=== PATIENT | female | born 1950 | race Caucasian/White ===

== ENCOUNTER → 2018-01-06 07:13 | Outpatient (CLI) | payer MEDICARE, MEDICAID, SELFPAY ==
--- NOTE | 2018-01-06 07:17 | CT_ITS ---
STUDY: CT CHEST WITH CONTRAST REASON FOR EXAM: Female, 67 years old. Follow-up of a known thoracic aortic aneurysm. RADIATION DOSAGE (If Supplied By Facility): CTDIvol = ( 12.21 ) mGy, DLP = ( 497.16 ) mGycm TECHNIQUE: Transaxial imaging was performed following intravenous administration of 100CC ml of Isovue 250 contrast material. Multiplanar coronal and sagittal images were reformatted. Individualized dose optimization techniques were used for this CT. COMPARISON: Comparison is made with prior study dated September 27, 2014. FINDINGS: Slight inhomogeneous enlargement of the left lobe of the thyroid gland suggestive of a goitrous change. The lungs are normal. There is no demonstrated pleural abnormality. Normal heart and pericardium. There are multiple small lymph nodes within the mediastinum, which are normal in size and morphology most compatible with reactive lymph hyperplasia. Normal hilar regions. Normal enhanced pulmonary arteries. The ascending aorta is dilated. It presently measures 4.48 cm. There is evidence of aberrant origin of the right subclavian artery arising from the aortic arch distal to the origin of the left subclavian vein. This crosses posterior to the esophagus. There are multi-level degenerative changes of the thoracic spine. There is no demonstrated abnormality of the visualized upper abdomen. CT/Chest WITH Contrast IMPRESSION: For the dilatation of the ascending aorta at its origin with a transverse dimension of 4.48 cm. Aberrant origin of the right subclavian artery. Electronically Signed: Brandon Uribe MD at 11:27 EDT Tel [phone], Service support ,
== END ==
PROVIDERS: Family Provider Family Medicine; PCP Family Medicine; Visit Provider Nurse Practitioner Family
DX: I71.9 Aortic aneurysm of unspecified site, without rupture (principal)
CPT/HCPCS: 71260; Q9967

== ENCOUNTER → 2018-01-20 09:00 | Outpatient (CLI) | payer MEDICARE, MEDICAID, SELFPAY ==
--- NOTE | 2018-01-20 09:03 | ECHOD_ITS ---
Reason For Study: SOB Procedure This was a 2D Doppler, Color Flow transthoracic echocardiogram. Exam performed in department. Left Ventricle Normal LV size. Left ventricular systolic function is lower limits of normal. The estimated ejection fraction is 50 %. No regional wall motion abnormalities noted. Tricuspid Valve Normal tricuspid valve. Mild (1+) tricuspid valve insufficiency. Pulmonary artery systolic pressure is 26 mmHg. Aortic Valve Trisinus/trileaflet aortic valve. Mild (1+) aortic valve insufficiency. Pulmonic Valve Normal pulmonic valve. Great Vessels Mildly dilated aortic root. The pulmonary artery is normal size. Normal inferior vena cava. Pericardium/Pleural No pericardial effusion. MMode/2D Measurements & Calculations LVIDd: 4.8 cm IVSd: 0.96 cm Ao root diam: 4.0 cm LVIDs: 2.9 cm LVPWd: 0.95 cm LA dimension: 2.9 cm RVDd: 3.1 cm FS: 38.3 % LAV(MOD-bp): 30.4 ml LA A4 area: 12.0 cm2 RA A4 area: 14.3 cm2 LAV(MOD-bp) Indexed: 14.5 ml/m2 LAV(MOD-sp2): 34.7 ml LAV(MOD-sp4): 28.1 ml Doppler Measurements & Calculations MV E max nakul: 40.0 cm/sec Lat Peak E' Nakul: 6.8 cm/sec Med Peak E' Nakul: 4.4 cm/sec MV A max nakul: 110.6 cm/sec E/E' lat: 5.8 E/E' med: 9.1 MV E/A: 0.36 Ao V2 max: 148.3 cm/sec LV V1 max: 118.5 cm/sec PA V2 max: 114.6 cm/sec Ao max P.8 mmHg LV V1 max P.6 mmHg Ao V2 mean: 106.3 cm/sec Ao mean P.0 mmHg Ao V2 VTI: 27.2 cm TR max nakul: 231.6 cm/sec TR max P.5 mmHg Interpretation Summary Normal LV size. Left ventricular systolic function is lower limits of normal. The estimated ejection fraction is 50 %. Mildly dilated aortic root. Mild (1+) aortic valve insufficiency. Ordering Physician: Patrick Morris Referring Physician: Faheem Marrero Performed By: Anna Morris, JENNIFER, RVT
== END ==
PROVIDERS: Family Provider Family Medicine; PCP Family Medicine; Visit Provider Nurse Practitioner Family
DX: R06.02 Shortness of breath (principal); I71.9 Aortic aneurysm of unspecified site, without rupture; R60.9 Edema, unspecified
CPT/HCPCS: 93306

== ENCOUNTER → 2019-07-28 | Outpatient (CLI) | payer MEDICARE, MEDICAID, SELFPAY ==
[2019-07-28 09:01] VITALS: BMI 30.8
[2019-07-28 12:03] LABS: Anion Gap 7 (5-15); BUN 16 mg/dL (7-18); BUN/Creat Ratio 18.8 RATIO (10-20); Calcium,Total 9.1 mg/dL (8.5-10.1); Chloride 106 mmol/L (98-107); Creatinine, Serum 0.85 mg/dL (0.55-1.02); EST Glomerular Filtration Rate 70 mL/min (>60); Est Glom Filt Rate - Afr Amer 85 mL/min (>60); Glucose 87 mg/dL (74-106); Potassium 3.7 mmol/L (3.5-5.1); Sodium Level 141 mmol/L (136-145)
[2019-07-28 12:04] LABS: BNP,B-Type NATRIURETIC PEPTIDE 102.3 pg/mL (0-100)
== END | disposition home or self-care (01) ==
PROVIDERS: Family Provider Family Medicine; PCP Family Medicine; Referring Provider Internal Medicine Cardiovascular Disease; Visit Provider Internal Medicine Cardiovascular Disease
DX: R07.9 Chest pain, unspecified (principal)
CPT/HCPCS: 36415; 80048; 83880

== ENCOUNTER → 2020-03-12 | Outpatient (CLI) | payer MEDICARE, MEDICAID, SELFPAY ==
[2020-01-31 09:53] VITALS: BMI 30.8
[2020-03-12 08:02] LABS: AST(SGOT) 18 U/L (15-37); Alanine Aminotransfer ALT/SGPT 24 U/L (13-56); Albumin, Serum 3.7 g/dL (3.2-5.0); Alkaline Phosphatase 53 U/L (45-117); Anion Gap 7 (5-15); BUN 15 mg/dL (7-18); BUN/Creat Ratio 13.9 RATIO (10-20); Bilirubin, Direct 0.14 mg/dL (0.00-0.30); Chloride 108 mmol/L (98-107); Cholesterol 196 mg/dL (200); Creatinine, Serum 1.08 mg/dL (0.55-1.02); EST Glomerular Filtration Rate 53 mL/min (>60); Est Glom Filt Rate - Afr Amer 64 mL/min (>60); Globulin 3.4 g/dL (2.2-4.2); Glucose 116 mg/dL (74-106); High Density Lipoprotein 52 mg/dL; Potassium 3.6 mmol/L (3.5-5.1); Protein, Total 7.1 g/dL (6.4-8.2); Sodium Level 142 mmol/L (136-145); Triglycerides 117 mg/dL; Very Low Density Lipoprotein 23 mg/dL (5-40)
--- NOTE | 2020-03-12 10:03 | STRESSREP ---
Stress Test Report Pharmacologic myocardial perfusion stress test. 69-year-old lady with a history of chest pain. Stress protocol: Resting EKG demonstrates atrial fibrillation with a rate of [address] changes noted. 0.4 mg of regadenoson was infused per usual protocol followed by rapid intravenous saline flush injection continuous EKG monitoring was performed. The maximum heart rate attained was 121 bpm which was 80% of maximum predicted heart rate the maximum workload was 1 metabolic equivalent. At rest there were no ST or T wave changes noted to suggest ischemia at peak infusion nonspecific ST-T wave changes were noted. The resting blood pressure 110/80 with a final blood pressure 118/80. Myocardial perfusion protocol. 15.0 mCi of technetium 99m sestamibi was injected at rest. 0.4 mg of regadenoson was infused per usual protocol. At peak infusion 45.0 mCi of technetium 99m sestamibi was injected stress images were obtained stress and resting images were reconstructed and compared in the short axis vertical long horizontal long axis. Gated images were also obtained Perfusion SPECT analysis: Review of the stress images demonstrate normal uptake of tracer noted in all areas of the myocardium the resting images similarly demonstrate normal uptake of tracer noted in all areas of the myocardium. No reversibility is noted to suggest ischemia no infarct is noted. Gated SPECT analysis: The gated ejection fraction is 44%. Conclusion: Atrial fibrillation. No evidence of myocardial ischemia noted. Mild global left ventricular systolic dysfunction.
== END | disposition home or self-care (01) ==
PROVIDERS: PCP Family Medicine; Referring Provider Physician Assistant Medical; Visit Provider Physician Assistant Medical
DX: R07.9 Chest pain, unspecified (principal); I48.91 Unspecified atrial fibrillation; I71.2 Thoracic aortic aneurysm, without rupture; I10 Essential (primary) hypertension
CPT/HCPCS: 36415; 78452; 80048; 80061; 80076; 93017; 93225; 93226; A9500; A4216; J2785

== ENCOUNTER → 2020-03-21 10:12 | Outpatient (CLI) | payer MEDICARE, MEDICAID, SELFPAY ==
[2020-01-31 09:53] VITALS: BMI 30.8
--- NOTE | 2020-03-21 10:13 | ECHOD_ITS ---
Reason For Study: AFIB/FLUTTER Procedure This was a 2D Doppler, Color Flow transthoracic echocardiogram. Exam performed in department. Left Ventricle Normal LV size. Left ventricular systolic function is lower limits of normal. The estimated ejection fraction is 50 %. Stage 1 diastolic dysfunction. No regional wall motion abnormalities noted. Right Ventricle Normal RV size. Normal systolic function. Atria The left atrium is mildly enlarged. Normal right atrium. Mitral Valve Normal mitral valve. Trivial eccentric mitral valve insufficiency. Tricuspid Valve Normal tricuspid valve. Mild (1+) tricuspid valve insufficiency. Pulmonary artery systolic pressure is 30 mmHg. Aortic Valve Trisinus/trileaflet aortic valve. Pulmonic Valve Normal pulmonic valve. Great Vessels Mild to moderately dilated aortic root. The pulmonary artery is normal size. Normal inferior vena cava. Pericardium/Pleural No pericardial effusion. MMode/2D Measurements & Calculations LVIDd: 4.6 cm IVSd: 1.2 cm Ao root diam: 4.1 cm LVIDs: 3.2 cm LVPWd: 1.1 cm RVDd: 3.7 cm FS: 30.4 % LAV(MOD-bp): 67.1 ml LA A4 area: 22.2 cm2 LA dimension(2D): 3.5 cm LAV(MOD-bp) Indexed: 31.2 ml/m2 LAV(MOD-sp2): 67.6 ml LAV(MOD-sp4): 65.9 ml RA A4 area: 20.5 cm2 Time Measurements MV dec time: 0.20 sec Doppler Measurements & Calculations MV E max nakul: 76.3 cm/sec Lat Peak E' Nakul: 8.5 cm/sec Med Peak E' Nakul: 6.2 cm/sec MV A max nakul: 93.1 cm/sec E/E' lat: 9.0 E/E' med: 12.3 MV E/A: 0.82 Ao V2 max: 144.3 cm/sec LV V1 max: 109.4 cm/sec PA V2 max: 122.9 cm/sec Ao max P.3 mmHg LV V1 max P.8 mmHg TR max nakul: 259.0 cm/sec TR max P.9 mmHg Interpretation Summary Normal LV size. Left ventricular systolic function is lower limits of normal. The estimated ejection fraction is 50 %. The left atrium is mildly enlarged. Stage 1 diastolic dysfunction. Compared to previous study, the left ventricular systolic function is the same.. Ordering Physician: Annamarie Nuñez Referring Physician: Faheem Marrero Performed By: Vera Phan RDCS, RVT
== END ==
PROVIDERS: PCP Family Medicine; Referring Provider Physician Assistant Medical; Visit Provider Physician Assistant Medical
DX: I48.91 Unspecified atrial fibrillation (principal); I48.92 Unspecified atrial flutter; R06.02 Shortness of breath
CPT/HCPCS: 93306

== ENCOUNTER → 2020-04-06 12:26 | Outpatient (CLI) | payer MEDICARE, MEDICAID, SELFPAY ==
[2020-04-06 11:34] VITALS: BMI 30.7
[2020-04-06 13:28] LABS: Absolute Lymphocyte Count 2.76 X10^3/uL (0.83-4.51); Absolute Neutrophil Count 5.7 X10^3/uL (2.0-7.7); Basophil# 0.03 X10^3/uL; Basophil% 0.3 % (0-1); Eosinophil# 0.11 X10^3/uL; Eosinophils% 1.2 % (0-5); Hematocrit 37.3 % (37-47); Hemoglobin 11.8 g/dL (12.0-15.0); Lymphocyte # 2.76 X10^3/ul (4.0); Lymphocyte % 30.3 % (19-41); Mean Corp Hgb Conc 31.6 g/dL (32-36); Mean Corpuscular Hgb 30.8 pg (27.0-32.0); Mean Corpuscular Volume 97.4 fL (81-99); Mean Platelet Vol. 11.4 fl (6.2-12.0); Monocyte# 0.52 X10^3/uL; Monocyte% 5.7 % (0-10); NRBC Flagged by Analyzer 0 % (0-5); Neutrophil # 5.67 X10^3/uL (2.7-7.7); Neutrophil % 62.2 % (47-70); Platelet Count 261 K/mm3 (150-450); RBC Distribution Width CV 12.4 % (11.6-14.6); RBC Distribution Width SD 43.8 fl (35.1-43.9); Red Blood Count 3.83 M/mm3 (4.2-5.4); White Blood Count 9.1 K/mm3 (4.4-11.0)
[2020-04-06 13:55] LABS: BNP,B-Type NATRIURETIC PEPTIDE 96.1 pg/mL (0-100)
== END ==
PROVIDERS: PCP Family Medicine; Referring Provider Physician Assistant Medical; Visit Provider Physician Assistant Medical
DX: R06.02 Shortness of breath (principal); I71.2 Thoracic aortic aneurysm, without rupture
CPT/HCPCS: 36415; 83880; 85025

== ENCOUNTER → 2020-07-20 | Outpatient (CLI) | payer MEDICARE, MEDICAID, SELFPAY ==
[2020-07-20 09:39] VITALS: BMI 30.9
[2020-07-20 11:10] LABS: Absolute Lymphocyte Count 2.23 X10^3/uL (0.83-4.51); Basophil# 0.02 X10^3/uL; Basophil% 0.3 % (0-1); Eosinophil# 0.12 X10^3/uL; Eosinophils% 1.5 % (0-5); Hemoglobin 12.2 g/dL (12.0-15.0); Lymphocyte # 2.23 X10^3/ul (4.0); Lymphocyte % 28.6 % (19-41); Mean Corp Hgb Conc 32.1 g/dL (32-36); Mean Corpuscular Hgb 31.2 pg (27.0-32.0); Mean Corpuscular Volume 97.2 fL (81-99); Mean Platelet Vol. 11.2 fl (6.2-12.0); Monocyte# 0.45 X10^3/uL; Monocyte% 5.8 % (0-10); NRBC Flagged by Analyzer 0 % (0-5); Neutrophil # 4.96 X10^3/uL (2.7-7.7); Neutrophil % 63.5 % (47-70); Platelet Count 276 K/mm3 (150-450); RBC Distribution Width SD 42.5 fl (35.1-43.9); Red Blood Count 3.91 M/mm3 (4.2-5.4); White Blood Count 7.8 K/mm3 (4.4-11.0)
[2020-07-20 11:44] LABS: BNP,B-Type NATRIURETIC PEPTIDE 115.2 pg/mL (0-100)
[2020-07-20 11:54] LABS: Anion Gap 4 (5-15); BUN 15 mg/dL (7-18); BUN/Creat Ratio 14.7 RATIO (10-20); Calcium,Total 9.4 mg/dL (8.5-10.1); Chloride 105 mmol/L (98-107); Creatinine, Serum 1.02 mg/dL (0.55-1.02); EST Glomerular Filtration Rate 57 mL/min (>60); Est Glom Filt Rate - Afr Amer 69 mL/min (>60); Glucose 132 mg/dL (74-106); Potassium 3.5 mmol/L (3.5-5.1); Sodium Level 138 mmol/L (136-145); Thyroid Stim Hormone (TSH) 0.61 uIU/mL (0.358-3.74)
== END | disposition home or self-care (01) ==
LOC: LAB 10:27
PROVIDERS: Referring Provider Physician Assistant Medical; Visit Provider Physician Assistant Medical
DX: I10 Essential (primary) hypertension (principal); R06.00 Dyspnea, unspecified; R53.83 Other fatigue; R06.02 Shortness of breath; R07.9 Chest pain, unspecified
CPT/HCPCS: 36415; 80048; 83880; 84443; 85025

== ENCOUNTER → 2021-03-05 10:07 | Outpatient (CLI) | payer MEDICARE, MEDICAID, SELFPAY ==
[2021-03-05 07:55] VITALS: BMI 30.4
[2021-03-05 11:35] LABS: ALB/GLOB Ratio 1.1 RATIO (0.9-2.4); AST(SGOT) 24 U/L (15-37); Alanine Aminotransfer ALT/SGPT 24 U/L (13-56); Albumin, Serum 3.8 g/dL (3.2-5.0); Alkaline Phosphatase 63 U/L (45-117); Anion Gap 6 (5-15); BUN 17 mg/dL (7-18); BUN/Creat Ratio 20.3 RATIO (10-20); Bilirubin, Direct 0.14 mg/dL (0.00-0.30); Calcium,Total 9.1 mg/dL (8.5-10.1); Chloride 107 mmol/L (98-107); Cholesterol 207 mg/dL (200); Creatinine, Serum 0.84 mg/dL (0.55-1.02); EST Glomerular Filtration Rate 71 mL/min (>60); Est Glom Filt Rate - Afr Amer 86 mL/min (>60); Globulin 3.6 g/dL (2.2-4.2); Glucose 86 mg/dL (74-106); High Density Lipoprotein 60 mg/dL; Potassium 3.6 mmol/L (3.5-5.1); Protein, Total 7.4 g/dL (6.4-8.2); Sodium Level 141 mmol/L (136-145); Triglycerides 102 mg/dL; Very Low Density Lipoprotein 20 mg/dL (5-40)
== END ==
PROVIDERS: Referring Provider Internal Medicine Cardiovascular Disease; Visit Provider Internal Medicine Cardiovascular Disease
DX: I48.0 Paroxysmal atrial fibrillation (principal); I71.2 Thoracic aortic aneurysm, without rupture
CPT/HCPCS: 36415; 80053; 80061; 82248

== ENCOUNTER → 2021-03-11 09:21 | Outpatient (CLI) | payer MEDICARE, MEDICAID, SELFPAY ==
[2021-03-05 07:55] VITALS: BMI 30.4
--- NOTE | 2021-03-11 09:22 | CT_ITS ---
STUDY: CTA CHEST REASON FOR EXAM: Female, 70 years old. Acute chest pain RADIATION DOSAGE (If Supplied By Facility): CTDIvol = ( 12.54 ) mGy, DLP = ( 559.55 ) mGycm TECHNIQUE: The examination was performed with the intravenous administration of IV 100mL Isovue-370. Post-processing of the angiographic images was performed, with multiplanar reformation and 3D reconstruction. Individualized dose optimization techniques were used for this CT. COMPARISON: 03/08/2018 FINDINGS: Soft tissue windows again show enlargement of the left lobe of the thyroid gland with multiple low-density nodule suggesting goiter. Normal enhancement of the main pulmonary artery and right and left pulmonary arteries. Normal enhancement of the bilateral peripheral pulmonary arteries. There is no demonstrated pulmonary embolism. There is stable aneurysmal dilatation of the ascending aorta. The transverse diameter of the ascending aorta again measures approximately 4.4 cm''s. There is no demonstrated aortic dissection. Normal heart and pericardium. Normal mediastinum. Normal hilar regions. Normal visualized trachea and bronchi. The lungs are well expanded. Normal pulmonary parenchyma. Normal pleura. Normal chest wall structures. There are degenerative changes of thoracic spine. Limited cuts through the upper abdomen show fatty infiltration of the liver, no discrete lesion CT/CTA Chest W/WO Contrast IMPRESSION: No demonstrated PE or acute pulmonary process Stable aneurysmal dilatation of the ascending thoracic aorta at 4.4 cm. Electronically Signed: Juan Manuel Ivory MD at 11:58 EDT , Service support ,
== END ==
PROVIDERS: Referring Provider Internal Medicine Cardiovascular Disease; Visit Provider Internal Medicine Cardiovascular Disease
DX: I71.2 Thoracic aortic aneurysm, without rupture (principal)
CPT/HCPCS: 71275; Q9967

== ENCOUNTER → 2021-04-12 09:56 | Outpatient (CLI) | payer MEDICARE, MEDICAID, SELFPAY ==
[2021-04-12 09:28] VITALS: BMI 30.4
--- NOTE | 2021-04-12 10:31 | RAD_ITS ---
STUDY: X-RAY - LEFT ANKLE REASON FOR EXAM: Left ankle pain and swelling, no specific injury. TECHNIQUE: 3 view(s) of the ankle. COMPARISON: None. FINDINGS: Normal visualized distal tibia and fibula. Normal medial and lateral malleoli. Normal tibiotalar articulation and ankle mortise. There is a small plantar calcaneal enthesophyte. Otherwise, unremarkable visualized talus and calcaneus. The visualized subtalar, talonavicular, calcaneocuboid and tarsal articulations are normal. There is mild soft tissue swelling. RAD/Ankle min 3 Views IMPRESSION: Mild soft tissue swelling. Small plantar calcaneal enthesophyte. Electronically Signed: Erwin Stinson MD at 13:15 EDT Tel , Service support ,
[2021-04-12 12:18] LABS: Absolute Lymphocyte Count 1.81 X10^3/uL (0.83-4.51); Absolute Neutrophil Count 4.5 X10^3/uL (2.0-7.7); Basophil# 0.02 X10^3/uL; Basophil% 0.3 % (0-1); Eosinophil# 0.13 X10^3/uL; Eosinophils% 1.9 % (0-5); Lymphocyte # 1.81 X10^3/ul (0.83-4.51); Lymphocyte % 26.4 % (19-41); Mean Corp Hgb Conc 31.6 g/dL (32-36); Mean Corpuscular Hgb 30.2 pg (27.0-32.0); Mean Corpuscular Volume 95.5 fL (81-99); Monocyte# 0.39 X10^3/uL; Monocyte% 5.7 % (0-10); NRBC Flagged by Analyzer 0 % (0-5); Neutrophil # 4.49 X10^3/uL (2.7-7.7); Neutrophil % 65.4 % (47-70); Platelet Count 226 K/mm3 (150-450); RBC Distribution Width CV 12.3 % (11.6-14.6); RBC Distribution Width SD 42.7 fl (35.1-43.9); Red Blood Count 3.98 M/mm3 (4.2-5.4); White Blood Count 6.9 K/mm3 (4.4-11.0)
== END ==
PROVIDERS: PCP Internal Medicine; Referring Provider Internal Medicine; Visit Provider Internal Medicine
DX: M25.572 Pain in left ankle and joints of left foot (principal); I10 Essential (primary) hypertension
CPT/HCPCS: 36415; 73610; 85025

== ENCOUNTER → 2021-04-25 13:21 | Outpatient (CLI) | payer MEDICARE, MEDICAID, SELFPAY ==
[2021-04-12 09:28] VITALS: BMI 30.4
--- NOTE | 2021-04-25 13:23 | BI_ITS ---
MAMMOGRAPHY - BILATERAL SCREENING REASON FOR EXAM: Female, 70 years old. Routine annual screening examination. PERTINENT HISTORY: Non-contributory. TECHNIQUE: Digital bilateral breast santiago (3D mammographic acquisition) in the CC and MLO projections. 2-D mediolateral oblique (MLO) and craniocaudad (CC) views of both breasts were obtained. CAD: Full Field Digital Mammography with Computer Added Detection was performed. COMPARISON: Comparison is made with prior outside examination dated 08/31/2017. FINDINGS: Breast Composition: There are scattered areas of fibroglandular density. There are no dominant masses or suspicious calcifications. Stable small benign-appearing bilateral axillary lymph nodes. No other significant abnormalities are identified. There has been no significant change since the prior study. BI/SCRN MAMM (CAD)W/SANTIAGO BILAT IMPRESSION: Stable bilateral screening mammogram. Yearly follow-up mammogram recommended. (A) ASSESSMENT CATEGORY: BIRADS Category 2: Benign. A letter regarding these results will be sent to the patient by the facility within 30 days. Approximately 10% of breast cancers are not detected by mammography. A normal mammogram should not delay biopsy of a clinically suspicious abnormality. [id number] Electronically Signed: Brandon Uribe MD at 14:40 EDT , Service support ,
--- NOTE | 2021-04-25 13:27 | BD_ITS ---
STUDY: DUAL ENERGY X-RAY ABSORPTIOMETRY / DXA REASON FOR EXAM: Female, 70 years old. Post menopausal TECHNIQUE: Bone Mineral Density (BMD) measurements of lumbar spine and bilateral hips were obtained. COMPARISON: None. FINDINGS: Lumbar Spine (L1-L4): g/cm2 (1.343) / T-score (1.5) / Z-score (3.2) Findings are suggestive of normal bone density with a low fracture risk. Left Femur Total: g/cm2 (1.230) / T-score (1.8) / Z-score (3.3) Left Femoral Neck: g/cm2 (1.132) / T-score (0.7) / Z-score (2.4) Right Femur Total: g/cm2 (1.253) / T-score (1.9) / Z-score (3.5) Right Femoral Neck: g/cm2 (1.235) / T-score (1.4) / Z-score (3.2) BD/Dexa Bone Density Study IMPRESSION: The patient is considered normal as outlined below according to World [employer] Organization (WHO) criteria with a low fracture risk. Reference Information: The T-score is the number of standard deviations above or below the standard which is normal for young adults at their peak bone mineral density. The World Health Organization (WHO) interprets the T-scores as follows: Above -1 Normal bone density Between -1 and -2.5 Osteopenia Equal to / or below -2.5 Osteoporosis As a practical clinical guideline, osteopenia may be graded as follows: Mild -1 through -1.5 Moderate -1.6 through -2.0 Severe -2.1 through -2.4 The Z-score is the number of standard deviations above or below age-matched controls. A Z-score of less than -1.5 would be considered abnormal. References: 1. NIH Osteoporosis and Related Bone Diseases www osteo.org 2. International Society for Clinical Densitometry www iscd.org 3. National Osteoporosis Foundation www nof.org Electronically Signed: Brandon Uribe MD at 15:38 EDT , Service support ,
== END ==
PROVIDERS: PCP Internal Medicine; Referring Provider Internal Medicine; Visit Provider Internal Medicine
DX: Z78.0 Asymptomatic menopausal state (principal); Z12.31 Encounter for screening mammogram for malignant neoplasm of breast
CPT/HCPCS: 77063; 77067; 77080

== ENCOUNTER → 2021-10-11 09:33 | Outpatient (CLI) | payer MEDICARE, MEDICAID, SELFPAY ==
[2021-10-11 12:15] LABS: Absolute Lymphocyte Count 2.15 X10^3/uL (0.83-4.51); Absolute Neutrophil Count 3.5 X10^3/uL (2.0-7.7); Basophil# 0.02 X10^3/uL; Basophil% 0.3 % (0-1); Eosinophil# 0.13 X10^3/uL; Eosinophils% 2.1 % (0-5); Hematocrit 38.9 % (37-47); Hemoglobin 12.3 g/dL (12.0-15.0); Lymphocyte # 2.15 X10^3/ul (0.83-4.51); Lymphocyte % 34.2 % (19-41); Mean Corp Hgb Conc 31.6 g/dL (32-36); Mean Corpuscular Hgb 29.9 pg (27.0-32.0); Mean Corpuscular Volume 94.6 fL (81-99); Mean Platelet Vol. 11.7 fl (6.2-12.0); Monocyte# 0.46 X10^3/uL; Monocyte% 7.3 % (0-10); NRBC Flagged by Analyzer 0 % (0-5); Neutrophil # 3.49 X10^3/uL (2.7-7.7); Neutrophil % 55.6 % (47-70); Platelet Count 211 K/mm3 (150-450); RBC Distribution Width CV 12.1 % (11.6-14.6); RBC Distribution Width SD 41.8 fl (35.1-43.9); Red Blood Count 4.11 M/mm3 (4.2-5.4); White Blood Count 6.3 K/mm3 (4.4-11.0)
[2021-10-11 12:37] LABS: ALB/GLOB Ratio 0.8 RATIO (0.9-2.4); AST(SGOT) 18 U/L (15-37); Alanine Aminotransfer ALT/SGPT 20 U/L (13-56); Albumin, Serum 3.3 g/dL (3.2-5.0); Alkaline Phosphatase 58 U/L (45-117); Anion Gap 3 (5-15); BUN 12 mg/dL (7-18); BUN/Creat Ratio 15.4 RATIO (10-20); Calcium,Total 9.5 mg/dL (8.5-10.1); Chloride 106 mmol/L (98-107); Creatinine, Serum 0.78 mg/dL (0.55-1.02); EST Glomerular Filtration Rate 77 mL/min (>60); Est Glom Filt Rate - Afr Amer 93 mL/min (>60); Glucose 105 mg/dL (74-106); Potassium 3.8 mmol/L (3.5-5.1); Protein, Total 7.3 g/dL (6.4-8.2); Sodium Level 140 mmol/L (136-145)
== END ==
PROVIDERS: PCP Internal Medicine; Visit Provider Internal Medicine
DX: I10 Essential (primary) hypertension (principal)
CPT/HCPCS: 36415; 80053; 85025

== ENCOUNTER → 2022-04-14 | Outpatient (CLI) | payer MEDICARE, MEDICAID, SELFPAY ==
[2022-04-14 12:47] LABS: Basophil# 0.02 X10^3/uL; Basophil% 0.3 % (0-1); Eosinophil# 0.16 X10^3/uL; Eosinophils% 2.4 % (0-5); Hematocrit 36.3 % (37-47); Hemoglobin 11.3 g/dL (12.0-15.0); Lymphocyte % 31.3 % (19-41); Mean Corp Hgb Conc 31.1 g/dL (32-36); Mean Corpuscular Hgb 29.8 pg (27.0-32.0); Mean Corpuscular Volume 95.8 fL (81-99); Mean Platelet Vol. 11.8 fl (6.2-12.0); Monocyte# 0.46 X10^3/uL; Monocyte% 6.9 % (0-10); NRBC Flagged by Analyzer 0 % (0-5); Neutrophil # 3.95 X10^3/uL (2.7-7.7); Neutrophil % 58.8 % (47-70); Platelet Count 254 K/mm3 (150-450); RBC Distribution Width CV 13.1 % (11.6-14.6); RBC Distribution Width SD 45.2 fl (35.1-43.9); Red Blood Count 3.79 M/mm3 (4.2-5.4); White Blood Count 6.7 K/mm3 (4.4-11.0)
[2022-04-14 13:46] LABS: BUN 14 mg/dL (7-18); Creatinine, Serum 0.97 mg/dL (0.55-1.02); Glucose 114 mg/dL (74-106)
[2022-04-14 13:47] LABS: ALB/GLOB Ratio 0.9 RATIO (0.9-2.4); AST(SGOT) 28 U/L (15-37); Alanine Aminotransfer ALT/SGPT 36 U/L (13-56); Albumin, Serum 3.7 g/dL (3.2-5.0); Alkaline Phosphatase 62 U/L (45-117); Anion Gap 7 (5-15); BUN/Creat Ratio 14.5 RATIO (10-20); Calcium,Total 9.6 mg/dL (8.5-10.1); Chloride 106 mmol/L (98-107); Cholesterol 175 mg/dL (200); EST Glomerular Filtration Rate 60 mL/min (>60); Est Glom Filt Rate - Afr Amer 73 mL/min (>60); Globulin 3.9 g/dL (2.2-4.2); High Density Lipoprotein 55 mg/dL; Potassium 3.6 mmol/L (3.5-5.1); Protein, Total 7.6 g/dL (6.4-8.2); Sodium Level 141 mmol/L (136-145); Triglycerides 95 mg/dL; Very Low Density Lipoprotein 19 mg/dL (5-40)
== END | disposition home or self-care (01) ==
PROVIDERS: PCP Internal Medicine; Referring Provider Internal Medicine; Visit Provider Internal Medicine
DX: J44.9 Chronic obstructive pulmonary disease, unspecified (principal); I10 Essential (primary) hypertension
CPT/HCPCS: 36415; 80053; 80061; 85025

== ENCOUNTER → 2022-05-05 | Outpatient (CLI) | payer MEDICARE, MEDICAID, SELFPAY ==
--- NOTE | 2022-05-05 10:33 | BI_ITS ---
MAMMOGRAPHY - BILATERAL SCREENING REASON FOR EXAM: Female, 71 years old. Routine annual screening examination. PERTINENT HISTORY: Non-contributory. TECHNIQUE: Digital bilateral breast santiago (3D mammographic acquisition) in the CC and MLO projections. 2-D mediolateral oblique (MLO) and craniocaudad (CC) views of both breasts were obtained. CAD: Full Field Digital Mammography with Computer Added Detection was performed. COMPARISON: Comparison is made with prior study dated 04/25/2021. FINDINGS: Breast Composition: There are scattered areas of fibroglandular density. There are no dominant masses or suspicious calcifications. Stable benign-appearing bilateral axillary lymph nodes. No other significant abnormalities are identified. There has been no significant change since the prior study. BI/SCRN MAMM (CAD)W/SANTIAGO BILAT IMPRESSION: Stable bilateral screening mammogram. Yearly follow-up mammogram recommended. (A) ASSESSMENT CATEGORY: BIRADS Category 2: Benign. A letter regarding these results will be sent to the patient by the facility within 30 days. Approximately 10% of breast cancers are not detected by mammography. A normal mammogram should not delay biopsy of a clinically suspicious abnormality. [id number] Electronically Signed: Brandon Uribe MD at 11:19 EDT ,
== END | disposition home or self-care (01) ==
LOC: OPBI 10:31
PROVIDERS: PCP Internal Medicine; Visit Provider Internal Medicine
DX: Z12.31 Encounter for screening mammogram for malignant neoplasm of breast (principal)
CPT/HCPCS: 77063; 77067

== ENCOUNTER → 2022-05-16 | Outpatient (CLI) | payer MEDICARE, MEDICAID, SELFPAY ==
[2022-05-16 13:54] LABS: BNP,B-Type NATRIURETIC PEPTIDE 447.2 pg/mL (0-100)
== END | disposition home or self-care (01) ==
PROVIDERS: PCP Internal Medicine; Referring Provider Internal Medicine; Visit Provider Internal Medicine
DX: R06.02 Shortness of breath (principal)
CPT/HCPCS: 36415; 83880

== ENCOUNTER → 2022-05-21 | Outpatient (CLI) | payer MEDICARE, MEDICAID, SELFPAY ==
--- NOTE | 2022-05-21 11:45 | RAD_ITS ---
STUDY: X-RAY CHEST REASON FOR EXAM: Female, 71 years old. SOB/cough TECHNIQUE: PA and lateral views of the chest. COMPARISON: Comparison is made with prior study 08/03/2013. FINDINGS: Hyperinflation. Mild increased markings at the left lung base suggestive of a linear atelectasis and/or scarring. There is no demonstrated pleural abnormality. Normal size heart. Normal mediastinum and vanessa. Normal visualized pulmonary arteries. There is atherosclerotic calcification of the aortic arch with tortuosity. There are diffuse degenerative changes of the visualized thoracic spine. Normal visualized ribs, clavicles, and shoulders. There is no demonstrated abnormality of the visualized soft tissue structures of the upper abdomen. RAD/Chest PA and Lateral IMPRESSION: Hyperinflation. Mild increased markings at the left lung base suggestive of either atelectasis and/or scarring. Electronically Signed: Brandon Uribe MD at 13:28 EDT ,
[2022-05-21 12:49] LABS: Anion Gap 7 (5-15); BUN 12 mg/dL (7-18); Chloride 101 mmol/L (98-107); EST Glomerular Filtration Rate 58 mL/min (>60); Est Glom Filt Rate - Afr Amer 70 mL/min (>60); Glucose 103 mg/dL (74-106); Potassium 3.5 mmol/L (3.5-5.1); Sodium Level 140 mmol/L (136-145)
== END | disposition home or self-care (01) ==
PROVIDERS: PCP Internal Medicine; Referring Provider Nurse Practitioner Gerontology; Visit Provider Nurse Practitioner Gerontology
DX: R06.09 Other forms of dyspnea (principal)
CPT/HCPCS: 36415; 71046; 80048; 83880

== ENCOUNTER → 2022-05-23 | Outpatient (CLI) | payer MEDICARE, MEDICAID, SELFPAY ==
[2022-05-23 10:44] LABS: BNP,B-Type NATRIURETIC PEPTIDE 381.6 pg/mL (0-100)
[2022-05-23 11:00] LABS: Anion Gap 6 (5-15); BUN 13 mg/dL (7-18); BUN/Creat Ratio 14.4 RATIO (10-20); Calcium,Total 9.7 mg/dL (8.5-10.1); Chloride 101 mmol/L (98-107); EST Glomerular Filtration Rate 65 mL/min (>60); Est Glom Filt Rate - Afr Amer 79 mL/min (>60); Glucose 103 mg/dL (74-106); Potassium 3.6 mmol/L (3.5-5.1); Sodium Level 136 mmol/L (136-145)
--- NOTE | 2022-05-24 07:16 | PFT ---
INTRODUCTION: The patient is a 71-year-old female that presents for pulmonary function studies secondary to a diagnosis of COPD. Respiratory therapy reported good patient effort. Bronchodilators were used during testing. INTERPRETATION: Forced expiration spirometry demonstrates the presence of a moderately severe large airways obstructive ventilatory defect. There was no significant response to aerosolized bronchodilators. Spirograms are of good quality but do not plateau indicating slow emptying of the lungs. Body plethysmography was performed and revealed a decreased TLC to 3.15 L, 52% of predicted, indicative of a severe restrictive ventilatory impairment. Diffusing capacity by single breath CO is moderately reduced at 54% of predicted. IMPRESSION: Irreversible moderately severe mixed ventilatory defect with symmetric reduction in diffusing capacity.
== END | disposition home or self-care (01) ==
PROVIDERS: PCP Internal Medicine; Referring Provider Internal Medicine; Visit Provider Internal Medicine
DX: I50.9 Heart failure, unspecified (principal); J44.9 Chronic obstructive pulmonary disease, unspecified
CPT/HCPCS: 36415; 80048; 83880; 94060; 94726; 94729

== ENCOUNTER → 2022-05-30 | Outpatient (CLI) | payer MEDICARE, MEDICAID, SELFPAY ==
--- NOTE | 2022-05-30 08:02 | CT_ITS ---
EXAM: CT CHEST WITH INTRAVENOUS CONTRAST CLINICAL INDICATION: Thoracic aortic aneurysm TECHNIQUE: Helically acquired images were obtained of the chest with intravenous contrast. This CT exam was performed using one or more of the following dose reduction techniques: automated exposure control, adjustment of the mA and/or kV according to patient size, and/or use of iterative reconstruction technique. This report was created using [employer] report generation technology. CONTRAST: IV 100mL Isovue-370 COMPARISON: CTA chest March 11, 2021 FINDINGS: LUNGS AND PLEURAL SPACES: Normal. No mass. No consolidation or edema. No pleural effusion or thickening. No pneumothorax. HEART: Heart is mildly enlarged slightly increased in size from prior exam. No pericardial effusion. No significant coronary artery calcifications. MEDIASTINUM: Normal. No mediastinal or hilar adenopathy. Esophagus is unremarkable. No hiatal hernia. THYROID: 14 mm right thyroid nodule. BONES/JOINTS: Normal. No suspicious lytic or blastic abnormality. VASCULATURE: SMA thoracic aorta measures 4.5 cm in maximum diameter slightly increased in size from prior exam. Caliber of the aortic arch and descending thoracic aorta is normal. No aortic dissection. No evidence of pulmonary embolism. OTHER FINDINGS: Aberrant right subclavian again noted. CT/CTA Chest W/WO Contrast IMPRESSION: 1. 4.5 cm aneurysm of the ascending thoracic aorta. No aortic dissection. Aberrant right subclavian artery. 2. Mild cardiomegaly. Electronically Signed: Power Leach MD at 14:14 EDT Reading Location ID and State: [facility] / [place] Tel , Service support ,
== END | disposition home or self-care (01) ==
LOC: CT 08:01
PROVIDERS: PCP Internal Medicine; Visit Provider Nurse Practitioner Gerontology
DX: I71.2 Thoracic aortic aneurysm, without rupture (principal)
CPT/HCPCS: 71275; Q9967

== ENCOUNTER → 2022-06-06 | Outpatient (CLI) | payer MEDICARE, MEDICAID, SELFPAY ==
--- NOTE | 2022-06-06 10:06 | ECHOD_ITS ---
Reason For Study: CHF Procedure This was a 2D Doppler, Color Flow transthoracic echocardiogram. Exam performed in department. Left Ventricle Normal LV size. Mild to moderate global left ventricular systolic dysfunction. The estimated ejection fraction is 40 %. There is mild to moderate global hypokinesis of the left ventricle. Right Ventricle Normal RV size. Normal systolic function. Atria The left atrium is moderately enlarged. The right atrium is moderately enlarged. Mitral Valve Normal mitral valve. Tricuspid Valve Normal tricuspid valve. Mild tricuspid valve insufficiency. Pulmonary artery systolic pressure is 29 mmHg. Aortic Valve Trisinus/trileaflet aortic valve. Trivial aortic valve insufficiency. Pulmonic Valve Normal pulmonic valve. Great Vessels Moderately dilated aortic root. The pulmonary artery is normal size. Inferior vena cava collapse with sniff. Pericardium/Pleural No pericardial effusion. MMode/2D Measurements & Calculations LVIDd: 4.6 cm IVSd: 0.70 cm Ao root diam: 4.5 cm LVIDs: 3.2 cm LVPWd: 1.3 cm RVDd: 3.4 cm FS: 29.2 % LAV(MOD-bp): 87.8 ml LVAd ap4: 24.7 cm2 SV(MOD-sp4): 26.1 ml LAV(MOD-bp) Indexed: 41.5 ml/m2 LVLd ap4: 7.3 cm LAV(MOD-sp2): 84.6 ml EDV(MOD-sp4): 73.7 ml LAV(MOD-sp4): 76.9 ml EDV(sp4-el): 71.0 ml LVAs ap4: 19.2 cm2 LVLs ap4: 6.9 cm ESV(MOD-sp4): 47.6 ml ESV(sp4-el): 45.3 ml EF(MOD-sp4): 35.4 % EF(sp4-el): 36.2 % SV(sp4-el): 25.7 ml LA A4 area: 25.6 cm2 LA dimension(2D): 4.4 cm RA A4 area: 26.9 cm2 Doppler Measurements & Calculations MV E max nery: 97.9 cm/sec Ao V2 max: 142.5 cm/sec LV V1 max: 94.7 cm/sec Ao max P.3 mmHg LV V1 max P.7 mmHg Ao V2 mean: 100.0 cm/sec LV V1 mean P.3 mmHg Ao mean P.5 mmHg LV V1 mean: 71.1 cm/sec Ao V2 VTI: 29.3 cm LV V1 VTI: 16.7 cm PA V2 max: 95.9 cm/sec TR max nery: 256.2 cm/sec TR max P.3 mmHg ECHO/Echo Complete Interpretation Summary Normal LV size. Mild to moderate global left ventricular systolic dysfunction. The estimated ejection fraction is 40 %. There is mild to moderate global hypokinesis of the left ventricle. The left atrium is moderately enlarged. The right atrium is moderately enlarged. Pulmonary artery systolic pressure is 29 mmHg. Compared to previous study, the left ventricular systolic function has worsened .. Ordering Physician: Fam Jasso Referring Physician: Fam Jasso Performed By: Afshan Hollingsworth RCS
== END | disposition home or self-care (01) ==
PROVIDERS: PCP Internal Medicine; Visit Provider Internal Medicine
DX: I50.9 Heart failure, unspecified (principal); R06.02 Shortness of breath
CPT/HCPCS: 93306

== ENCOUNTER → 2022-07-02 | Outpatient (CLI) | payer MEDICARE, MEDICAID, SELFPAY ==
[2022-07-02 11:06] LABS: Absolute Lymphocyte Count 2.07 X10^3/uL (0.83-4.51); Absolute Neutrophil Count 4.1 X10^3/uL (2.0-7.7); Basophil# 0.02 X10^3/uL; Basophil% 0.3 % (0-1); Eosinophil# 0.08 X10^3/uL; Eosinophils% 1.2 % (0-5); Hematocrit 38.5 % (37-47); Hemoglobin 12.1 g/dL (12.0-15.0); Lymphocyte # 2.07 X10^3/ul (0.83-4.51); Lymphocyte % 30.7 % (19-41); Mean Corp Hgb Conc 31.4 g/dL (32-36); Mean Corpuscular Hgb 29.7 pg (27.0-32.0); Mean Corpuscular Volume 94.6 fL (81-99); Mean Platelet Vol. 11.7 fl (6.2-12.0); Monocyte# 0.48 X10^3/uL; Monocyte% 7.1 % (0-10); NRBC Flagged by Analyzer 0 % (0-5); Neutrophil # 4.07 X10^3/uL (2.7-7.7); Neutrophil % 60.4 % (47-70); Platelet Count 229 K/mm3 (150-450); RBC Distribution Width CV 14.1 % (11.6-14.6); RBC Distribution Width SD 48.8 fl (35.1-43.9); Red Blood Count 4.07 M/mm3 (4.2-5.4); White Blood Count 6.7 K/mm3 (4.4-11.0)
[2022-07-02 11:20] LABS: BNP,B-Type NATRIURETIC PEPTIDE 425.3 pg/mL (0-100)
[2022-07-02 11:32] LABS: Anion Gap 7 (5-15); BUN 16 mg/dL (7-18); BUN/Creat Ratio 17.5 RATIO (10-20); Calcium,Total 9.6 mg/dL (8.5-10.1); Chloride 103 mmol/L (98-107); Creatinine, Serum 0.92 mg/dL (0.55-1.02); EST Glomerular Filtration Rate 64 mL/min (>60); Est Glom Filt Rate - Afr Amer 77 mL/min (>60); Glucose 110 mg/dL (74-106); Potassium 3.5 mmol/L (3.5-5.1); Sodium Level 140 mmol/L (136-145); Thyroid Stim Hormone (TSH) 0.72 uIU/mL (0.358-3.74)
== END | disposition home or self-care (01) ==
PROVIDERS: PCP Internal Medicine; Referring Provider Nurse Practitioner Gerontology; Visit Provider Nurse Practitioner Gerontology
DX: R06.09 Other forms of dyspnea (principal); I50.9 Heart failure, unspecified; I48.0 Paroxysmal atrial fibrillation; R53.83 Other fatigue
CPT/HCPCS: 36415; 80048; 83735; 83880; 84443; 85025

== ENCOUNTER → 2022-07-14 | Outpatient (CLI) | payer MEDICARE, MEDICAID, SELFPAY ==
[2022-07-14 13:12] LABS: Anion Gap 11 (5-15); BUN 19 mg/dL (7-18); BUN/Creat Ratio 17.4 RATIO (10-20); Calcium,Total 9.8 mg/dL (8.5-10.1); Chloride 100 mmol/L (98-107); Creatinine, Serum 1.09 mg/dL (0.55-1.02); EST Glomerular Filtration Rate 52 mL/min (>60); Est Glom Filt Rate - Afr Amer 63 mL/min (>60); Glucose 145 mg/dL (74-106); Potassium 3.1 mmol/L (3.5-5.1); Sodium Level 140 mmol/L (136-145)
== END | disposition home or self-care (01) ==
LOC: LAB 10:05
PROVIDERS: PCP Internal Medicine; Referring Provider Nurse Practitioner Gerontology; Visit Provider Nurse Practitioner Gerontology
DX: R06.09 Other forms of dyspnea (principal)
CPT/HCPCS: 36415; 80048

== ENCOUNTER → 2022-07-16 | Outpatient (CLI) | payer MEDICARE, MEDICAID, SELFPAY ==
--- NOTE | 2022-07-16 17:18 | STRESSREP ---
Stress Test Report Pharmacologic myocardial perfusion stress test. 71-year-old lady with a history of abnormal EKG with atrial fibrillation. Stress protocol: Resting EKG demonstrates atrial fibrillation with a rate of 103 bpm normal intervals are noted resting blood pressure is 114/78 mmHg. 0.4 mg of regadenoson was infused per usual protocol followed by rapid intravenous saline flush injection continuous EKG monitoring is performed the maximum heart rate was 127 bpm which was 85% of max impacted heart rate the maximum workload was 1 metabolic equivalent. At rest there were no ST or T wave changes noted to suggest abnormal flow reserve and at peak infusion nonspecific ST changes were noted with did not meet the criteria for ischemia. No clinical angina was noted the final blood pressure was 110/74. Myocardial perfusion protocol. 14.4 mCi of technetium 99m sestamibi was injected at rest. 0.4 mg of regadenoson was infused per usual protocol. At peak infusion 44.1 mCi of technetium 99m sestamibi was injected. Stress images were obtained stress and rest images were reconstructed in comparing the short axis vertical long and horizontal long axis. Gated images were also obtained. Perfusion SPECT analysis: Review of the stress images demonstrate normal uptake of tracer noted in all areas of the myocardium. The resting images similarly demonstrate normal uptake of tracer noted in all areas of the myocardium. No areas of reversibility are noted suggest ischemia and no previous infarct is noted. Gated SPECT analysis: The gated ejection fraction is 55%. Conclusion: Normal pharmacologic myocardial perfusion stress test. Atrial fibrillation noted. Preserved ejection fraction.
== END | disposition home or self-care (01) ==
LOC: CVS 06:43
PROVIDERS: PCP Internal Medicine; Referring Provider Nurse Practitioner Gerontology; Visit Provider Nurse Practitioner Gerontology
DX: R94.31 Abnormal electrocardiogram [ECG] [EKG] (principal)
CPT/HCPCS: 78452; 93017; A9500; A4216; J2785

== ENCOUNTER → 2022-07-31 | Outpatient (CLI) | payer MEDICARE, MEDICAID, SELFPAY ==
[2022-07-31 12:55] LABS: BNP,B-Type NATRIURETIC PEPTIDE 354.8 pg/mL (0-100)
[2022-07-31 13:09] LABS: Anion Gap 7 (5-15); BUN 25 mg/dL (7-18); BUN/Creat Ratio 19.4 RATIO (10-20); Calcium,Total 9.5 mg/dL (8.5-10.1); Chloride 103 mmol/L (98-107); Creatinine, Serum 1.29 mg/dL (0.55-1.02); EST Glomerular Filtration Rate 43 mL/min (>60); Est Glom Filt Rate - Afr Amer 52 mL/min (>60); Glucose 127 mg/dL (74-106); Potassium 3.8 mmol/L (3.5-5.1); Sodium Level 139 mmol/L (136-145)
== END | disposition home or self-care (01) ==
PROVIDERS: PCP Internal Medicine; Referring Provider Nurse Practitioner Gerontology; Visit Provider Nurse Practitioner Gerontology
DX: R06.09 Other forms of dyspnea (principal); E87.6 Hypokalemia
CPT/HCPCS: 36415; 80048; 83880

== ENCOUNTER 2022-08-19 10:19 | Day surgery (SDC) | payer MEDICARE, MEDICAID, SELFPAY ==
[2022-08-18 08:32] VITALS: BMI 31.7
--- NOTE | 2022-08-19 12:45 | OP.PCM_ITS ---
Problems Associated Problem List Diagnoses (1) Paroxysmal atrial fibrillation: Operative Report Date of Procedure: 08/19/22 DC cardioversion. Symptomatic atrial fibrillation. The patient was seen by Dr. Rubalcava of the critical care division after she presented to the cardiac catheterization lab in the postabsorptive nonsedated state. Appropriate counseling was undertaken. Informed consent was obtained. Anterior-posterior pads were applied. EKG confirmed atrial fibrillation. Jahaira ent has been compliant with anticoagulation. The patient was administered a total of 10 mg of intravenous propofol. 200 J of synchronized biphasic energy were applied which was not successful in restoring sinus rhythm and a further 300 J of synchronized biphasic energy was applied which was also not successful. Finally 360 J of biphasic DC cardioversion energy were applied with reversal to sinus rhythm. EKG confirmed the above. Conclusion: Successful DC cardioversion from atrial fibrillation to sinus rhythm. Continue current medical therapy.
--- NOTE | 2022-08-19 14:00 | PCM.OP.PRO ---
Procedure Report Date of Procedure: 08/19/22 CONSCIOUS SEDATION REPORT BRIEF HISTORY OF PRESENT ILLNESS: The patient is a 72-year-old female who presented to [facility] for an elective outpatient cardioversion due to underlying atrial fibrillation. The patient reports no PO intake since midnight, but is currently therapeutic on anticoagulation. The patient does not have a history of PAOLO. The patient reports a history of smoking and COPD. The patient denies any recent constitutional symptoms such as fevers, chills, nausea or vomiting. The patient denies previous applicable anesthetic complications. Patient's last known ejection fraction was 40% PHYSICAL EXAMINATION: VITAL SIGNS: Reviewed and were acceptable. GENERAL: The patient is a female, in no apparent distress, speaking in full sentences. HEENT: Normocephalic, atraumatic. Mucous membranes are moist and pink. Good mouth opening noted. Trachea is midline. Good neck mobility. MP II CHEST: S1, S2 irregularly irregular. No murmurs, rubs or gallops were noted. LUNGS: Clear to auscultation bilaterally without appreciable wheezes, rales or rhonchi. ABDOMEN: Soft, nontender, nondistended. Positive bowel sounds. EXTREMITIES: There is no clubbing, cyanosis or edema. ASA Class: II DESCRIPTION OF PROCEDURE: After confirmation of informed consent, the patient's anesthesia plan was reviewed in detail. Etomidate was chosen. Risks and benefits were reviewed and the patient agreed to proceed. At 12:04 PM, the patient was given 4 mg of etomidate. The patient required a total of 6 mg of etomidate throughout the procedure to achieve appropriate sedation. The patient achieved an appropriate level of sedation and received 3 attempt s synchronized cardioversion, at 200 J, 300 J and [address] Zuleta at the bedside. This was successful in achieving normal sinus rhythm. The patient was monitored until 12:15 PM, at which time the patient reached their baseline mental status and function. The patient tolerated the procedure well. COMPLICATIONS: None ESTIMATED BLOOD LOSS: None RECOMMENDATIONS: Okay to recover in usual fashion. Procedures Pulmonary 9xxxx: [id number] Con Sedation
== END 2022-08-19 13:15 | disposition home or self-care (01) ==
LOC: CLSP 10:19
PROVIDERS: PCP Internal Medicine; Referring Provider Internal Medicine Cardiovascular Disease; Visit Provider Internal Medicine Cardiovascular Disease
DX: I48.0 Paroxysmal atrial fibrillation (principal); J44.9 Chronic obstructive pulmonary disease, unspecified; I11.0 Hypertensive heart disease with heart failure; I50.9 Heart failure, unspecified; K21.9 Gastro-esophageal reflux disease without esophagitis; Z79.01 Long term (current) use of anticoagulants; Z86.73 Personal history of transient ischemic attack (TIA), and cerebral infarction without residual deficits; Z79.899 Other long term (current) drug therapy
CPT/HCPCS: 92960; 93005; J7030

== ENCOUNTER → 2022-08-26 | Outpatient (CLI) | payer MEDICARE, MEDICAID, SELFPAY ==
[2022-08-26 11:55] LABS: Absolute Lymphocyte Count 2.46 X10^3/uL (0.83-4.51); Absolute Neutrophil Count 3.9 X10^3/uL (2.0-7.7); Basophil# 0.02 X10^3/uL; Basophil% 0.3 % (0-1); Eosinophil# 0.17 X10^3/uL; Eosinophils% 2.4 % (0-5); Hematocrit 36.5 % (37-47); Hemoglobin 11.8 g/dL (12.0-15.0); Lymphocyte # 2.46 X10^3/ul (0.83-4.51); Lymphocyte % 34.4 % (19-41); Mean Corp Hgb Conc 32.3 g/dL (32-36); Mean Corpuscular Hgb 30.5 pg (27.0-32.0); Mean Corpuscular Volume 94.3 fL (81-99); Mean Platelet Vol. 11.3 fl (6.2-12.0); Monocyte# 0.55 X10^3/uL; Monocyte% 7.7 % (0-10); NRBC Flagged by Analyzer 0 % (0-5); Neutrophil # 3.93 X10^3/uL (2.7-7.7); Neutrophil % 54.9 % (47-70); Platelet Count 207 K/mm3 (150-450); RBC Distribution Width CV 14.2 % (11.6-14.6); RBC Distribution Width SD 48.9 fl (35.1-43.9); Red Blood Count 3.87 M/mm3 (4.2-5.4); White Blood Count 7.2 K/mm3 (4.4-11.0)
[2022-08-26 12:11] LABS: BNP,B-Type NATRIURETIC PEPTIDE 155.8 pg/mL (0-100)
[2022-08-26 12:16] LABS: Anion Gap 5 (5-15); BUN 17 mg/dL (7-18); BUN/Creat Ratio 15.3 RATIO (10-20); Calcium,Total 9.5 mg/dL (8.5-10.1); Chloride 104 mmol/L (98-107); Creatinine, Serum 1.11 mg/dL (0.55-1.02); EST Glomerular Filtration Rate 51 mL/min (>60); Est Glom Filt Rate - Afr Amer 62 mL/min (>60); Glucose 95 mg/dL (74-106); Potassium 3.7 mmol/L (3.5-5.1); Sodium Level 140 mmol/L (136-145)
== END | disposition home or self-care (01) ==
LOC: LAB 10:45
PROVIDERS: PCP Internal Medicine; Visit Provider Nurse Practitioner Gerontology
DX: R06.09 Other forms of dyspnea (principal)
CPT/HCPCS: 36415; 80048; 83880; 85025

== ENCOUNTER → 2022-10-01 | Outpatient (CLI) | payer MEDICARE, MEDICAID, SELFPAY ==
[2022-10-01 12:10] LABS: BNP,B-Type NATRIURETIC PEPTIDE 165.3 pg/mL (0-100)
[2022-10-01 12:12] LABS: Troponin-I HS 9 pg/mL (3.0-54.0)
[2022-10-01 13:04] LABS: Anion Gap 2 (5-15); BUN 14 mg/dL (7-18); BUN/Creat Ratio 16.3 RATIO (10-20); Calcium,Total 9.3 mg/dL (8.5-10.1); Chloride 104 mmol/L (98-107); Creatinine, Serum 0.86 mg/dL (0.55-1.02); EST Glomerular Filtration Rate 69 mL/min (>60); Est Glom Filt Rate - Afr Amer 83 mL/min (>60); Glucose 98 mg/dL (74-106); Potassium 3.2 mmol/L (3.5-5.1); Sodium Level 141 mmol/L (136-145)
== END | disposition home or self-care (01) ==
LOC: BIMLAB 10:53
PROVIDERS: Nurse Practitioner Gerontology; PCP Internal Medicine; Referring Provider Physician Assistant; Visit Provider Physician Assistant
DX: R07.9 Chest pain, unspecified (principal); R06.02 Shortness of breath; R06.09 Other forms of dyspnea
CPT/HCPCS: 36415; 80048; 83880; 84484

== ENCOUNTER → 2023-01-14 | Outpatient (CLI) | payer MEDICARE, MEDICAID, SELFPAY ==
[2023-01-14 10:59] LABS: Absolute Lymphocyte Count 3.45 X10^3/uL (0.83-4.51); Basophil# 0.03 X10^3/uL; Basophil% 0.4 % (0-1); Eosinophil# 0.12 X10^3/uL; Eosinophils% 1.5 % (0-5); Hematocrit 41.1 % (37-47); Lymphocyte # 3.45 X10^3/ul (0.83-4.51); Lymphocyte % 42.5 % (19-41); Mean Corp Hgb Conc 31.6 g/dL (32-36); Mean Corpuscular Hgb 30.6 pg (27.0-32.0); Mean Corpuscular Volume 96.7 fL (81-99); Mean Platelet Vol. 10.4 fl (6.2-12.0); Monocyte# 0.45 X10^3/uL; Monocyte% 5.5 % (0-10); NRBC Flagged by Analyzer 0 % (0-5); Neutrophil # 4.04 X10^3/uL (2.7-7.7); Neutrophil % 49.7 % (47-70); Platelet Count 264 K/mm3 (150-450); RBC Distribution Width SD 42.2 fl (35.1-43.9); Red Blood Count 4.25 M/mm3 (4.2-5.4); White Blood Count 8.1 K/mm3 (4.4-11.0)
[2023-01-14 11:24] LABS: BNP,B-Type NATRIURETIC PEPTIDE 26.9 pg/mL (0-100)
[2023-01-14 11:39] LABS: Anion Gap 5 (5-15); BUN 15 mg/dL (7-18); BUN/Creat Ratio 16.7 RATIO (10-20); Calcium,Total 9.9 mg/dL (8.5-10.1); Chloride 104 mmol/L (98-107); EST Glomerular Filtration Rate 65 mL/min (>60); Est Glom Filt Rate - Afr Amer 79 mL/min (>60); Free T3 2.6 pg/mL (2.18-3.98); Glucose 93 mg/dL (74-106); Potassium 3.9 mmol/L (3.5-5.1); Sodium Level 141 mmol/L (136-145); T4 Free Direct 0.97 ng/dL (0.76-1.46)
== END | disposition home or self-care (01) ==
PROVIDERS: PCP Internal Medicine; Referring Provider Nurse Practitioner Gerontology; Visit Provider Nurse Practitioner Gerontology
DX: R06.09 Other forms of dyspnea (principal); E87.6 Hypokalemia; R53.83 Other fatigue
CPT/HCPCS: 36415; 80048; 83880; 84439; 84443; 84481; 85025

== ENCOUNTER → 2023-01-28 | Outpatient (CLI) | payer MEDICARE, MEDICAID, SELFPAY ==
--- NOTE | 2023-01-28 12:52 | CDU_ITS ---
Reason For Study: DIZZINESS Rt. Velocities/BP Lt. Velocities/BP Prox CCA 102.8/17.0 cm/sec. Prox CCA 68.8/8.4 cm/sec. Mid CCA 61.4/8.7 cm/sec. Mid CCA 74.3/14.9 cm/sec. Dist CCA 54.8/8.7 cm/sec. Dist CCA 68.8/12.7 cm/sec. Prox ICA 55.9/10.9 cm/sec. Prox ICA 47.8/13.8 cm/sec. Mid ICA 90.8/29.2 cm/sec. Mid ICA 74.3/19.5 cm/sec. Dist ICA 68.8/17.1 cm/sec. Dist ICA 79.9/26.1 cm/sec. Rt. ICA/CCA = 90.8/61.4=1.5. Lt. ICA/CCA = 79.9/74.3=1.1. Prox ECA 48.5/6.4 cm/sec. Prox ECA 54.4/8.1 cm/sec. Rt. Vert. 32.2/10.0 cm/sec. Lt. Vert. 54.4/16.6 cm/sec. Right Extracranial There is homogeneous, smooth atherosclerotic plaque noted in the right common carotid artery. There is homogeneous, smooth atherosclerotic plaque noted in the right internal carotid artery. The tortuous nature of the right internal carotid artery may result in flow velocities overestimating the degree of stenosis. There is homogeneous, smooth atherosclerotic plaque noted in the right external carotid artery. Antegrade flow is noted in the right vertebral artery. Left Extracranial There is homogeneous, smooth atherosclerotic plaque noted in the left common carotid artery. There is homogeneous, smooth atherosclerotic plaque noted in the left internal carotid artery. The tortuous nature of the left internal carotid artery may result in flow velocities overestimating the degree of stenosis. There is intimal thickening but no significant atherosclerotic plaque noted in the left external carotid artery. Antegrade flow is noted in the left vertebral artery. Procedure Carotid Duplex 50138. This is a Carotid Duplex examination using B-mode, color flow and specral Doppler. The study was technically difficult. Due to patient's deep respirations and wheezing. Exam performed in department. VL/Carotid Duplex Ultrasound Interpretation Summary Mild (<50%) stenosis right extracranial internal carotid. Mild (<50%) stenosis left extracranial internal carotid. Flow within the vertebral arteries is antegrade bilaterally. Ordering Physician: Carol Humphries Referring Physician: Fam Jasso Performed By: Vera Phan, LAURACS, RVT
== END | disposition home or self-care (01) ==
LOC: CVS 12:46
PROVIDERS: PCP Internal Medicine; Referring Provider Nurse Practitioner Gerontology; Visit Provider Nurse Practitioner Gerontology
DX: R42 Dizziness and giddiness (principal)
CPT/HCPCS: 93880

== ENCOUNTER → 2023-01-30 | Outpatient (CLI) | payer MEDICARE, MEDICAID, SELFPAY | END | disposition home or self-care (01) | LOC: SL 20:12 | PROVIDERS: PCP Internal Medicine; Referring Provider Nurse Practitioner Gerontology; Visit Provider Nurse Practitioner Gerontology | DX: G47.10 Hypersomnia, unspecified (principal) | CPT/HCPCS: 95810 ==

== ENCOUNTER → 2023-02-27 | Outpatient (CLI) | payer MEDICARE, MEDICAID, SELFPAY | END | disposition home or self-care (01) | LOC: SL 11:05 | PROVIDERS: PCP Internal Medicine; Visit Provider Nurse Practitioner Acute Care | DX: Z00.00 Encounter for general adult medical examination without abnormal findings (principal) ==

== ENCOUNTER → 2023-04-14 | Outpatient (CLI) | payer MEDICARE, MEDICAID, SELFPAY ==
--- NOTE | 2023-04-14 10:08 | RAD_ITS ---
INDICATION: CHAVEZ, Afib EXAMINATION/TECHNIQUE: X-RAY - XR Chest 2 Views COMPARISON: May 21, 2022 chest x-ray FINDINGS: LINES/DEVICES: None. LUNGS: Symmetric normal lung volumes. No airspace opacity or abnormal interstitial pattern. No nodule or mass. No pleural effusion or pneumothorax. MEDIASTINUM AND CARDIOVASCULAR STRUCTURES: Normal size and contour of the cardiomediastinal silhouette. No evidence of pulmonary vascular congestion. BONES AND SOFT TISSUES: No fracture or focal osseous lesion. Degenerative endplate changes thoracic spine. Asymmetric degenerative changes right acromioclavicular joint. RAD/Chest PA and Lateral IMPRESSION: 1. No radiographic evidence of acute cardiopulmonary disease. Electronically Signed: Rajesh Thomas DO at 20:12 EDT ,
[2023-04-14 11:23] LABS: Absolute Lymphocyte Count 2.72 X10^3/uL (0.83-4.51); Absolute Neutrophil Count 6.3 X10^3/uL (2.0-7.7); Basophil# 0.04 X10^3/uL; Basophil% 0.4 % (0-1); Eosinophil# 0.12 X10^3/uL; Eosinophils% 1.2 % (0-5); Hematocrit 40.4 % (37-47); Hemoglobin 12.5 g/dL (12.0-15.0); Lymphocyte # 2.72 X10^3/ul (0.83-4.51); Lymphocyte % 27.9 % (19-41); Mean Corp Hgb Conc 30.9 g/dL (32-36); Mean Corpuscular Volume 97.1 fL (81-99); Mean Platelet Vol. 11.6 fl (6.2-12.0); Monocyte# 0.55 X10^3/uL; Monocyte% 5.6 % (0-10); NRBC Flagged by Analyzer 0 % (0-5); Neutrophil # 6.29 X10^3/uL (2.7-7.7); Neutrophil % 64.5 % (47-70); Platelet Count 275 K/mm3 (150-450); RBC Distribution Width CV 12.8 % (11.6-14.6); RBC Distribution Width SD 45.4 fl (35.1-43.9); Red Blood Count 4.16 M/mm3 (4.2-5.4); White Blood Count 9.8 K/mm3 (4.4-11.0)
[2023-04-14 12:13] LABS: BNP,B-Type NATRIURETIC PEPTIDE 404.3 pg/mL (0-100)
[2023-04-14 12:25] LABS: Anion Gap 5 (5-15); BUN 17 mg/dL (7-18); BUN/Creat Ratio 17.5 RATIO (10-20); Calcium,Total 9.9 mg/dL (8.5-10.1); Chloride 105 mmol/L (98-107); Creatinine, Serum 0.97 mg/dL (0.55-1.02); EST Glomerular Filtration Rate 60 mL/min (>60); Est Glom Filt Rate - Afr Amer 72 mL/min (>60); Free T3 2.6 pg/mL (2.18-3.98); Glucose 116 mg/dL (74-106); Potassium 3.8 mmol/L (3.5-5.1); Sodium Level 139 mmol/L (136-145); T4 Free Direct 0.96 ng/dL (0.76-1.46); Thyroid Stim Hormone (TSH) 0.69 uIU/mL (0.358-3.74)
== END | disposition home or self-care (01) ==
LOC: RAD 09:58
PROVIDERS: PCP Internal Medicine; Referring Provider Nurse Practitioner Gerontology; Visit Provider Nurse Practitioner Gerontology
DX: R06.09 Other forms of dyspnea (principal); J44.9 Chronic obstructive pulmonary disease, unspecified; I48.0 Paroxysmal atrial fibrillation; R53.83 Other fatigue
CPT/HCPCS: 36415; 71046; 80048; 83880; 84439; 84443; 84481; 85025

== ENCOUNTER → 2023-04-23 | Outpatient (CLI) | payer MEDICARE, MEDICAID, SELFPAY ==
--- NOTE | 2023-04-23 08:00 | CT_ITS ---
STUDY: CTA CHEST REASON FOR EXAM: Female, 72 years old. TAA RADIATION DOSAGE (If Supplied By Facility): CTDIvol = ( 13.48 ) mGy, DLP = ( 433.11 ) mGycm TECHNIQUE: The examination was performed with the intravenous administration of IV 100mL Isovue-370. Post-processing of the angiographic images was performed, with multiplanar reformation and 3D reconstruction. Individualized dose optimization techniques were used for this CT. COMPARISON: None. FINDINGS: Normal enhancement of the main pulmonary artery and right and left pulmonary arteries. Normal enhancement of the bilateral peripheral pulmonary arteries. There is no demonstrated pulmonary embolism. There is aneurysmal dilatation of the ascending aorta. The transverse diameter of the ascending aorta measures 49 mm''s. There is no demonstrated aortic dissection. There are calcifications of the coronary arteries. Normal mediastinum. Normal hilar regions. Normal visualized trachea and bronchi. The lungs are well expanded. Normal pulmonary parenchyma. Normal pleura. Normal chest wall structures. There are degenerative changes of thoracic spine. Normal visualized upper abdomen. CT/CTA Chest W/WO Contrast IMPRESSION: Aneurysmal dilatation of the ascending thoracic aorta with a transverse dimension of 49 mm. Electronically Signed: Brandon Uribe MD at 10:05 EDT ,
== END | disposition home or self-care (01) ==
LOC: CT 08:00
PROVIDERS: PCP Internal Medicine; Referring Provider Nurse Practitioner Gerontology; Visit Provider Nurse Practitioner Gerontology
DX: I71.20 Thoracic aortic aneurysm, without rupture, unspecified (principal)
CPT/HCPCS: 71275; Q9967

== ENCOUNTER 2023-05-04 10:17 | Day surgery (SDC) | payer MEDICARE, MEDICAID, SELFPAY ==
[2023-05-01 07:17] VITALS: BMI 33.3
[2023-05-04 10:46] LABS: Anion Gap 2 (5-15); BUN 15 mg/dL (7-18); BUN/Creat Ratio 12.3 RATIO (10-20); Calcium,Total 9.8 mg/dL (8.5-10.1); Chloride 104 mmol/L (98-107); Creatinine, Serum 1.22 mg/dL (0.55-1.02); EST Glomerular Filtration Rate 46 mL/min (>60); Est Glom Filt Rate - Afr Amer 55 mL/min (>60); Estimated Creatinine Clearance 42.92 ml/min; Glucose 113 mg/dL (74-106); Potassium 3.9 mmol/L (3.5-5.1); Sodium Level 138 mmol/L (136-145)
--- NOTE | 2023-05-04 11:45 | PCM.OP.PRO ---
Procedure Report Date of Procedure: 05/04/23 DC cardioversion. 72-year-old lady with a history of chronic persistent atrial fibrillation on anticoagulation. Patient brought for DC cardioversion. The patient was seen by Dr. Chance of the critical care division. Informed consent was obtained. Anterior-posterior pads were applied. The patient was administered 80 mg of intravenous propofol. 200 J of DC cardioversion energy were applied and was unsuccessful in obtaining sinus rhythm. After this 300 J of synchronized DC cardioversion energy were applied and was also unsuccessful in attaining sinus rhythm. The final 360 J of biphasic DC cardioversion energy was applied and was also unsuccessful in obtaining sinus rhythm. At this point the procedure was terminated. Conclusion: Unsuccessful DC cardioversion from atrial fibrillation. We will continue with current medical therapy.
--- NOTE | 2023-05-04 12:00 | PCM.OP.PRO ---
Procedure Report Date of Procedure: 05/04/23 CONSCIOUS SEDATION REPORT DATE OF SERVICE: May 04, 2023 BRIEF HISTORY OF PRESENT ILLNESS: The patient is a 72-year-old female who presented to [facility] for elective outpatient cardioversion due to underlying atrial fibrillation. The patient did undergo a prior cardioversion in July 2022, which was successful. The patient's last echocardiogram demonstrated an ejection fraction of approximately 55%. She is systemically anticoagulated on Eliquis. She does report a history of COPD and prior tobacco abuse history. PHYSICAL EXAMINATION: VITAL SIGNS: Reviewed and were acceptable. GENERAL: The patient is a female, in no apparent distress, speaking in full sentences. HEENT: Normocephalic, atraumatic. Mucous membranes are moist and pink. Good mouth opening noted. Trachea is midline. Good neck mobility. CHEST: S1, S2 irregularly irregular. No murmurs, rubs or gallops were noted. LUNGS: Clear to auscultation bilaterally without appreciable wheezes, rales or rhonchi. ABDOMEN: Soft, nontender, nondistended. Positive bowel sounds. EXTREMITIES: There is no clubbing, cyanosis or edema. ASA Class: II DESCRIPTION OF PROCEDURE: After confirmation of informed consent, the patient's anesthesia plan was reviewed in detail. Propofol was chosen. Risks and benefits were reviewed and the patient agreed to proceed. At 1135, the patient was given her first bolus of propofol. In total throughout the entire procedure, the patient received 80 mg of propofol to facilitate 3 separate attempts at cardioversion, the first at 200 J, the second at 300 J and the third at 360 J. Unfortunately, none of the aforementioned was successful in restoring normal sinus rhythm. The patient was monitored until 1148, at which time she reached her baseline mental status and function. The patient tolerated the procedure well. COMPLICATIONS: None ESTIMATED BLOOD LOSS: None RECOMMENDATIONS: Okay to recover in usual fashion. Procedures Pulmonary 9xxxx: [id number] Con Sedation
== END 2023-05-04 12:45 | disposition home or self-care (01) ==
PROVIDERS: Nurse Practitioner Gerontology; PCP Internal Medicine; Referring Provider Internal Medicine Cardiovascular Disease; Visit Provider Internal Medicine Cardiovascular Disease
DX: I48.0 Paroxysmal atrial fibrillation (principal); J44.9 Chronic obstructive pulmonary disease, unspecified; I11.0 Hypertensive heart disease with heart failure; I50.9 Heart failure, unspecified; Z79.899 Other long term (current) drug therapy; E66.9 Obesity, unspecified; Z87.891 Personal history of nicotine dependence; Z79.01 Long term (current) use of anticoagulants
CPT/HCPCS: 36415; 80048; 92960; 93005; J7040

== ENCOUNTER → 2023-05-12 | Outpatient (CLI) | payer MEDICARE, MEDICAID, SELFPAY ==
[2023-05-12 12:31] LABS: BNP,B-Type NATRIURETIC PEPTIDE 327.4 pg/mL (0-100)
[2023-05-12 12:33] LABS: Anion Gap 6 (5-15); BUN 16 mg/dL (7-18); BUN/Creat Ratio 14.8 RATIO (10-20); Calcium,Total 9.6 mg/dL (8.5-10.1); Chloride 103 mmol/L (98-107); Creatinine, Serum 1.08 mg/dL (0.55-1.02); EST Glomerular Filtration Rate 53 mL/min (>60); Est Glom Filt Rate - Afr Amer 64 mL/min (>60); Glucose 113 mg/dL (74-106); Potassium 4.3 mmol/L (3.5-5.1); Sodium Level 137 mmol/L (136-145)
== END | disposition home or self-care (01) ==
PROVIDERS: PCP Internal Medicine; Referring Provider Nurse Practitioner Family; Visit Provider Nurse Practitioner Family
DX: I50.9 Heart failure, unspecified (principal); R06.09 Other forms of dyspnea
CPT/HCPCS: 36415; 80048; 83880

== ENCOUNTER → 2023-05-15 | Outpatient (CLI) | payer MEDICARE, MEDICAID, SELFPAY ==
[2023-05-15 13:06] VITALS: PULSE 107; PULSE 108; PULSE 109; PULSE 71; PULSE 83; PULSE 90; PULSE 92; O2SAT 96; O2SAT 97; O2SAT 98
--- NOTE | 2023-05-15 13:08 | CPS ---
Patient is audibly wheezy. She states that she always sounds like that. She does have an Albuterol MDI that she uses at home.
--- NOTE | 2023-05-20 10:01 | WT_ITS ---
PSN 6 Minute Walk Test 6 Minute Walk Test 6 Minute Walk Test: 6 Minute Walk Test PSN:6-Minute Walk Test Start: 05/15/23 13:06 Freq: Status: Active Protocol: [id number] Document 05/15/23 13:06 RADHA (Rec: 05/15/23 13:10 RADHA [id number]) 6 Minute Walk Test Date Performed 05/15/23 Time Performed 12:30 Height 5 ft 10 in Weight: 227 lb Weight in Pounds 227.[address]: Niharika Cunningham [employer] INSPECT[employer] Assistive device used: None Pre-test Oxygen Delivery Method Room Air Pulse Ox 97 Pulse Rate (60-100) 83 Dyspnea Maria Del Carmen Scale (0-10) 2 Exertion Maria Del Carmen Scale (6-20) 6 1st minute Oxygen Delivery Method Room Air Pulse Ox 98 Pulse Rate (60-100) 90 2nd minute Oxygen Delivery Method Room Air Pulse Ox 98 Pulse Rate (60-100) 92 3rd minute Oxygen Delivery Method Room Air Pulse Ox 97 Pulse Rate (60-100) 108 H 4th minute Oxygen Delivery Method Room Air Pulse Ox 96 Pulse Rate (60-100) 109 H 5th minute Oxygen Delivery Method Room Air Pulse Ox 97 Pulse Rate (60-100) 108 H 6th minute Oxygen Delivery Method Room Air Pulse Ox 96 Pulse Rate (60-100) 107 H Dyspnea Maria Del Carmen Scale (0-10) 5 Exertion Maria Del Carmen Scale (6-20) 13 Post-test Oxygen Delivery Method Room Air Pulse Ox 98 Pulse Rate (60-100) 71 Full Laps Walked 14 Partial Lap, Number of Tiles Walked 14 Total Distance Walked (ft) 840 05/15/23 13:08 Cardiopulmonary Services by Luz Valencia Patient is audibly wheezy. She states that she always sounds like that. She does have an Albuterol MDI that she uses at home. Initialized on 05/15/23 13:08 - END OF NOTE Interpretation Interpretation: The patient ambulated 840 feet over the course of 6 minutes beginning on room air without assistive devices. Pretesting oxygen saturation was noted to be 97% on room air. With ambulation, the katy oxygen saturation was 96%. There was no significant exertional oxygen desaturation. Recommendations Recommendations: There is no indication for the use of supplemental oxygen at this time.
== END | disposition home or self-care (01) ==
LOC: PSN 12:18
PROVIDERS: PCP Internal Medicine; Referring Provider Nurse Practitioner Acute Care; Visit Provider Nurse Practitioner Acute Care
DX: R06.09 Other forms of dyspnea (principal)
CPT/HCPCS: 94618

== ENCOUNTER → 2023-05-28 | Outpatient (CLI) | payer MEDICARE, MEDICAID, SELFPAY ==
--- NOTE | 2023-05-29 05:48 | PFTCOMP_ITS ---
COMPLETE PULMONARY FUNCTION TEST INTERPRETATION Brief HPI: Patient is a 72-year-old female, currently under the care of Niharika Cunningham, who presents to [facility] for complete pulmonary function tests secondary to diagnosis of dyspnea. Respiratory therapist reports good effort and reproducible results. Interpretation: Forced expiration spirometry shows a moderately severe large airways obstructive ventilatory defect with an FEV1 of 57% predicted. There is a significant bronchodilator response in FEV1 by strict ATS criteria. Spirograms are of good quality and plateau slowly, indicating slowly emptying areas of the lungs. The respiratory flow volume loop shows decreased expiratory flow rates at all lung volumes consistent with airway obstruction. Lung volumes by body plethysmography show a decreased total lung capacity at 4.57 L, 77% predicted. FRC and RV are elevated out of proportion. Lung volume measurements are consistent with air-trapping. Diffusion capacity by carbon monoxide is decreased at 61% predicted. The airway resistance is elevated. No previous pulmonary function tests were available for review. Impression: Partially reversible moderately severe mixed ventilatory defect with a symmetric reduction in diffusion capacity. Pattern is predominantly obstructive and patient may benefit from bronchodilators.
== END | disposition home or self-care (01) ==
LOC: PSN 07:04
PROVIDERS: PCP Internal Medicine; Referring Provider Nurse Practitioner Acute Care; Visit Provider Nurse Practitioner Acute Care
DX: R06.09 Other forms of dyspnea (principal)
CPT/HCPCS: 94060; 94726; 94729

== ENCOUNTER → 2023-06-10 | Outpatient (CLI) | payer MEDICARE, MEDICAID, SELFPAY ==
[2023-06-10 13:04] LABS: Anion Gap 6 (5-15); BUN 13 mg/dL (7-18); Calcium,Total 9.4 mg/dL (8.5-10.1); Chloride 102 mmol/L (98-107); EST Glomerular Filtration Rate 58 mL/min (>60); Est Glom Filt Rate - Afr Amer 70 mL/min (>60); Glucose 100 mg/dL (74-106); Potassium 3.1 mmol/L (3.5-5.1); Sodium Level 139 mmol/L (136-145)
== END | disposition home or self-care (01) ==
LOC: LAB 11:19
PROVIDERS: PCP Internal Medicine; Referring Provider Nurse Practitioner Gerontology; Visit Provider Nurse Practitioner Gerontology
DX: I48.0 Paroxysmal atrial fibrillation (principal)
CPT/HCPCS: 36415; 80048

== ENCOUNTER → 2023-06-16 | Outpatient (CLI) | payer MEDICARE, MEDICAID, SELFPAY | END | disposition home or self-care (01) | LOC: SL 11:43 | PROVIDERS: PCP Internal Medicine; Referring Provider Nurse Practitioner Acute Care; Visit Provider Nurse Practitioner Acute Care | DX: G47.33 Obstructive sleep apnea (adult) (pediatric) (principal) | CPT/HCPCS: 98960; G0463 ==

== ENCOUNTER 2023-07-10 10:16 | Day surgery (SDC) | payer MEDICARE, MEDICAID, SELFPAY ==
[2023-07-06 13:23] LABS: Anion Gap 5 (5-15); BUN 53 mg/dL (7-18); BUN/Creat Ratio 28.6 RATIO (10-20); Calcium,Total 10.1 mg/dL (8.5-10.1); Chloride 104 mmol/L (98-107); Creatinine, Serum 1.85 mg/dL (0.55-1.02); EST Glomerular Filtration Rate 28 mL/min (>60); Est Glom Filt Rate - Afr Amer 34 mL/min (>60); Glucose 99 mg/dL (74-106); Potassium 4.7 mmol/L (3.5-5.1); Sodium Level 137 mmol/L (136-145)
[2023-07-09 07:35] VITALS: BMI 32.4
--- NOTE | 2023-07-10 12:09 | PCM.OP.PRO ---
Procedure Report Date of Procedure: 07/10/23 CONSCIOUS SEDATION REPORT BRIEF HISTORY OF PRESENT ILLNESS: The patient is a []-year-old [female male] who presented to [facility] for an elective outpatient cardioversion due to underlying atrial fibrillation. The patient reports no PO intake since midnight, but is currently therapeutic on anticoagulation. The patient has a history of obstructive sleep apnea but not compliant with therapy. She also has hx of COPD but she's not on home O2. Sh. The patient reports history of smoking and COPD. The patient denies any recent constitutional symptoms such as fevers, chills, nausea or vomiting. The patient denies previous applicable anesthetic complications. She denies worsening dyspnea. She was hypotensive when she first presented but her BP improved with 1L IVF bolus. We chose ketamine since her BP was soft. PHYSICAL EXAMINATION: VITAL SIGNS: Reviewed and were acceptable. GENERAL: The patient is a [female], in no apparent distress, speaking in full sentences. HEENT: Normocephalic, atraumatic. Mucous membranes are moist and pink. Good mouth opening noted. Trachea is midline. Good neck mobility. MP [IV] CHEST: S1, S2 irregularly irregular. No murmurs, rubs or gallops were noted. LUNGS: Clear to auscultation bilaterally without appreciable wheezes, rales or rhonchi. ABDOMEN: Soft, nontender, nondistended. Positive bowel sounds. EXTREMITIES: There is no clubbing, cyanosis or edema. ASA Class: II DESCRIPTION OF PROCEDURE: After confirmation of informed consent, the patient's anesthesia plan was reviewed in detail. Etomidate] was chosen. Risks and benefits were reviewed and the patient agreed to proceed. At [11:58 AM], the patient was given [5 mg of etomidate]. The patient achieved an appropriate level of sedation and received [3] attempt[s] synchronized cardioversion, at [200 J, 300J and 300 J respectively] by Dr. Zuleta at the bedside. This was unsuccessful in achieving normal sinus rhythm. The patient was monitored until [12:15PM], at which time the patient reached their baseline mental status and function. The patient tolerated the procedure well. BP meds to be adjusted per Dr Zuleta COMPLICATIONS: None ESTIMATED BLOOD LOSS: None RECOMMENDATIONS: Okay to recover in usual fashion.
--- NOTE | 2023-07-10 16:08 | PRO.PCM_ITS ---
Procedure Report Date of Procedure: 07/10/23 DC cardioversion. 72-year-old lady with a history of atrial fibrillation who has been on anti coagulation and is symptomatic. The patient was brought to the cardiac catheterization lab in the postabsorptive nonsedated state. Informed consent was obtained. The patient was seen by Dr. Gallegos of the pulmonary care division. Anterior-posterior pads were applied. The patient was then administered 5 mg of intravenous etomidate. 200 J of synchronized biphasic DC cardioversion energy were applied which were unsuccessful in restoring sinus rhythm, this was followed by 300 J of synchronized DC cardioversion energy and then followed by another 300 J of synchronized DC biphasic cardioversion energy. These were all unsuccessful in restoring sinus rhythm. Procedure was terminated. Conclusion: unsuccessful DC cardioversion from atrial fibrillation to sinus rhythm. Follow-up as per office protocol.
== END 2023-07-10 13:35 | disposition home or self-care (01) ==
LOC: CLSP 10:17
PROVIDERS: Nurse Practitioner Gerontology; PCP Internal Medicine; Referring Provider Internal Medicine Cardiovascular Disease; Visit Provider Internal Medicine Cardiovascular Disease
DX: I48.0 Paroxysmal atrial fibrillation (principal); J44.9 Chronic obstructive pulmonary disease, unspecified; I11.0 Hypertensive heart disease with heart failure; I50.9 Heart failure, unspecified; I71.21 Aneurysm of the ascending aorta, without rupture; Z79.899 Other long term (current) drug therapy; Z79.51 Long term (current) use of inhaled steroids; E66.9 Obesity, unspecified; Z87.891 Personal history of nicotine dependence; Z79.01 Long term (current) use of anticoagulants
CPT/HCPCS: 36415; 80048; 92960; 93005; 99152; J7040

== ENCOUNTER → 2023-07-30 | Outpatient (CLI) | payer MEDICARE, MEDICAID, SELFPAY ==
[2023-07-30 15:02] LABS: Absolute Lymphocyte Count 1.64 X10^3/uL (0.83-4.51); Absolute Neutrophil Count 3.4 X10^3/uL (2.0-7.7); Basophil# 0.02 X10^3/uL; Basophil% 0.4 % (0-1); Eosinophils% 1.8 % (0-5); Hemoglobin 10.8 g/dL (12.0-15.0); Lymphocyte # 1.64 X10^3/ul (0.83-4.51); Lymphocyte % 29.4 % (19-41); Mean Corp Hgb Conc 30.9 g/dL (32-36); Mean Corpuscular Hgb 30.2 pg (27.0-32.0); Mean Corpuscular Volume 97.8 fL (81-99); Monocyte# 0.37 X10^3/uL; Monocyte% 6.6 % (0-10); NRBC Flagged by Analyzer 0 % (0-5); Neutrophil # 3.43 X10^3/uL (2.7-7.7); Neutrophil % 61.6 % (47-70); Platelet Count 170 K/mm3 (150-450); RBC Distribution Width CV 14.7 % (11.6-14.6); Red Blood Count 3.58 M/mm3 (4.2-5.4); White Blood Count 5.6 K/mm3 (4.4-11.0)
[2023-07-30 15:19] LABS: AST(SGOT) 33 U/L (15-37); Alanine Aminotransfer ALT/SGPT 40 U/L (13-56); Albumin, Serum 3.5 g/dL (3.2-5.0); Alkaline Phosphatase 57 U/L (45-117); Anion Gap 6 (5-15); BUN 23 mg/dL (7-18); Calcium,Total 8.9 mg/dL (8.5-10.1); Chloride 102 mmol/L (98-107); Creatinine, Serum 1.28 mg/dL (0.55-1.02); EST Glomerular Filtration Rate 43 mL/min (>60); Est Glom Filt Rate - Afr Amer 52 mL/min (>60); Globulin 3.5 g/dL (2.2-4.2); Glucose 112 mg/dL (74-106); Sodium Level 140 mmol/L (136-145)
[2023-07-30 15:22] LABS: BNP,B-Type NATRIURETIC PEPTIDE 507.8 pg/mL (0-100)
[2023-07-31 13:21] LABS: Ferritin 32 ng/mL (8-252); Iron 57 ug/dL (50-170); Iron Binding Capacity,Total 337 ug/dL (250-450)
== END | disposition home or self-care (01) ==
LOC: BIMLAB 13:38
PROVIDERS: PCP Internal Medicine; Visit Provider Internal Medicine
DX: J44.9 Chronic obstructive pulmonary disease, unspecified (principal); I50.9 Heart failure, unspecified; D64.9 Anemia, unspecified
CPT/HCPCS: 36415; 80053; 82728; 83540; 83550; 83880; 85025

== ENCOUNTER → 2023-07-31 | Outpatient (CLI) | payer MEDICARE, MEDICAID, SELFPAY ==
--- NOTE | 2023-07-31 09:48 | RAD_ITS ---
EXAM: XR CHEST, 2 VIEWS CLINICAL INDICATION: Cough, Increased Sputum TECHNIQUE: Frontal and lateral views of the chest. COMPARISON: No relevant prior studies available. FINDINGS: LUNGS AND PLEURAL SPACES: Unremarkable. No consolidation or edema. No pneumothorax. No effusion. HEART: Unremarkable. Cardiac silhouette not enlarged. MEDIASTINUM: Central airways and mediastinal contour are unremarkable. BONES/JOINTS: Degenerative changes of the spine. SOFT TISSUES: Unremarkable. VASCULATURE: Atherosclerotic calcifications of the nonenlarged thoracic aortic arch. RAD/Chest PA and Lateral IMPRESSION: No acute disease. Electronically Signed: Marcello Small MD at 2:32 EDT ,
== END | disposition home or self-care (01) ==
PROVIDERS: PCP Internal Medicine; Referring Provider Internal Medicine; Visit Provider Internal Medicine
DX: J44.9 Chronic obstructive pulmonary disease, unspecified (principal); I50.9 Heart failure, unspecified; R05.9 Cough, unspecified
CPT/HCPCS: 71046

== ENCOUNTER → 2023-09-30 | Outpatient (CLI) | payer MEDICARE, MEDICAID, SELFPAY ==
--- NOTE | 2023-09-30 10:48 | ECHOD_ITS ---
Reason For Study: PAF Procedure This was a 2D Doppler, Color Flow transthoracic echocardiogram. Exam performed in department. Left Ventricle Mildly dilated left ventricle. Severe global left ventricular systolic dysfunction. The left ventricular ejection fraction is 15 %. Unable to assess diastolic dysfunction due to arrhythmia. Right Ventricle Normal RV size. Moderately severe global right ventricular systolic dysfunction. Atria There is severe biatrial dilatation. Mitral Valve Moderate (2+) mitral valve insufficiency. Tricuspid Valve Mild tricuspid valve insufficiency. Right ventricular systolic pressure estimated to be 41 mmHg. Aortic Valve Trisinus/trileaflet aortic valve. Limited excursion of the aortic valve leaflets, likely secondary to low output state. Mild (1+) aortic valve insufficiency. Pulmonic Valve The pulmonic valve is not well visualized. Great Vessels Moderately dilated aortic root. Pericardium/Pleural No pericardial effusion. MMode/2D Measurements & Calculations LVIDd: 5.6 cm IVSd: 0.78 cm Ao root diam: 4.5 cm LVIDs: 4.2 cm LVPWd: 0.84 cm LA dimension: 4.3 cm RVDd: 3.9 cm FS: 24.9 % LAV(MOD-bp): 112.2 ml LVAd ap4: 26.5 cm2 SV(MOD-sp4): 25.6 ml LAV(MOD-bp) Indexed: 51.0 ml/m2 LVLd ap4: 7.4 cm LAV(MOD-sp2): 110.0 ml EDV(MOD-sp4): 82.6 ml LAV(MOD-sp4): 113.5 ml EDV(sp4-el): 81.1 ml LVAs ap4: 21.1 cm2 LVLs ap4: 6.7 cm ESV(MOD-sp4): 57.0 ml ESV(sp4-el): 56.1 ml EF(MOD-sp4): 31.0 % EF(sp4-el): 30.8 % SV(sp4-el): 24.9 ml LA A4 area: 31.3 cm2 RA A4 area: 25.9 cm2 TAPSE: 1.4 cm Doppler Measurements & Calculations MV E max nery: 89.5 cm/sec MV V2 max: 99.0 cm/sec Ao V2 max: 89.5 cm/sec MV max P.9 mmHg Ao max P.2 mmHg MV V2 mean: 44.9 cm/sec Ao V2 mean: 65.8 cm/sec MV mean P.1 mmHg Ao mean P.9 mmHg MV V2 VTI: 23.2 cm Ao V2 VTI: 14.7 cm AV (velocity ratio): 0.81 LV V1 max: 81.5 cm/sec MR max nery: 408.9 cm/sec PA V2 max: 80.9 cm/sec LV V1 max P.7 mmHg MR max P.9 mmHg PA V2 mean: 62.1 cm/sec LV V1 mean P.6 mmHg MR mean nery: 307.8 cm/sec LV V1 mean: 58.0 cm/sec MR mean P.6 mmHg LV V1 VTI: 11.9 cm MR VTI: 131.1 cm TR max nery: 264.3 cm/sec TR max P.9 mmHg ECHO/Echo Complete Interpretation Summary Mildly dilated left ventricle. Severe global left ventricular systolic dysfunction. The left ventricular ejection fraction is 15 %. Unable to assess diastolic dysfunction due to arrhythmia. Moderately severe global right ventricular systolic dysfunction. There is severe biatrial dilatation. Moderate (2+) mitral valve insufficiency. Mild tricuspid valve insufficiency. Right ventricular systolic pressure estimated to be 41 mmHg. Limited excursion of the aortic valve leaflets, likely secondary to low output state. Mild (1+) aortic valve insufficiency. Moderately dilated aortic root. Ordering Physician: Carol Humphries Referring Physician: Fam Jasso Performed By: Jayant Kent RCS
== END | disposition home or self-care (01) ==
LOC: CVS 10:48
PROVIDERS: PCP Internal Medicine; Referring Provider Nurse Practitioner Gerontology; Visit Provider Nurse Practitioner Gerontology
DX: I48.0 Paroxysmal atrial fibrillation (principal); R06.02 Shortness of breath
CPT/HCPCS: 93306

== ENCOUNTER → 2023-10-27 | Outpatient (CLI) | payer MEDICARE, MEDICAID, SELFPAY ==
[2023-10-27 10:20] LABS: Absolute Lymphocyte Count 2.09 X10^3/uL (0.83-4.51); Absolute Neutrophil Count 4.1 X10^3/uL (2.0-7.7); Basophil# 0.02 X10^3/uL; Basophil% 0.3 % (0-1); Eosinophil# 0.11 X10^3/uL; Eosinophils% 1.6 % (0-5); Hemoglobin 13.6 g/dL (12.0-15.0); Lymphocyte # 2.09 X10^3/ul (0.83-4.51); Lymphocyte % 30.6 % (19-41); Mean Corp Hgb Conc 30.9 g/dL (32-36); Mean Corpuscular Hgb 30.4 pg (27.0-32.0); Mean Corpuscular Volume 98.4 fL (81-99); Mean Platelet Vol. 11.4 fl (6.2-12.0); Monocyte# 0.48 X10^3/uL; NRBC Flagged by Analyzer 0 % (0-5); Neutrophil # 4.12 X10^3/uL (2.7-7.7); Neutrophil % 60.2 % (47-70); Platelet Count 283 K/mm3 (150-450); RBC Distribution Width CV 12.8 % (11.6-14.6); RBC Distribution Width SD 46.4 fl (35.1-43.9); Red Blood Count 4.47 M/mm3 (4.2-5.4); White Blood Count 6.8 K/mm3 (4.4-11.0)
[2023-10-27 11:10] LABS: Anion Gap 6 (5-15); BUN 20 mg/dL (7-18); BUN/Creat Ratio 13.4 RATIO (10-20); Calcium,Total 10.2 mg/dL (8.5-10.1); Chloride 105 mmol/L (98-107); Creatinine, Serum 1.49 mg/dL (0.55-1.02); EST Glomerular Filtration Rate 36 mL/min (>60); Est Glom Filt Rate - Afr Amer 44 mL/min (>60); Glucose 107 mg/dL (74-106); Potassium 3.7 mmol/L (3.5-5.1); Sodium Level 140 mmol/L (136-145)
== END | disposition home or self-care (01) ==
LOC: LAB 09:40
PROVIDERS: PCP Internal Medicine; Referring Provider Nurse Practitioner Gerontology; Visit Provider Nurse Practitioner Gerontology
DX: E87.6 Hypokalemia (principal); D64.9 Anemia, unspecified
CPT/HCPCS: 36415; 80048; 85025

== ENCOUNTER → 2023-10-29 | Outpatient (CLI) | payer MEDICARE, MEDICAID, SELFPAY ==
--- NOTE | 2023-10-29 15:49 | CT_ITS ---
STUDY: CTA CHEST REASON FOR EXAM: Female, 73 years old. TAA RADIATION DOSAGE (If Supplied By Facility): CTDIvol = ( 17.98 ) mGy, DLP = ( 504.91 ) mGycm TECHNIQUE: The examination was performed with the intravenous administration of IV 100mL Isovue-370. Post-processing of the angiographic images was performed, with multiplanar reformation and 3D reconstruction. Individualized dose optimization techniques were used for this CT. COMPARISON: 04/23/2023. FINDINGS: Normal enhancement of the main pulmonary artery and right and left pulmonary arteries. Normal enhancement of the bilateral peripheral pulmonary arteries. There is no demonstrated pulmonary embolism. Mild atherosclerosis throughout the aorta. The ascending thoracic aorta measures 4.9-5.0 cm in maximum dimension one measured at a similar level. 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 The aortic arch measures 2.9 cm. The descending thoracic aorta measures maximal 2.6-2.7 cm. No dissection seen. Mild ostial calcification of the bilateral renal arteries with no significant stenosis. The visualized superior mesenteric artery and celiac arteries are normal. Mild cardiomegaly. Normal mediastinum. Normal hilar regions. Normal visualized trachea and bronchi. The lungs are well expanded. Trace subpleural basilar/lower lobe atelectasis, otherwise normal pulmonary parenchyma. Normal pleura. Normal chest wall structures. Osteopenia with multilevel degenerative disease of the spine. Normal visualized upper abdomen. CT/CTA Chest W/WO Contrast IMPRESSION: Stable aneurysmal dilatation of the ascending aorta measuring 4.9-5.0 cm with no signs of dissection. No pulmonary embolus. Trace bilateral lower lobe subpleural atelectasis, otherwise no acute cardiopulmonary disease. Electronically Signed: Aarti Hernandez MD at 22:27 EST ,
== END | disposition home or self-care (01) ==
LOC: CT 15:48
PROVIDERS: PCP Internal Medicine; Referring Provider Nurse Practitioner Gerontology; Visit Provider Nurse Practitioner Gerontology
DX: I71.20 Thoracic aortic aneurysm, without rupture, unspecified (principal)
CPT/HCPCS: 71275; Q9967

== ENCOUNTER → 2023-12-09 | Outpatient (CLI) | payer MEDICARE, MEDICAID, SELFPAY ==
[2023-12-09 16:15] LABS: International Normalized Ratio 1.2; Prothrombin Time (Protime)PT. 15.4 SECONDS (11.7-14.9)
[2023-12-09 16:16] LABS: Partial Thromboplast Time 28.9 Seconds (24.1-36.2)
[2023-12-09 16:23] LABS: Absolute Lymphocyte Count 2.35 X10^3/uL (0.83-4.51); Absolute Neutrophil Count 5.1 X10^3/uL (2.0-7.7); Basophil# 0.03 X10^3/uL; Basophil% 0.4 % (0-1); Eosinophil# 0.11 X10^3/uL; Eosinophils% 1.3 % (0-5); Hematocrit 40.7 % (37-47); Hemoglobin 12.2 g/dL (12.0-15.0); Lymphocyte # 2.35 X10^3/ul (0.83-4.51); Lymphocyte % 28.3 % (19-41); Mean Corpuscular Hgb 29.3 pg (27.0-32.0); Mean Corpuscular Volume 97.6 fL (81-99); Mean Platelet Vol. 11.8 fl (6.2-12.0); Monocyte# 0.67 X10^3/uL; Monocyte% 8.1 % (0-10); NRBC Flagged by Analyzer 0 % (0-5); Neutrophil # 5.13 X10^3/uL (2.7-7.7); Neutrophil % 61.7 % (47-70); Platelet Count 269 K/mm3 (150-450); RBC Distribution Width CV 13.1 % (11.6-14.6); RBC Distribution Width SD 46.5 fl (35.1-43.9); Red Blood Count 4.17 M/mm3 (4.2-5.4); White Blood Count 8.3 K/mm3 (4.4-11.0)
[2023-12-09 17:03] LABS: Anion Gap 4 (5-15); BUN 22 mg/dL (7-18); BUN/Creat Ratio 16.1 RATIO (10-20); Calcium,Total 9.5 mg/dL (8.5-10.1); Chloride 106 mmol/L (98-107); Creatinine, Serum 1.37 mg/dL (0.55-1.02); EST Glomerular Filtration Rate 40 mL/min (>60); Est Glom Filt Rate - Afr Amer 48 mL/min (>60); Glucose 117 mg/dL (74-106); Potassium 3.8 mmol/L (3.5-5.1); Sodium Level 140 mmol/L (136-145)
--- OUTSIDE RECORDS SUMMARY | 2023-12-09 18:57 | XMS RPT_ITS | CCD ---
Author Name Unknown Address [address] [place] [address] Organization [facility] Care Team Providers Care Cyber Engineer Name Role Phone Temitope Summers Primary Care Provider Allergies Allergy Classification Reported Allergen(s) Allergy Type Date of Onset Reaction(s) Facility (2 sources) Penicillin G; Translations: [PENICILLIN G] Drug Allergy 02-17-2006 [facility] Work Phone: Medications Current Medications Medication Drug Class(es) Dates Sig (Normalized) Sig (Original) doxycycline hyclate 100 mg oral tablet (2 sources) Tetracycline-cla ss Drug Start: 10-18-2023 End: 10-25-2023 take 1 tablet by mouth twice daily doxycycline (VIBRA-TABS) 100 mg tablet Indications: Sinobronchitis Take 1 tablet by mouth two times a day for 7 days. 14 tablet 0 10/18/2023 10/25/2023 Active Completed/Discontinued Medications Medication Drug Class(es) Dates Sig (Normalized) Sig (Original) allopurinol 100 mg oral tablet (1 source) Xanthine Oxidase Inhibitor Start: 08-14-2023 take 1 tablet by mouth once allopurinol (ZYLOPRIM) 100 mg tablet Take 1 tablet by mouth every afternoon. 0 08/14/2023 Active Problems Active Problems Problem Classification Problem Date Documented Date Episodic/Chronic Esophageal disorders (2 sources) Gastroesophageal reflux disease; Translations: [Gastro-esophageal reflux disease without esophagitis] Onset: 05-17-2007 05-17-2007 Chronic Essential hypertension (1 source) Benign essential hypertension; Translations: [Essential (primary) hypertension] Onset: 05-17-2007 05-17-2007 Chronic Other upper respiratory infections (1 source) Chronic sinusitis; Translations: [Chronic sinusitis, unspecified] 10-18-2023 Chronic Past or Other Problems Problem Classification Problem Date Documented Da te Episodic/Chronic Gastroduodenal ulcer (except hemorrhage) (1 source) Acute gastric ulcer; Translations: [Acute gastric ulcer without hemorrhage or perforation] Onset: 10-11-2018 10-11-2018 Episodic Other gastrointestinal disorders (1 source) Dysphagia; Translations: [Dysphagia, unspecified] Onset: 07-26-2018 07-26-2018 Episodic Residual codes; unclassified (1 source) Family history of cancer of colon; Translations: [Family history of malignant neoplasm of digestive organs] Onset: 07-26-2018 07-26-2018 Episodic Results Test Name Value Interpretation Reference Range Facil ity Vital Signs Date Time Vital Sign Value Performing Clinician Paul troncoso 10-18-2023 11:12-0500 Body temperature 98.6 [degF] Malcolm Glaser APRN.HEARING AID ASSISTANT Work Phone: [facility] 10-18-2023 11:12-0500 Body weight 104.24 kg Malcolm Glaser APRN.HEARING AID ASSISTANT Work Phone: [facility] 10-18-2023 11:12-0500 Diastolic blood pressure 80 mm[Hg] Malcolm Glaser SHELTER CASE MANAGER.HEARING AID ASSISTANT Work Phone: [facility] 10-18-2023 11:12-0500 Heart rate 126 /min Malcolm Glaser APRN.HEARING AID ASSISTANT Work Phone: [facility] 10-18-2023 11:12-0500 Respiratory rate 18 /min Malcolm Glaser APRN.HEARING AID ASSISTANT Work Phone: [facility] 10-18-2023 11:12-0500 SaO2% (BldA) [Mass fraction] 100 % Malcolm Glaser APRN.HEARING AID ASSISTANT Work Phone: [facility] 10-18-2023 11:12-0500 Systolic blood pressure 118 mm[Hg] Malcolm Glaser APRN.HEARING AID ASSISTANT Work Phone: [facility] Encounters Encounter Date Encounter Type Care Provider Facility Start: 10-18-2023 End: 10-18-2023 ambulatory TEMITOPE SUMMERS Facility:[facility] Start: 10-18-2023 End: 10-18-2023 Patient encounter procedure Malcolm Glaser APRN.CNP Work Phone: [facility] Procedures Date Procedure Procedure Detail Performing Clinician Start: 08-16-2018 Colonoscopy Malcolm foster APRN.CNP Work Phone: Start: 06-03-2004 Lipid 1996 panel - S vibha or Plasma Malcolm Glaser APRN.CNP Work Phone: Plan of Treatment Date Care Activity Detail Author Start: 08-16-2023 Screening for malign ant neoplasm of colon [facility] Start: 06-26-2023 Covid-19 Vaccine () Covid-19 Vaccine () [facility] Start: 06-26-2023 Influenza vaccination Influenza Vacc ine (#1) [facility] Start: 10-26-2022 Advance Directive Discussion Advance Directive Discussion [facility] Start: 10-26-2022 Depression Assessment Depression Ass essment [facility] Start: 2014 Screening for osteoporosis Bone Dens ity Screening [facility] Start: 01-14-2014 Screening for malign ant neoplasm of breast Mammogram Screening [facility] Start: 05-17-2010 Diabetes Screening Diabetes Screenin g [facility] Start: 2009 RSV Vaccine (1 - 1-d ose 60+ series) RSV Vaccine (1 - 1-dose 60+ series) [facility] Start: 06-03-2009 Lipid panel Lipid Screening [facility] Start: 1999 Shingrix Vaccine (1 of 2) Auguste grix Vaccine (1 of 2) [facility] Start: 1994 Screening for malign ant neoplasm of colon [facility] Start: 1968 Urine microalbumin profile DTa P,Tdap,Td Vaccine (1 - Tdap) [facility] Start: 1967 Annual PCP Team Sales Trainee roro Disease Visit Annual PCP Team Chronic Disease Visit [facility] Start: 1967 BP Controlled (<130/80) BP Controlle d (<130/80) [facility] Start: 1967 Hepatitis C screening Hepatitis C Sc carolin [facility] Immunizations Immunization Date Immunization Notes Care Provider Sangeeta cheney 07-07-2018 influenza virus vacc ine, unspecified formulation Malcolm Glaser APRN.HEARING AID ASSISTANT Work Phone: [facility] Payers Date Payer Category Payer Medicaid MEDICAID [facility] MEDICAID [id number] 2016-Present [phone] [address] [place] [address] Medicaid [id number] 2016 Medicaid [id number] 2011 Medicare MEDICARE MEDICAR E A AND B [id number] 2011-Present [phone] [address] [address] [place] [address] Medicare [id number] 2011 Medicare [id number] Social History Date Type Detail Facility Start: [facility]23 [facility] History of tobacco use Current smoker [facility] History of tobacco use Cigarette Smoker [facility] Start: 09-30-2020 End: 10-18-2023 Cigarettes smoked current (pack per day) - Reported 0.5 [facility] Start: 10-18-2023 Tobacco use and exposure Smoke less tobacco non-user [facility] Start: 10-18-2023 Alcohol intake Current drinke r of alcohol (finding) [facility] Start: 09-30-2020 End: 10-18-2023 Tobacco use panel [facility] National Score (1-10 0), lower number is lower risk Not on file [facility] Start: 10-18-2023 Tobacco Comment quit around 2001 [facility] Start: 05-17-2007 Alcohol Comment occ socially [facility] Start: 1950 Sex Assigned At Not on file [facility] Progress note 10-18-2023 Note Date & Type Note Facility 10-18-2023 Note HNO ID: [id number] Author: Malcolm Glaser APRN.CNP Service: ? Author Type: Nurse Practitioner Type: Progress Notes Filed: 10/18/2023 11:39 AM Note Text: Subjective HPI HPI Josefinateresa Lee is a 73 year old female who presents today for CC of cough, congestion, sob. This started 2 days ago. Has tried otc medication. Symptoms are worsened by otc medication. Risk factors copd, sick exposures at home. 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 Chronic obstructive pulmonary disease (COPD) (HCC) Gout Hypertension Snoring Stroke (HCC) TIA-unsure of when PAST SURGICAL HISTORY Procedure Laterality Date COLONOSCOPY FLX DX W/COLLJ SPEC WHEN PFRMD 01/2005 COLONOSCOPY FLX DX W/COLLJ SPEC WHEN PFRMD 08/25/2013 Colonoscopy COLONOSCOPY FLX DX W/COLLJ SPEC WHEN PFRMD 08/16/2018 Colonoscopy ESOPHAGOGASTRODUODENOSCOPY TRANSORAL DIAGNOSTIC 08/25/2013 EGD ESOPHAGOGASTRODUODENOSCOPY TRANSORAL DIAGNOSTIC 12/01/13 EGD ESOPHAGOGASTRODUODENOSCOPY TRANSORAL DIAGNOSTIC 10/11/2018 repeat 2 month ESOPHAGOGASTRODUODENOSCOPY TRANSORAL DIAGNOSTIC 12/16/2018 EGD ALLERGIES Penicillin G MEDICATIONS allopurinol (ZYLOPRIM) 100 mg tablet Take 1 tablet by mouth every afternoon. amiodarone (PACERONE) 200 mg tablet Take 1 tablet by mouth every afternoon. amLODIPine (NORVASC) 5 mg tablet Take 1 tablet by mouth every afternoon. ELIQUIS 5 mg tab(s) take 1 5 MG tablet orally twice a day tpnvtseodz-tagrzlqo-nazzkyewrj (BREZTRI) 160-9-4.8 mcg/actuation HFA aerosol inhaler Inhale as instructed. FARXIGA 10 mg tablet Take 1 tablet by mouth every afternoon. furosemide (LASIX) 40 mg tablet Take 1.5 tablets by mouth every afternoon. potassium chloride 20 mEq TbER Take 1 tablet by mouth every 12 hours. Omeprazole 40 mg capsule Take 1 capsule by mouth once daily. metoprolol tartrate, short acting, 25 mg tablet Take 25 mg by mouth once daily. LISINOPRIL 40 MG TAB Take one(1) tablet daily. Multivitamin (MULTIPLE VITAMIN) ORAL Tab Take one(1) tablet daily. azithromycin (ZITHROMAX Z-YISEL) 250 mg tablet Take 2 tablets day one, then 1 tablet daily days 2 through 5. (Patient not taking: Reported on 10/18/2023) aspirin, enteric coated (ASPIRIN, ENTERIC COATED) 81 mg EC tablet Take 81 mg by mouth once daily. (Patient not taking: Reported on 10/18/2023) FAMILY HISTORY Problem Relation Age of Onset Colon Cancer Father Colon Cancer Brother Social History Tobacco Use Smoking status: Former Packs/day: 0.50 Years: 20.00 Additional pack years: 0.00 Total pack years: 10.00 Types: Cigarettes Smokeless tobacco: Never Tobacco comments: quit around 2001 Substance Use Topics Alcohol use: Yes Comment: occ socially Drug use: No Review of Systems Constitutional: Negative for fever. HENT: Positive for congestion. Negative for ear pain, nosebleeds and sore throat. Respiratory: Positive for cough and shortness of breath. Negative for wheezing. Musculoskeletal: Negative for neck pain. Skin: Negative for itching and rash. Objective Blood pressure 118/80, pulse (!) 126, temperature 37 ?C (98.6 ?F), temperature source Tympanic, resp. rate 18, weight 104.2 kg (229 lb 12.8 oz), SpO2 100%. Physical Exam Constitutional: General: She is not in acute distress. Appearance: She is not toxic-appearing or diaphoretic. HENT: Head: Normocephalic and atraumatic. Cardiovascular: Rate and Rhythm: Normal rate and regular rhythm. Heart sounds: Normal heart sounds, S1 normal and S2 normal. Pulmonary: Effort: Pulmonary effort is normal. Breath sounds: Normal breath sounds. Lymphadenopathy: Cervical: No cervical adenopathy. Right cervical: No superficial cervical adenopathy. Left cervical: No superficial cervical adenopathy. Neurological: Mental Status: She is alert and oriented to person, place, and time. Gait: Gait is intact. ASSESSMENT/PLAN: 1. Sinobronchitis - ICD9: 473.9, 490, ICD10: J32.9, J40 No xray at time of exam. Declines flu/covid testing. - Will begin treatment with as per antibiotic as written, see orders - Supportive care with plenty of fluids, rest, and analgesia prn. - Follow up in 3-5 days if symptoms persist or worsen. - DOXYCYCLINE HYCLATE 100 MG TABLET Malcolm Glaser APRN.HOMER [facility] History of Present illness Narrative 10-18-2023 Malcolm Glaser APRN.[facility] - 10/18/2023 11:17 AM EST Note Date & Type Note Facility 10-18-2023 History of Presen t illness Narrative Subjective HPI HPI Josefina Lee is a 73 year old female who presents today for CC of cough, congestion, sob. This started 2 days ago. Has tried otc medication. Symptoms are worsened by otc medication. Risk factors copd, sick exposures at home. 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 Chronic obstructive pulmonary disease (COPD) (HCC) Gout Hypertension Snoring Stroke (HCC) TIA-unsure of when PAST SURGICAL HISTORY Procedure Laterality Date COLONOSCOPY FLX DX W/COLLJ SPEC WHEN PFRMD 01/2005 COLONOSCOPY FLX DX W/COLLJ SPEC WHEN PFRMD 08/25/2013 Colonoscopy COLONOSCOPY FLX DX W/COLLJ SPEC WHEN PFRMD 08/16/2018 Colonoscopy ESOPHAGOGASTRODUODENOSCOPY TRANSORAL DIAGNOSTIC 08/25/2013 EGD ESOPHAGOGASTRODUODENOSCOPY TRANSORAL DIAGNOSTIC 12/01/13 EGD ESOPHAGOGASTRODUODENOSCOPY TRANSORAL DIAGNOSTIC 10/11/2018 repeat 2 month ESOPHAGOGASTRODUODENOSCOPY TRANSORAL DIAGNOSTIC 12/16/2018 EGD ALLERGIES Penicillin G MEDICATIONS allopurinol (ZYLOPRIM) 100 mg tablet Take 1 tablet by mouth every afternoon. amiodarone (PACERONE) 200 mg tablet Take 1 tablet by mouth every afternoon. amLODIPine (NORVASC) 5 mg tablet Take 1 tablet by mouth every afternoon. ELIQUIS 5 mg tab(s) take 1 5 MG tablet orally twice a day topmxnsxkl-wguqooms-rmuwtrwspg (BREZTRI) 160-9-4.8 mcg/actuation HFA aerosol inhaler Inhale as instructed. FARXIGA 10 mg tablet Take 1 tablet by mouth every afternoon. furosemide (LASIX) 40 mg tablet Take 1.5 tablets by mouth every afternoon. potassium chloride 20 mEq TbER Take 1 tablet by mouth every 12 hours. Omeprazole 40 mg capsule Take 1 capsule by mouth once daily. metoprolol tartrate, short acting, 25 mg tablet Take 25 mg by mouth once daily. LISINOPRIL 40 MG TAB Take one(1) tablet daily. Multivitamin (MULTIPLE VITAMIN) ORAL Tab Take one(1) tablet daily. azithromycin (ZITHROMAX Z-YISEL) 250 mg tablet Take 2 tablets day one, then 1 tablet daily days 2 through 5. (Patient not taking: Reported on 10/18/2023) aspirin, enteric coated (ASPIRIN, ENTERIC COATED) 81 mg EC tablet Take 81 mg by mouth once daily. (Patient not taking: Reported on 10/18/2023) FAMILY HISTORY Problem Relation Age of Onset Colon Cancer Father Colon Cancer Brother Social History Tobacco Use Smoking status: Former Packs/day: 0.50 Years: 20.00 Additional pack years: 0.00 Total pack years: 10.00 Types: Cigarettes Smokeless tobacco: Never Tobacco comments: quit around 2001 Substance Use Topics Alcohol use: Yes Comment: occ socially Drug use: No Review of Systems Constitutional: Negative for fever. HENT: Positive for congestion. Negative for ear pain, nosebleeds and sore throat. Respiratory: Positive for cough and shortness of breath. Negative for wheezing. Musculoskeletal: Negative for neck pain. Skin: Negative for itching and rash. Objective Blood pressure 118/80, pulse (!) 126, temperature 37 C (98.6 F), temperature source Tympanic, resp. rate 18, weight 104.2 kg (229 lb 12.8 oz), SpO2 100%. Physical Exam Constitutional: General: She is not in acute distress. Appearance: She is not toxic-appearing or diaphoretic. HENT: Head: Normocephalic and atraumatic. Cardiovascular: Rate and Rhythm: Normal rate and regular rhythm. Heart sounds: Normal heart sounds, S1 normal and S2 normal. Pulmonary: Effort: Pulmonary effort is normal. Breath sounds: Normal breath sounds. Lymphadenopathy: Cervical: No cervical adenopathy. Right cervical: No superficial cervical adenopathy. Left cervical: No superficial cervical adenopathy. Neurological: Mental Status: She is alert and oriented to person, place, and time. Gait: Gait is intact. ASSESSMENT/PLAN: 1. Sinobronchitis - ICD9: 473.9, 490, ICD10: J32.9, J40 No xray at time of exam. Declines flu/covid testing. - Will begin treatment with as per antibiotic as written, see orders - Supportive care with plenty of fluids, rest, and analgesia prn. - Follow up in 3-5 days if symptoms persist or worsen. - DOXYCYCLINE HYCLATE 100 MG TABLET Malcolm Glaser APRN.HOMER documented in this encounter [facility] Evaluation note Note Date & Type Note Facility documented in this encounter [facility] Summary Purpose Family History No Family History Records FoundNo Family History Records Found Advance Directives No Advanced Directives Records FoundNo Advanced Directives Records Found Additional Source Comments INFORMATION SOURCE (unrecogn ized section and content) DATE CREATED AUTHOR AUTHOR'S ORGANIZ ATION 12/06/2023 [facility] Source Comments (unrecognize d section and content) In the event this informatio n is protected by the Federal Confidentiality of Alcohol and Drug Abuse Patient Records regulations: The Federal rules restrict any use of the information to criminally investigate or prosecute any alcohol or drug abuse patient.[facility] Reason for Visit (unrecogniz ed section and content) Care Teams (unrecognized sec tion and content) FOR RECORDS PERTAINING TO PATIENTS WHO ARE OR HAVE BEEN ENROLLED IN A CHEMICAL DEPENDENCY/SUBSTANCEABUSE PROGRAM, SOME INFORMATION MAY BE OMITTED. This clinical summary was aggregated from multiple sources. Caution should be exercised in using it in the provision of clinical care. This summary normalizes information from multiple sources, and as a consequence, information in this document may materially change the coding, format and clinical context of patient data. In addition, data may be omitted in some cases. CLINICAL DECISIONS SHOULD BE BASED ON THE PRIMARY CLINICAL RECORDS. [facility] [employer] provides no warranty or guarantee of the accuracy or completeness of information in this document.
== END | disposition home or self-care (01) ==
PROVIDERS: PCP Internal Medicine; Referring Provider Internal Medicine Cardiovascular Disease; Visit Provider Internal Medicine Cardiovascular Disease
DX: I42.9 Cardiomyopathy, unspecified (principal); I50.20 Unspecified systolic (congestive) heart failure; I50.33 Acute on chronic diastolic (congestive) heart failure; R06.09 Other forms of dyspnea; R53.83 Other fatigue; R07.9 Chest pain, unspecified
CPT/HCPCS: 36415; 80048; 85025; 85610; 85730

== ENCOUNTER 2023-12-17 08:01 | Day surgery (SDC) | payer MEDICARE, MEDICAID, SELFPAY ==
[2023-12-16 09:20] VITALS: BMI 31.8
--- OUTSIDE RECORDS SUMMARY | 2023-12-17 08:27 | XMS RPT_ITS | CCD ---
Author Name Unknown Address [address] [place] [address] Organization [facility] Care Team Providers Care Final Inspector Movement Assembly Name Role Phone Temitope Summers Primary Care Provider [phone] Allergies Allergy Classification Reported Allergen(s) Allergy Type Date of Onset Reaction(s) Facility (2 sources) Penicillin G; Translations: [PENICILLIN G] Drug Allergy 02-17-2006 [facility] Work Phone: Medications Current Medications Medication Drug [...] 11:12-0500 Body temperature 98.6 [degF] Malcolm Glaser APRN.COMMISSIONS COORDINATOR Work Phone: [facility] 10-18-2023 11:12-0500 Body weight 104.24 kg Malcolm Glaser APRN.COMMISSIONS COORDINATOR Work Phone: [facility] 10-18-2023 11:12-0500 Diastolic blood pressure 80 mm[Hg] Malcolm Glaser PARTS BACK COUNTER MAN.COMMISSIONS COORDINATOR Work Phone: [facility] 10-18-2023 11:12-0500 Heart rate 126 /min Malcolm Glaser APRN.COMMISSIONS COORDINATOR Work Phone: [facility] 10-18-2023 11:12-0500 Respiratory rate 18 /min Malcolm Glaser APRN.COMMISSIONS COORDINATOR Work Phone: [facility] 10-18-2023 11:12-0500 SaO2% (BldA) [Mass fraction] 100 % Malcolm Glaser APRN.COMMISSIONS COORDINATOR Work Phone: [facility] 10-18-2023 11:12-0500 Systolic blood pressure 118 mm[Hg] Malcolm Glaser APRN.COMMISSIONS COORDINATOR Work Phone: [facility] Encounters Encounter Date Encounter Type Care Provider Facility Start: 10-18-2023 End: 10-18-2023 ambulatory TEMITOPE SUMMERS Facility:[facility] Start: 10-18-2023 End: 10-18-2023 Patient encounter procedure Malcolm Glaser APRN.CNP Work Phone: [facility] Procedures Date Procedure Procedure Detail Performing Clinician Start: 08-16-2018 Colonoscopy Malcolm foster APRN.CNP Work Phone: Start: 06-03-2004 Lipid 1996 panel - S vibha or Plasma Malcolm Glaser APRN.CNP Work Phone: Plan of Treatment Date Care Activity Detail Author Start: 08-16-2023 Screening for malign ant neoplasm of colon [facility] Start: 06-26-2023 Covid-19 Vaccine () Covid-19 Vaccine () [facility] Start: 06-26-2023 Influenza vaccination Influenza Vacc ine (#1) [facility] Start: 10-26-2022 Advance Directive Discussion Advance Directive Discussion [facility] Start: 10-26-2022 Depression Assessment Depression Ass essment [facility] Start: 2014 Screening for osteoporosis Bone Dens ity Screening [facility] Start: 01-14-2014 Screening for malign ant neoplasm of breast Mammogram Screening [facility] Start: 05-17-2010 Diabetes Screening Diabetes Screenin g [facility] Start: 2009 RSV Vaccine (1 - 1-d ose 60+ series) RSV Vaccine (1 - 1-dose 60+ series) [facility] Start: 06-03-2009 Lipid panel Lipid Screening [facility] Start: 1999 Shingrix Vaccine (1 of 2) Auguste grix Vaccine (1 of 2) [facility] Start: 1994 Screening for malign ant neoplasm of colon [facility] Start: 1968 Urine microalbumin profile DTa P,Tdap,Td Vaccine (1 - Tdap) [facility] Start: 1967 Annual PCP Team [employer] Apprentice roro Disease Visit Annual PCP Team Chronic Disease Visit [facility] Start: 1967 BP Controlled (<130/80) BP Controlle d (<130/80) [facility] Start: 1967 Hepatitis C screening Hepatitis C Sc carolin [facility] Immunizations Immunization Date Immunization Notes Care Provider Sangeeta cheney 07-07-2018 influenza virus vacc ine, unspecified formulation Malcolm Glaser APRN.COMMISSIONS COORDINATOR Work Phone: [facility] Payers Date Payer Category Payer Medicaid MEDICAID [facility] MEDICAID [id number] 2016-Present [phone] [address] [place] [address] Medicaid [id number] 2016 Medicaid [id number] 2011 Medicare MEDICARE MEDICAR E A AND B [id number] 2011-Present [phone] [address] [address] [place] [address] Medicare [id number] 2011 Medicare [id number] Social History Date Type Detail Facility Start: [facility]-2023 [facility] History of tobacco use Current smoker [facility] History of tobacco use Cigarette Smoker [facility] Start: 09-30-2020 End: 10-18-2023 Cigarettes smoked current (pack per day) - Reported 0.5 [facility] Start: 10-18-2023 Tobacco use and exposure Smoke less tobacco non-user [facility] Start: 10-18-2023 Alcohol intake Current drinke r of alcohol (finding) [facility] Start: 09-30-2020 End: 10-18-2023 Tobacco use panel [facility] National Score (1-10 0), lower number is lower risk Not on file [facility] Start: 10-18-2023 Tobacco Comment quit around 2001 [facility] Start: 05-17-2007 Alcohol Comment occ socially [facility] Start: 1950 Sex Assigned At Not on file C [facility] Progress note 10-18-2023 Note Date & Type Note Facility 10-18-2023 Note HNO ID: [id number] Author: Malcolm Glaser APRN.CNP Service: ? 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 Chronic obstructive pulmonary disease (COPD) (HCC) Gout [...] 5 MG tablet orally twice a day pvmkfzkuwi-welrwgjf-rdovtocyjt (BREZTRI) 160-9-4.8 mcg/actuation HFA aerosol inhaler Inhale [...] Malcolm Glaser APRN.HOMER documented in this encounter [facility] Evaluation note Note Date & Type Note Facility documented in this encounter [facility] Summary Purpose Family History No Family History Records FoundNo Family History Records Found Advance Directives No Advanced Directives Records FoundNo Advanced Directives Records Found Additional Source Comments INFORMATION SOURCE (unrecogn ized section and content) DATE CREATED AUTHOR AUTHOR'S ORGANIZ ATION 12/06/2023 [facility] Source Comments (unrecognize d section and content) In the event this informatio n is protected by the Federal Confidentiality of Alcohol and Drug Abuse Patient Records regulations: The Federal rules restrict any use of the information to criminally investigate or prosecute any alcohol or drug abuse patient.[facility] Reason for Visit (unrecogniz ed section and [...] BE BASED ON THE PRIMARY CLINICAL RECORDS. [facility] [employer] provides no warranty or guarantee of the accuracy or completeness of information in this document.
--- NOTE | 2023-12-17 10:55 | CL.D_ITS ---
Patient Name: HILL BARRAGAN Study Date: 12/17/2023 Performing: Vikas King MD Ht: 70 inches 177.8 cm : 1950 Wt: 222.01 lbs 100.7 kg Age: 73 Gender: female BSA: 2.18 PROCEDURE(S) PERFORMED DC01-(70218)LHC/COR/LV CLINICAL PROFILE AND INDICATIONS Heart Failure: None CONCLUSIONS 20% calcified Mid RCA Minimal luminal irregularities Prox LAD, Prox D1 LVEF 25% RECOMMENDATIONS Medical therapy Risk factor modification DESCRIPTION OF PROCEDURE The patient arrived to the procedure lab. The risks and benefits of the procedure as well as a full description of our services here and current unavailability of surgical backup were fully explained to the patient and/or their significant other prior to the catheterization. The Timeout was completed, verifying the correct patient and procedure. The patient's procedural site was prepped and draped in the usual fashion. Local anesthetic was given subcutaneously to right radial region with Lidocaine 2%. Using a modified Seldinger technique, arterial access was obtained via the right radial artery, a 6Fr sheath was inserted. LV to AO pullback pressures were then recorded. Left Coronary Artery selective angiography was performed in multiple views using a 5 Fr. [place] catheter. Right Coronary Artery selective angiography was then performed in multiple views using a 5 Fr. 3DRC (Jose) catheter. Left Ventriculography was performed in VALDES projection using a 5 Fr. [place] catheter. LV to AO pullback pressures were then recorded.The arterial sheath was pulled and a TR Band was applied for hemostasis CORONARY ANGIOGRAPHY DOMINANCE: Right Dominant LEFT HEART ASSESSMENT Left Ventricular Ejection Fraction: by LV Gram 25 % LVEDP: 23 mmHg LEFT MAIN: Angiographically normal LEFT ANTERIOR DESCENDING ARTERY: Angiographically normal DIAGONAL 1: Calcified 10% Ostial lesion in 1st Diagonal RIGHT CORONARY ARTERY: RCA: Calcified 20% Mid lesion in RCA COMPLICATIONS No Complications PROCEDURE MEDICATIONS Versed 1 mg IV Fentanyl 50 mcg IV Oxygen: 2 L/min via nasal cannula Heparin given IA 12/17/2023 10:19:15 Verapamil 2.5mg, Ntg 200mcgs, 2000 units of Heparin given IA 12/17/2023 10:19:15 SUMMARY OF HEMODYNAMIC DATA Time AIR REST ECG 08:27:30 LV 119/17, 24 10:21:33 LV 115/18, 26 10:21:42 LVp 120/14, 22 10:21:46 AOp 122/74 (92) 10:21:53 AO 116/85 (101) SA 10:21:56 LV 134/11, 19 10:36:04 LV 130/14, 23 10:36:13 LV 134/24, 28 10:37:14 LVp 129/25, 30 10:37:17 AOp 132/86 (101) 10:37:24 10:49:39 Signed By Vikas King MD On 12/17/2023 10:54:53 Vikas King MD
== END 2023-12-17 12:25 | disposition home or self-care (01) ==
LOC: CLSP 08:04
PROVIDERS: PCP Internal Medicine; Referring Provider Internal Medicine Cardiovascular Disease; Visit Provider Internal Medicine Cardiovascular Disease
DX: I25.10 Atherosclerotic heart disease of native coronary artery without angina pectoris (principal); J44.9 Chronic obstructive pulmonary disease, unspecified; I50.33 Acute on chronic diastolic (congestive) heart failure; I11.0 Hypertensive heart disease with heart failure; I42.9 Cardiomyopathy, unspecified; I71.21 Aneurysm of the ascending aorta, without rupture; I48.0 Paroxysmal atrial fibrillation; I08.0 Rheumatic disorders of both mitral and aortic valves; Z79.899 Other long term (current) drug therapy; Z87.891 Personal history of nicotine dependence
CPT/HCPCS: 93458; 99152; 99153; J7040; Q9967; C1769; C1894

== ENCOUNTER → 2023-12-29 | Outpatient (CLI) | payer MEDICARE, MEDICAID, SELFPAY ==
--- NOTE | 2023-12-29 10:51 | ECHOL_ITS ---
Reason For Study: Cardiomyopathy Procedure This was a limited 2D transthoracic echocardiogram. Technically difficult due to arrhythmia. Exam performed in department. Left Ventricle Normal LV size. The left ventricular ejection fraction is 35 %. Right Ventricle Normal right ventricle. Atria There is moderate biatrial dilatation. Mitral Valve Mild (1+) mitral valve insufficiency. Tricuspid Valve Trivial tricuspid valve insufficiency. Aortic Valve Trisinus/trileaflet aortic valve. Pulmonic Valve The pulmonic valve is not well visualized. Great Vessels Moderately dilated aortic root. Pericardium/Pleural No pericardial effusion. MMode/2D Measurements & Calculations LVIDd: 5.0 cm IVSd: 1.0 cm Ao root diam: 4.3 cm LVIDs: 3.7 cm LVPWd: 0.99 cm FS: 26.4 % LAV(MOD-sp4): 96.8 ml LVAd ap4: 23.7 cm2 SV(MOD-sp4): 27.7 ml LVLd ap4: 6.6 cm EDV(MOD-sp4): 71.1 ml EDV(sp4-el): 71.8 ml LVAs ap4: 17.9 cm2 LVLs ap4: 6.2 cm ESV(MOD-sp4): 43.4 ml ESV(sp4-el): 43.8 ml EF(MOD-sp4): 38.9 % EF(sp4-el): 39.0 % SV(sp4-el): 28.0 ml LA A4 area: 27.3 cm2 RA A4 area: 23.2 cm2 ECHO/Echo, Limited Study Interpretation Summary Technically difficult due to arrhythmia. The left ventricular ejection fraction is 35 %. There is moderate biatrial dilatation. Mild (1+) mitral valve insufficiency. Moderately dilated aortic root. Ordering Physician: Carol Humphries Referring Physician: Fam Jasso Performed By: Jayant Kent RCS
--- OUTSIDE RECORDS SUMMARY | 2023-12-29 11:20 | XMS RPT_ITS | CCD ---
Author Name Unknown Address [address] [place] [address] Organization [facility] Care Team Providers Care Rice Farmworker Name Role Phone Temitope Marrero Primary Care Provider [phone] Caludia Ma MD Unavailable Teetee Wang MD Unavailable Mckayla SAEZ, Teetee Unavailable TEMITOPE MARRERO Primary Care Unavailab TEETEE Springer Referring Unavailable CLAUDIA MA Referring Unavailable TEETEE WANG Attending Unavailable TEMITOPE MARRERO Primary Care UnavailTEMITOPE Fields Primary Care Unavailab mathews Allergies Allergy Classification Reported Allergen(s) Allergy Type Date of Onset Reaction(s) Facility (3 sources) Penicillin G; Translations: [PENICILLIN G] Drug Allergy 02-17-2006 [facility] Work Phone: Medications Current Medications Medication Drug [...] Sig (Original) allopurinol 100 mg oral tablet (2 sources) Xanthine Oxidase Inhibitor Start: 08-14-2023 take 1 tablet by mouth once allopurinol (ZYLOPRIM) 100 mg tablet Take 1 tablet by mouth every afternoon. 0 08/14/2023 Active Problems Active Problems Problem Classification Problem Date Documented Date Episodic/Chronic Aortic; peripheral; and visceral artery aneurysms (1 source) Aneurysm of ascending aorta; Translations: [Aneurysm of ascending aorta without rupture] Onset: 11-27-2023 11-27-2023 Chronic Cardiac dysrhythmias (1 source) Persistent atrial fibrillation; Translations: [Other persistent atrial fibrillation] 12-16-2023 Chronic Congestive heart failure; nonhypertensive (1 source) Chronic systolic heart failure; Translations: [Chronic systolic (congestive) heart failure] 12-16-2023 Chronic Esophageal disorders (4 sources) Gastroesophageal reflux disease; Translations: [Gastro-esophageal reflux disease without esophagitis] Onset: 05-17-2007 05-17-2007 Chronic Essential hypertension (2 sources) Benign essential hypertension; Translations: [Essential (primary) hypertension] Onset: 05-17-2007 05-17-2007 Chronic Other circulatory disease (1 source) Disorder of artery; Translations: [Disorder of arteries and arterioles, unspecified] 12-16-2023 Chronic Other upper respiratory infections (1 source) Chronic sinusitis; Translations: [Chronic sinusitis, unspecified] 10-18-2023 Chronic Past or Other Problems Problem Classification Problem Date Documented Da te Episodic/Chronic Gastroduodenal ulcer (except hemorrhage) (2 sources) Acute gastric ulcer; Translations: [Acute gastric ulcer without hemorrhage or perforation] Onset: 10-11-2018 10-11-2018 Episodic Other gastrointestinal disorders (2 sources) Dysphagia; Translations: [Dysphagia, unspecified] Onset: 07-26-2018 07-26-2018 Episodic Residual codes; unclassified (2 sources) Family history of cancer of colon; Translations: [Family history of malignant neoplasm of digestive organs] Onset: 07-26-2018 07-26-2018 Episodic Results Test Name Value Interpretation Reference Range Facil ity Vital Signs Date Time Vital Sign Value Performing Clinician Paul troncoso 12-16-2023 13:17-0500 Diastolic blood pressure 85 mm[Hg] Teetee Wang MD Work Phone: [facility] 12-16-2023 13:17-0500 Systolic blood pressure 140 mm[Hg] Teetee Wang MD Work Phone: [facility] 12-16-2023 13:06-0500 Body weight 100.83 kg Teetee Wang MD Work Phone: [facility] 12-16-2023 13:06-0500 Heart rate 75 /min Teetee Wang MD Work Phone: [facility] 12-16-2023 13:06-0500 SaO2% (BldA) [Mass fraction] 97 % Teetee Wang MD Work Phone: [facility] 10-18-2023 11:12-0500 Body temperature 98.6 [degF] Malcolm Alfredito ELASTIC ASSEMBLER.CHANNEL REBUILDER Work Phone: [facility] 10-18-2023 11:12-0500 Body weight 104.24 kg Malcolm Alfredito ELASTIC ASSEMBLER.CHANNEL REBUILDER Work Phone: [facility] 10-18-2023 11:12-0500 Diastolic blood pressure 80 mm[Hg] Malcolm Alfredito ELASTIC ASSEMBLER.CHANNEL REBUILDER Work Phone: [facility] 10-18-2023 11:12-0500 Heart rate 126 /min Malcolm Alfredito ELASTIC ASSEMBLER.CHANNEL REBUILDER Work Phone: [facility] 10-18-2023 11:12-0500 Respiratory rate 18 /min Malcolm Alfredito ELASTIC ASSEMBLER.CHANNEL REBUILDER Work Phone: [facility] 10-18-2023 11:12-0500 SaO2% (BldA) [Mass fraction] 100 % Malcolm Alfredito ELASTIC ASSEMBLER.CHANNEL REBUILDER Work Phone: [facility] 10-18-2023 11:12-0500 Systolic blood pressure 118 mm[Hg] Malcolm Alfredito ELASTIC ASSEMBLER.CHANNEL REBUILDER Work Phone: [facility] Encounters Encounter Date Encounter Type Care Provider Facility Start: 12-16-2023 Encounter for preprocedural cardiovascular examination TEMITOPE MARRERO [facility] Start: 12-16-2023 End: 12-16-2023 ambulatory CLAUDIA MA Facility:[facility] Start: 12-16-2023 End: 12-16-2023 Patient encounter procedure Teetee Wang MD Work Phone: Cardiology Procedures Date Procedure Procedure Detail Performing Clinician Start: 08-16-2018 Colonoscopy Malcolm foster APRN.CHANNEL REBUILDER Work Phone: Start: 06-03-2004 Lipid 1996 panel - S vibha or Plasma Malcolm Glaser APRN.CHANNEL REBUILDER Work Phone: Plan of Treatment Date Care Activity Detail Author Start: 12-16-2023 End: 03-16-2024 CREATININE BLD CREATININE BLD Lab Routine Disorder of artery or arteriole (HCC) Expected: 12/16/2023, Expires: 03/16/2024 [facility] Work Phone: Immunizations Immunization Date Immunization Notes Care Provider Fa cili 07-07-2018 influenza virus vacc ine, unspecified formulation Malcolm Glaser APRN.CHANNEL REBUILDER Work Phone: [facility] Payers Date Payer Category Payer Medicaid [place] [id number] 2016-Present [phone] [address] [place] [address] Medicaid [id number] 2016 Medicaid [id number] 2011 Medicare MEDICARE MEDICAR E A AND B [id number] 2011-Present [phone] [address] [address] [place] [address] Medicare [id number] 2011 Medicare [id number] Social History Date Type Detail Facility Start: 10-18-2023 End: 12-16-2023 Tobacco smoking status NHIS Ex-smoker [facility] End: 10-26-2001 History of tobacco use Current smoker [facility] End: 10-26-2001 History of tobacco use Cigarette Smoker [facility] Start: 10-18-2023 End: 12-16-2023 Cigarettes smoked current (pack per day) - Reported 0.5 [facility] Start: 10-18-2023 End: 12-16-2023 Tobacco use and exposure Smokeless tobacco non-user [facility] Start: 10-18-2023 End: 12-16-2023 Alcohol intake Current drinker of alcohol (finding) [facility] Start: 10-18-2023 End: 12-16-2023 Tobacco use panel [facility] National Score (1-10 0), lower number is lower risk Not on file [facility] Start: 10-18-2023 Tobacco Comment quit around 2001 [facility] Start: 05-17-2007 Alcohol Comment occ socially [facility] Start: 1950 Sex Assigned At Not on file [facility] Progress note 12-16-2023 Note Date & Type Note Facility 12-16-2023 Note HNO ID: [id number] Author: TEETEE WANG MD Service: ? Author Type: Physician Type: Progress Notes Filed: 12/16/2023 14:18 Note Text: [facility] [place] Department of Cardiovascular Medicine SECTION OF CLINICAL CARDIOLOGY OUTPATIENT VISIT DATE December 16, 2023 OUTPATIENT VISIT TYPE NEW PRIMARY CARE PHYSICIAN: Temitope Marrero MD ([facility]) [address] [place] [id number] REFERRING PHYSICIAN: Claudia Ma [address] [place] [address] Catherine [facility] [address] CHIEF COMPLAINT: No chief complaint on file. HISTORY OF PRESENT ILLNESS: Ms. Rafi Barragan is a 73 year old female who presents today for an evaluation of her candidacy for aortic aneurysm repair. It appears that the patient has been aware of her aneurysm for several years and was initially measured at 4.4 cm with a most recent measurement at 4.9 cm. She has been struggling with atrial fibrillation and has been experiencing significant fatigue. She has undergone multiple DCCV's with recurrence. Her heart rates have ranged from 110 to 160 bpm and her most recent echo shows an EF of 15 to 20% (09/2023). She is recently been evaluated by Dr. King who added digoxin to amiodarone. He has also arranged for coronary angiography which is scheduled on 12/17/2023 She denies chest pain, orthopnea, cough, palpitations, PND, lightheadedness or syncope. NURSING INTAKE: Ms. Rafi Barragan is a 73 year old female from [place], [place] here today for cardiovascular evaluation related to pre-operative clearance. She is undergoing evaluation by Dr. Ma for ascending aorta aneurysm. Josefina has a significant medical history of Ascending Aorta Aneurysm, COPD, A Fib, HTN, TIA, Acid Reflux, Former Smoker, PAOLO (does not tolerate a mask). She reports the following symptoms: Chest pain at rest and on exertion. She states it is a stabbing pain that lasts a few seconds and then self-resolves. She states it takes her breath away. She denies radiation, however states that she does get pain that is not in her jaw, but in her neck near her jaw that lasts several minutes at a time. It is not associated with episodes of chest pain. She states she was at a doctor's appointment recently and her heart rate was 160bpm. She denies the sensation of palpitations, even with these fast heart rates. She does state she is always dizzy . Bilateral lower extremity swelling.They are cold to the touch. She states this has been her baseline. She endorses orthopnea x2 total pillows at night. She raises the head of her bed to a 45 degree angle in combination with the 2 pillows. She states she basically sits upright due to orthopnea. She does not tolerate a CPAP so does not treat her sleep apnea at this time. Diet: Regular Exercise: Denies. Used to walk 2 miles daily until she started having heart problems. She states now she can't even walk 0.5 miles per day. PAST MEDICAL HISTORY Diagnosis Date Acid reflux Aortic aneurysm (HCC) Dr. Zuleta is pt's steam drier tender Chronic obstructive pulmonary disease (COPD) (HCC) Gout [...] 2 month ESOPHAGOGASTRODUODENOSCOPY TRANSORAL DIAGNOSTIC 12/16/2018 EGD SOCIAL HISTORY Social History Tobacco Use Smoking status: Former Packs/day: 0.33 Years: 20.00 Additional pack years: 0.00 Total pack years: 6.60 Types: Cigarettes Quit date: 2001 Years since quittin.1 Smokeless tobacco: Never Tobacco comments: quit around 2001 Vaping Use Vaping Use: Never used Substance Use Topics Alcohol use: Yes Comment: occ socially Drug use: No FAMILY HISTORY Problem Relation Age of Onset Heart Attack Mother Hyperlipidemia Mother Hypertension Mother Diabetes Mother Heart Failure Mother Colon Cancer Father Colon Cancer Brother Hypertension Brother No Known Problems Maternal Grandmother No Known Problems Maternal Grandfather No Known Problems Paternal Grandmother No Known Problems Paternal Grandfather ALLERGIES: ALLERGIES Allergen Reactions Penicillin G MEDICATIONS: metoprolol succinate ER (TOPROL XL) 50 mg 24 hr tablet Take 1 tablet by mouth once daily. allopurinol (ZYLOPRIM) 100 mg tablet Take 1 tablet by mouth every afternoon. amiodarone (PACERONE) 200 mg tablet Take 1 tablet by mouth every afternoon. amLODIPine (NORVASC) 5 mg tablet Take 1 tablet by mouth every afternoon. lbobknzwag-fkmawetk-cyvwbdynvw (BREZTRI) 160-9-4.8 m (more content not included)... [facility]-16-2023 Patient Instructions Note Date & Type Note Facility 12-16-2023 Instructions Teetee Wang MD - 12/16/2023 1:55 PM EST Wait for the cath to determine if you have any blockage Zio patch to pickle water pump operator today, that will give us an idea about your atrial fibrillation Then will schedule and echo and chest CT for the aneurysm preferred at [facility]. documented in this encounter [facility] History of Present illness Narrative 12-16-2023 Teetee Wang MD - 12/16/2023 12:15 PM EST Note Date & Type Note Facility 12-16-2023 History of Presen t illness Narrative Images from the original note were not included. [facility] Department of Cardiovascular Medicine SECTION OF CLINICAL CARDIOLOGY OUTPATIENT VISIT DATE December 16, 2023 OUTPATIENT VISIT TYPE NEW PRIMARY CARE PHYSICIAN: Temitope Marrero MD ([facility]) [address] [place] [address] REFERRING PHYSICIAN: Claudia Ma [address] [facility] [address] CHIEF COMPLAINT: No chief complaint on file. HISTORY OF PRESENT ILLNESS: Ms. Rafi Barragan is a 73 year old female who presents today for an evaluation of her candidacy for aortic aneurysm repair. It appears that the patient has been aware of her aneurysm for several years and was initially measured at 4.4 cm with a most recent measurement at 4.9 cm. She has been struggling with atrial fibrillation and has been experiencing significant fatigue. She has undergone multiple DCCV's with recurrence. Her heart rates have ranged from 110 to 160 bpm and her most recent echo shows an EF of 15 to 20% (09/2023). She is recently been evaluated by Dr. King who added digoxin to amiodarone. He has also arranged for coronary angiography which is scheduled on 12/17/2023 She denies chest pain, orthopnea, cough, palpitations, PND, lightheadedness or syncope. NURSING INTAKE: Ms. Rafi Barragan is a 73 year old female from [place], [place] here today for cardiovascular evaluation related to pre-operative clearance. She is undergoing evaluation by Dr. Ma for ascending aorta aneurysm. Josefina has a significant medical history of Ascending Aorta Aneurysm, COPD, A Fib, HTN, TIA, Acid Reflux, Former Smoker, PAOLO (does not tolerate a mask). She reports the following symptoms: Chest pain at rest and on exertion. She states it is a stabbing pain that lasts a few seconds and then self-resolves. She states it takes her breath away. She denies radiation, however states that she does get pain that is not in her jaw, but in her neck near her jaw that lasts several minutes at a time. It is not associated with episodes of chest pain. She states she was at a doctor's appointment recently and her heart rate was 160bpm. She denies the sensation of palpitations, even with these fast heart rates. She does state she is always dizzy . Bilateral lower extremity swelling. They are cold to the touch. She states this has been her baseline. She endorses orthopnea x2 total pillows at night. She raises the head of her bed to a 45 degree angle in combination with the 2 pillows. She states she basically sits upright due to orthopnea. She does not tolerate a CPAP so does not treat her sleep apnea at this time. Diet: Regular Exercise: Denies. Used to walk 2 miles daily until she started having heart problems. She states now she can't even walk 0.5 miles per day. PAST MEDICAL HISTORY Diagnosis Date Acid reflux Aortic aneurysm (HCC) Dr. Zuleta is pt's steam drier tender Chronic obstructive pulmonary disease (COPD) ([facility]) Gout Hypertension Snoring Stroke ([facility]) TIA-unsure of when PAST SURGICAL HISTORY Procedure Laterality Date COLONOSCOPY FLX DX W/COLLJ SPEC WHEN PFRMD 01/2005 COLONOSCOPY FLX DX W/COLLJ SPEC WHEN PFRMD 08/25/2013 Colonoscopy COLONOSCOPY FLX DX W/COLLJ SPEC WHEN PFRMD 08/16/2018 Colonoscopy ESOPHAGOGASTRODUODENOSCOPY TRANSORAL DIAGNOSTIC 08/25/2013 EGD ESOPHAGOGASTRODUODENOSCOPY TRANSORAL DIAGNOSTIC 12/01/13 EGD ESOPHAGOGASTRODUODENOSCOPY TRANSORAL DIAGNOSTIC 10/11/2018 repeat 2 month ESOPHAGOGASTRODUODENOSCOPY TRANSORAL DIAGNOSTIC 12/16/2018 EGD SOCIAL HISTORY Social History Tobacco Use Smoking status: Former Packs/day: 0.33 Years: 20.00 Additional pack years: 0.00 Total pack years: 6.60 Types: Cigarettes Quit date: 2001 Years since quittin.1 Smokeless tobacco: Never Tobacco comments: quit around 2001 Vaping Use Vaping Use: Never used Substance Use Topics Alcohol use: Yes Comment: occ socially Drug use: No FAMILY HISTORY Problem Relation Age of Onset Heart Attack Mother Hyperlipidemia Mother Hypertension Mother Diabetes Mother Heart Failure Mother Colon Cancer Father Colon Cancer Brother Hypertension Brother No Known Problems Maternal Grandmother No Known Problems Maternal Grandfather No Known Problems Paternal Grandmother No Known Problems Paternal Grandfather ALLERGIES: ALLERGIES Allergen Reactions Penicillin G MEDICATIONS: metoprolol succinate ER (TOPROL XL) 50 mg 24 hr tablet Take 1 tablet by mouth once daily. allopurinol (ZYLOPRIM) 100 mg tablet Take 1 tablet by mouth every afternoon. amiodarone (PACERONE) 200 mg tablet Take 1 tablet by mouth every afternoon. amLODIPine (NORVASC) 5 mg tablet Take 1 tablet by mouth every afternoon. jmpwcescrw-yxylfxsf-txdoitlpwo (BREZTRI) 160-9-4.8 mcg/actuation HFA aerosol inhaler Inhale as instructed. FARXIGA 10 mg tablet Take 1 tablet by mouth every afternoon. furosemide (LASIX) 40 mg tablet Take 1-1.5 tablets by mouth every afternoon. potassium chloride 20 mEq TbER Take 1 tablet by mouth every 12 hours. Omeprazole 40 mg capsule Take 1 capsule by mouth once daily. aspirin, enteric coated (ASPIRIN, ENTERIC COATED) 81 mg EC tablet Take 81 mg by mouth once daily. metoprolol tartrate, short acting, 25 mg tablet Take 25 mg by mouth once daily. LISINOPRIL 40 MG TAB Take one(1) tablet daily. Multivitamin (MULTIPLE VITAMIN) ORAL Tab Take one(1) tablet daily. digoxin (LANOXIN) 125 mcg (0.125 mg) tablet Take 1 tablet by mouth once daily. ELIQUIS 5 mg tab(s) take 1 5 MG tablet orally twice a day (Patient not taking: Reported on 12/16/2023) REVIEW OF SYSTEMS: Positives in bold GENERAL: Negative for: Weight loss or gain, Fever or Chills, Weakness and Sleep difficulties. HEENT: Negative for: Headache, Impaired Vision, Glasses, Hearing Impairment, Ringing in Ears, Nosebleeds, Poor dental care, Bleeding Gums, Dentures NECK: Negative for: Swelling, Pain, Stiffness RESPIRATORY: Negative for: Cough, Blood in Sputum, Shortness of breath, Wheezing, Apnea GASTROINTESTINAL: Negative for: Trouble swallowing, Heartburn, Change in bowel habits, Blood in stool, Dark black stools MUSCULOSKELETAL: Negative for: Muscle or joint pain, Stiffness , Joint swelling NEUROLOGIC/PSYCHIATRIC: Negative for: Weakness, Paralysis, Numbness, Tingling, Tremor, Nervousness, Depressed mood, Memory loss SKIN: Negative for: Rashes, Itching HEMATOLOGICAL/LYMPHATIC: Negative for: Easy bruising , Easy bleeding ENDOCRINE: Negative for: Heat or cold intolerance, Excessive sweating, Frequent urination, Frequent thirst PHYSICAL EXAMINATION: BP 140/85 (BP Site: Right Arm) Pulse 75 Wt 100.8 kg (222 lb 4.8 oz) SpO2 97% BMI 31.90 kg/m General: Well appearing, in no acute distress. Skin: No clubbing, no cyanosis. Eyes: Extra ocular movements intact Oropharynx: Teeth in good repair. Neck: jugular venous distention, no carotid bruits, carotids have a normal upstroke, no palpable thyromegaly. Lungs: Clear to auscultation bilaterally, no wheezing or rhonchi. Heart: Irregular rhythm, PMI not displaced, S1, S2 normal, no S3, no S4, no heaves, no rub and no murmur. Abdomen: Soft, nontender, bowel sounds normal, no palpable organomegaly, no bruits. Extremities:Trace peripheral edema . Grade 2/4 distal pulses bilaterally. Neuro: Oriented to person, place and time, alert, cooperative, CARDIOVASCULAR MEDICINE TESTING: Electrocardiogram 12/16/2023: Echocardiogram 09/30/2023: External CT Scan 04/23/2023: I have personally reviewed the Electrocardiogram and echo. IMPRESSION: Ms. Rafi Barragan is a 73 year old female former smoker, history of obstructive sleep apnea , poorly controlled persistent atrial fibrillation, heart failure reduced ejection fraction and ascending aortic aneurysm who comes in for an evaluation 1. Heart failure reduced EF with an estimated ejection fraction of 20% (10/14/2023) 2. Persistent atrial fibrillation 3. Ascending aortic aneurysm PLAN AND RECOMMENDATIONS: At this juncture it is critical to assess patient's heart failure and determine the etiology if it is rate related versus coronary artery disease. 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 We will await the results of her coronary angiography tomorrow. If there is no evidence of significant coronary artery disease the patient will be referred for an ablation due to poor rate controls. Her aortic aneurysm measured 4.9 cm around 6 months ago. Will need repeat CT to assess its growth. It is reasonable to wait given her multiple comorbidities at this point. The plan is to await her coronary angiography in a.m. Her daughter or her will call [facility] to arrange for CT chest gated and a cardiac echo. She will also be provided with a Zio patch. Will arrange follow-up in 1 month. She does appear mildly volume overloaded on exam today and is currently on diuretics. Local steam drier tender is managing. I personally interviewed, confirmed and edited the above information as obtained by others. CONTACT INFORMATION: Teetee Wang MD Section of Clinical Cardiology [facility] Department of Cardiovascular Medicine [facility] [place] [facility] Desk [id number] [place] [address] Office Office Appointments: [phone] documented in this encounter [facility] Progress note 10-18-2023 Note Date & Type Note Facility 10-18-2023 Note HNO ID: [id number] Author: Malcolm Glaser APRN.CHANNEL REBUILDER Service: ? Author Type: Nurse Practitioner Type: Progress Notes Filed: 10/18/2023 11:39 AM Note Text: Subjective HPI HPI Josefina Barragan is a 73 year old female who presents today for CC of cough, congestion, sob. This started 2 days ago. Has tried otc medication. Symptoms are worsened by otc medication. Risk factors copd, sick exposures at home. .Patient presents with: Cough: Cough and runny nose, SOB x 2 days PAST MEDICAL HISTORY Diagnosis Date Acid reflux Aortic aneurysm (HCC) Dr. Zuleta is pt's steam drier tender Chronic obstructive pulmonary disease (COPD) (HCC) Gout [...] 5 MG tablet orally twice a day jrbloekfmg-eomdlejh-zorpvezlsr (BREZTRI) 160-9-4.8 mcg/actuation HFA aerosol inhaler Inhale [...] DOXYCYCLINE HYCLATE 100 MG TABLET Malcolm Glaser APRN.CNP [facility] History of Present illness Narrative 10-18-2023 Malcolm Glaser APRN.HOMER - 10/18/2023 11:17 AM EST Note Date & Type Note Facility 10-18-2023 History of Presen t illness Narrative Subjective HPI HPI Josefian Barragan is a 73 year old female who presents today for CC of cough, congestion, sob. This started 2 days ago. Has tried otc medication. Symptoms are worsened by otc medication. Risk factors copd, sick exposures at home. .Patient presents with: Cough: Cough and runny nose, SOB x 2 days PAST MEDICAL HISTORY Diagnosis Date Acid reflux Aortic aneurysm (HCC) Dr. Zuleta is pt's steam drier tender Chronic obstructive pulmonary disease (COPD) (HCC) Gout [...] 5 MG tablet orally twice a day jiwndakjol-xwzemgsh-llifkvhgro (BREZTRI) 160-9-4.8 mcg/actuation HFA aerosol inhaler Inhale [...] Substance Use Topics Alcohol use: Yes Comment: [facility] Drug use: No Review of Systems Constitutional: [...] DOXYCYCLINE HYCLATE 100 MG TABLET Malcolm Glaser APRN.CHANNEL REBUILDER documented in this encounter [facility] Evaluation note Note Date & Type Note Facility documented in this encounter [facility] Evaluation note Note Date & Type Note Facility documented in this encounter [facility] Summary Purpose Family History No Family History Records FoundNo Family History Records Found Advance Directives No Advanced Directives Records FoundNo Advanced Directives Records Found Reason for Referral Specialty Diagnoses / Procedures Referred By Issac mccurdy Referred To Contact Procedures CARDIOVASCULAR MEDICINE OP FOLLOW UP APPT ORDER Teetee Wang MD [id number] [facility] [facility] [place] [id number] Referral ID Status Reason Start Date Expiration Date Visits Requested Visits Authorized [id number] Ref Not Required PCP Requested Referral 01/14/2024 12/15/2024 1 1 Specialty Diagnoses / Procedures Referred By Issac mccurdy Referred To Contact CT IMAGING Diagnoses Disorder of artery or arteriole (HCC) Procedures CTA CHEST (GATED) W IVCON CT ANGIOGRAPHY CHEST W/CONTRAST/NONCONTRAST Teetee Wang MD [address] [facility] [place] [address] Ct Imaging [place] [address] Referral ID Status Reason Start Date Expiration Date Visits Requested Visits Authorized [id number] Pending Review Auto-Generat ed Referral 12/16/2023 01/14/2025 1 1 Specialty Diagnoses / Procedures Referred By Contac t Referred To Contact [facility] [place] Diagnoses Persistent atrial fibrillation (HCC) Procedures ECHO ECHO TTHRC R-T 2D W/WOM-MODE COMPL SPEC&COLR D Teetee Wang MD [address] [place] [id number] [place] [address] Referral ID Status Reason Start Date Expiration Date Visits Requested Visits Authorized [id number] Pending Review Auto-Generat ed Referral 12/16/2023 12/15/2024 1 1 Specialty Diagnoses / Procedures Referred By Contac t Referred To Contact [facility] [place] Diagnoses Preop cardiovascular exam Procedures ECG COMPLETE ECG ROUTINE ECG W/LEAST 12 LDS W/I[place] [address] [place], [place] [id number] [place] [address] Referral ID Status Reason Start Date Expiration Date V isits Requested Visits Authorized [id number] Closed Auto-Generate d Referral 12/15/2023 12/14/2024 1 1 Additional Source Comments INFORMATION SOURCE (unrecogn ized section and content) DATE CREATED AUTHOR AUTHOR'S ORGANIZ ATION 12/24/2023 [facility] Source Comments (unrecognize d section and content) In the event this informatio n is protected by the Federal Confidentiality of Alcohol and Drug Abuse Patient Records regulations: The Federal rules restrict any use of the information to criminally investigate or prosecute any alcohol or drug abuse patient.[facility] the event this information is protected by the Federal Confidentiality of Alcohol and Drug Abuse Patient Records regulations: The Federal rules restrict any use of the information to criminally investigate or prosecute any alcohol or drug abuse patient.[facility] Reason for Visit (unrecogniz ed section and content) Care Teams (unrecognized sec tion and content) 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 [facility]. provides no warranty or guarantee of the accuracy or completeness of information in this document.
== END | disposition home or self-care (01) ==
LOC: CVS 10:51
PROVIDERS: PCP Internal Medicine; Referring Provider Nurse Practitioner Gerontology; Visit Provider Nurse Practitioner Gerontology
DX: I50.20 Unspecified systolic (congestive) heart failure (principal); I50.33 Acute on chronic diastolic (congestive) heart failure; I42.9 Cardiomyopathy, unspecified
CPT/HCPCS: 93308

== ENCOUNTER → 2024-01-19 | Outpatient (CLI) | payer MEDICARE, MEDICAID, SELFPAY ==
[2024-01-19 14:46] LABS: AST(SGOT) 23 U/L (15-37); Alanine Aminotransfer ALT/SGPT 29 U/L (13-56); Albumin, Serum 3.7 g/dL (3.2-5.0); Alkaline Phosphatase 67 U/L (45-117); Anion Gap 5 (5-15); BUN 18 mg/dL (7-18); BUN/Creat Ratio 12.9 RATIO (10-20); Calcium,Total 9.8 mg/dL (8.5-10.1); Chloride 104 mmol/L (98-107); Cholesterol 251 mg/dL (200); Creatinine, Serum 1.39 mg/dL (0.55-1.02); EST Glomerular Filtration Rate 39 mL/min (>60); Est Glom Filt Rate - Afr Amer 48 mL/min (>60); Globulin 3.8 g/dL (2.2-4.2); Glucose 105 mg/dL (74-106); High Density Lipoprotein 56 mg/dL; Magnesium 2.3 mg/dL (1.6-2.6); Potassium 3.9 mmol/L (3.5-5.1); Protein, Total 7.5 g/dL (6.4-8.2); Sodium Level 140 mmol/L (136-145); Triglycerides 219 mg/dL; Very Low Density Lipoprotein 44 mg/dL (5-40)
[2024-01-19 14:56] LABS: Digoxin Level 1.32 ng/mL (0.80-2.00)
== END | disposition home or self-care (01) ==
LOC: LAB 13:52
PROVIDERS: PCP Internal Medicine; Referring Provider Internal Medicine Cardiovascular Disease; Visit Provider Internal Medicine Cardiovascular Disease
DX: I42.9 Cardiomyopathy, unspecified (principal); J44.9 Chronic obstructive pulmonary disease, unspecified; I48.0 Paroxysmal atrial fibrillation; I10 Essential (primary) hypertension; E66.09 Other obesity due to excess calories; Z68.32 Body mass index [BMI] 32.0-32.9, adult; R06.09 Other forms of dyspnea; R42 Dizziness and giddiness; R53.83 Other fatigue
CPT/HCPCS: 36415; 80053; 80061; 80162; 83735

== ENCOUNTER → 2024-02-16 | Outpatient (CLI) | payer MEDICARE, MEDICAID, SELFPAY ==
--- NOTE | 2024-02-16 14:47 | BI_ITS ---
MAMMOGRAPHY - BILATERAL SCREENING REASON FOR EXAM: Female, 73 years old. Routine annual screening examination. PERTINENT HISTORY: Non-contributory. TECHNIQUE: Digital bilateral breast santiago (3D mammographic acquisition) in the CC and MLO projections. 2-D mediolateral oblique (MLO) and craniocaudad (CC) views of both breasts were obtained. CAD: Full Field Digital Mammography with Computer Added Detection was performed. COMPARISON: Comparison is made with prior study dated May 05, 2022 and April 25, 2021. FINDINGS: Breast Composition: The breasts are almost entirely fatty. There are no dominant masses or suspicious calcifications. Stable small benign-appearing bilateral axillary lymph nodes. No other significant abnormalities are identified. There has been no significant change since the prior study. BI/SCRN MAMM (CAD)W/SANTIAGO BILAT IMPRESSION: Stable bilateral screening mammogram. Yearly follow-up mammogram recommended. (A) ASSESSMENT CATEGORY: BIRADS Category 2: Benign. A letter regarding these results will be sent to the patient by the facility within 30 days. Approximately 10% of breast cancers are not detected by mammography. A normal mammogram should not delay biopsy of a clinically suspicious abnormality. [id number] Electronically Signed: Brandon Uribe MD at 8:22 EDT ,
--- NOTE | 2024-02-16 14:51 | BD_ITS ---
STUDY: DUAL ENERGY X-RAY ABSORPTIOMETRY / DXA REASON FOR EXAM: Female, 73 years old. Post menopausal TECHNIQUE: Bone Mineral Density (BMD) measurements of lumbar spine and bilateral hips were obtained. COMPARISON: Comparison is made with prior study of April 25, 2021. FINDINGS: Lumbar Spine (L1-L4): g/cm2 (1.115) / T-score (1.2) / Z-score (3.5) Findings are suggestive of normal bone density with a low fracture risk. Left Femur Total: g/cm2 (1.118) / T-score (1.4) / Z-score (3.2) Left Femoral Neck: g/cm2 (0.903) / T-score (0.5) / Z-score (2.5) Right Femur Total: g/cm2 (1.092) / T-score (1.2) / Z-score (3.0) Right Femoral Neck: g/cm2 (0.963) / T-score (1.0) / Z-score (3.1) The T-Scores on the most recent prior examination were: Lumbar Spine (L1-L4): There has been worsening of bone density since the previous examination. Left Femur Total: which represents a worsening of 3.4%. Right Femur Total: which represents a worsening of 7.4%. BD/Dexa Bone Density Study IMPRESSION: The patient is considered normal as outlined below according to World [employer] Organization (WHO) criteria with a low fracture risk. There has been worsening of bone density since the previous examination. Reference Information: The T-score is the number of standard deviations above or below the standard which is normal for young adults at their peak bone mineral density. The World Health Organization (WHO) interprets the T-scores as follows: Above -1 Normal bone density Between -1 and -2.5 Osteopenia Equal to / or below -2.5 Osteoporosis As a practical clinical guideline, osteopenia may be graded as follows: Mild -1 through -1.5 Moderate -1.6 through -2.0 Severe -2.1 through -2.4 The Z-score is the number of standard deviations above or below age-matched controls. A Z-score of less than -1.5 would be considered abnormal. References: 1. NIH Osteoporosis and Related Bone Diseases www osteo.org 2. International Society for Clinical Densitometry www iscd.org 3. National Osteoporosis Foundation www nof.org Electronically Signed: Brandon Uribe MD at 13:37 EDT ,
== END | disposition home or self-care (01) ==
LOC: OPBD 14:47
PROVIDERS: PCP Internal Medicine; Referring Provider Internal Medicine; Visit Provider Internal Medicine
DX: Z12.31 Encounter for screening mammogram for malignant neoplasm of breast (principal); Z78.0 Asymptomatic menopausal state
CPT/HCPCS: 77063; 77067; 77080

== ENCOUNTER → 2024-09-16 | Outpatient (CLI) | payer MEDICARE, MEDICAID, SELFPAY | END | disposition home or self-care (01) | PROVIDERS: PCP Internal Medicine; Referring Provider Nurse Practitioner Family; Visit Provider Nurse Practitioner Family | DX: J44.9 Chronic obstructive pulmonary disease, unspecified (principal) | CPT/HCPCS: 94060; 94726; 94729 ==

== ENCOUNTER → 2024-09-27 | Outpatient (CLI) | payer MEDICARE, MEDICAID, SELFPAY | END | disposition home or self-care (01) | PROVIDERS: PCP Internal Medicine; Referring Provider Nurse Practitioner Family; Visit Provider Nurse Practitioner Family | DX: G47.33 Obstructive sleep apnea (adult) (pediatric) (principal) | CPT/HCPCS: 98960; G0463 ==

== ENCOUNTER → 2024-10-20 | Outpatient (CLI) | payer MEDICARE, MEDICAID, SELFPAY | END | disposition home or self-care (01) | LOC: SL 19:58 | PROVIDERS: PCP Internal Medicine; Visit Provider Nurse Practitioner Family | DX: G47.33 Obstructive sleep apnea (adult) (pediatric) (principal) | CPT/HCPCS: 95811 ==

== ENCOUNTER → 2024-11-16 | Outpatient (CLI) | payer MEDICARE, MEDICAID, SELFPAY ==
[2024-11-16 12:27] LABS: Absolute Lymphocyte Count 2.01 X10^3/uL (0.83-4.51); Absolute Neutrophil Count 2.9 X10^3/uL (2.0-7.7); Basophil# 0.02 X10^3/uL; Basophil% 0.4 % (0-1); Eosinophil# 0.12 X10^3/uL; Eosinophils% 2.2 % (0-5); Hemoglobin 12.5 g/dL (12.0-15.0); Lymphocyte # 2.01 X10^3/ul (0.83-4.51); Mean Corp Hgb Conc 30.5 g/dL (32-36); Mean Corpuscular Hgb 29.3 pg (27.0-32.0); Mean Platelet Vol. 11.6 fl (6.2-12.0); Monocyte# 0.42 X10^3/uL; Monocyte% 7.7 % (0-10); NRBC Flagged by Analyzer 0 % (0-5); Neutrophil # 2.85 X10^3/uL (2.7-7.7); Neutrophil % 52.5 % (47-70); Platelet Count 196 K/mm3 (150-450); RBC Distribution Width CV 13.5 % (11.6-14.6); RBC Distribution Width SD 47.5 fl (35.1-43.9); Red Blood Count 4.27 M/mm3 (4.2-5.4); White Blood Count 5.4 K/mm3 (4.4-11.0)
[2024-11-16 13:41] LABS: ALB/GLOB Ratio 0.9 RATIO (0.9-2.4); AST(SGOT) 14 U/L (15-37); Alanine Aminotransfer ALT/SGPT 21 U/L (13-56); Albumin, Serum 3.5 g/dL (3.2-5.0); Alkaline Phosphatase 66 U/L (45-117); Anion Gap 6 (5-15); BUN 15 mg/dL (7-18); BUN/Creat Ratio 14.9 RATIO (10-20); Bilirubin, Direct 0.18 mg/dL (0.00-0.30); Chloride 105 mmol/L (98-107); Cholesterol 152 mg/dL (200); Creatinine, Serum 1.01 mg/dL (0.55-1.02); EST Glomerular Filtration Rate 57 mL/min (>60); Est Glom Filt Rate - Afr Amer 69 mL/min (>60); Globulin 3.8 g/dL (2.2-4.2); Glucose 96 mg/dL (74-106); High Density Lipoprotein 59 mg/dL; Protein, Total 7.3 g/dL (6.4-8.2); Sodium Level 140 mmol/L (136-145); Triglycerides 84 mg/dL; Very Low Density Lipoprotein 17 mg/dL (5-40)
== END | disposition home or self-care (01) ==
LOC: BIMLAB 10:48
PROVIDERS: PCP Internal Medicine; Referring Provider Internal Medicine; Visit Provider Internal Medicine
DX: I10 Essential (primary) hypertension (principal); E78.5 Hyperlipidemia, unspecified
CPT/HCPCS: 36415; 80053; 80061; 82248; 85025

== ENCOUNTER → 2025-01-05 | Outpatient (CLI) | payer MEDICARE, MEDICAID, SELFPAY ==
[2025-01-05 13:26] LABS: Anion Gap 13 (5-15); BUN 14 mg/dL (4-19); BUN/Creat Ratio 14.1 RATIO (10-20); Calcium,Total 9.5 mg/dL (7.6-11.0); Carbon Dioxide 26.1 mmol/L (21.0-32.0); Chloride 103 mmol/L (98-108); Creatinine, Serum 0.96 mg/dL (0.70-1.20); EST Glomerular Filtration Rate 62 (>60); Glucose 93 mg/dL (70-99); Potassium 3.1 mmol/L (3.3-5.1); Sodium Level 142 mmol/L (133-145)
== END | disposition home or self-care (01) ==
LOC: LAB 12:02
PROVIDERS: PCP Internal Medicine; Referring Provider Internal Medicine Cardiovascular Disease; Visit Provider Internal Medicine Cardiovascular Disease
DX: I10 Essential (primary) hypertension (principal)
CPT/HCPCS: 36415; 80048

== ENCOUNTER → 2025-01-23 | Outpatient (CLI) | payer MEDICARE, MEDICAID, SELFPAY ==
--- NOTE | 2025-01-23 10:00 | CT_ITS ---
PROCEDURE: CTA CHEST W/WO CONTRAST 01/23/2025 REASON FOR EXAM: EVALUATE TAA COPD. TECHNIQUE: CTA imaging of the chest, abdomen and pelvis without and with intravenous contrast. Coronal and Sagittal reconstruction series were provided. 3D, 3D post processing, 3D reconstructions, Maximum intensity projection (MIPs) Volume rendering and Shaded surface rendering was provided. CONTRAST: Isovue 370 VOLUME: 100mL One or more dose reduction techniques were used (e.g., Automated exposure control, adjustment of the mA and/or kV according to patient size, use of iterative reconstruction technique). RADIATION DOSE SUMMARY: CTDlvol: 24 mGy DLP: 476.65 mGycm COMPARISON: Comparison is made with prior study dated October 29, 2023. FINDINGS: Heart: A left-sided dual-chamber pacemaker is seen. Pulmonary Vessels: No evidence of pulmonary embolism. Arch Vessels: Patent. Stable dilatation of the root of the ascending thoracic aorta measuring 48 mm. 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 This is a normal variant. Thoracic Aorta: Normal caliber. Abdominal Aorta: The proximal portion of the abdominal aorta is unremarkable. Mesenteric Arteries: Widely patent. Renal Arteries: Unremarkable. Other Findings: Fatty infiltration of the liver. 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 Degenerative changes of the thoracic vertebrae. CT/CTA Chest W/WO Contrast IMPRESSION: Stable examination. Reading Location: [place] [id number]
== END | disposition home or self-care (01) ==
LOC: CT 09:43
PROVIDERS: PCP Internal Medicine; Referring Provider Internal Medicine Cardiovascular Disease; Visit Provider Internal Medicine Cardiovascular Disease
DX: I71.20 Thoracic aortic aneurysm, without rupture, unspecified (principal)
CPT/HCPCS: 71275; Q9967

== ENCOUNTER 2025-01-24 09:30 | Outpatient (RCR) | payer MEDICARE, MEDICAID, SELFPAY ==
--- NOTE | 2024-11-22 15:45 | HP.PTEVAL_ITS ---
Patient's Visit Information Visit Information Visit Information: HILL BARRAGAN is a 74 year old F referred to Physical Therapy by Dr. Fam Jasso MD with a diagnosis of BACK PAIN. Date of Evaluation: 11/21/24 Physical Therapist: Tata Martinez PT, Cert MDT Visit Plan Frequency: 2-3x /Week Duration: 4-6 Weeks Plan: *PACEMAKER* AQUATIC THERAPY FOR PAIN RELIEF, POSTURE CORRECTION/STRENGTHENING, INSTRUCTION IN APPROPRIATE BODY MECHANICS AND ACTIVITY MODIFICATIONS. DLS STARTING WITH A NEUTRAL SPINE PROGRESSING ROM TOLERATED. DONALDO LE ROM, STRETCHING AND STRENGTHENING. HEP INSTRUCTION. Subjective Subjective: Work/Leisure: RETIRED. Present symptoms: LOW BACK PAIN (PATIENT REPORTS SHE IS HERE TODAY FOR HER LOW BACK PAIN. SHE STATES HER LOW BACK IS WHAT IS REALLY BOTHERING HER. SHE REPORTS SHE DOESN'T GET MUCH NECK PAIN UNLESS SHE SITS AND READS FOR A LONG TIME). INTERMITTENT R LE NUMBESS/TINGING IN SITTING THAT GOES AWAY IN STANDING. Present since: CHRONIC - YEARS Pain Scale: WORST 9/10, LEAST 4/10 Currently: 7/10 Is it getting better, worse or staying the same: GETTING WORSE Commenced as a result of: NO APPARENT REASON Symptoms at onset: LOW BACK PAIN Worse: LEANING OVER TO WASHING DISHES FOR EVEN 5 MINUTES, RUNNING VACUUM, MOPPING, SHAKING RUGS, BENDING, GETTING CLOTHES OUT OF DRYING, GETTING TRASH BAG OUT OF TRASH CAN, TRYING TO GETU UP AFTER LAYING ON BACK TO USE SLEEP APNEA MACHINE, WALKING VERY FAR AT ALL, TRYING TO DO STEPS AT ALL - ONE HAND HR, CANE AND ONE STEP AT A TIME - GET CATCH IN BACK. Better: OTC PAIN PATCH, STRETCHING BACKWARDS IN STANDING AND SITTING, HOT SHOWER Disturbed sleep: YES. R SDLY AND PAIN PATCHES HELP. Previous history/Previous treatment: WENT TO [facility] A COUPLE TIMES A LONG TIME AGO - HELPED TEMPORARILY BUT DIDN'T LIKE THE FEELING OF HAVING BONES CRACKED. MASSAGE HELPED A LONG TIME AGO TOO. Treatment this episode: PT CONSULT Coughing/sneezing/straining: PATIENT UNSURE OF EFFECT Gait: INTERMITTENT USE OF CANE Bowel or Bladder Dysfunction: PATIENT STATES I'M ON WATER PILLS AND I WEAR DIAPERS. PATIENT REPORTS INCONTINENCE WITH BLADDER FOR A FEW YEARS AND BOWELS FOR ABOUT A YEAR. SHE REPORTS IT DOESN'T HAPPEN VERY OFTEN WITH HER BOWELS. STATES SHE ISN'T SURE IF HER PCP IS AWARE. THIS PT ENCOURAGED PATIENT TO NOTIFY HER PCP OF THIS PROBLEM. PATIENT AGREEABLE, Accidents: NO Unexplained weight loss: NO Imaging: NONE RECENT. PMH/Recent major surgery: Chronic neck pain Chronic back pain Health care maintenance Hyperlipemia Cardiomyopathy Acute on chronic diastolic CHF (congestive heart failure), NYHA class 2 HFrEF (heart failure with reduced ejection fraction) Anemia Obstructive sleep apnea Dizziness Hypersomnolence Chest pain Flu vaccine need Hypotension Hypokalemia Abnormal electrocardiogram Fatigue CHAVEZ (dyspnea on exertion) CHF (congestive heart failure) Venous insufficiency of both lower extremities Osteoarthritis Right knee pain Grief reaction Left ankle pain GERD (gastroesophageal reflux disease) Paroxysmal atrial fibrillation Thoracic aortic aneurysm (TAA) Obesity COPD (chronic obstructive pulmonary disease) Essential hypertension TIA (transient ischemic attack) 07/2013 History of permanent cardiac pacemaker placement Objective Objective: Sitting/Standing Posture: VERY SLOUCHED IN SITTING. ANTERIOR PELVIC TILT IN STANDING. INCREASED TRUNK FLEXION L ILIAC CREST HIGHER THAN R. Active Correction of posture: WORSE - CATCHING PAIN. Other Observations: HEAVILY DONALDO UE DEPENDENT TO TRANSFER SIT TO STAND Sensory deficit: DONALDO LE LIGHT TOUCH SENSATION GROSSLY INTACT AND SYMMETRICAL ROM deficit: DONALDO HIP TIGHTNESS ALL PLANES. DONALDO HS AND CALF TIGHTNESS TOO. Motor deficit: DONALDO HIPS 4-/5, KNEES 4/5, ANKLES 4/5. Dural Signs: NEGATIVE DONALDO LE'S. Lumbar mvmt loss: flex - MOD - CATCHING PAIN ON RETURN - NW ext - MOD - DECREASES R LBP - B R SG - MOD - CATCHING PAIN R LB ON RETURN - NW L SG - MOD - NE Core strength: POOR Palpation: INCREASED MUSCLE TONE DONALDO THORACIC AND LUMBAR PARASPINALS. T ENDERNESS WITH PALPATION OF LUMBAR SPINE AND R PARASPINALS. Balance/Special Test Scores Oswestry Low Back Score: 27 Goals Goal 1:: DECREASE C/O LOW BACK PAIN BY AT LEAST 50% TO EASE ADL'S. Goal Time Frame: 4-6 Weeks Goal 2:: IMPROVE PERSONAL CARE, LIFTING, WALKING, SITTING, STANDING, SLEEP, SOCIAL LIFE, TRAVEL AND HOMEMAKING FUNCTION WITH AT LEAST 5 POINT IMPROVEMENT IN BACK OSWESTRY SCORE. Goal Time Frame: 4-6 Weeks Goal 3:: INSTRUCT IN PROPHYLAXIS. Goal Time Frame: 4-6 Weeks Rehabilitation Potential Physical Therapy Diagnosis: TRUNK AND DONALDO LE WEAKNESS AND STIFFNESS Rehabilitation Potential: Good Anticipated Interventions Patient/Client Instruction: Educate patient on: Condition, Plan of Care and Risk Factors For the Purpose of:: To improve self management Therapeutic Exercise to Include: Strength training, Body mechanics, Postural training, Flexibilty training, Neuromotor development, In an aquatic setting and Dynamic Lumbar Stabilization For the Purpose of:: To decrease pain, To increase ROM, To improve muscle performance and motor function, To improve ability to perform ADL's, To increase tolerance to activity/condition/position, To improve ability of physical actions for home/community/work/leisure, To improve gait and locomotor functions, To increase flexibility/ROM and To improve self management Text: Thank you for the opportunity to evaluate your patient. For Medicare and Medicare HMO plans, please review the plan of care and approve it. It will need to be FAXED BACK to us at [phone] for Medicare purposes. For Medicare only, by signing this I certify the plan of care. Please let me know if there are questions or concerns regarding this plan of care. Physician Signature: Date:
--- NOTE | 2024-12-27 10:57 | HP.PTREVAL_ITS ---
Re-Evaluation Intro: Dr. Fam Jasso MD, It has been my pleasure to treat HILL BARRAGAN over the last 9 visits for BACK PAIN. Please see the progress note below for an update on the physical therapy plan of care! Subjective Subjective: PATIENT REPORTS THIS IS REALLY HELPING HER AND SHE WOULD LIKE TO CONTINUE. I CAN WALK ACROSS THE PARKING LOT WITHOUT STOPPING NOW. SHE REPORTS IT IS RELEASING THE PAIN. SHE STATES SHE CAN TIE HER SHOES NOW INSTEAD OF H AVING HER GRANDSON DO IT. SHE REPORTS BEING SURPRISED THAT SOME EX IN WATER CAN HELP SO MUCH. SHE STATES SHE STILL CAN'T STAND VERY LONG AT THE SINK TO DO DISHES VERY LONG AND SHE HAS TO DO A LITTLE BIT, REST AND THEN GO BACK AND DO MORE. HER GRANDSON IS STILL HELPING HER WITH PUTTING HER LEGGINGS ON, VACUUMING AND GETTING CLOTHERS OUT OF DRYER. I'M TRYING TO GET TO WHERE I CAN DO THESE THINGS. WHEN I STARTED I WAS ALL HUMPED OVER LIKE I WAS 89 YEARS OLD BECAUSE MY BACK WAS HURTING SO BAD. IT IS AMAZING HOW MUCH THIS HAS HELPED ME IN JUST A FEW WEEKS. Objective Objective/Function: PATIENT WAS SEEN TODAY FOR RE-ASSESSMENT OF PROGRESS TOWARD THE SET PT GOALS AND THE NEED FOR FURTHER PHYSICAL THERAPY VS READINESS FOR DISCHARGE. UPON EXAM TODAY: THIS PATIENT AMBULATES INDEP'LY INTO PT WITHOUT ANY AD'S OR LOB. SHE CONTINUES TO WALK WITH DECREASED CADANCE BUT IT HAS IMPROVED SINCE INTIAL EVAL. TUG TIME: 16.81 30 STS TEST: 4 WITH DONALDO UE ASSIST RISING AND SITTING. ROM deficit: DONALDO HIP TIGHTNESS ALL PLANES. DONALDO HS AND CALF TIGHTNESS Motor deficit: DONALDO HIPS 4-/5, KNEES 4/5, ANKLES 5/5. Dural Signs: NEGATIVE DONALDO LE'S. Lumbar mvmt loss: flex - MOD ext - MOD R SG - MOD - CATCHING PAIN R LB ON RETURN - NW L SG - MOD PATIENT WITH ONLY MINIMAL C/O PAIN WITH LUMBAR ROM TESTING TODAY. Core strength: POOR Palpation: INCREASED MUSCLE TONE DONALDO THORACIC AND LUMBAR PARASPINALS. MILD TENDERNESS LOCALIZED TO R LUMBAR PARASPINAL REGION TODAY. Plan Plan Plan: CONTINUE PT PER POC 1-2X/WK X 4-6 WKS. *PACEMAKER* AQUATIC THERAPY FOR PAIN RELIEF, POSTURE CORRECTION/STRENGTHENING, INSTRUCTION IN APPROPRIATE BODY MECHANICS AND ACTIVITY MODIFICATIONS. DLS STARTING WITH A NEUTRAL SPINE PROGRESSING ROM TOLERATED. DONALDO LE ROM, STRETCHING AND STRENGTHENING. HEP INSTRUCTION. Balance/Gait/Functional tests Balance/Special Test Scores Oswestry Low Back Score: 22 Goals Goals Goal 1:: DECREASE C/O LOW BACK PAIN BY AT LEAST 50% TO EASE ADL'S - GOAL MET. New Goal: DECREASE C/O LOW BACK PAIN BY AT LEAST 75% TO EASE ADL'S. Goal Time Frame: 4-6 Weeks Goal 2:: IMPROVE PERSONAL CARE, LIFTING, WALKING, SITTING, STANDING, SLEEP, SOCIAL LIFE, TRAVEL AND HOMEMAKING FUNCTION WITH AT LEAST 5 POINT IMPROVEMENT IN BACK OSWESTRY SCORE. Goal Time Frame: 4-6 Weeks Goal Progress: Progressing Goal 3:: INSTRUCT IN PROPHYLAXIS. Goal Time Frame: 4-6 Weeks Goal Progress: Progressing Anticipated Interventions Anticipated Interventions Patient/Client Instruction: Educate patient on: Condition, Plan of Care and Risk Factors For the Purpose of:: To improve self management Therapeutic Exercise to Include: Strength training, Body mechanics, Postural training, Flexibilty training, Neuromotor development, In an aquatic setting and Dynamic Lumbar Stabilization For the Purpose of:: To decrease pain, To increase ROM, To improve muscle performance and motor function, To improve ability to perform ADL's, To increase tolerance to activity/condition/position, To improve ability of physical actions for home/community/work/leisure, To improve gait and locomotor functions, To increase flexibility/ROM and To improve self management Re-Evaluation Ending Re-evaluation ending: Please do not hesitate to contact me at [phone] by phone or if you have questions or concerns regarding this new plan of care! Sincerely, Tata Martinez, PT, Cert MDT
--- NOTE | 2025-01-24 10:19 | HP.PTDCSUM ---
Discharge Summary D/C summary: It has been my pleasure to treat HILL BARRAGAN referred by Dr. Fam Jasso MD, with the diagnosis of BACK PAIN for a total of 13 visit(s). Discharge Date: 01/24/25 Please see the following information for a summary of their discharge status. Subjective Subjective: PATIENT REPORTS SHE HAS NOTICED A BIG IMPROVEMENT SINCE STARTING PHYSICAL THERAPY AND SHE IS SO GLAD SHE CONTINUED IT. SHE STATES THE EX'S ARE A LOT EASIER NOW AND SHE KNOWS WHAT TO DO IN THE WATER AND AT HOME. SHE IS CONSIDERING A MEMBERSHIP TO CONTINUE WATER EX AND IN THE MEAN TIME SHE PLANS TO CONTINUE THE HOME EX'S STATING I HAVE BEEN DOING THEM AT HOME. SHE ALSO STATES I LIKE COMING TO THE POOL AND THEN I FEEL BETTER ALL DAY AFTER I COME TO THE POOL. PATIENT REPORTS CAN WALK TO THE NEIGHBORS AND BACK WITHOUT HER CANE NOW. Pain LBP: Pain Intensity (Out of 10): 4 R HIP: Pain Intensity (Out of 10): 0 NECK: Pain Intensity (Out of 10): 0 R KNEE: Pain Intensity (Out of 10): 0 Overall Improvement % Improvement: 65 Objective Objective/Function: PATIENT WAS SEEN TODAY FOR RE-ASSESSMENT OF PROGRESS TOWARD THE SET PT GOALS AND THE NEED FOR FURTHER PHYSICAL THERAPY VS READINESS FOR DISCHARGE. PATIENT IS INDEP WITH POOL AND HOME EX PROGRAMS AND APPROPRIATE FOR DISCHARGE TO [facility] EX. UPON EXAM TODAY: THIS PATIENT AMBULATES INDEP'LY INTO PT WITHOUT ANY AD'S OR LOB. GAIT AND STRENGTH IS MUCH IMPROVED DEMONSTRATED WITH TESTING BELOW TUG TIME: 9.96 30 STS TEST: 8 WITH ONE UE ASSIST RISING AND SITTING. ROM deficit: DONALDO HIP TIGHTNESS ALL PLANES. DONALDO HS AND CALF TIGHTNESS Motor deficit: DONALDO HIPS 4/5, KNEES 5/5, ANKLES 5/5. Dural Signs: NEGATIVE DONALDO LE'S. Lumbar mvmt loss: flex - MIN ext - MOD R SG - MOD - CATCHING PAIN R LB BENDING AND ON RETURN - NW L SG - MIN PATIENT WITH ONLY MINIMAL C/O PAIN WITH LUMBAR ROM TESTING TODAY. Core strength: FAIR Palpation: INCREASED MUSCLE TONE DONALDO THORACIC AND LUMBAR PARASPINALS BUT NO TENDERNESS. UPON DEPARTURE PATIENT STATES I FEEL SO MUCH BETTER AND I THINK I CAN GET A MEMBERSHIP TO COME A COUPLE TIMES A WEEK TO THE POOL. Goals Goal 1:: DECREASE C/O LOW BACK PAIN BY AT LEAST 50% TO EASE ADL'S - GOAL MET. New Goal: DECREASE C/O LOW BACK PAIN BY AT LEAST 75% TO EASE ADL'S. Goal Progress: Goal Met Goal 2:: IMPROVE PERSONAL CARE, LIFTING, WALKING, SITTING, STANDING, SLEEP, SOCIAL LIFE, TRAVEL AND HOMEMAKING FUNCTION WITH AT LEAST 5 POINT IMPROVEMENT IN BACK OSWESTRY SCORE. Goal Progress: Goal Met Goal 3:: INSTRUCT IN PROPHYLAXIS. Goal Progress: Goal Met Plan Plan: D/C TO INDEP EX AND PHYSICIAN FOLLOW UP SCHEDULED 03/17/25. D/C Information d/c sentence: If there are questions or concerns regarding this patient's physical therapy, please feel free to call me at [phone]. Thank you for the referral of this patient. Sincerely, Tata Martinez, PT, Cert MDT Balance/Gait/Functional tests Balance/Special Test Scores Oswestry Low Back Score: 21 Improvement % Improvement: 65
== END 2025-01-24 19:00 | disposition home or self-care (01) ==
LOC: PT 09:30
PROVIDERS: PCP Internal Medicine; Referring Provider Internal Medicine; Visit Provider Internal Medicine
DX: M54.2 Cervicalgia (principal); G89.29 Other chronic pain
CPT/HCPCS: 97113; 97162; 97530

== ENCOUNTER → 2025-02-01 | Outpatient (CLI) | payer MEDICARE, MEDICAID, SELFPAY ==
--- NOTE | 2025-02-01 12:52 | ECHOD_ITS ---
Reason For Study Reason For Study: CARDIOMYOPATHY Procedure This was a 2D Doppler, Color Flow transthoracic echocardiogram. Exam performed in department. Left Ventricle Normal size and thickness. Mild global LV systolic dysfunction. Estimated LVEF 40 to 45%. Stage I diastolic dysfunction. Right Ventricle Normal right ventricle. ICD or pacer leads identified within the right ventricle. Atria There is severe biatrial dilatation. ICD or pacer leads identified within the right atrium. Mitral Valve Mild mitral annular calcification. Moderate (2+) mitral valve insufficiency. Tricuspid Valve Mild to moderate (1-2+) tricuspid valve insufficiency. Right ventricular systolic pressure estimated to be 40 mmHg. Aortic Valve Trisinus/trileaflet aortic valve. Mild (1+) aortic valve insufficiency. Pulmonic Valve The pulmonic valve is not well visualized. Great Vessels Moderately dilated aortic root. Pericardium/Pleural No pericardial effusion. MMode/2D Measurements & Calculations LVIDd: 5.2 cm IVSd: 0.99 cm Ao root diam: 4.7 cm LVIDs: 3.8 cm LVPWd: 0.84 cm RVDd: 2.4 cm FS: 27.1 % LAV(MOD-bp): 75.8 ml LVAd ap4: 27.0 cm2 SV(MOD-sp4): 55.2 ml LAV(MOD-bp) Indexed: 34.8 ml/m2 LVLd ap4: 6.8 cm SI(MOD-sp4): 25.4 ml/m2 LAV(MOD-sp2): 76.0 ml EDV(MOD-sp4): 91.5 ml LAV(MOD-sp4): 73.3 ml EDV(sp4-el): 90.1 ml LVAs ap4: 15.8 cm2 LVLs ap4: 6.3 cm ESV(MOD-sp4): 36.2 ml ESV(sp4-el): 33.7 ml EF(MOD-sp4): 60.4 % EF(sp4-el): 62.6 % SV(sp4-el): 56.4 ml LA A4 area: 24.9 cm2 LA dimension(2D): 4.1 cm RA A4 area: 23.3 cm2 TAPSE: 1.6 cm Time Measurements MV dec time: 0.17 sec Doppler Measurements & Calculations MV E max nakul: 95.2 cm/sec Lat Peak E' Nakul: 18.5 cm/sec Med Peak E' Nakul: 9.0 cm/sec MV A max nakul: 33.2 cm/sec E/E' lat: 5.1 E/E' med: 10.5 MV E/A: 2.9 Ao V2 max: 124.8 cm/sec AI max nakul: 343.8 cm/sec LV V1 max: 100.6 cm/sec Ao max P.2 mmHg AI max P.3 mmHg LV V1 max P.0 mmHg Ao V2 mean: 92.9 cm/sec LV V1 mean P.5 mmHg Ao mean P.8 mmHg AI dec slope: 156.9 cm/sec2 LV V1 mean: 76.8 cm/sec Ao V2 VTI: 27.8 cm AI P1/2t: 641.7 msec LV V1 VTI: 21.7 cm AV (velocity ratio): 0.78 PA V2 max: 114.2 cm/sec TR max nakul: 272.8 cm/sec PA V2 mean: 80.0 cm/sec PI dec slope: 65.9 cm/sec2 TR max P.8 mmHg ECHO/Echo Complete Interpretation Summary Mild global LV systolic dysfunction. Estimated LVEF 40 to 45%. Stage I diastoli c dysfunction. There is severe biatrial dilatation. Moderate (2+) mitral valve insufficiency. Mild to moderate (1-2+) tricuspid valve insufficiency. Right ventricular systolic pressure estimated to be 40 mmHg. Mild (1+) aortic valve insufficiency. Moderately dilated aortic root. Ordering Physician: Vikas King Referring Physician: Fam Jasso Performed By: Vera Phan, JENNIFER, RVT
== END | disposition home or self-care (01) ==
LOC: CVS 12:51
PROVIDERS: PCP Internal Medicine; Referring Provider Internal Medicine Cardiovascular Disease; Visit Provider Internal Medicine Cardiovascular Disease
DX: R94.31 Abnormal electrocardiogram [ECG] [EKG] (principal); I50.20 Unspecified systolic (congestive) heart failure; I42.8 Other cardiomyopathies; I25.10 Atherosclerotic heart disease of native coronary artery without angina pectoris; R06.09 Other forms of dyspnea
CPT/HCPCS: 93306

== ENCOUNTER → 2025-02-16 | Outpatient (CLI) | payer MEDICARE, MEDICAID, SELFPAY ==
--- NOTE | 2025-02-16 09:34 | BI_ITS ---
EXAM: SCRN MAMM (CAD)W/SANTIAGO BILAT DATE: 02/16/2025 CLINICAL HISTORY: F, Age 74 y/o , BREAST CANCER SCREENING No family history. BREAST CANCER RISK ASSESSMENT: Not assessed. TECHNIQUE: Bilateral screening digital breast tomosynthesis with 2D and 3D images. Computer aided detection. COMPARISON: Prior exam(s) dated February 16, 2024.. FINDINGS: TISSUE DENSITY: The breast tissue is almost entirely fatty. Bilateral Breast Mammographic Findings: No significant masses, calcifications or other abnormalities are identified. A pacemaker battery pack is seen in the left axilla. No suspicious masses, areas of developing architectural distortion, or suspicious calcifications. There has been no significant interval change. BI/SCRN MAMM (CAD)W/SANTIAGO BILAT IMPRESSION: OVERALL FINAL ASSESSMENT: BIRADS 1 NEGATIVE RECOMMENDATION: Routine annual follow-up in 1 Year A letter with findings and recommendations will be mailed to the patient. Reading Location: [place] [id number]
== END | disposition home or self-care (01) ==
LOC: OPBI 09:32
PROVIDERS: PCP Internal Medicine; Referring Provider Internal Medicine; Visit Provider Internal Medicine
DX: Z12.31 Encounter for screening mammogram for malignant neoplasm of breast (principal)
CPT/HCPCS: 77063; 77067

== ENCOUNTER → 2025-02-17 | Outpatient (CLI) | payer MEDICARE, MEDICAID, SELFPAY | END | disposition home or self-care (01) | LOC: LABSPEC 10:21 | PROVIDERS: PCP Internal Medicine; Referring Provider Nurse Practitioner Family; Visit Provider Nurse Practitioner Family | DX: R05.9 Cough, unspecified (principal) | CPT/HCPCS: 87070; 87077; 87205 ==

== ENCOUNTER → 2025-03-30 | Outpatient (CLI) | payer MEDICARE, MEDICAID, SELFPAY ==
--- OUTSIDE RECORDS SUMMARY | 2025-03-30 20:50 | XMS RPT_ITS | CCD ---
Author Organization [facility] CliniSyvt Care Team Providers Care Landscape Drafter Name Role Phone Dr. Fam Jasso Primary Care Provider [phone] Dr. Fam Jasso Attending Provider [phone] Dr. Fam Jasso Referring Provider [phone] Dr. Fam Jasso Primary Care Provider [phone]) Dr. Fam Jasso Attending Provider [phone] Dr. Fam Jasso Referring Provider [phone] Yandel PLATING EQUIPMENT TENDER, PLATING EQUIPMENT TENDER-C Carol Attending Provider Dr. Fam Jasso Other Provider [phone] Dr. Phu Chance Attending Provider Dr. Luis Zuleta Attending Provider Yandel PLATING EQUIPMENT TENDER, PLATING EQUIPMENT TENDER-C Carol Referring Provider Yandel PLATING EQUIPMENT TENDER, PLATING EQUIPMENT TENDER-C Carol Other Provider [phone] Dr. Fam Jasso Primary Care Provider [phone] Dr. Fam Jasso Attending Provider [phone] Dr. Fam Jasso Referring Provider [phone] Dr. Luis Zuleta Referring Provider [phone] Luis Zuleta Other Provider Dr. Arcadio Rubalcava Attending Provider Dr. Fam Jasso Primary Care Provider [phone]) Dr. Fam Jasso Attending Provider [phone] Dr. Fam Jasso Referring Provider [phone] Yandel PLATING EQUIPMENT TENDER, PLATING EQUIPMENT TENDER-C Carol Attending Provider Dr. Fam Jasso Other Provider [phone] Dr. Phu Chance Attending Provider Dr. Luis Zuleta Attending Provider [phone] Yandel PLATING EQUIPMENT TENDER, PLATING EQUIPMENT TENDER-C Carol Referring Provider Yandel PLATING EQUIPMENT TENDER, PLATING EQUIPMENT TENDER-C Carol Other Provider [phone] Dr. Luis Zuleta Referring Provider [phone] Luis Zuleta Other Provider Dr. Arcadio Rubalcava Attending Provider Dr. Fam Jasso Primary Care Provider [phone] 0) Dr. Fam Jasso Referring Provider [phone] Yandel BROWNE, PLATING EQUIPMENT TENDER-C Carol Attending Provider Dr. Luis Zuleta Attending Provider [phone] Fam Jsaso Attending Provider [phone] GABINO Maria Attending Provider Unavailab Dr. Fam Joshua Primary Care Provider [phone] [phone]) Dr. Fam Jasso Referring Provider [phone] GABINO Maria Attending Provider Unavailab Fuller PLATING EQUIPMENT TENDER, PLATING EQUIPMENT TENDER-C Carol Attending Provider Dr. Fam Jasso Primary Care Provider [phone] 0) Dr. Fam Jasso Referring Provider [phone] Dr. Fam Jasso Primary Care Provider [phone] 0) Dr. Fam Jasso Referring Provider [phone] Yandel PLATING EQUIPMENT TENDER, PLATING EQUIPMENT TENDER-C Carol Attending Provider Octavio PLATING EQUIPMENT TENDER, PLATING EQUIPMENT TENDER-C Niharika Attending Provider Dr. Luis Zuleta Attending Provider Dr. Luis Zuleta Referring Provider [phone] Luis Zuleta Other Provider Dr. Phu Chance Attending Provider Dr. Fam Jasso Primary Care Provider [phone] Dr. Fam Jasso Referring Provider [phone] Yandel PLATING EQUIPMENT TENDER, PLATING EQUIPMENT TENDER-C Carol Attending Provider Octavio PLATING EQUIPMENT TENDER, PLATING EQUIPMENT TENDER-C Niharika Referring Provider Octavio PLATING EQUIPMENT TENDER, PLATING EQUIPMENT TENDER-C Niharika Other Provider Dr. Arcadio Rubalcava Attending Provider Dr. Fam Jasso Primary Care Provider [phone] Dr. Fam Jasso Referring Provider [phone] Octavio PLATING EQUIPMENT TENDER, PLATING EQUIPMENT TENDER-C Niharika Attending Provider Yandel PLATING EQUIPMENT TENDER, PLATING EQUIPMENT TENDER-C Carol Other Provider [phone] Dr. Yesy Gallegos Attending Provider Unavailabl e Dr. Fam Jasso Primary Care Provider [phone] Dr. Fam Jasso Referring Provider [phone] Yandel PLATING EQUIPMENT TENDER, PLATING EQUIPMENT TENDER-C Carol Attending Provider Dr. Luis Zuleta Referring Provider [phone] Luis Zuleta Other Provider Yandel PLATING EQUIPMENT TENDER, PLATING EQUIPMENT TENDER-C Carol Other Provider [phone] Dr. Arcadio Rubalcava Attending Provider Dr. Luis Zuleta Attending Provider [phone] Fam Jasso Attending Provider [phone] Phu Chance Attending Provider Dr. Vikas King Attending Provider Temitope Summers Primary Care Provider Dr. Fam Jasso Primary Care Provider [phone] Dr. Fam Jasso Referring Provider [phone] Yandel PLATING EQUIPMENT TENDER, PETE Medina Attending Provider Dr. Vikas King Referring Provider [phone] Dr. Fam Jasso Primary Care Provider [phone]) Dr. Fam Jasso Referring Provider [phone] Yandel PLATING EQUIPMENT TENDER, PAVAN-C Carol Attending Provider Francesca SAEZ, Claudia G Unavailable Mckayla SAEZ, Heba Unavailable Mckayla SAEZ, Heba Unavailable Dr. Fam Jasso Primary Care Provider [phone]) Dr. Fam Jasso Referring Provider [phone] Dr. Fam Jasso Primary Care Provider 1(33 0) Dr. Vikas King Attending Provider [phone])- Dr. Vikas King Referring Provider [phone])- Yandel BROWNE, PETE Medina Attending Provider Dr. Fam Jasso Referring Provider [phone] Vikas King MD Primary Care Provider [phone] Temitope Summers Primary Care Provider [phone] Dr. Fam Jasso Primary Care Provider [phone] Yandel BROWNE, PETE Medina Attending Provider Dr. Vikas King Attending Provider [phone] Dr. Fam Jasso Attending Provider [phone] TEMITOPE SUMMERS Primary Care Unavailab le WASSIF, HEBA Referring Unavailable CLAUDIA MA Referring Unavailable WASSIF, HEBA Attending Unavailable TEMITOPE SUMMERS Primary Care Unavailab TEMITOPE Mohr Primary Care Unavailab le ELLIOTT EASTMAN Attending Unavailable MELIA, VIKAS Primary Care Unavailable SAVONA, ELLIOTT J Admitting Unavailable SAVONA, ELLIOTT J Attending Unavailable MELIA, VIKAS Primary Care Unavailable MELIA, VIKAS Referring Unavailable SAVONA, ELLIOTT J Admitting Unavailable BRIGIDO BHATIAUD Attending Unavailable MELIA, VIKAS Primary Care Unavailable MELIA, VIKAS Referring Unavailable SAVONAMIGUEL ANGELELLIOTT J Attending Unavailable MELIA, VIKAS Primary Care Unavailable MELIA, VIKAS Referring Unavailable MELIA, VIKAS Referring Unavailable MELIA, VIKAS Primary Care Unavailable SAVONA, ELLIOTT J Attending Unavailable MELIA, VIKAS Primary Care Unavailable AUGOSTINI, GILBERT S Referring Unavailable MELIA, VIKAS Primary Care Unavailable AUGOSTINI, GILBERT S Referring Unavailable MELIA, VIKAS Primary Care Unavailable KEMAR SALCEDO Attending Unavailable MELIA, VIKAS Referring Unavailable Louisa SAEZ, Dr. Otto Primary Care Provider Shahab BROWNE-Kaitlynn Lamb Attending Provider Kaitlynn Red Referring Provider Louisa SAEZ, Dr. Otto Attending Provider [phone] Dr. Fam Jasso MD Referring Provider [phone] Dr. Vikas King MD Attending Provider Dr. Vikas King MD Referring Provider Evelina Arvizu Attending Provider Unavailable Louisa SAEZ, Dr. Otto Primary Care Provider Kaitlynn Red Attending Provider Dr. Luis Zuleta MD Attending Provider Dr. Fam Jasso MD Primary Care Provider Louisa SAEZ, Dr. Otto Referring Provider Kaitlynn Red Attending Provider Dr. Luis Zuleta MD Referring Provider Dr. Fam Jasso MD Attending Provider [phone] Kaitlynn Red Referring Provider Devin Lucia Attending Provider Oleghe, Efewongbe Attending Unavailable Oleghe, Efewongbe Referring Unavailable Oleghe, Efewongbe Primary Care Unavailable Oleghe, Efewongbe Primary Care Unavailable Luis Zuleta Referring Unavailable Luis Zuleta Attending Unavailable Kaitlynn Gudino Attending Unavailable Oleghe, Efewongbe Referring Unavailable Oleghe, Efewongbe Primary Care Unavailable Vikas King Attending Unavailable Vikas King Referring Unavailable Oleghe, Efewongbe Primary Care Unavailable Kaitlynn Gudino Attending Unavailable Kaitlynn Gudino Referring Unavailable Oleghe, Efewongbe Primary Care Unavailable Kaitlynn Gudino Attending Unavailable Kaitlynn Gudino Referring Unavailable Oleghe, Efewongbe Primary Care Unavailable Kaitlynn Gudino Attending Unavailable Kaitlynn Gudino Referring Unavailable Oleghe, Efewongbe Primary Care Unavailable Oleghe, Efewongbe Referring Unavailable Oleghe, Efewongbe Attending Unavailable Oleghe, Efewongbe Primary Care Unavailable Kaitlynn Gudino Referring Unavailable Kaitlynn Gudino Attending Unavailable Oleghe, Efewongbe Primary Care Unavailable Oleghe, Efewongbe Primary Care Unavailable Luis Zuleta Attending Unavailable Kaitlynn Gudino Attending Unavailable Oleghe, Efewongbe Referring Unavailable Oleghe, Efewongbe Primary Care Unavailable Oleghe, Efewongbe Primary Care Unavailable Oleghe, Efewongbe Referring Unavailable Devin Lucia Attending Unavailable Oleghe, Efewongbe Primary Care Unavailable Vikas King Attending Unavailable Oleghe, Efewongbe Primary Care Unavailable Oleghe, Efewongbe Referring Unavailable Carol Humphries Attending Unavailable Kaitlynn Gudino Referring Unavailable Phu Chance Attending Unavailable Oleghe, Efewongbe Primary Care Unavailable Kaitlynn Gudino Attending Unavailable Oleghe, Efewongbe Primary Care Unavailable Kaitlynn Gudino Attending Unavailable Oleghe, Efewongbe Primary Care Unavailable Oleghe, Efewongbe Referring Unavailable Kaitlynn Gudino Attending Unavailable Oleghe, Efewongbe Primary Care Unavailable Oleghe, Efewongbe Attending Unavailable Oleghe, Efewongbe Referring Unavailable Oleghe, Efewongbe Primary Care Unavailable Oleghe, Efewongbe Attending Unavailable Oleghe, Efewongbe Referring Unavailable Oleghe, Efewongbe Primary Care Unavailable Melia, Vikas Referring Unavailable Oleghe, Efewongbe Primary Care Unavailable Melia, Vikas Attending Unavailable Melia, Vikas Attending Unavailable Melia, Vikas Referring Unavailable Oleghe, Efewongbe Primary Care Unavailable Oleghe, Efewongbe Primary Care Unavailable Oleghe, Efewongbe Referring Unavailable Melia, Vikas Attending Unavailable Allergies Allergy Classification Reported Allergen(s) Allergy Type Date of Onset Reaction(s) Facility (20 sources) Penicillins; Translations: [Penicillins] Allergy to substance 04-14-2022 Anaphylaxis [facility] (4 sources) Penicillin G; Translations: [PENICILLIN G] Drug Allergy 02-17-2006 [facility] Work Phone: (4 sources) Seasonal allergy Propensity to adverse reactions to drug 04-06-2024 [facility] Medications Current Medications Medication Drug Class(es) Dates Sig (Normalized) Sig (Original) acetaminophen 325 mg oral tablet (5 sources) Start: 04-07-2024 take 2 tablets by mouth every six hours as needed Acetaminophen 325 MG tablet Take 2 tablets by mouth every 6 hours as needed for Mild Pain. 04/07/2024 Active Start: 04-06-2024 End: 04-07-2024 take 1 tablet by mouth every six hours as needed 650 mg, Oral, EVERY 6 HOURS NEEDED, Starting on Thu04/06/24 at 1801, Until Thu04/07/24 at 1231, Mild Pain, Maximum dose of acetaminophen is 4000 mg from all sources in 24 hours., Post-op/Post-Proc [id number] 200 actuat albuter ol 0.09 mg/actuat metered dose inhaler (20 sources) beta2-Adrenergic Agonist Start: 04-06-2024 End: 04-07-2024 Start: 03-31-2023 take 2 puff(s) by in halation every six hours as needed Ventolin HFA 108 (90 Base) MCG/ACT Aero Soln inhaler Indications: Permanent atrial fibrillation Inhale 2 puffs every 6 hours as needed. 03/31/2023 Active Start: 07-28-2019 End: 12-23-2024 Albuterol Sulfate (Ventolin Hfa) 90 mcg/actuation HFA aerosol inhaler Discontinued 2 NMA INHALATION EVERY 6 HOURS as needed for shortness of breath or wheezing 8.April 14, 2022 9:51am December 23, 2024 10:59am Start: 07-28-2019 End: 04-14-2022 take 1 puff(s) by inhalation every six hours Albuterol Sulfate (Ventolin Hfa) 90 mcg/actuation HFA aerosol inhaler Active 2 PUFF INHALATION EVERY 6 HOURS 8.April 14, 2022 9:51am amLODIPine 5 mg oral tablet (20 sources) Dihydropyridine Calcium Channel Fredo Start: 03-07-2024 take 1 tablet by mouth once daily Amlodipine 5 mg tablet Active 5 mg PO daily March 07, 2024 12:00am Start: 10-31-2022 End: 07-10-2023 take 1 tablet by mouth once daily Amlodipine 5 mg tablet Discontinued 5 mg PO daily January 14, 2023 9:51am July 10, 2023 12:35pm Start: 04-14-2022 End: 08-22-2022 take 1 tablet by mouth once daily Amlodipine 5 mg tablet Discontinued 5 mg PO DAILY April 14, 2022 9:52am August 22, 2022 10:00am On Hold: HYPOTENSION Start: 01-10-2022 End: 04-14-2022 take 1 tablet by mouth once daily Amlodipine 10 mg tablet Discontinued 10 mg PO DAILY January 10, 2022 9:23am April 14, 2022 9:53am Start: 01-10-2022 End: 01-10-2022 take 2 tablets by mouth once daily Amlodipine 5 mg tablet Discontinued 10 mg PO DAILY January 10, 2022 9:17am January 10, 2022 9:26am Start: 01-10-2022 End: 01-10-2022 take 10 mg by mouth once daily Amlodipine Discontinued 10 MG PO DAILY January 10, 2022 9:17am January 10, 2022 9:26am Start: 04-06-2020 End: 01-10-2022 take 1 tablet by mouth once daily Amlodipine 5 mg tablet Discontinued 5 mg PO DAILY October 28, 2021 11:47am January 10, 2022 9:20am Start: 07-28-2019 End: 04-06-2020 take 1 tablet by mouth once daily Amlodipine 10 mg tablet Discontinued 10 mg PO DAILY July 28, 2019 12:00am April 06, 2020 12:05pm Start: 11-26-2017 End: 07-28-2019 take 1 tablet by mouth once daily Amlodipine 5 mg tablet Discontinued 5 mg PO daily November 26, 2017 1:00am July 28, 2019 9:26am Comment on above: Take 1 tablet by wilder th every afternoon. apixaban 5 mg oral tablet (20 sources) Factor Xa Inhibitor Start: 04-07-2024 take 1 tablet by mouth every twelve hours Eliquis 5 MG tablet Indications: Permanent atrial fibrillation Take 1 tablet by mouth every 12 hours. Restart 24 hours post procedure. 04/07/2024 Active Start: 03-12-2020 End: 02-08-2025 take 1 tablet by mouth twice daily Apixaban (Eliquis) 5 mg tablet Active 5 mg PO TWICE A DAY February 08, 2025 11:00am Comment on above: take 1 5 MG tablet o rally twice a day atorvastatin 20 mg oral tablet (19 sources) HMG-CoA Reductase Inhibitor Start: 01-20-20 End: 02-11-20 take 1 tablet by mouth at bedtime Atorvastatin 20 mg tablet Active 20 mg PO AT BEDTIME February 10, 2025 5:07pm azithromycin 250 mg oral tablet (20 sources) Macrolide Antimicrobial Start: 02-18-20 Azithromycin 250 mg tablet Active 0 PO .COMPLEX February 17, 2025 12:00am For 250 mg dose pack: take 500 mg today (day 1), then 250 mg for 4 days (days 2-5) PO Start: 03-11-2019 End: 12-16-2023 take 2 tablets by mouth once daily Azithromycin 250 mg tablet Discontinued 250 mg PO DAILY 6 May 16, 2022 12:00am May 21, 2022 12:00am May 22, 2022 12:03am start on day 2 of therapy Comment on above: Take 2 tablets day o ne, then 1 tablet daily days 2 through 5. Kxrsfkpyra-Xdihpyea-Lc rmoterol (20 sources) Corticosteroid, beta2-Adrenergic Agonist Start: 12-23-2024 Mlvhkxgoca-Abnjfyzk-Lqho oterol (Breztri Aerosphere) 160-9-4.8 mcg/actuation HFA aerosol inhaler Active 2 NMA INHALATION TWICE A DAY 10.7 December 23, 2024 10:58am Start: 09-08-2024 End: 12-23-2024 Lszighcxrm-Jtnmqdaw-Kwoqetci ol (Breztri Aerosphere) 160-9-4.8 mcg/actuation HFA aerosol inhaler Discontinued 2 NMA INHALATION TWICE A DAY 10.7 September 08, 2024 11:08am December 23, 2024 10:59am Start: 03-07-2024 End: 09-08-2024 Fdaibaeujk-Hkoblcfs-Zayengti ol (Breztri Aerosphere) 160-9-4.8 mcg/actuation HFA aerosol inhaler Discontinued 2 NMA INHALATION TWICE A DAY 10.7 March 07, 2024 10:09am September 08, 2024 11:09am Start: 06-04-2023 budesonide-gly copyrrolate-Formoterol 160-9-4.8 MCG/ACT Aerosol inhaler Indications: Permanent atrial fibrillation Inhale. 06/04/2023 Active Start: 06-04-2023 End: 03-07-2024 Vkzbscizzf-Yshzmvhh-Djihvhrj ol (Breztri Aerosphere) 160-9-4.8 mcg/actuation HFA aerosol inhaler Discontinued 2 NMA INHALATION TWICE A DAY 10.7 June 04, 2023 12:00am March 07, 2024 10:10am Start: 06-04-2023 Budesonide-Gly copyr-Formoterol (Breztri Aerosphere) 160-9-4.8 mcg/actuation HFA aerosol inhaler Active 2 INH INHALATION TWICE A DAY 10.7 June 03, 2023 11:00pm Start: 06-04-2023 Budesonide-Gly copyr-Formoterol (Breztri Aerosphere) 160-9-4.8 mcg/actuation HFA aerosol inhaler Active 2 INH INHALATION TWICE A DAY 10.7 June 04, 2023 12:00am Comment on above: Inhale as instructed . dapagliflozin 10 mg oral tablet (20 sources) Sodium-Glucose Cotransporter 2 Inhibitor Start: 09-30-20 End: 02-09-20 take 1 tablet by mouth once daily Dapagliflozin Propanediol (Farxiga) 10 mg tablet Active 10 mg PO DAILY 90 February 08, 2025 11:00am Comment on above: Take 1 tablet by wilder th every afternoon. doxycycline hyclate 100 mg oral tablet (15 sources) Tetracycline-class Drug Start: 10-18-20 End: 10-25-20 take 1 tablet by mouth twice daily doxycycline (VIBRA-TABS) 100 mg tablet Indications: Sinobronchitis Take 1 tablet by mouth two times a day for 7 days. 14 tablet 0 10/18/2023 10/25/2023 Active Start: 07-30-2023 End: 12-09-2023 take 1 tablet by mouth twice daily Doxycycline Monohydrate 100 mg tablet Discontinued 100 mg PO TWICE A DAY 14 July 30, 2023 12:00am December 09, 2023 3:32pm Comment on above: Take 1 tablet by wilder th two times a day for 7 days. Take 1 tablet by wilder th two times a day for 5 days. Fluticasone Furoate-Vilanterol (Breo Ellipta) 200-25 mcg/dose blister with device (2 sources) Start: 05-26-2022 Fluticasone Furoate-Vilanterol (Breo Ellipta) 200-25 mcg/dose blister with device Active 1 INH INHALATION Q24H 60 May 26, 2022 12:00am furosemide 40 mg oral tablet (20 sources) Loop Diuretic Start: 04-07-2024 End: 04-07-2024 Start: 09-24-2023 take 1-1.5 tablets b y mouth once furosemide (LASIX) 40 mg tablet Take 1-1.5 tablets by mouth every afternoon. 0 09/24/2023 Active Start: 09-24-2023 take 1.5 tablets by mouth once furosemide (LASIX) 40 mg tablet Take 1.5 tablets by mouth every afternoon. 0 09/24/2023 Active Start: 07-10-2023 End: 02-08-2025 Furosemide (Lasix) 40 mg tab let Active 60 mg PO DAILY 270 February 08, 2025 4:54pm Start: 01-14-2023 End: 07-10-2023 Furosemide (Lasix) 40 mg tab let Discontinued 60 mg PO TWICE A DAY 270 March 30, 2023 10:42am July 10, 2023 12:37pm Start: 08-22-2022 End: 01-14-2023 take 1 tablet by mouth twice daily Furosemide (Lasix) 40 mg tablet Discontinued 40 mg PO TWICE A DAY August 22, 2022 10:21am January 14, 2023 9:42am Start: 07-31-2022 End: 08-22-2022 Furosemide (Lasix) 40 mg tab let Discontinued 60 mg PO TWICE A DAY July 31, 2022 10:15am August 22, 2022 10:21am Start: 05-16-2022 End: 07-31-2022 take 1 tablet by mouth twice daily Furosemide (Lasix) 40 mg tablet Discontinued 40 mg PO TWICE A DAY 90 May 16, 2022 2:30pm July 31, 2022 10:00am Start: 05-07-2020 End: 05-16-2022 take 1 tablet by mouth once daily Furosemide (Lasix) 40 mg tablet Discontinued 40 mg PO DAILY October 28, 2021 12:24pm December 02, 2021 6:07pm Start: 03-12-2020 End: 04-11-2020 take 1 tablet by mouth once daily Furosemide (Lasix) 40 mg tablet Discontinued 40 mg PO DAILY March 12, 2020 12:00am April 11, 2020 4:17pm Start: 07-29-2018 End: 07-29-2018 take 1 tablet by mouth once daily Furosemide 20 mg tablet Discontinued 20 mg PO DAILY July 29, 2018 12:00am July 29, 2018 11:50am Comment on above: Take 1.5 tablets by mouth every afternoon. Take 1-1.5 tablets b y mouth every afternoon. HANDICAP PLACARD (20 sources) Start: 12-02-2021 HANDICAP PLACARD Active 0 .Route .MEDSUPPLY December 02, 2021 12:00am Start: 12-02-[address] Active 0 .Route .MEDSUPPLY 1 December 02, 2021 1:00am iv contrast (will be provided with radiology test) (1 source) Start: 12-16-2023 End: 12-17-2023 inject 1 dose intravenously once iv contrast (will be provided with radiology test) CTA Chest. No IV access, insert saline lock prior to the sedation, infusion, injection for imaging exam. Discontinue saline lock post exam. If Pt. has a central line or IVAD, may access for administration according to line specific nursing protocol. Once exam is complete flush line and de-access according to line specific nursing protocol in the CT contrast administration guidelines link. 1 Each 0 12/16/2023 12/17/2023 Active Comment on above: CTA Chest. No IV access, insert saline l ock prior to the sedation, infusion, injection for imaging exam. Discontinue saline lock post exam. If Pt. has a central line or IVAD, may access for administration according to line specific nursing protocol. Once exam is complete flush line and de-access according to line specific nursing protocol in the CT contrast administration guidelines link. latanoprost 0.05 mg/ml ophthalmic solution (5 sources) Prostaglandin Analog Start: 09-08-2024 Latanoprost 0.005 % drops Active NMA OPHTHALMIC September 08, 2024 1:00am lisinopril 40 mg oral tablet (20 sources) Angiotensin Converting Enzyme Inhibitor Start: 04-07-2024 End: 04-07-2024 take 40 mg by mouth once daily 40 mg, Oral, DAILY, First dose on Kiara 04/07/24 at 0900, Until Discontinued Start: 08-03-2013 End: 11-26-2017 take 1 tablet by mouth once daily Lisinopril 30 MG tablet Discontinued 30 mg PO DAILY August 03, 2013 12:00am November 26, 2017 9:57am Start: 03-09-2009 End: 02-10-2025 take 1 tablet by mouth once daily Lisinopril 40 mg tablet Active 0 .ROUTE .COMPLEX 90 February 10, 2025 5:07pm TAKE 1 TABLET BY MOUTH DAILY Comment on above: Take one(1) tablet d aily. 24 hr metoprolol succinate 100 mg extended release oral tablet (20 sources) beta-Adrenergic Fredo Start: 01-04-2025 End: 02-08-2025 take 1 tablet by mouth once daily Metoprolol Succinate 100 mg tablet extended release 24 hr Active 100 mg PO daily February 08, 2025 2:56pm Start: 09-08-2024 End: 01-04-2025 take 1 tablet by mouth once daily Metoprolol Succinate 50 mg tablet extended release 24 hr Discontinued 50 mg PO daily September 08, 2024 1:00am January 04, 2025 4:51pm Start: 04-07-2024 End: 04-07-2024 take 1 tablet by mouth once daily Metoprolol succinate 50 MG tablet XL Take 1 tablet by mouth daily. 30 tablet 5 04/07/2024 Active Start: 01-19-2024 End: 09-08-2024 take 1 tablet by mouth once daily Metoprolol Succinate 100 mg tablet extended release 24 hr Discontinued 100 mg PO DAILY January 19, 2024 12:00am September 08, 2024 10:50am Start: 09-29-2023 End: 01-19-2024 take 1 tablet by mouth once daily Metoprolol Succinate 50 mg tablet extended release 24 hr Discontinued 50 mg PO DAILY December 30, 2023 9:44am January 19, 2024 1:32pm Start: 04-14-2023 End: 12-09-2023 Metoprolol Succinate 50 mg t ablet extended release 24 hr Discontinued 100 mg PO DAILY April 14, 2023 9:30am December 09, 2023 3:32pm Start: 04-14-2023 End: 12-09-2023 take 100 mg by mouth once daily Metoprolol Succinate Discontinued 100 MG PO DAILY April 14, 2023 9:30am December 09, 2023 3:32pm Start: 04-06-2020 End: 04-14-2023 take 1 tablet by mouth once daily Metoprolol Succinate 50 mg tablet extended release 24 hr Discontinued 50 mg PO DAILY January 15, 2023 10:09am April 14, 2023 9:33am Start: 03-16-2020 End: 04-06-2020 Metoprolol Succinate (Toprol Xl) 50 mg tablet extended release 24 hr Discontinued 75 mg PO DAILY March 16, 2020 2:14pm April 06, 2020 11:38am Start: 07-29-2018 End: 03-16-2020 take 1 tablet by mouth once daily Metoprolol Succinate (Toprol Xl) 50 mg tablet extended release 24 hr Discontinued 50 mg PO DAILY July 28, 2019 9:27am March 16, 2020 2:14pm take 1 tablet by wilder th once daily metoprolol tartrate, short acting, 25 mg tablet Take 25 mg by mouth once daily. 0 Active Comment on above: Take 25 mg by mouth once daily. Take 1 tablet by wilder th once daily. Multivitamin (MULTIPLE VITAMIN) ORAL Tab (3 sources) Start: 7 take 1 tablet by mouth once daily Multivitamin (MULTIPLE VITAMIN) ORAL Tab Take one(1) tablet daily. 0 05/17/2007 Active Comment on above: Take one(1) tablet d aily. omeprazole 40 mg delayed release oral capsule (20 sources) Proton Pump Inhibitor Start: 8 End: 5 take 1 capsule by mouth once daily Omeprazole 40 mg capsule,delayed release(DR/EC) Active 40 mg PO DAILY February 08, 2025 4:54pm Start: 11-26-2017 End: 07-28-2019 take 1 capsule by mouth once daily Omeprazole 20 mg capsule,delayed release(DR/EC) Discontinued 20 mg PO daily November 26, 2017 1:00am July 28, 2019 9:07am Comment on above: Take 1 capsule by mo [facility] once daily. potassium chloride 20 meq extended release oral tablet (20 sources) Start: 01-05-2025 End: 02-08-2025 take 1 tablet by mouth once daily Potassium Chloride 20 mEq tablet extended release Active 20 meq PO daily February 08, 2025 4:54pm Start: 04-06-2024 End: 04-07-2024 take 60 mEq by mouth every eight hours 40-60 mEq, Oral, ADMINISTER DIRECTED, Starting on Thu04/06/24 at 1801, Until Thu04/07/24 at 1231, See admin instructions, If Cr less than 2.0 mg/dL 1. For Potassium 3.6 - 4.0, give 40 mEq of Potassium Chloride orally, recheck in the AM. 2. For Potassium less than 3.6, give 60 mEq Potassium Chloride orally, recheck in 8 hours. 3. If potassium is low please administer magnesium first if indicated., Post-op/Post-Proc Start: 04-06-2024 End: 04-07-2024 Start: 12-22-2023 take 1 tablet by wilder th twice daily Potassium Chloride Active 0 .ROUTE .COMPLEX 60 December 22, 2023 10:28am TAKE 1 TABLET BY MOUTH TWICE DAILY Start: 12-22-2023 take 1 tablet by wilder twice daily Potassium Chloride Active 0 .ROUTE .COMPLEX 60 December 22, 2023 9:28am TAKE 1 TABLET BY MOUTH TWICE DAILY Start: 09-24-2023 take 1 tablet by wilder every twelve hours potassium chloride 20 mEq TbER Take 1 tablet by mouth every 12 hours. 0 09/24/2023 Active Start: 07-30-2023 End: 01-05-2025 take 1 tablet by mouth twice daily Potassium Chloride 20 mEq tablet extended release Discontinued 0 .ROUTE .COMPLEX 60 October 31, 2024 2:13pm January 05, 2025 2:00pm TAKE 1 TABLET BY MOUTH TWICE DAILY Start: 10-01-2022 End: 07-10-2023 take 1 tablet by mouth twice daily Potassium Chloride 20 mEq tablet extended release Discontinued 20 meq PO TWICE A DAY June 10, 2023 3:57pm July 10, 2023 12:36pm Start: 07-16-2022 End: 10-01-2022 take 1 tablet by mouth once daily Potassium Chloride 20 mEq tablet extended release Discontinued 20 meq PO DAILY July 16, 2022 12:00am October 01, 2022 2:31pm Start: 03-12-2020 End: 04-06-2020 take 1 capsule by mouth once daily Potassium Chloride 10 mEq capsule, extended release Discontinued 10 meq PO DAILY March 12, 2020 12:00am April 06, 2020 11:38am Comment on above: Take 1 tablet by wilder every 12 hours. predniSONE 20 mg oral tablet (20 sources) Start: 02-17-2025 take 2 tablets by mouth once daily, then take 1 tablet by mouth once daily Prednisone 20 mg tablet Active 20 mg PO daily February 17, 2025 12:00am Take 2 tablets daily for 4 days then 1 tablet daily for 2 days. Start: 07-30-2023 End: 12-09-2023 take 2 tablets by mouth once daily Prednisone 20 mg tablet Discontinued 40 mg PO DAILY July 30, 2023 12:00am December 09, 2023 3:32pm Start: 07-30-2023 End: 12-09-2023 take 40 mg by mouth once daily Prednisone Discontinued 40 MG PO DAILY July 30, 2023 12:00am December 09, 2023 3:32pm Start: 05-16-2022 End: 07-02-2022 take 2 tablets by mouth once daily Prednisone 20 mg tablet Discontinued 40 mg PO DAILY May 16, 2022 12:00am July 02, 2022 8:48am Start: 05-16-2022 End: 07-02-2022 take 40 mg by mouth once daily Prednisone Discontinued 40 MG PO DAILY May 16, 2022 12:00am July 02, 2022 8:48am Completed/Discontinued Medications Medication Drug Class(es) Dates Sig (Normalized) Sig (Original) allopurinol 100 mg oral tablet (20 sources) Xanthine Oxidase Inhibitor Start: 11-26-2017 End: 02-02-2025 take 1 tablet by mouth once daily Allopurinol 100 mg tablet Discontinued 100 mg PO DAILY October 17, 2024 1:07pm February 02, 2025 7:41pm Comment on above: Take 1 tablet by wilder th every afternoon. aluminum hydroxide 40 mg/ml / magnesium hydroxide 40 mg/ml / simethicone 4 mg/ml oral suspension (1 source) Start: 04-06-2024 End: 04-07-2024 take 30 mL by mouth every six hours as needed 30 mL, Oral, EVERY 6 HOURS NEEDED, Starting on Thu04/06/24 at 1801, Until Thu04/07/24 at 1231, Indigestion, Per 5 mL is equivalent to: (Alum-Mag Hydroxide 200-225 mg and Simethicone 20 mg) and (Alum-Mag Hydroxide 200-200 mg and Simethicone 20 mg), Post-op/Post-Proc amiodarone hydrochloride 200 mg oral tablet (20 sources) Antiarrhythmic Start: 05-04-2023 End: 01-04-2025 take 1 tablet by mouth once daily Amiodarone 200 mg tablet Discontinued 200 mg PO DAILY May 04, 2023 12:00am January 04, 2025 4:50pm Comment on above: Take 1 tablet by wilder th every afternoon. aspirin 81 mg delayed release oral tablet (20 sources) Platelet Aggregation Inhibitor, Nonsteroidal Anti-inflammatory Drug Start: 11-26-2017 End: 04-06-2020 Aspirin (Adult Low Dose Aspirin) 81 mg tablet,delayed release (DR/EC) Discontinued 81 mg PO daily November 26, 2017 1:00am April 06, 2020 12:07pm Comment on above: Take 81 mg by mouth once daily. digoxin 0.125 mg oral tablet (20 sources) Cardiac Glycoside Start: 12-09-2023 take 1 tablet by mouth once daily digoxin (LANOXIN) 125 mcg (0.125 mg) tablet Take 1 tablet by mouth once daily. 0 12/09/2023 Active Start: 12-09-2023 End: 01-04-2025 take 1 tablet by mouth once daily Digoxin 125 mcg (0.125 mg) tablet Discontinued 125 ug PO DAILY December 09, 2023 5:11pm January 04, 2025 4:50pm Comment on above: Take 1 tablet by wilder th once daily. 1 ml diphenhydrAMINE hydrochloride 50 mg/ml cartridge (1 source) Histamine-1 Receptor Antagonist Start: 04-06-20 End: 04-06-20 12.5 mg, Intravenous, ONCE, 1 dose, On Thu04/06/24 at 1215 docusate sodium 100 mg oral tablet (20 sources) Start: 11-26-19 End: 07-29-20 take 1 tablet by mouth once daily as needed Docusate Sodium 100 mg tablet Discontinued 100 mg PO daily as needed November 26, 2017 1:00am July 29, 2018 11:33am ferrous sulfate 140 mg extended release oral tablet (20 sources) Start: 05-16-20 End: 02-18-20 take 1 tablet by mouth once daily Ferrous Sulfate 140 mg (45 mg iron) tablet extended release Discontinued 140 mg PO DAILY May 16, 2022 12:00am February 17, 2023 1:47pm 30 actuat fluticasone furoate 0.2 mg/actuat / vilanterol 0.025 mg/actuat dry powder inhaler (20 sources) Corticosteroid, beta2-Adrenergic Agonist Start: 05-26-20 End: 10-31-19 23 Fluticasone Furoate-Vilanterol (Breo Ellipta) 200-25 mcg/dose blister with device Discontinued 1 NMA INHALATION Q24H 60 May 26, 2022 12:00am October 31, 2022 10:45am Start: 05-26-2022 End: 10-31-2022 Fluticasone Furoate-Vilanter ol (Breo Ellipta) 200-25 mcg/dose blister with device Discontinued 1 INH INHALATION Q24H 60 May 26, 2022 12:00am October 31, 2022 10:45am hydrALAZINE hydrochloride 50 mg oral tablet (20 sources) Arteriolar Vasodilator Start: 10-31-2022 End: 10-31-2022 Hydralazine 50 mg tablet Discontinued 25 mg PO TWICE A DAY October 31, 2022 1:00am October 31, 2022 11:16am Start: 10-31-2022 End: 10-31-2022 take 25 mg by mouth twice daily Hydralazine Discontinu ed 25 MG PO TWICE A DAY October 31, 2022 1:00am October 31, 2022 11:16am Start: 08-05-2022 End: 10-31-2022 take 2 tablets by mouth twice daily Hydralazine 25 mg tablet Discontinued 50 mg PO TWICE A DAY August 05, 2022 10:43am October 31, 2022 10:41am On Hold: hypotension Start: 08-05-2022 End: 10-31-2022 take 50 mg by mouth twice daily Hydralazine Discontinu ed 50 MG PO TWICE A DAY 90 August 05, 2022 10:43am October 31, 2022 10:41am On Hold: hypotension Start: 04-14-2022 End: 08-05-2022 take 1 tablet by mouth twice daily Hydralazine 50 mg tablet Discontinued 50 mg PO TWICE A DAY 180 April 14, 2022 9:51am August 05, 2022 10:44am Start: 01-31-2020 End: 04-14-2022 take 1 tablet by mouth twice daily Hydralazine 25 mg tablet Discontinued 25 mg PO TWICE A DAY 180 October 28, 2021 12:37pm April 14, 2022 9:53am hydroCHLOROthiazide 25 mg oral tablet (20 sources) Thiazide Diuretic Start: 07-20-2020 End: 07-20-2020 take 1 tablet by mouth once daily Hydrochlorothiazide 25 mg tablet Discontinued 25 mg PO DAILY July 20, 2020 12:00am July 20, 2020 10:14am Start: 07-28-2019 End: 05-07-2020 take 1 tablet by mouth once daily Hydrochlorothiazide 25 mg tablet Discontinued 25 mg PO DAILY 90 July 28, 2019 12:00am May 07, 2020 4:54pm Start: 08-03-2013 End: 07-29-2018 take 1 tablet by mouth once daily Hydrochlorothiazide 25 MG tablet Discontinued 25 mg PO DAILY August 03, 2013 12:00am July 29, 2018 11:32am 1 ml HYDROmorphone hydrochloride 1 mg/ml cartridge (1 source) Opioid Agonist Start: 04-06-2024 End: 04-07-2024 take 0.2 mg intravenously every two hours as needed 0.2 mg, Intravenous, EVERY 2 HOURS NEEDED, Starting on Thu04/06/24 at 1801, Until Kiara 04/07/24 at 1231, Severe Pain, If unable to tolerate PO, Post-op/Post-Proc loratadine 10 mg oral tablet (20 sources) Start: 01-01-2018 End: 07-29-2018 take 1 tablet by mouth once daily Loratadine 10 mg tablet Discontinued 10 mg PO daily January 01, 2018 1:00am July 29, 2018 11:32am 50 ml magnesium sulfate 80 mg/ml injection (1 source) Start: 04-06-2024 End: 04-07-2024 4 g, Intravenous, Administer over 4 Hours, ADMINISTER DIRECTED, Starting on Thu04/06/24 at 1801, Until Kiara 04/07/24 at 1231, Other, Magnesium Replacement Therapy, If Magnesium less than 1.6, give 4 g Magnesium Sulfate IVPB over 4 hours (may give over 1 hour if arrhythmias present)., Post-op/Post-Proc mecobalamin 1 mg chewable tablet (20 sources) Start: 05-16-2022 End: 10-31-2022 Mecobalamin (Vitamin B12) (B12 Active) 1,000 mcg tablet,chewable Discontinued 1000 ug PO DAILY May 16, 2022 12:00am October 31, 2022 10:42am melatonin 3 mg oral tablet (1 source) Start: 04-06-2024 End: 04-07-2024 take 3 mg by mouth once daily at bedtime as needed 3 mg, Oral, DAILY AT BEDTIME NEEDED, Starting on Thu04/06/24 at 1801, Until Kiara 04/07/24 at 1231, Insomnia, Post-op/Post-Proc meloxicam 15 mg oral tablet (20 sources) Nonsteroidal Anti-inflammator y Drug Start: 11-26-2017 End: 07-28-2019 take 1 tablet by mouth once daily Meloxicam 15 mg tablet Discontinued 15 mg PO daily November 26, 2017 1:00am July 28, 2019 9:07am mirtazapine 7.5 mg oral tablet (20 sources) Start: 10-11-2021 End: 05-16-2022 take 1 tablet by mouth at bedtime as needed Mirtazapine 7.5 mg tablet Discontinued 7.5 mg PO AT BEDTIME as needed December 02, 2021 1:00am May 16, 2022 10:37am Multivitamin (Daily Multi-Vitamin) tablet (20 sources) Start: 01-01-2018 End: 04-12-2021 Multivitamin (Daily Multi-Vitamin) tablet Discontinued 1 {tbl} PO daily January 01, 2018 1:00am April 12, 2021 9:22am Start: 01-01-2018 End: 04-12-2021 take 1 tablet by mouth once daily Multivitamin (Daily Multi-Vitamin) tablet Discontinued 1 TABLET PO daily January 01, 2018 12:00am April 12, 2021 8:22am Start: 01-01-2018 End: 04-12-2021 take 1 tablet by mouth once daily Multivitamin (Daily Multi-Vitamin) tablet Discontinued 1 TABLET PO daily January 01, 2018 1:00am April 12, 2021 9:22am 2 ml ondansetron 2 mg/ml injection (1 source) Serotonin-3 Receptor Antagonist Start: 04-06-2024 End: 04-07-2024 4 mg, Intravenous, EVERY 4 HOURS NEEDED, Starting on Thu04/06/24 at 1801, Until Thu04/07/24 at 1231, Nausea / Vomiting, Post-op/Post-Proc oxyCODONE (1 source) Opioid Agonist Start: 04-06-2024 End: 04-07-2024 take 1 tablet by mouth every four hours as needed oxyCODONE (ROXICODONE) tablet 5 mg pantoprazole 40 mg delayed release oral tablet (1 source) Proton Pump Inhibitor Start: 04-07-2024 End: 04-07-2024 take 40 mg by mouth once daily 40 mg, Oral, DAILY, First dose on Thu04/07/24 at 0900, Until Discontinued, Swallow whole; do not crush or chew., Indications: Continuation of Home Therapy polyethylene glycol 3350 75419 mg powder for oral solution (1 source) Osmotic Laxative Start: 04-06-2024 End: 04-07-2024 17 g, Oral, DAILY NEEDED, Starting on Thu04/06/24 at 1801, Until Thu04/07/24 at 1231, Constipation 1st Line, Post-op/Post-Proc potassium gluconate 2.5 meq oral tablet (20 sources) Start: 11-26-2017 End: 07-29-2018 take 1 tablet by mouth once daily as needed Potassium 99 mg tablet Discontinued 99 mg PO daily as needed November 26, 2017 1:00am July 29, 2018 11:50am raNITIdine 75 mg oral tablet (20 sources) Histamine-2 Receptor Antagonist Start: 01-01-2018 End: 07-29-2018 take 1 tablet by mouth once daily as needed Ranitidine Hcl 75 mg tablet Discontinued 75 mg PO daily as needed January 01, 2018 1:00am July 29, 2018 11:33am 1000 ml sodium chloride 9 mg/ml injection (1 source) Start: 04-06-2024 End: 04-06-2024 Intravenous, at 10 mL/hr, CONTINUOUS, Starting on Thu04/06/24 at 1045, Until Thu04/06/24 at 2244, KVO fluids, start the morning of procedure., Pre-op/Pre-Proc spironolactone 25 mg oral tablet (18 sources) Aldosterone Antagonist Start: 05-12-2023 End: 07-10-2023 take 1 tablet by mouth once daily Spironolactone 25 mg tablet Discontinued 25 mg PO DAILY May 12, 2023 12:00am July 10, 2023 12:36pm Vancomycin HCl in NaCl (Vancocin) 1,500 mg 290 ml premade IVPB (1 source) Start: 04-06-2024 End: 04-06-2024 1,500 mg, Intravenous, Administer over 1 Hours, PLUMBER'S HELPER TO PROCEDURE, 1 dose, Starting on Thu04/06/24 at 0000, Until Thu04/06/24 at 1200, Other, Preoperative antibiotic, Order should be timed for day of procedure. 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 Vancomycin is preferred agent for device implants, based on national, community and local ([facility]) MRSA rates., Pre-op/Pre-Proc vitamin b12 1 mg oral tablet (20 sources) Vitamin B12 Start: 10-31-2022 End: 07-30-2023 take 1 tablet by mouth once daily Cyanocobalamin (Vitamin B-12) 1,000 mcg tablet Discontinued 1000 ug PO DAILY October 31, 2022 1:00am July 30, 2023 1:11pm Problems Active Problems Problem Classification Problem Date Documented Date Episodic/Chronic Adjustment disorders (20 sources) Grief finding; Translations: [Adjustment disorder with depressed mood] 10-11-2021 Chronic Aortic; peripheral; and visceral artery aneurysms (20 sources) Aneurysm of thoracic aorta; Translations: [Thoracic aortic aneurysm, without rupture] Onset: Chronic Comment on above: Stable aneurysmal di latation of the ascending thoracic aorta at 4.4 cm. CTA 02/2021 Cardiac dysrhythmias (20 sources) Paroxysmal atrial fibrillation; Translations: [Paroxysmal atrial fibrillation] Onset: 4 Chronic Chronic obstructive pulmonary disease and bronchiectasis (20 sources) Chronic obstructive lung disease; Translations: [Chronic obstructive pulmonary disease, unspecified] Onset: Chronic Conditions associated with dizziness or vertigo (20 sources) Dizziness; Translations: [Dizziness and giddiness] 01-14-2023 Episodic Conduction disorders (20 sources) H/O: cardiac pacemaker in situ; Translations: [Presence of cardiac pacemaker] Onset: 5 09-08-2024 Chronic Comment on above: 04/07/2024 Implanted 04/06/24 @ [facility]. RV lead and LBB lead. LV (CS) lead attempted but abandoned. Congestive heart failure; nonhypertensive (20 sources) Congestive heart failure; Translations: [Heart failure, unspecified] Onset: 5 Chronic Coronary atherosclerosis and other heart disease (15 sources) Coronary arteriosclerosis; Translations: [Atherosclerotic heart disease of tejon coronary artery without angina pectoris] Onset: 5 01-19-2024 Chronic Deficiency and other anemia (13 sources) Anemia; Translations: [Anemia, unspecified] 07-30-2023 Episodic Disorders of lipid metabolism (12 sources) Hyperlipidemia; Translations: [Hyperlipidemia, unspecified] Onset: 5 01-20-2024 Chronic Esophageal disorders (20 sources) Gastroesophageal reflux disease; Translations: [Gastro-esophageal reflux disease without esophagitis] Onset: 7 Chronic Essential hypertension (20 sources) Essential hypertension; Translations: [Essential (primary) hypertension] Onset: 7 Chronic Fluid and electrolyte disorders (20 sources) Hypokalemia; Translations: [Hypokalemia] 07-16-2022 Episodic Immunizations and screening for infectious disease (20 sources) Needs influenza immunization; Translations: [Encounter for immunization] Episodic Malaise and fatigue (20 sources) Fatigue; Translations: [Other fatigue] Episodic Nonspecific chest pain (20 sources) Chest pain, unspecified; Translations: [Chest pain, unspecified] Onset: 5 Episodic Osteoarthritis (20 sources) Osteoarthritis; Translations: [Unspecified osteoarthritis, unspecified site] Chronic Other circulatory disease (1 source) Disorder of artery; Translations: [Disorder of arteries and arterioles, unspecified] 12-16-2023 Chronic Other circulatory disease (20 sources) Low blood pressure; Translations: [Hypotension, unspecified] 08-05-2022 Episodic Other circulatory disease (6 sources) Hypotension, unspecified; Translations: [Hypotension, unspecified] Episodic Other diseases of veins and lymphatics (20 sources) Venous insufficiency of leg; Translations: [Venous insufficiency (chronic) (peripheral)] 04-14-2022 Episodic Other diseases of veins and lymphatics (20 sources) Venous insufficiency (chronic) (peripheral); Translations: [Venous (peripheral) insufficiency, unspecified] Episodic Other lower respiratory disease (20 sources) Dyspnea on exertion; Translations: [Other forms of dyspnea] 05-21-2022 Episodic Other lower respiratory disease (20 sources) Other forms of dyspnea; Translations: [Other respiratory abnormalities] Onset: 5 Episodic Other lower respiratory disease (1 source) Cough; Translations: [Cough] 02-17-2025 Episodic Other nervous system disorders (1 source) Other chronic pain; Translations: [Other chronic pain] Onset: 5 Chronic Other nervous system disorders (2 sources) Paresthesia of skin; Translations: [Disturbance of skin sensation] Episodic Other non-traumatic joint disorders (20 sources) Pain in right knee; Translations: [Right knee pain] 10-11-2021 Episodic Other non-traumatic joint disorders (20 sources) Ankle pain; Translations: [Pain in left ankle and joints of left foot] 12-02-2021 Episodic Other nutritional; endocrine; and metabolic disorders (20 sources) Obesity; Translations: [Obesity, unspecified] 12-02-2021 Chronic Other nutritional; endocrine; and metabolic disorders (13 sources) Obesity, unspecified; Translations: [Obesity, unspecified] Onset: 4 Chronic Other nutritional; endocrine; and metabolic disorders (5 sources) Obese class I; Translations: [Obesity, unspecified] Onset: 4 02-19-2024 Chronic Other nutritional; endocrine; and metabolic disorders (4 sources) Pediatric failure to thrive Episodic Other screening for suspected conditions (not mental disorders or infectious disease) (20 sources) Electrocardiogram abnormal; Translations: [Abnormal electrocardiogram [ECG] [EKG]] Onset: Episodic Other upper respiratory infections (1 source) Chronic sinusitis; Translations: [Chronic sinusitis, unspecified] 10-18-2023 Chronic Judy-; endo-; and myocarditis; cardiomyopathy (except that caused by tuberculosis or sexually transmitted disease) (20 sources) Cardiomyopathy; Translations: [Cardiomyopathy, unspecified] Onset: 4 12-09-2023 Chronic Residual codes; unclassified (20 sources) Hypersomnia; Translations: [Hypersomnia, unspecified] 01-14-2023 Chronic Residual codes; unclassified (6 sources) Hypersomnia, unspecified; Translations: [Hypersomnia, unspecified] 01-14-2023 Chronic Residual codes; unclassified (20 sources) Obstructive sleep apnea syndrome; Translations: [Obstructive sleep apnea (adult) (pediatric)] Onset: 4 02-17-2023 Chronic Comment on above: AHI 8.9, REM AHI 36. 5 Residual codes; unclassified (20 sources) Obstructive sleep apnea (adult) (pediatric); Translations: [Obstructive sleep apnea (adult)(pediatric)] Onset: 4 02-17-2023 Chronic Residual codes; unclassified (4 sources) History of ablation of atrioventricular node; Translations: [Other specified postprocedural states] 01-17-2025 Episodic Spondylosis; intervertebral disc disorders; other back problems (20 sources) Chronic back pain ; Translations: [Dorsalgia, unspecified] Onset: 5 11-16-2024 Episodic Unclassified (2 sources) Chronic atrial fibrillation, unspecified; Translations: [Chronic atrial fibrillation, unspecified] Onset: 4 Unclassified (2 sources) Permanent atrial fibrillation; Translations: [Permanent atrial fibrillation] Onset: 4 Unclassified (1 source) Aneurysm of the ascending aorta, without rupture; Translations: [Aneurysm of the ascending aorta, without rupture] Onset: 4 Unclassified (4 sources) M54.9 - Dorsalgia, unspecified,G89.29 - Other chronic pain,M54.2 - Cervicalgia Unclassified (1 source) Cough, unspecified; Translations: [Cough, unspecified] Onset: 5 Unclassified (1 source) Thoracic aortic aneurysm, without rupture, unspecified; Translations: [Thoracic aortic aneurysm, without rupture, unspecified] Onset: 5 Unclassified (1 source) Other ventricular tachycardia; Translations: [Other ventricular tachycardia] Onset: 5 Past or Other Problems Problem Classification Problem Date Documented Da te Episodic/Chronic Gastroduodenal ulcer (except hemorrhage) (3 sources) Acute gastric ulcer; Translations: [Acute gastric ulcer without hemorrhage or perforation] Onset: 10-11-2018 10-11-2018 Episodic Other aftercare (2 sources) Other intermodal customer service (current) drug therapy; Translations: [Other intermodal customer service (current) drug therapy] Onset: 02-19-2024 Episodic Other gastrointestinal disorders (3 sources) Dysphagia; Translations: [Dysphagia, unspecified] Onset: 07-26-2018 07-26-2018 Episodic Residual codes; unclassified (3 sources) Family history of cancer of colon; Translations: [Family history of malignant neoplasm of digestive organs] Onset: 07-26-2018 07-26-2018 Episodic Unclassified (1 source) Aneurysm of the ascending aorta, without rupture; Translations: [Aneurysm of the ascending aorta, without rupture] Onset: 02-19-2024 Results Test Name Value Interpretation Reference Range Facility Internal Medicine Office Vis mario 03-24-2025 Internal Medicine Office Visit [facility] [address] [place] [address] OFFICE VISIT Date of Service: 03/24/25 MR#: [id number] Acct: [id number] Name: HILL LEE Rep #: [id number] : 1950 Provider: GABINO Christy Age/Sex: 74/F Location: [facility] [place] Status: Signed Intake Vital Signs 11/16/24 10:15 02/17/25 05:22 03/24/25 10:30 Height 5 ft 10 in 5 ft 10 in 5 ft 10 in Weight: 223 lb BMI 32.0 BP 118/62 Blood Pressure Location Rt brachial Position Sitting Respiration 16 Pulse 94 Pulse Source Monitor Temp 96.4 F L Temp Source Temporal Pulse Oximetry (%) 96 Oxygen Delivery Method room air Intake Visit Reasons: 4 M FU Chief Complaint: FU Chronic Conditions. 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 Accompanied by: Self Is patient in pain?: No Allergies Penicillins Allergy (Verified 03/24/25 10:25) Rash Medications ???Medication ???Instructions ???Recorded ???Confirmed ???Type HANDICAP PLACARD #1 ea 12/02/21 03/24/25 History amlodipine 5 mg tablet 5 mg PO QDAY 03/07/24 03/24/25 His tory latanoprost 0.005 % eye drops drp ophthalmic (eye) 09/08/2402/25 History albuterol sulfate 90 mcg/actuation 2 puff inhalation Q6H PRN 03/24/25 Rx aerosol inhaler (Ventolin HFA) shortness of breath or wheezing #8.5 grams budesonide 160 mcg-glycopyr 9 2 inh inhalation BID #10.7 grams 0 12/23/24 03/24/25 Rx mcg-formot 4.8 mcg/actuation HFA inhaler (Breztri Aerosphere) allopurinol 100 mg tablet 100 mg PO DAILY #90 TABLETS 03/24/25 Rx apixaban 5 mg tablet (Eliquis) 5 mg PO BID #180 tabs 02/08/25 Rx dapagliflozin propanediol 10 mg 10 mg PO DAILY #90 tabs 02/08/25 0 03/24/25 Rx tablet (Farxiga) furosemide 40 mg tablet (Lasix) 60 mg (1.5 x 40 mg) PO DAILY #270 02/08/25 03/24/25 Rx tabs metoprolol succinate 100 mg 100 mg PO QDAY #90 tabs 02/08/25 0 03/24/25 Rx tablet,extended release 24 hr omeprazole 40 mg capsule,delayed 40 mg PO DAILY #90 caps 02/08/25 0 03/24/25 Rx release potassium chloride 20 mEq 20 meq PO QDAY #90 tabs 02/08/25 0 03/24/25 Rx tablet,extended release atorvastatin 20 mg tablet 20 mg PO QHS #90 tabs 02/10/25 Rx lisinopril 40 mg tablet See Rx Instructions .Route 5 03/24/25 Rx .COMPLEX #90 tabs azithromycin 250 mg tablet See Rx Instructions PO .COMPLEX #6 02/17/25 03/24/25 Rx tabs prednisone 20 mg tablet 20 mg PO QDAY #10 tabs 02/17/25 Rx handicap placard #1 ea 03/24/25 03/24/25 Rx Have you fallen in the past year?: No PFSH Medical History Chronic neck pain Chronic back pain Health care maintenance Hyperlipemia Cardiomyopathy Acute on chronic diastolic CHF (congestive heart failure), NYHA class 2 HFrEF (heart failure with reduced ejection fraction) Anemia Obstructive sleep apnea Dizziness Hypersomnolence Chest pain Flu vaccine need Hypotension Hypokalemia Abnormal electrocardiogram Fatigue CHAVEZ (dyspnea on exertion) CHF (congestive heart failure) Venous insufficiency of both lower extremities Osteoarthritis Right knee pain Grief reaction Left ankle pain GERD (gastroesophageal reflux disease) Paroxysmal atrial fibrillation Thoracic aortic aneurysm (TAA) Obesity COPD (chronic obstructive pulmonary disease) Essential hypertension TIA (transient ischemic attack) (07/2013) Surgical History Hx of atrioventricular node ablation Presence of implantable cardioverter-defibril lator (ICD) H/O tubal ligation Family History Mother Myocardial infarction CAD (coronary artery disease) Hypertension Father Cancer Brother Cancer Other CVA (cerebral vascular accident) Social History Smoking Status: Former smoker Tobacco: How many years used: 10 how long ago did patient quit smokin second hand exposure: Yes alcohol intake: never substance use type: does not use caffeine: Yes Type: coffee Number of servings: 4 what type of physical activity do you participate in: none seatbelt use: always do you feel safe at home: Yes HPI HPI Chief Complaint: FU Chronic Conditions. Details: HILL LEE, is a 74 F who presents to the office today for follow-up of her chronic conditions. Patient has history of CAD and CHF and follows with cardiology probably 3 times a year. She had an ECHO performed in January of this year. She does have an implantable Pacemaker with defib that she has monitored over the phone. She does have history of HTN and her numbers have been good / controlled for quite a long time now. She states that it always seems to be good at her many (more content not included)... Normal [facility] Respiratory Cultureon 2024 RESPC Amoxicillin/Clavulan i c Acid and Oral Cephalosporins are the drugs of choice, as most isolates are penicillin resistant. Microorganism Spec Cult Trimeth/Sulfa (Otitis), Ciprofloxacin, Ofloxacin and Erythromycin are alternate choices. Moraxella Catarrhalis Amount Growth 3+ Beta Lactamase-Reportable Positive Normal [facility] Comment on above: Performed By: #### M 100.1999, M100.2400 ####[facility] [address] [facility] [place], [address] Gram Stainon 02-17-2025 GS Acceptable Specimen? Yes (<25 Epithelial cells per/lpf) Gram Stain 4+ White Blood Cells 4+ Gram positive cocci No Epithelial cells Normal [facility] Comment on above: Performed By: #### M 100.1999, M100.2400 ####[facility] [address] [facility] [place], [address] Gram stainOrdered By: PAVAN Gudino on 02-17-2025 Microscopic observation Gram stain Nom (Unsp spec) [facility] Microbial respiratory cultur eOrdered By: PAVAN Gudino on 02-17-2025 Microorganism identified Cx Nom (Unsp spec) Moraxella Catarrhalis Abnormal [facility] Pulmonary Visit Reporton Pulmonary Visit Report [facility] [address] [place] [address] OFFICE VISIT Date of Service: 02/17/25 MR#: [id number] Acct: [id number] Name: HILL LEE Rep #: [id number] : 1950 Provider: Kaitlynn Gudino NP Age/Sex: 74/F Location: [facility] Status: Signed Assessment and Plan Assessment and Plan (1) Obstructive sleep apnea: Status: Chronic Comment: AHI 8.9, REM AHI 36.5 Plan: Compliance has improved since last visit. Her apnea is well-controlled at current settings. I have encouraged her to continue with use of PAP therapy. I have recommended repeating a compliance download on follow-up in 4 months. The patient should notify this practice if she has worsening symptoms and her follow-up should be advanced. Nocturnal Oximetry prior to follow up. (2) COPD (chronic obstructive pulmonary disease): Status: Chronic Qualifiers: COPD type: unspecified COPD Qualified Code(s): J44.9 - Chronic obstructive pulmonary disease, unspecified Plan: Excerbation today, NIOX is elevated. Treat exacerbation with azithromycin and prednisone. Sputum for culture. The patient understands that her antibiotic regimen may change pending the results of her sputum. She has been able to produce a sample in the office today so she will be able to initiate antibiotic now. The patient should notify this practice if she has worsening respiratory symptoms. For acute worsening of symptoms she is to report to the local ER. I have recommended a follow-up in 4 months. I have asked for her to become fully compliant with Breztri 2 puffs in the morning and 2 puffs at bedtime. I have discussed the importance of maintaining this full compliance with therapy. She is to use albuterol 2 puffs every 4 hours on an as-needed basis. (3) Obesity: Status: Chronic Qualifiers: Body mass index: BMI 31.0-31.9 Obesity classification: adult class 1 (BMI 30 - 34.9) Obesity type: due to excess calories Serious obesity comorbidity presence: without serious comorbidity Qualified Code(s): E66.811 - Obesity, class 1; E66.09 - Other obesity due to excess calories; Z68.31 - Body mass index [BMI] 31.0-31.9, adult Plan: Weight loss is warranted through prudent diet and daily exercise. Avoid overeating with use of oral prednisone. (4) Paroxysmal atrial fibrillation: Status: Chronic Plan: Complicates care, plan, prognosis. Continue to follow with cardiology. Await nocturnal oximetry. Orders: Orders Culture, Sputum Today R05.9 - Cough, unspecified NIOX Today R05.9 - Cough, unspecified OutPt Pulse Ox/Cont Overnight Today G47.33 - Obstructive sleep apnea (adult) (pediatric) Medications: New azithromycin For 250 mg dose pack: take 500 mg today (day 1), then 250 mg for 4 days (days 2-5) PO 6 tabs 0RF prednisone Take 2 tablets daily for 4 days then 1 tablet daily for 2 days. 20 mg PO QDAY 10 tabs 0RF Plan Details Follow Up: 4 Months (LMR) HPI HPI Comments Details: Patient is a 74-year-old female who presents to the office today for follow-up of her COPD and obstructive sleep apnea. She is ambulatory and currently on room air. She did have a pacemaker placed April 07, 2024 and was hospitalized at [facility] for congestive heart failure. She has been ill since Thursday. She reports that she started to have a sore throat and then began to have increasing coughing with green to yellow sputum. She reports that a wheeze has been present. She indicates that she has chest tightness and burning when she coughs. She reports that she has shortness of breath with sitting and with exertion. She has not been able to use her PAP device for the last 3 days since starting this illness. She is unsure if she has had a fever. She denies chills and body aches. 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 She does have Breztri available for which she uses on an as-needed basis, not compliant with daily use as prescribed. She is using Breztri in the mornings consistently but not in the evenings. She continues to struggle to remember to use the device in a consistent manner. She does use her albuterol inhaler on occasion. She quit smoking approximately 20 years ago. She reports that she has been able to use the machine now in a compliant manner until the last week with this current illness. The patient reports she experiences headaches on occasion. She does nap on occasion without the machine. She is feeling rested upon awakening. She reports 3 days of runny nose and cough which caused her not to use it. ESS is 14. PFT from September 16, 2024 shows partially reversible moderate large airway obstructive ventilatory defect and associated hyper inflation air trapping and symmetric reduction in diffusion capacity. Documentation reviewed today with patient includes: Compliance download for the l (more content not included)... Normal [facility] SCRN MAMM (CAD)W/SANTIAGO BILATo n 02-16-2025 SCRN MAMM (CAD)W/SANTIAGO BILAT [facility] Imaging Services [address] [place], [place] [id number] SCRN MAMM (CAD)W/SANTIAGO BILAT MR#: [id number] Acct: [id number] Name: HILL LEE Rep #: [id number] : 1950 F 74 From: Brandon moser MD PCP: Dr. Fam Jasso MD Status: REG [facility] Study: SCRN MAMM (CAD)W/SANTIAGO BILAT Date of Exam: 01/25 02/17 Exam# [id number] Ordering Dr: Fam Jasso MD EXAM: SCRN MAMM (CAD)W/SANTIAGO BILAT DATE: 02/16/2025 CLINICAL HISTORY: F, Age 74 y/o , BREAST CANCER SCREENING No family history. BREAST CANCER RISK ASSESSMENT: Not assessed. TECHNIQUE: Bilateral screening digital breast tomosynthesis with 2D and 3D images. Computer aided detection. COMPARISON: Prior exam(s) dated February 16, 2024.. FINDINGS: TISSUE DENSITY: The breast tissue is almost entirely fatty. Bilateral Breast Mammographic Findings: No significant masses, calcifications or other abnormalities are identified. A pacemaker battery pack is seen in the left axilla. No suspicious masses, areas of developing architectural distortion, or suspicious calcifications. There has been no significant interval change. BI/SCRN MAMM (CAD)W/SANTIAGO BILAT IMPRESSION: OVERALL FINAL ASSESSMENT: BIRADS 1 NEGATIVE RECOMMENDATION: Routine annual follow-up in 1 Year A letter with findings and recommendations will be mailed to the patient. Reading Location: [facility]--1 CC: Dr. Fam Jasso MD Reading Assistant: Signed Normal [facility] Echocardiogram study reportO rdered By: Vikas King on 02-02-2025 Study report [facility] [address] [place] [address] Echo Complete 02/01/25 1256 MR#: [id number] Acct: [id number] Name: HILL LEE Rep #:[id number] : 1950 74 From: Vikas King MD Attending Dr: Dr. Vikas King MD Status: REG CLI Ordering Dr: Vikas King MD Date: Location: CVS Sex: F C Admitted: Reason For Study Reason For Study: CARDIOMYOPATHY Procedure This was a 2D Doppler, Color Flow transthoracic echocardiogram. Exam performed in department. Left Ventricle Normal size and thickness. Mild global LV systolic dysfunction. Estimated LVEF 40 to 45%. Stage I diastolic dysfunction. Right Ventricle Normal right ventricle. ICD or pacer leads identified within the right ventricle. Atria There is severe biatrial dilatation. ICD or pacer leads identified within the right atrium. Mitral Valve Mild mitral annular calcification. Moderate (2+) mitral valve insufficiency. Tricuspid Valve Mild to moderate (1-2+) tricuspid valve insufficiency. Right ventricular systolic pressure estimated to be 40 mmHg. Aortic Valve Trisinus/trileaflet aortic valve. Mild (1+) aortic valve insufficiency. Pulmonic Valve The pulmonic valve is not well visualized. Great Vessels Moderately dilated aortic root. Pericardium/Pleural No pericardial effusion. MMode/2D Measurements & Calculations LVIDd: 5.2 cm IVSd: 0.99 cm Ao root diam: 4.7 cm LVIDs: 3.8 cm LVPWd: 0.84 cm RVDd: 2.4 cm FS: 27.1 % LAV(MOD-bp): 75.8 ml LVAd ap4: 27.0 cm2 SV(MOD-sp4): 55.2 ml LAV(MOD-bp) Indexed: 34.8 ml/m2 LVLd ap4: 6.8 cm SI(MOD-sp4): 25.4 ml/m2 LAV(MOD-sp2): 76.0 ml EDV(MOD-sp4): 91.5 ml LAV(MOD-sp4): 73.3 ml EDV(sp4-el): 90.1 ml LVAs ap4: 15.8 cm2 LVLs ap4: 6.3 cm ESV(MOD-sp4): 36.2 ml ESV(sp4-el): 33.7 ml EF(MOD-sp4): 60.4 % EF(sp4-el): 62.6 % SV(sp4-el): 56.4 ml LA A4 area: 24.9 cm2 LA dimension(2D): 4.1 cm RA A4 area: 23.3 cm2 TAPSE: 1.6 cm Time Measurements MV dec time: 0.17 sec Doppler Measurements & Calculations MV E max nery: 95.2 cm/sec Lat Peak E' Nery: 18.5 cm/sec Med Peak E' Nery: 9.0 cm/sec MV A max nery: 33.2 cm/sec E/E' lat: 5.1 E/E' med: 10.5 MV E/A: 2.9 Ao V2 max: 124.8 cm/sec AI max nery: 343.8 cm/sec LV V1 max: 100.6 cm/sec Ao max P.2 mmHg AI max P.3 mmHg LV V1 max P.0 mmHg Ao V2 mean: 92.9 cm/sec LV V1 mean P.5 mmHg Ao mean P.8 mmHg AI dec slope: 156.9 cm/sec2 LV V1 mean: 76.8 cm/sec Ao V2 VTI: 27.8 cm AI P1/2t: 641.7 msec LV V1 VTI: 21.7 cm AV (velocity ratio): 0.78 PA V2 max: 114.2 cm/sec TR max nery: 272.8 cm/sec PA V2 mean: 80.0 cm/sec PI dec slope: 65.9 cm/sec2 TR max P.8 mmHg ECHO/Echo Complete Interpretation Summary Mild global LV systolic dysfunction. Estimated LVEF 40 to 45%. Stage I diastolicdysfunction. There is severe biatrial dilatation. Moderate (2+) mitral valve insufficiency. Mild to moderate (1-2+) tricuspid valve insufficiency. Right ventricular systolic pressure estimated to be 40 mmHg. Mild (1+) aortic valve insufficiency. Moderately dilated aortic root. Ordering Physician: Vikas King Referring Physician: Fam Jasso Performed By: Vera Phan, RDCS, RVT 02/02/25837 Date _ Vikas King MD CC: Dr. Vikas King MD; Dr. aFm Jasso MD ~ Date Dictated: 02/01/25 125 Date Transcribed: 02/02/25837 Reading Assistant: Signed [facility] Work Phone: Echo Completeon 02-01-2025 Echo Complete [facility] Cardi[facility] [address] [place] [address]. [place] [address] Echo Complete 02/01/25 1256 MR#: [id number] Acct: [id number] Name: HILL LEE Rep #: [id number] : 1950 74 From: Vikas King MD Attending Dr: Dr. Vikas King MD Status: REG CLI Ordering Dr: Vikas King MD Date: 02/01/25 Location: [facility] Sex: F C Admitted: Reason For Study Reason For Study: CARDIOMYOPATHY Procedure This was a 2D Doppler, Color Flow transthoracic echocardiogram. Exam performed in department. Left Ventricle Normal size and thickness. Mild global LV systolic dysfunction. Estimated LVEF 40 to 45%. Stage I diastolic dysfunction. Right Ventricle Normal right ventricle. ICD or pacer leads identified within the right ventricle. Atria There is severe biatrial dilatation. ICD or pacer leads identified within the right atrium. Mitral Valve Mild mitral annular calcification. Moderate (2+) mitral valve insufficiency. Tricuspid Valve Mild to moderate (1-2+) tricuspid valve insufficiency. Right ventricular systolic pressure estimated to be 40 mmHg. Aortic Valve Trisinus/trileaflet aortic valve. Mild (1+) aortic valve insufficiency. Pulmonic Valve The pulmonic valve is not well visualized. Great Vessels Moderately dilated aortic root. Pericardium/Pleural No pericardial effusion. MMode/2D Measurements Calculations LVIDd: 5.2 cm IVSd: 0.99 cm Ao root diam: 4.7 cm LVIDs: 3.8 cm LVPWd: 0.84 cm RVDd: 2.4 cm FS: 27.1 % LAV(MOD-bp): 75.8 ml LVAd ap4: 27.0 cm2 SV(MOD-sp4): 55.2 ml LAV(MOD-bp) Indexed: 34.8 ml/m2 LVLd ap4: 6.8 cm SI(MOD-sp4): 25.4 ml/m2 LAV(MOD-sp2): 76.0 ml EDV(MOD-sp4): 91.5 ml LAV(MOD-sp4): 73.3 ml EDV(sp4-el): 90.1 ml LVAs ap4: 15.8 cm2 LVLs ap4: 6.3 cm ESV(MOD-sp4): 36.2 ml ESV(sp4-el): 33.7 ml EF(MOD-sp4): 60.4 % EF(sp4-el): 62.6 % SV(sp4-el): 56.4 ml LA A4 area: 24.9 cm2 LA dimension(2D): 4.1 cm RA A4 area: 23.3 cm2 TAPSE: 1.6 cm Time Measurements MV dec time: 0.17 sec Doppler Measurements Calculations MV E max nery: 95.2 cm/sec Lat Peak E' Nery: 18.5 cm/sec Med Peak E' Nery: 9.0 cm/sec MV A max nery: 33.2 cm/sec E/E' lat: 5.1 E/E' med: 10.5 MV E/A: 2.9 Ao V2 max: 124.8 cm/sec AI max nery: 343.8 cm/sec LV V1 max: 100.6 cm/sec Ao max P.2 mmHg AI max P.3 mmHg LV V1 max P.0 mmHg Ao V2 mean: 92.9 cm/sec LV V1 mean P.5 mmHg Ao mean P.8 mmHg AI dec slope: 156.9 cm/sec2 LV V1 mean: 76.8 cm/sec Ao V2 VTI: 27.8 cm AI P1/2t: 641.7 msec LV V1 VTI: 21.7 cm AV (velocity ratio): 0.78 PA V2 max: 114.2 cm/sec TR max nery: 272.8 cm/sec PA V2 mean: 80.0 cm/sec PI dec slope: 65.9 cm/sec2 TR max P.8 mmHg ECHO/Echo Complete Interpretation Summary Mild global LV systolic dysfunction. Estimated LVEF 40 to 45%. Stage I diastolic dysfunction. There is severe biatrial dilatation. Moderate (2+) mitral valve insufficiency. Mild to moderate (1-2+) tricuspid valve insufficiency. Right ventricular systolic pressure estimated to be 40 mmHg. Mild (1+) aortic valve insufficiency. Moderately dilated aortic root. Ordering Physician: Vikas King Referring Physician: Fam Jasso Performed By: Vera Phan, JENNIFER, RVT 02/02/25837 Date Vikas King MD CC: Dr. Vikas King MD; Dr. Fam Jasso MD Date Dictated: 02/01/25 1256 Date Transcribed: 02/02/25837 Reading Assistant: Signed [facility] PT D/C Summary (1)on 025 PT D/C Summary (1) [facility] Physical Therapy [facility] [address] [place] [address] / REHABILITATION SERVICES DISCHARGE SUMMARY MR#: [id number] Acct: [id number] Name: HILL GRANT Rep #: [id number] : 1950 74 From: Tata Martinez PT, Cert. MDT Referring Dr.: Dr. Fam Jasso MD Status: REG RCR Insurance: [employer] MED[employer] PPO MEDICAID Discharge Summary D/C summary: It has been my pleasure to treat HILL LEE referred by Dr. Fam Jasso MD, with the diagnosis of BACK PAIN for a total of 13 visit(s). Discharge Date: 01/24/25 Please see the following information for a summary of their discharge status. Subjective Subjective: PATIENT REPORTS SHE HAS NOTICED A BIG IMPROVEMENT SINCE STARTING PHYSICAL THERAPY AND SHE IS SO GLAD SHE CONTINUED IT. SHE STATES THE EX'S ARE A LOT EASIER NOW AND SHE KNOWS WHAT TO DO IN THE WATER AND AT HOME. SHE IS CONSIDERING A MEMBERSHIP TO CONTINUE WATER EX AND IN THE MEAN TIME SHE PLANS TO CONTINUE THE HOME EX'S STATING I HAVE BEEN DOING THEM AT HOME. SHE ALSO STATES I LIKE COMING TO THE POOL AND THEN I FEEL BETTER ALL DAY AFTER I COME TO THE POOL. PATIENT REPORTS CAN WALK TO THE NEIGHBORS AND BACK WITHOUT HER CANE NOW. Pain LBP: Pain Intensity (Out of 10): 4 R HIP: Pain Intensity (Out of 10): 0 NECK: Pain Intensity (Out of 10): 0 R KNEE: Pain Intensity (Out of 10): 0 Overall Improvement % Improvement: 65 Objective Objective/Function: PATIENT WAS SEEN TODAY FOR RE-ASSESSMENT OF PROGRESS TOWARD THE SET PT GOALS AND THE NEED FOR FURTHER PHYSICAL THERAPY VS READINESS FOR DISCHARGE. PATIENT IS INDEP WITH POOL AND HOME EX PROGRAMS AND APPROPRIATE FOR DISCHARGE TO INDEP EX. UPON EXAM TODAY: THIS PATIENT AMBULATES INDEP'LY INTO PT WITHOUT ANY AD'S OR LOB. GAIT AND STRENGTH IS MUCH IMPROVED DEMONSTRATED WITH TESTING BELOW TUG TIME: 9.96 30 STS TEST: 8 WITH ONE UE ASSIST RISING AND SITTING. ROM deficit: DONALDO HIP TIGHTNESS ALL PLANES. DONALDO HS AND CALF TIGHTNESS Motor deficit: DONALDO HIPS 4/5, KNEES 5/5, ANKLES 5/5. Dural Signs: NEGATIVE DONALDO LE'S. Lumbar mvmt loss: flex - MIN ext - MOD R SG - MOD - CATCHING PAIN R LB BENDING AND ON RETURN - NW L SG - MIN PATIENT WITH ONLY MINIMAL C/O PAIN WITH LUMBAR ROM TESTING TODAY. Core strength: FAIR Palpation: INCREASED MUSCLE TONE DONALDO THORACIC AND LUMBAR PARASPINALS BUT NO TENDERNESS. UPON DEPARTURE PATIENT STATES I FEEL SO MUCH BETTER AND I THINK I CAN GET A MEMBERSHIP TO COME A COUPLE TIMES A WEEK TO THE POOL. Goals Goal 1:: DECREASE C/O LOW BACK PAIN BY AT LEAST 50% TO EASE ADL'S - GOAL MET. New Goal: DECREASE C/O LOW BACK PAIN BY AT LEAST 75% TO EASE ADL'S. Goal Progress: Goal Met Goal 2:: IMPROVE PERSONAL CARE, LIFTING, WALKING, SITTING, STANDING, SLEEP, SOCIAL LIFE, TRAVEL AND HOMEMAKING FUNCTION WITH AT LEAST 5 POINT IMPROVEMENT IN BACK OSWESTRY SCORE. Goal Progress: Goal Met Goal 3:: INSTRUCT IN PROPHYLAXIS. Goal Progress: Goal Met Plan Plan: D/C TO INDEP EX AND PHYSICIAN FOLLOW UP SCHEDULED 03/17/25. D/C Information d/c sentence: If there are questions or concerns regarding this patient's physical therapy, please feel free to call me at [phone]. Thank you for the referral of this patient. Sincerely, Tata Martinez, PT, Cert MDT Balance/Gait/Function al tests Balance/Special Test Scores Oswestry Low Back Score: 21 Improvement % Improvement: 65 01/24/25 1019 CC: Dr. Fam Jasso MD SETH Signed Normal [facility] CTA Chest W/WO Contraston CTA Chest W/WO Contrast [facility] Imaging Services [address] [place] [address] CTA Chest W/WO Contrast MR#: [id number] Acct: [id number] Name: HILL GRANT Rep #: [id number] : 1950 F 74 From: Brandon moser MD PCP: Dr. Fam Jasso MD Status: REG CLI Study: CTA Chest W/WO Contrast Date of Exam: 01/23/25 Exam# [id number] Ordering Dr: Vikas King MD PROCEDURE: CTA CHEST W/WO CONTRAST 01/23/2025 REASON FOR EXAM: EVALUATE TAA COPD. TECHNIQUE: CTA imaging of the chest, abdomen and pelvis without and with intravenous contrast. Coronal and Sagittal reconstruction series were provided. 3D, 3D post processing, 3D reconstructions, Maximum intensity projection (MIPs) Volume rendering and Shaded surface rendering was provided. CONTRAST: Isovue 370 VOLUME: 100mL One or more dose reduction techniques were used (e.g., Automated exposure control, adjustment of the mA and/or kV according to patient size, use of iterative reconstruction technique). RADIATION DOSE SUMMARY: CTDlvol: 24 mGy DLP: 476.65 mGycm COMPARISON: Comparison is made with prior study dated October 29, 2023. FINDINGS: Heart: A left-sided dual-chamber pacemaker is seen. Pulmonary Vessels: No evidence of pulmonary embolism. Arch Vessels: Patent. Stable dilatation of the root of the ascending thoracic aorta measuring 48 mm. 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 This is a normal variant. Thoracic Aorta: Normal caliber. Abdominal Aorta: The proximal portion of the abdominal aorta is unremarkable. Mesenteric Arteries: Widely patent. Renal Arteries: Unremarkable. Other Findings: Fatty infiltration of the liver. 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 Degenerative changes of the thoracic vertebrae. CT/CTA Chest W/WO Contrast IMPRESSION: Stable examination. Reading Location: [facility] CC: Dr. Vikas King MD; Dr. Fam Jasso MD Reading Assistant: Signed Normal [facility] Pacemaker Checkon 01-18-2025 Pacemaker Check [facility] [address] [place] [address] Pacemaker Check Date of Service: 01/18/25 1451 MR#: [id number] Acct: [id number] Name: HILL GRANT Rep #: [id number] : 1950 From: Evelina Arvizu Age/Sex: 74/F Location: [facility] [place] [facility] Status: Signed Billing Codes ICD Device Billin ICD Dev Prog Eval, Multi Assessment and Plan Assessment and Plan (1) Atrial fibrillation: Status: Chronic (2) Presence of implantable cardioverter-defibril lator (ICD): Status: Chronic Comment: Implanted 04/06/24 @ [facility]. RV lead and LBB lead. LV (CS) lead attempted but abandoned. (3) Nonischemic cardiomyopathy: Status: Chronic 01/18/25 1452 Date Evelina Arvizu Tanaigner Signature: Date (if applicable) CC: Normal [facility] Anion gap in Serum or Plasma Ordered By: Vikas King on 01-05-2025 Anion gap [Moles/Vol] 13 mmol/L - [facility] BUN/creatinine ratioOrdered By: Vikas King on 01-05-2025 Urea nitrogen/Creatinine [Mass ratio] 14.1 mg/mg - [facility] Basic Metabolic Profile (BMP )on 01-05-2025 BUN/CRE 14.1 RATIO Normal 08-14 [facility] Comment on above: Performed By: #### L 500.2500 ####[facility] [address] [place], [address] Calcium [Mass/Vol] 9.5 mg/dL Normal 7.6-11.0 [facility] Comment on above: Performed By: #### L 500.2500 ####[facility] [address] [place], [address] Chloride [Moles/Vol] 103 mmol/L Normal 98-108 [facility] Comment on above: Performed By: #### L 500.2500 ####[facility] [address] [place], [address] CO2 [Moles/Vol] 26.1 mmol/L Normal 21.0-32.0 [facility] Comment on above: Performed By: #### L 500.2500 ####[facility] [address] [place], [address] Creatinine [Mass/Vol] 0.96 mg/dL Normal 0.70-1.[address] [facility] Comment on above: Performed By: #### L 500.2500 ####[facility] [address] [place], [address] GAP 13 Normal 5-15 [facility] Comment on above: Performed By: #### L 500.2500 ####[facility] [address] [place], [address] GFR/1.73 sq M.predicted among non-blacks MDRD (S/P/Bld) [Vol rate/Area] 62 mL/min/{1.73_m2} Normal >60 [facility] Comment on above: Result Comment: mL/m in/1.73m2 CKD-EPI Creatinine Equation (2020) Performed By: #### L 500.2500 ####[facility] [address] [place], [address] Glucose [Mass/Vol] 93 mg/dL Normal 70-99 [facility] Comment on above: Performed By: #### L 500.2500 ####[facility] [address] [place], [address] Potassium [Moles/Vol] 3.1 mmol/L Low 3.3-5.[address] [facility] Comment on above: Performed By: #### L 500.2500 ####[facility] [address] [place], [address] Sodium [Moles/Vol] 142 mmol/L Normal 133-145 [facility] Comment on above: Performed By: #### L 500.2500 ####[facility] [address] [place], [place], [address] Urea nitrogen [Mass/Vol] 14 mg/dL Normal 4-19 [facility] Comment on above: Performed By: #### L 500.2500 ####[facility] [facility] [id number] [place], [address] Carbon dioxide, total [Moles /volume] in Central venous bloodOrdered By: Vikas King on 01-05-2025 CO2 [Moles/Vol] 26.1 mmol/L 21.0-32.0 [facility] Chloride assayOrdered By: Brett King on 01-05-2025 Chloride [Moles/Vol] 103 mmol/L 98-108 [facility] GFR/1.73 sq M.predicted chetan g non-blacks MDRD (S/P/Bld) [Vol rate/Area]Ordered By: Vikas King on 01-05-2025 Estimated GFR (MDRD) Non-Af Amer 62 >60 [facility] Comment on above: mL/min/1.73m2 CKD-EP I Creatinine Equation (2020) Glomerular filtration rate ( GFR) estimation/1.73 sq m using serum, plasma, or whole bOrdered By: Vikas King on 01-05-2025 GFR/1.73 sq M.predicted among non-blacks MDRD (S/P/Bld) [Vol rate/Area] 62 mL/min/{1.73_m2} >60 [facility] Comment on above: mL/min/1.73m2 CKD-EP I Creatinine Equation (2020) Potassium (Unsp spec) [Mass/ Vol]Ordered By: Vikas King on 01-05-2025 Potassium [Moles/Vol] 3.1 mmol/L Low 3.3-5.[address] [facility] Potassium measurement (mass/ volume)Ordered By: Vikas King on 01-05-2025 Potassium (Unsp spec) [Mass/Vol] 3.1 mmol/L Low 3.3-5.1 [facility] Serum creatinine measurement (mass/volume)Ordered By: Vikas King on 01-05-2025 Creatinine [Mass/Vol] 0.96 mg/dL 0.70-1.[address] [facility] Serum glucose measurement (m ass/volume)Ordered By: Vikas King on 01-05-2025 Glucose [Mass/Vol] 93 mg/dL 70-99 [facility] Serum or plasma calcium nicholas urement (mass/volume)Ordered By: Vikas King on 01-05-2025 Calcium [Mass/Vol] 9.5 mg/dL 7.6-11.0 [facility] Serum or plasma urea nitroge n measurement (mass/volume)Ordered By: Vikas King on 01-05-2025 Urea nitrogen [Mass/Vol] 14 mg/dL 4-19 [facility] Sodium levelOrdered By: Reggie King on 01-05-2025 Sodium [Moles/Vol] 142 mmol/L 133-145 [facility] 12 Lead EKG performed by [facility] on 01-04-2025 12 Lead EKG performed by [address] [place] [address] 12 Lead EKG performed by [facility] 01/04/25 1449 MR#: [id number] Acct: [id number] Name: HILL LEE Rep #: [id number] : 1950 74 From: Vikas King MD Attending Dr: Dr. Vikas King MD Status: DEP AMB Ordering Dr: Vikas King MD Date: 01/04/25 Location: [facility] Sex: F C Admitted: [facility]/12 Lead EKG performed by [facility] ECG Report Interpretation -----Electronic ventricular pacemaker -possibly demand type Pacemaker ECG, No further analysis INSUFFICIENT DATAElectronically signed on 03/22/2025 at 13:[address] Vikas King Personera Version [id number] 03/22/25 1307 Date Vikas King MD CC: Dr. Fam Jasso MD Date Dictated: 01/04/251448 Date Transcribed: 01/04/251448 Reading Assistant: BRETT Signed Normal [facility] Cardiology Visit Reporton Cardiology Visit Report [facility] [address] [place] [address] OFFICE VISIT Date of Service: 01/04/25 MR#: [id number] Acct: [id number] Name: HILL GRANT Rep #: [id number] : 1950 Provider: Dr. Vikas King MD Age/Sex: 74/F Location: [facility] Status: Signed HPI HPI History of Present Illness Details: This patient with history of nonischemic cardiomyopathy, permanent atrial fibrillation, nonsustained ventricular tachycardia, hypertension and COPD is here for follow-up visit. She has had AV slick ablation done last January and had QUALITY SYSTEMS ENGINEER-D device implanted. Since then, she is feeling much better. Denies any palpitations. No chest pains. No shortness of breath. Denies any orthopnea. No PND. No ankle edema. 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 King #90 tabs omeprazole 40 mg capsule,delayed 40 mg PO DAILY #90 caps 01/18/24 0 01/04/25 Rx release amlodipine 5 mg tablet 5 mg PO QDAY 03/07/24 01/04/25 His tory apixaban 5 mg tablet (Eliquis) 5 mg PO BID #180 tabs 05/23/2410/19 Rx latanoprost 0.005 % eye drops drp ophthalmic (eye) 09/08/2412/24 History metoprolol succinate 50 mg 50 mg PO QDAY 09/08/24 01/04/25 Hi story tablet,extended release 24 hr dapagliflozin propanediol 10 mg 10 mg PO DAILY #90 tabs 09/19/24 0 01/04/25 Rx tablet (Farxiga) lisinopril 40 mg tablet See Rx Instructions .Route 4 01/04/25 Rx .COMPLEX #90 tabs furosemide 40 mg tablet (Lasix) 60 mg (1.5 x 40 mg) PO DAILY #270 10/07/24 01/04/25 Rx tabs allopurinol 100 mg tablet 100 mg PO DAILY #90 TABLETS 01/04/25 Rx potassium chloride 20 mEq See Rx Instructions .Route 5 01/04/25 Rx tablet,extended release .COMPLEX #60 tabs albuterol sulfate 90 mcg/actuation 2 puff inhalation Q6H PRN 01/04/25 Rx aerosol inhaler (Ventolin HFA) shortness of breath or wheezing #8.5 grams budesonide 160 mcg-glycopyr 9 2 inh inhalation BID #10.7 grams 0 12/23/24 01/04/25 Rx mcg-formot 4.8 mcg/actuation HFA inhaler (Breztri Aerosphere) atorvastatin 20 mg tablet 20 mg PO QHS #90 tabs 12/26/2410/19 Rx Ejection fraction %: 35 Have you fallen in the past year?: No [facility] Medical History Abnormal electrocardiogram Acute on chronic diastolic CHF (congestive heart failure), NYHA class 2 Anemia Cardiomyopathy Chest pain CHF (congestive heart failure) Chronic back pain Chronic neck pain COPD (chronic obstructive pulmonary disease) Dizziness CHAVEZ (dyspnea on exertion) Essential hypertension Fatigue Flu vaccine need GERD (gastroesophageal reflux disease) Grief reaction Health care maintenance HFrEF (heart failure with reduced ejection fraction) Hyperlipemia Hypersomnolence Hypokalemia Hypotension Left ankle pain Obesity Obstructive sleep apnea Osteoarthritis Paroxysmal atrial fibrillation Right knee pain Thoracic aortic aneurysm (TAA) TIA (transient ischemic attack) (07/2013) Venous insufficiency of both lower extremities Surgical History H/O tubal ligation History of permanent cardiac pacemaker placement Family History Mother Myocardial infarction CAD (coronary artery disease) Hypertension Father Cancer Brother Cancer Other CVA (cerebral vascular accident) Social History Smoking Status: Former smoker Tobacco: How many years used: 10 how long ago did patient quit smokin second hand exposure: Yes alcohol intake: never substance use type: does not use caffeine: Yes Type: coffee Number of servings: 4 what type of physical activity do you participate in: none seatbelt use: always do you feel safe at home: Yes ROS Const Const: Positive for fatigue, we (more content not included)... Normal [facility] Re-Evaluation - PT (1)on Re-Evaluation - PT (1) [facility] [address] [place] [address] / REEVALUATION / MEDICARE RECERTIFICATION PHYSICAL THERAPY MR#: [id number] Acct: [id number] Name: HILL GRANT Rep #: [id number] : 1950 74 From: Tata Martinez PT, Cert. MDT Referring Dr.: Dr. Fam Jasso MD Status:REG RC R Insurance: [employer] MEDICARE PPO MEDICAID Re-Evaluation Intro: Dr. Fam Jasso MD, It has been my pleasure to treat HILL LEE over the last 9 visits for BACK PAIN. Please see the progress note below for an update on the physical therapy plan of care! Subjective Subjective: PATIENT REPORTS THIS IS REALLY HELPING HER AND SHE WOULD LIKE TO CONTINUE. I CAN WALK ACROSS THE PARKING LOT WITHOUT STOPPING NOW. SHE REPORTS IT IS RELEASING THE PAIN. SHE STATES SHE CAN TIE HER SHOES NOW INSTEAD OF HAVING HER GRANDSON DO IT. SHE REPORTS BEING SURPRISED THAT SOME EX IN WATER CAN HELP SO MUCH. SHE STATES SHE STILL CAN'T STAND VERY LONG AT THE SINK TO DO DISHES VERY LONG AND SHE HAS TO DO A LITTLE BIT, REST AND THEN GO BACK AND DO MORE. HER GRANDSON IS STILL HELPING HER WITH PUTTING HER LEGGINGS ON, VACUUMING AND GETTING CLOTHERS OUT OF DRYER. I'M TRYING TO GET TO WHERE I CAN DO THESE THINGS. WHEN I STARTED I WAS ALL HUMPED OVER LIKE I WAS 89 YEARS OLD BECAUSE MY BACK WAS HURTING SO BAD. IT IS AMAZING HOW MUCH THIS HAS HELPED ME IN JUST A FEW WEEKS. Objective Objective/Function: PATIENT WAS SEEN TODAY FOR RE-ASSESSMENT OF PROGRESS TOWARD THE SET PT GOALS AND THE NEED FOR FURTHER PHYSICAL THERAPY VS READINESS FOR DISCHARGE. UPON EXAM TODAY: THIS PATIENT AMBULATES INDEP'LY INTO PT WITHOUT ANY AD'S OR LOB. SHE CONTINUES TO WALK WITH DECREASED CADANCE BUT IT HAS IMPROVED SINCE INTIAL EVAL. TUG TIME: 16.81 30 STS TEST: 4 WITH DONALDO UE ASSIST RISING AND SITTING. ROM deficit: DONALDO HIP TIGHTNESS ALL PLANES. DONALDO HS AND CALF TIGHTNESS Motor deficit: DONALDO HIPS 4-/5, KNEES 4/5, ANKLES 5/5. Dural Signs: NEGATIVE DONALDO LE'S. Lumbar mvmt loss: flex - MOD ext - MOD R SG - MOD - CATCHING PAIN R LB ON RETURN - NW L SG - MOD PATIENT WITH ONLY MINIMAL C/O PAIN WITH LUMBAR ROM TESTING TODAY. Core strength: POOR Palpation: INCREASED MUSCLE TONE DONALDO THORACIC AND LUMBAR PARASPINALS. MILD TENDERNESS LOCALIZED TO R LUMBAR PARASPINAL REGION TODAY. Plan Plan Plan: CONTINUE PT PER POC 1-2X/WK X 4-6 WKS. *PACEMAKER* AQUATIC THERAPY FOR PAIN RELIEF, POSTURE CORRECTION/STRENGTHEN ING, INSTRUCTION IN APPROPRIATE BODY MECHANICS AND ACTIVITY MODIFICATIONS. DLS STARTING WITH A NEUTRAL SPINE PROGRESSING ROM TOLERATED. DONALDO LE ROM, STRETCHING AND STRENGTHENING. HEP INSTRUCTION. Balance/Gait/Function al tests Balance/Special Test Scores Oswestry Low Back Score: 22 Goals Goals Goal 1:: DECREASE C/O LOW BACK PAIN BY AT LEAST 50% TO EASE ADL'S - GOAL MET. New Goal: DECREASE C/O LOW BACK PAIN BY AT LEAST 75% TO EASE ADL'S. Goal Time Frame: 4-6 Weeks Goal 2:: IMPROVE PERSONAL CARE, LIFTING, WALKING, SITTING, STANDING, SLEEP, SOCIAL LIFE, TRAVEL AND HOMEMAKING FUNCTION WITH AT LEAST 5 POINT IMPROVEMENT IN BACK OSWESTRY SCORE. Goal Time Frame: 4-6 Weeks Goal Progress: Progressing Goal 3:: INSTRUCT IN PROPHYLAXIS. Goal Time Frame: 4-6 Weeks Goal Progress: Progressing Anticipated Interventions Anticipated Interventions Patient/Client Instruction: Educate patient on: Condition, Plan of Care and Risk Factors For the Purpose of:: To improve self management Therapeutic Exercise to Include: Strength training, Body mechanics, Postural training, Flexibilty training, Neuromotor development, In an aquatic setting and Dynamic Lumbar Stabilization For the Purpose of:: To decrease pain, To increase ROM, To improve muscle performance and motor function, To improve ability to perform ADL's, To increase tolerance to activity/condition/po sition, To improve ability of physical actions for home/community/work/l eisure, To improve gait and locomotor functions, To increase flexibility/ROM and To improve self management Re-Evaluation Ending Re-evaluation ending: Please do not hesitate to contact me at [phone] by phone or if you have questions or concerns regarding this new plan of care! Sincerely, Tata Martinez, PT, Cert MDT 12/27/24 1057 CC: Dr. Fam Jasso MD SETH Signed For Medicare only, by signing this I certify the plan of care. Physicians Signature Date Normal [facility] Pulmonary Visit Reporton Pulmonary Visit Report [facility] [place] [facility] [address] [place] [address] OFFICE VISIT Date of Service: 12/23/24 MR#: [id number] Acct: [id number] Name: HILL GRANT Rep #: [id number] : 1950 Provider: Kaitlynn Gudino NP Age/Sex: 74/F Location: [facility] Status: Signed Assessment and Plan Assessment and Plan (1) Obstructive sleep apnea: Status: Chronic Comment: AHI 8.9, REM AHI 36.5 Plan: Poor compliance. Patient is to work with vendor for mask fit. She is told to increase use of pap therapy and I have problem solved with her to help her increase use by placing her mask on as she enters into her bed even if she is wearing it while she is watching TV. This will help her to be able to fall asleep with the mask in place. The patient understands that her device may be not covered by insurance if she does not increase the use of it. (2) COPD (chronic obstructive pulmonary disease): Status: Chronic Qualifiers: COPD type: unspecified COPD Qualified Code(s): J44.9 - Chronic obstructive pulmonary disease, unspecified Plan: COPD is suboptimally controlled today, PFT continues to indicate COPD. The PFT was reviewed at length with the patient today. She is asked to increase compliance with triple therapy, Breztri. This is refilled along with her albuterol inhaler today. Notify this practice if there are worsening respiratory symptoms. (3) Obesity: Status: Chronic Qualifiers: Body mass index: BMI 31.0-31.9 Obesity classification: adult class 1 (BMI 30 - 34.9) Obesity type: due to excess calories Serious obesity comorbidity presence: without serious comorbidity Qualified Code(s): E66.811 - Obesity, class 1; E66.09 - Other obesity due to excess calories; Z68.31 - Body mass index [BMI] 31.0-31.9, adult Plan: Obesity complicates the care, plan, prognosis. Weight loss is warranted through prudent diet and daily exercise. The patient is encouraged to continue with her swimming exercise regimen. (4) Paroxysmal atrial fibrillation: Status: Chronic Plan: Complicates care, plan, prognosis. Continue to follow with cardiology. Once she has had full compliance with PAP therapy then I will consider a nocturnal oximetry. Medications: Refilled bwlbnzksfq-szicejad-c ormoterol 160-9-4.8 mcg/actuation (Breztri Aerosphere) 2 inhalations inhalation BID 10.7 grams 6RF G47.33 - Obstructive sleep apnea (adult) (pediatric) albuterol sulfate 90 mcg/actuation (Ventolin HFA) 2 puffs inhalation Q6H PRN 8.5 grams 3RF shortness of breath or wheezing Plan Details Follow Up: 8 Weeks (LMR) HPI HPI Comments Details: Patient is a 74-year-old female who presents to the office today for follow-up of her COPD and obstructive sleep apnea. She is ambulatory and currently on room air. She did have a pacemaker placed April 07, 2024 and was hospitalized at [facility] for congestive heart failure. She has not required any antibiotics or prednisone for breathing problems. She does have Breztri available for which she uses on an as-needed basis, not compliant with daily use as prescribed. She continues to struggle to remember to use the device in a consistent manner. She does use her albuterol inhaler on occasion, she reports using it a few times this week . She does have some shortness of breath on exertion along with occasional cough that is productive and wheezing. She denies chest tightness. She denies any palpitations. She denies any fever, chills or body aches. She denies chest pain. She quit smoking approximately 20 years ago. The patient has received a new BiPAP device. On her previous PAP device she was feeling smothered by the air pressure but does not have the same feeling with her current device. She reports that she has been able to use the machine now. The patient reports she experiences headaches on occasion. She reports that her mouth is very dry, she is using humidity. She does nap on occasion without the machine. She is feeling rested upon awakening. She has a full face mask but this is uncomfortable. She is falling asleep with her mask off. She reports 3 days of runny nose and cough which caused her not to use it. ESS is 12. Documentation reviewed today with patient includes: Compliance download for the last 30 days shows 57% compliant, AHI 0.5, minimal air leak on BiPAP 15/11 centimeters. Minimal air leak is identified. PFT from September 16, 2024 shows partially reversible moderate large airway obstructive ventilatory defect and associated hyper inflation air trapping and symmetric reduction in diffusion capacity. Intake Vital Signs 09/08/24 09:54 09/30/24 14:22 12/23/24 05:55 Height 5 ft 10 in 5 ft 10 in 5 ft 10 in Weight: 219 lb BMI 31.4 BP 118/78 Blood Pressure Location Rt brachial Position Sitting Respirati (more content not included)... Normal [facility] Inital Evaluation (1) - PTon 11-22-2024 Inital Evaluation (1) - PT [facility] [address] [place] [address] / REHABILITATION SERVICES INITIAL EVALUATION MR#: [id number] Acct: [id number] Name: HILL GRANT Rep #: [id number] : 1950 74 From: Tata Martinez PT, Cert. MDT Referring Dr.: Dr. Fam Jasso MD Status: REG RCR Insurance: [employer] MEDICARE PPO MEDICAID Patient's Visit Information Visit Information Visit Information: HILL LEE is a 74 year old F referred to Physical Therapy by Dr. Fam Jasso MD with a diagnosis of BACK PAIN. Date of Evaluation: 11/21/24 Physical Therapist: Tata Martinez PT, Cert MDT Visit Plan Frequency: 2-3x /Week Duration: 4-6 Weeks Plan: *PACEMAKER* AQUATIC THERAPY FOR PAIN RELIEF, POSTURE CORRECTION/STRENGTHEN ING, INSTRUCTION IN APPROPRIATE BODY MECHANICS AND ACTIVITY MODIFICATIONS. DLS STARTING WITH A NEUTRAL SPINE PROGRESSING ROM TOLERATED. DONALDO LE ROM, STRETCHING AND STRENGTHENING. HEP INSTRUCTION. Subjective Subjective: Work/Leisure: RETIRED. Present symptoms: LOW BACK PAIN (PATIENT REPORTS SHE IS HERE TODAY FOR HER LOW BACK PAIN. SHE STATES HER LOW BACK IS WHAT IS REALLY BOTHERING HER. SHE REPORTS SHE DOESN'T GET MUCH NECK PAIN UNLESS SHE SITS AND READS FOR A LONG TIME). INTERMITTENT R LE NUMBESS/TINGING IN SITTING THAT GOES AWAY IN STANDING. Present since: CHRONIC - YEARS Pain Scale: WORST 9/10, LEAST 4/10 Currently: 7/10 Is it getting better, worse or staying the same: GETTING WORSE Commenced as a result of: NO APPARENT REASON Symptoms at onset: LOW BACK PAIN Worse: LEANING OVER TO WASHING DISHES FOR EVEN 5 MINUTES, RUNNING VACUUM, MOPPING, SHAKING RUGS, BENDING, GETTING CLOTHES OUT OF DRYING, GETTING TRASH BAG OUT OF TRASH CAN, TRYING TO GETU UP AFTER LAYING ON BACK TO USE SLEEP APNEA MACHINE, WALKING VERY FAR AT ALL, TRYING TO DO STEPS AT ALL - ONE HAND HR, CANE AND ONE STEP AT A TIME - GET CATCH IN BACK. Better: OTC PAIN PATCH, STRETCHING BACKWARDS IN STANDING AND SITTING, HOT SHOWER Disturbed sleep: YES. R SDLY AND PAIN PATCHES HELP. Previous history/Previous treatment: WENT TO [facility] A COUPLE TIMES A LONG TIME AGO - HELPED TEMPORARILY BUT DIDN'T LIKE THE FEELING OF HAVING BONES CRACKED. MASSAGE HELPED A LONG TIME AGO TOO. Treatment this episode: PT CONSULT Coughing/sneezing/str aining: PATIENT UNSURE OF EFFECT Gait: INTERMITTENT USE OF CANE Bowel or Bladder Dysfunction: PATIENT STATES I'M ON WATER PILLS AND I WEAR DIAPERS. PATIENT REPORTS INCONTINENCE WITH BLADDER FOR A FEW YEARS AND BOWELS FOR ABOUT A YEAR. SHE REPORTS IT DOESN'T HAPPEN VERY OFTEN WITH HER BOWELS. STATES SHE ISN'T SURE IF HER PCP IS AWARE. THIS PT ENCOURAGED PATIENT TO NOTIFY HER PCP OF THIS PROBLEM. PATIENT AGREEABLE, Accidents: NO Unexplained weight loss: NO Imaging: NONE RECENT. PMH/Recent major surgery: Chronic neck pain Chronic back pain Health care maintenance Hyperlipemia Cardiomyopathy Acute on chronic diastolic CHF (congestive heart failure), NYHA class 2 HFrEF (heart failure with reduced ejection fraction) Anemia Obstructive sleep apnea Dizziness Hypersomnolence Chest pain Flu vaccine need Hypotension Hypokalemia Abnormal electrocardiogram Fatigue CHAVEZ (dyspnea on exertion) CHF (congestive heart failure) Venous insufficiency of both lower extremities Osteoarthritis Right knee pain Grief reaction Left ankle pain GERD (gastroesophageal reflux disease) Paroxysmal atrial fibrillation Thoracic aortic aneurysm (TAA) Obesity COPD (chronic obstructive pulmonary disease) Essential hypertension TIA (transient ischemic attack) 07/2013 History of permanent cardiac pacemaker placement Objective Objective: Sitting/Standing Posture: VERY SLOUCHED IN SITTING. ANTERIOR PELVIC TILT IN STANDING. INCREASED TRUNK FLEXION L ILIAC CREST HIGHER THAN R. Active Correction of posture: WORSE - CATCHING PAIN. Other Observations: HEAVILY DONALDO UE DEPENDENT TO TRANSFER SIT TO STAND Sensory deficit: DONALDO LE LIGHT TOUCH SENSATION GROSSLY INTACT AND SYMMETRICAL ROM deficit: DONALDO HIP TIGHTNESS ALL PLANES. DONALDO HS AND CALF TIGHTNESS TOO. Motor deficit: DONALDO HIPS 4-/5, KNEES 4/5, ANKLES 4/5. Dural Signs: NEGATIVE DONALDO LE'S. Lumbar mvmt loss: flex - MOD - CATCHING PAIN ON RETURN - NW ext - MOD - DECREASES R LBP - B R SG - MOD - CATCHING PAIN R LB ON RETURN - NW L SG - MOD - NE Core strength: POOR Palpation: INCREASED MUSCLE TONE DONALDO THORACIC AND LUMBAR PARASPINALS. TENDERNESS WITH PALPATION OF LUMBAR SPINE AND R PARASPINALS. Balance/Special Test Scores Oswestry Low Back Score: 27 Goals Goal 1:: DECREASE C/O LOW BACK PAIN BY AT LEAST 50% TO EASE ADL'S. Goal Time Frame: 4-6 Weeks Goal 2:: IMPROVE PERSONAL CARE, LIFTING, WALKING, SITTING, STANDING, SLEEP, SOCIAL LIFE, TRAVEL AND HOMEMAKING FUNCTION WITH AT (more content not included)... Normal [facility] Absolute neutrophil countOrd ered By: Fam Jasso on 11-16-2024 Neutrophils (Bld) [#/Vol] 2.9 10*3/uL 2.0-7.7 [facility] Albumin to globulin ratioOrd ered By: Fam Jasso on 11-16-2024 Albumin/Globulin [Mass ratio] 0.9 {ratio} 0.9-2.4 [facility] Basophil percentageOrdered B y: Fam Jasso on 11-16-2024 Basophils/100 WBC (Bld) 0.4 % 0-1 [facility] Bilirubin directOrdered By: Fam Jasso on 11-16-2024 Bilirubin.direct [Mass/Vol] 0.18 mg/dL 0.00-0.30 [facility] Bilirubin, Directon 11-16-19 25 Bilirubin.direct [Mass/Vol] 0.18 mg/dL Normal 0.00-0.30 [facility] Comment on above: Order Comment: DR. Patricia RAJPUT ORDERED CBCD, CMP, LIPIDMICJAYDE MARTINEZ ORDERED LIVER AND LIPID Performed By: #### L 500.4100, L500.4050, L100.0100, L501.4700 ####[facility] [id number] [place], [address] Bilirubin, totalOrdered By: Fam Jasso on 11-16-2024 Bilirubin [Mass/Vol] 0.60 mg/dL 0.20-1.00 [facility] Comment on above: For patients on eltr ombopag therapy, use of Dimension [place] TBIL is not recommended. Blood urea nitrogen (BUN)/cr eatinine ratioOrdered By: Fam Jasso on 11-16-2024 Urea nitrogen/Creatinine [Mass ratio] 14.9 mg/mg 10-20 [facility] CBC W/Diff, Automatedon 10-27 Absolute Lymph 2.01 X10 3/uL Normal 0.83-4.51 [facility] Comment on above: Order Comment: DR. Patricia RAJPUT ORDERED CBCD, CMP, LIPID FRANCES MARTINEZ ORDERED LIVER AND LIPID Performed By: #### L 500.4100, L500.4050, L100.0100, L501.4700 #### [facility] [address] [place], [address] Absolute Neut 2.9 X10 3/uL Normal 2.0-7.7 [facility] Comment on above: Order Comment: DR. Patricia RAJPUT ORDERED CBCD, CMP, LIPID FRANCES MARTINEZ ORDERED LIVER AND LIPID Performed By: #### L 500.4100, L500.4050, L100.0100, L501.4700 #### [facility] [address] [place], [address] Basophils/100 WBC (Bld) 0.4 % Normal 0-1 [facility] Comment on above: Order Comment: DR. Patricia RAJPUT ORDERED CBCD, CMP, LIPID FRANCES MARTINEZ ORDERED LIVER AND LIPID Performed By: #### L 500.4100, L500.4050, L100.0100, L501.4700 #### [facility] [address] [place], [address] Eosinophils/100 WBC (Bld) 2.2 % Normal 0-5 [facility] Comment on above: Order Comment: DR. Patricia RAJPUT ORDERED CBCD, CMP, LIPID FRANCES MARTINEZ ORDERED LIVER AND LIPID Performed By: #### L 500.4100, L500.4050, L100.0100, L501.4700 #### [facility] [address] [place], [id number] Erythrocyte distribution width (RBC) [Ratio] 13.5 % Normal 11.6-14.6 [facility] Comment on above: Order Comment: DR. Patricia RAJPUT ORDERED CBCD, CMP, LIPID FRANCES MARTINEZ ORDERED LIVER AND LIPID Performed By: #### L 500.4100, L500.4050, L100.0100, L501.4700 #### [facility] [address] [place], [address] Hematocrit (Bld) [Volume fraction] 41.0 % Normal 37-47 [facility] Comment on above: Order Comment: DR. Patricia RAJPUT ORDERED CBCD, CMP, LIPID FRANCES MARTINEZ ORDERED LIVER AND LIPID Performed By: #### L 500.4100, L500.4050, L100.0100, L501.4700 #### [facility] [address] [place], [address] Hemoglobin (Bld) [Mass/Vol] 12.5 g/dL Normal 12.0-15.0 [facility] Comment on above: Order Comment: DR. Patricia RAJPUT ORDERED CBCD, CMP, LIPID FRANCES MARTINEZ ORDERED LIVER AND LIPID Performed By: #### L 500.4100, L500.4050, L100.0100, L501.4700 #### [facility] [address] [facility] [place], [address] IG% 0.200 Normal 0.0-0.9 [facility] Comment on above: Order Comment: DR. Patricia RAJPUT ORDERED CBCD, CMP, LIPID FRANCES MARTINEZ ORDERED LIVER AND LIPID Result Comment: IG% - Immature Granulocytes (promyelocytes, myelocytes and metamyelocytes) > 1% indicates that a LEFT SHIFT is Present. Performed By: #### L 500.4100, L500.4050, L100.0100, L501.4700 #### [facility] [address] [place], [address] Lymphocytes/100 WBC (Bld) 37.0 % Normal 19-41 [facility] Comment on above: Order Comment: DR. Patricia RAJPUT ORDERED CBCD, CMP, LIPID FRANCES MARTINEZ ORDERED LIVER AND LIPID Performed By: #### L 500.4100, L500.4050, L100.0100, L501.4700 #### [facility] [address] [place], [address] MCH (RBC) [Entitic mass] 29.3 pg Normal 27.0-32.0 [facility] Comment on above: Order Comment: DR. Patricia RAJPUT ORDERED CBCD, CMP, LIPID FRANCES MARTINEZ ORDERED LIVER AND LIPID Performed By: #### L 500.4100, L500.4050, L100.0100, L501.4700 #### [facility] [address] [facility] [place], [address] MCHC (RBC) [Mass/Vol] 30.5 g/dL Low 32-[address] [facility] Comment on above: Order Comment: DR. Patricia RAJPUT ORDERED CBCD, CMP, LIPID FRANCES MARTINEZ ORDERED LIVER AND LIPID Performed By: #### L 500.4100, L500.4050, L100.0100, L501.4700 #### [facility] [address] [place], [address] MCV (RBC) [Entitic vol] 96.0 fL Normal 81-99 [facility] Comment on above: Order Comment: DR. Patricia RAJPUT ORDERED CBCD, CMP, LIPID FRANCES MARTINEZ ORDERED LIVER AND LIPID Performed By: #### L 500.4100, L500.4050, L100.0100, L501.4700 #### [facility] [address] [place], [address] Monocytes/100 WBC (Bld) 7.7 % Normal 0-10 [facility] Comment on above: Order Comment: DR. Patricia RAJPUT ORDERED CBCD, CMP, LIPID FRANCES MARTINEZ ORDERED LIVER AND LIPID Performed By: #### L 500.4100, L500.4050, L100.0100, L501.4700 #### [facility] [address] [place], [address] Neutrophils/100 WBC (Bld) 52.5 % Normal 47-70 [facility] Comment on above: Order Comment: DR. Patricia RAJPUT ORDERED CBCD, CMP, LIPID FRANCES MARTINEZ ORDERED LIVER AND LIPID Performed By: #### L 500.4100, L500.4050, L100.0100, L501.4700 #### [facility] [address] [place], [address] Nucleated RBC (Bld) [#/Vol] 0 10*3/uL Normal 0-5 [facility] Comment on above: Order Comment: DR. Patricia RAJPUT ORDERED CBCD, CMP, LIPID FRANCES MARTINEZ ORDERED LIVER AND LIPID Performed By: #### L 500.4100, L500.4050, L100.0100, L501.4700 #### [facility] [address] [place], [address] Platelet mean volume (Bld) [Entitic vol] 11.6 fL Normal 6.2-12.0 [facility] Comment on above: Order Comment: DR. Patricia RAJPUT ORDERED CBCD, CMP, LIPID FRANCES MARTINEZ ORDERED LIVER AND LIPID Performed By: #### L 500.4100, L500.4050, L100.0100, L501.4700 #### [facility] [address] [place], [address] Platelets (Bld) [#/Vol] 196 10*3/uL Normal 150-450 [facility] Comment on above: Order Comment: DR. Patricia RAJPUT ORDERED CBCD, CMP, LIPID FRANCES MCCJOSE J ORDERED LIVER AND LIPID Performed By: #### L 500.4100, L500.4050, L100.0100, L501.4700 #### [facility] [address] [place], [address] RBC (Bld) [#/Vol] 4.27 10*6/uL Normal 4.2-5.4 [facility] Comment on above: Order Comment: DR. Patricia RAJPUT ORDERED CBCD, CMP, LIPID FRANCES MCCJOSE J ORDERED LIVER AND LIPID Performed By: #### L 500.4100, L500.4050, L100.0100, L501.4700 #### [facility] [address] [place], [address] RDW SD 47.5 fl High 35.1-43.9 [facility] Comment on above: Order Comment: DR. Patricia RAJPUT ORDERED CBCD, CMP, LIPID FRANCES JOONEJOANNE ORDERED LIVER AND LIPID Performed By: #### L 500.4100, L500.4050, L100.0100, L501.4700 #### [facility] [address] [place], [address] WBC (Bld) [#/Vol] 5.4 10*3/uL Normal 4.4-11.0 [facility] Comment on above: Order Comment: DR. Patricia RAJPUT ORDERED CBCD, CMP, LIPID FRANCES MCCONEJOANNE ORDERED LIVER AND LIPID Performed By: #### L 500.4100, L500.4050, L100.0100, L501.4700 #### [facility] [address] [place], [address] Carbon dioxide measurementOr dered By: Fam Jasso on 11-16-2024 CO2 [Moles/Vol] 29.0 mmol/L 21.0-32.0 [facility] Chloride measurementOrdered By: Fam Jasso on 11-16-2024 Chloride [Moles/Vol] 105 mmol/L 98-107 [facility]abolic Prof ilon 11-16-2024 Albumin [Mass/Vol] 3.5 g/dL Normal 3.2-5.0 [facility] Comment on above: Order Comment: DR. Patricia RAJPUT ORDERED CBCD, CMP, LIPID FRANCES MARTINEZ ORDERED LIVER AND LIPID Performed By: #### L 500.4100, L500.4050, L100.0100, L501.4700 #### [facility] [address] [place], [address] Albumin/Globulin [Mass ratio] 0.9 {ratio} Normal 0.9-2.4 [facility] Comment on above: Order Comment: DR. Patricia RAJPUT ORDERED CBCD, CMP, LIPID FRANCES MARTINEZ ORDERED LIVER AND LIPID Performed By: #### L 500.4100, L500.4050, L100.0100, L501.4700 #### [facility] [address] [place], [address] ALK P 66 U/L Normal 45-117 [facility] Comment on above: Order Comment: DR. Patricia RAJPUT ORDERED CBCD, CMP, LIPID FRANCES MARTINEZ ORDERED LIVER AND LIPID Performed By: #### L 500.4100, L500.4050, L100.0100, L501.4700 #### [facility] [address] [place], [address] ALT [Catalytic activity/Vol] 21 U/L Normal 13-56 [facility] Comment on above: Order Comment: DR. Patricia RAJPUT ORDERED CBCD, CMP, LIPID FRANCES MARTINEZ ORDERED LIVER AND LIPID Performed By: #### L 500.4100, L500.4050, L100.0100, L501.4700 #### [facility] [address] [place], [address] AST [Catalytic activity/Vol] 14 U/L Low 15-37 [facility] Comment on above: Order Comment: DR. Patricia RAJPUT ORDERED CBCD, CMP, LIPID FRANCES MARTINEZ ORDERED LIVER AND LIPID Performed By: #### L 500.4100, L500.4050, L100.0100, L501.4700 #### [facility] [address] [place], [address] Bilirubin [Mass/Vol] 0.60 mg/dL Normal 0.20-1.00 [facility] Comment on above: Order Comment: DR. Patricia RAJPUT ORDERED CBCD, CMP, LIPID FRANCES MARTINEZ ORDERED LIVER AND LIPID Result Comment: For patients on eltrombopag therapy, use of Dimension [place] TBIL is not recommended. Performed By: #### L 500.4100, L500.4050, L100.0100, L501.4700 #### [facility] [address] [place], [address] BUN/CRE 14.9 RATIO Normal 10-20 [facility] Comment on above: Order Comment: DR. Patricia RAJPUT ORDERED CBCD, CMP, LIPID FRANCES MARTINEZ ORDERED LIVER AND LIPID Performed By: #### L 500.4100, L500.4050, L100.0100, L501.4700 #### [facility] [address] [place], [address] CA,Total 10.0 mg/dL Normal 8.5-10.1 [facility] Comment on above: Order Comment: DR. Patricia RAJPUT ORDERED CBCD, CMP, LIPID FRANCES MARTINEZ ORDERED LIVER AND LIPID Performed By: #### L 500.4100, L500.4050, L100.0100, L501.4700 #### [facility] [address] [place], [address] Chloride [Moles/Vol] 105 mmol/L Normal 98-107 [facility] Comment on above: Order Comment: DR. Patricia RAJPUT ORDERED CBCD, CMP, LIPID FRANCES MARTINEZ ORDERED LIVER AND LIPID Performed By: #### L 500.4100, L500.4050, L100.0100, L501.4700 #### [facility] [address] [place], [address] CO2 [Moles/Vol] 29.0 mmol/L Normal 21.0-32.0 [facility] Comment on above: Order Comment: DR. Patricia RAJPUT ORDERED CBCD, CMP, LIPID FRANCES MARTINEZ ORDERED LIVER AND LIPID Performed By: #### L 500.4100, L500.4050, L100.0100, L501.4700 #### [facility] [address] [place], [address] Creatinine [Mass/Vol] 1.01 mg/dL Normal 0.55-1.[address] [facility] Comment on above: Order Comment: DR. Patricia RAJPUT ORDERED CBCD, CMP, LIPID FRANCES MARTINEZ ORDERED LIVER AND LIPID Result Comment: The validity of the calculated GFR GFRAA in patients over 70 years has not been determined. Clinical correlation is essential. Performed By: #### L 500.4100, L500.4050, L100.0100, L501.4700 #### [facility] [address] [place], [address] EST GFR - AA 69 mL/min Normal >60 [facility] Comment on above: Order Comment: DR. Patricia RAJPUT ORDERED CBCD, CMP, LIPID FRANCES MARTINEZ ORDERED LIVER AND LIPID Result Comment: Afri can Welsh GFR Calc Performed By: #### L 500.4100, L500.4050, L100.0100, L501.4700 #### [facility] [address] [place], [address] GAP 6 Normal 5-15 [facility] Comment on above: Order Comment: DR. Patricia RAJPUT ORDERED CBCD, CMP, LIPID FRANCES MARTINEZ ORDERED LIVER AND LIPID Performed By: #### L 500.4100, L500.4050, L100.0100, L501.4700 #### [facility] [address] [place], [address] GFR/1.73 sq M.predicted among non-blacks MDRD (S/P/Bld) [Vol rate/Area] 57 mL/min/{1.73_m2} Low >60 [facility] Comment on above: Order Comment: DR. Patricia RAJPUT ORDERED CBCD, CMP, LIPID FRANCES MARTINEZ ORDERED LIVER AND LIPID Result Comment: Non- GFR Calc Performed By: #### L 500.4100, L500.4050, L100.0100, L501.4700 #### [facility] [address] [place], [address] Globulin (S) [Mass/Vol] 3.8 g/dL Normal 2.2-4.2 [facility] Comment on above: Order Comment: DR. Patricia RAJPUT ORDERED CBCD, CMP, LIPID FRANCES MARTINEZ ORDERED LIVER AND LIPID Performed By: #### L 500.4100, L500.4050, L100.0100, L501.4700 #### [facility] [address] [place], [address] Glucose [Mass/Vol] 96 mg/dL Normal 74-106 [facility] Comment on above: Order Comment: DR. Patricia RAJPUT ORDERED CBCD, CMP, LIPID FRANCES MARTINEZ ORDERED LIVER AND LIPID Performed By: #### L 500.4100, L500.4050, L100.0100, L501.4700 #### [facility] [address] [place], [address] Potassium [Moles/Vol] 4.0 mmol/L Normal 3.5-5.[address] [facility] Comment on above: Order Comment: DR. Patricia RAJPUT ORDERED CBCD, CMP, LIPID FRANCES MARTINEZ ORDERED LIVER AND LIPID Performed By: #### L 500.4100, L500.4050, L100.0100, L501.4700 #### [facility] [address] [place], [address] Sodium [Moles/Vol] 140 mmol/L Normal 136-145 [facility] Comment on above: Order Comment: DR. Patricia RAJPUT ORDERED CBCD, CMP, LIPID FRANCES MARTINEZ ORDERED LIVER AND LIPID Performed By: #### L 500.4100, L500.4050, L100.0100, L501.4700 #### [facility] [address] [place], [address] T PROT 7.3 g/dL Normal 6.4-8.2 [facility] Comment on above: Order Comment: DR. Patricia RAJPUT ORDERED CBCD, CMP, LIPID FRANCES MARTINEZ ORDERED LIVER AND LIPID Performed By: #### L 500.4100, L500.4050, L100.0100, L501.4700 #### [facility] [address] [place], [address] Urea nitrogen [Mass/Vol] 15 mg/dL Normal 7-18 [facility] Comment on above: Order Comment: DR. Patricia RAJPUT ORDERED CBCD, CMP, LIPID FRANCES MARTINEZ ORDERED LIVER AND LIPID Performed By: #### L 500.4100, L500.4050, L100.0100, L501.4700 #### [facility] [address] [place], [address] Eosinophil percentageOrdered By: Fam Jasso on 11-16-2024 Eosinophils/100 WBC (Bld) 2.2 % 0-5 [facility] Erythrocyte distribution wid th ratioOrdered By: Fam Jasso on 11-16-2024 Erythrocyte distribution width (RBC) [Ratio] 13.5 % 11.6-14.6 [facility] Erythrocyte distribution wid th standard deviationOrdered By: Fam Jasso on 11-16-2024 Erythrocyte distribution width (RBC) [Entitic vol] 47.5 fL High 35.1-43.9 [facility] Estimated glomerular filtrat ion rate (GFR) AmericanOrdered By: Fam Jasso on 11-16-2024 Estimated GFR (MDRD) Amer 69 mL/min >60 [facility] Comment on above: GFR Calc Glomerular filtration rate ( GFR) estimationOrdered By: Fam Jasso on 11-16-2024 Estimated GFR (MDRD) Non-Af Amer 57 mL/min Low >60 [facility] Comment on above: Non- GFR Calc Glucose measurementOrdered B y: Fam Jasso on 11-16-2024 Glucose [Mass/Vol] 96 mg/dL 74-106 [facility] Hematocrit Auto (Bld) [Volum e fraction]Ordered By: Fam Jasso on 11-16-2024 Hematocrit (Bld) [Volume fraction] 41.0 % 37-47 [facility] Hemoglobin measurementOrdere d By: Fam Jasso on 11-16-2024 Hemoglobin (Bld) [Mass/Vol] 12.5 g/dL 12.0-15.0 [facility] High density lipoprotein (HD L) measurementOrdered By: Fam Jasso on 11-16-2024 Cholesterol in HDL [Mass/Vol] 59 mg/dL >40 [facility] Comment on above: The drugs N-Acetylcy steine and Metamizole may falsely depress this assay. Reference Range HDL <40 mg/dL Low HDL Cholesterol HDL >or= 60 mg/dL High HDL Cholesterol Immature granulocytes/100 WB C Auto (Bld)Ordered By: Fam Jasso on 11-16-2024 Immature granulocytes/100 WBC (Bld) 0.200 % 0.0-0.9 [facility] Comment on above: IG% - Immature Granu locytes (promyelocytes, myelocytes and metamyelocytes) > 1% indicates that a LEFT SHIFT is Present. Internal Medicine Office Vis iton 11-16-2024 Internal Medicine Office Visit [facility] [address] [place], [place] [address] OFFICE VISIT Date of Service: 11/16/24 MR#: [id number] Acct: [id number] Name: HILL MONTEIRO Rep #: [id number] : 1950 Provider: Dr. Fam pineda MD Age/Sex: 74/F Location: [facility] [place] Status: Signed Intake Vital Signs 09/08/24 09:54 09/30/24 14:22 11/16/24 10:15 Height 5 ft 10 in 5 ft 10 in 5 ft 10 in Weight: 225 lb BMI 32.3 BP 112/76 Blood Pressure Location Lt brachial Position Sitting Respiration 24 H Pulse 72 Pulse Source Monitor Temp 98.1 F Temp Source Temporal Pulse Oximetry (%) 98 Oxygen Delivery Method room air Intake Visit Reasons: MED FU Chief Complaint: FU Chronic Conditions. 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 King #90 tabs omeprazole 40 mg capsule,delayed 40 mg PO DAILY #90 caps 01/18/24 11/16/24 Rx release atorvastatin 20 mg tablet 20 mg PO QHS #90 tabs 01/20/24 11/16/24 Rx amlodipine 5 mg tablet 5 mg PO QDAY 03/07/24 11/16/24 History apixaban 5 mg tablet (Eliquis) 5 mg PO BID #180 tabs 05/23/24 11/16/24 Rx budesonide 160 mcg-glycopyr 9 2 inh inhalation BID #10.7 grams 09/08/24 11/16/24 Rx mcg-formot 4.8 mcg/actuation HFA inhaler (Breztri Aerosphere) latanoprost 0.005 % eye drops drp ophthalmic (eye) 09/08/24 11/16/24 History metoprolol succinate 50 mg 50 mg PO QDAY 09/08/24 11/16/24 History tablet,extended release 24 hr dapagliflozin propanediol 10 mg 10 mg PO DAILY #90 tabs 09/19/24 11/16/24 Rx tablet (Farxiga) lisinopril 40 mg tablet See Rx Instructions .Route 09/26/24 11/16/24 Rx .COMPLEX #90 tabs furosemide 40 mg tablet (Lasix) 60 mg (1.5 x 40 mg) PO DAILY #270 10/07/24 11/16/24 Rx tabs allopurinol 100 mg tablet 100 mg PO DAILY #90 TABLETS 10/17/24 11/16/24 Rx potassium chloride 20 mEq See Rx Instructions .Route 10/31/24 11/16/24 Rx tablet,extended release .COMPLEX #60 tabs Have you fallen in the past year?: No PFSH Medical History (Updated 11/16/24 @ 11:[address] Fam Jasso MD) Chronic neck pain Chronic back pain Health care maintenance Hyperlipemia Cardiomyopathy Acute on chronic diastolic CHF (congestive heart failure), NYHA class 2 HFrEF (heart failure with reduced ejection fraction) Anemia Obstructive sleep apnea Dizziness Hypersomnolence Chest pain Flu vaccine need Hypotension Hypokalemia Abnormal electrocardiogram Fatigue CHAVEZ (dyspnea on exertion) CHF (congestive heart failure) Venous insufficiency of both lower extremities Osteoarthritis Right knee pain Grief reaction Left ankle pain GERD (gastroesophageal reflux disease) Paroxysmal atrial fibrillation Thoracic aortic aneurysm (TAA) Obesity COPD (chronic obstructive pulmonary disease) Essential hypertension TIA (transient ischemic attack) (07/2013) Surgical History History of permanent cardiac pacemaker placement H/O tubal ligation Family History Mother Myocardial infarction CAD (coronary artery disease) Hypertension Father Cancer Brother Cancer Other CVA (cerebral vascular accident) Social History Smoking Status: Former smoker Tobacco: How many years used: 10 how long ago did patient quit smokin second hand exposure: Yes alcohol intake: never substance use type: does not use caffeine: Yes Type: coffee Number of servings: 4 what type of physical activity do you participate in: none seatbelt use: always do you feel safe at home: Yes HPI HPI Chief Complaint: FU Chronic Conditions. Back and Neck pain Details: HILL MONTEIRO, is a 74 F who presents to the office today for follow-up of her chronic conditions. Also has some concerns. History of chronic back pain, leg pain. She states that when she stands for long hours, has to sit/take a break. No numbness or tingling down her extremity. No change in bowel or bladder habit. Also reports chronic neck pain. He has cracking sounds in certain positions. Again, no numbness or tingling down her upper extremities. Other chronic medical conditions are l (more content not included)... Normal [facility] - Chemistry and C hemistry - challengeOrdered By: Fam Jasso on 11-16-2024 AST [Catalytic activity/Vol] 14 U/L Low 15-37 [facility] Lipid Profileon 11-16-2024 Cholesterol [Mass/Vol] 152 mg/dL Normal 200 [facility] Comment on above: Order Comment: DR. Patricia RAJPUT ORDERED CBCD, CMP, LIPIDMICJAYDE MARTINEZ ORDERED LIVER AND LIPID Result Comment: <200 mg/dL Desirable 200-240 mg/dL Borderline >240 mg/dL High Risk Performed By: #### L 500.4100, L500.4050, L100.0100, L501.4700 ####[facility] [address] [place], [address] Cholesterol in HDL [Mass/Vol] 59 mg/dL Normal [facility] Comment on above: Order Comment: DR. Patricia RAJPUT ORDERED CBCD, CMP, LIPIDFRANCES MARTINEZ ORDERED LIVER AND LIPID Result Comment: The drugs N-Acetylcysteine and Metamizole may falsely depress this assay. Reference Range HDL <40 mg/dL Low HDL Cholesterol HDL >or= 60 mg/dL High HDL Cholesterol Performed By: #### L 500.4100, L500.4050, L100.0100, L501.4700 ####[facility] [address] [place], [address] Cholesterol in LDL [Mass/Vol] 76 mg/dL Normal 0-130 [facility] Comment on above: Order Comment: DR. Patricia RAJPUT ORDERED CBCD, CMP, LIPIDMICJAYDE MARTINEZ ORDERED LIVER AND LIPID Performed By: #### L 500.4100, L500.4050, L100.0100, L501.4700 ####[facility] [address] [place], [address] Cholesterol in VLDL [Mass/Vol] 17 mg/dL Normal 5-40 [facility] Comment on above: Order Comment: DR. Patricia RAJPUT ORDERED CBCD, CMP, LIPIDMICHELCHRISTEL JOONEJOANNE ORDERED LIVER AND LIPID Performed By: #### L 500.4100, L500.4050, L100.0100, L501.4700 ####[facility] [address] [place], [address] Triglyceride [Mass/Vol] 84 mg/dL Normal [facility] Comment on above: Order Comment: DR. Patricia RAJPUT ORDERED CBCD, CMP, LIPIDMICJAYDE MARTINEZ ORDERED LIVER AND LIPID Result Comment: The drugs N-Acetylcysteine and Metamizole may falsely depress this assay. Serum Triglycerides Reference Interval Normal <150 mg/dL Borderline high 150 - 199 mg/dL High 200 - 499 mg/dL Very High > or = 500 mg/dL Performed By: #### L 500.4100, L500.4050, L100.0100, L501.4700 ####[facility] [address] [place], [address] Liver Profileon 11-16-2024 ALB Normal 3.2-5.0 [facility] Comment on above: Result Comment: ADDE D TO DR. JASSO Performed By: #### L 500.3400 ####[facility] [address] [place], [address] ALK P Normal 45-117 [facility] Comment on above: Result Comment: ADDE D TO DR. JASSO Performed By: #### L 500.3400 ####[facility] [address] [place], [address] ALT Normal 13-56 [facility] Comment on above: Result Comment: MEGHAN Barlow TO DR. JASSO Performed By: #### L 500.3400 ####[facility] [address] [place], [address] AST Normal 15-37 [facility] Comment on above: Result Comment: MEGHAN Barlow TO DR. JASSO Performed By: #### L 500.3400 ####[facility] [address] [place], [address] D BILI Normal 0.00-0.30 [facility] Comment on above: Result Comment: MEGHAN Barlow TO DR. JASSO Performed By: #### L 500.3400 ####[facility] [address] [place], [address] T BILI Normal 0.20-1.00 [facility] Comment on above: Result Comment: MEGHAN Barlow TO DR. JASSO Performed By: #### L 500.3400 ####[facility] [address] [place], [address] T PROT Normal 6.4-8.2 [facility] Comment on above: Result Comment: MEGHAN Barlow TO DR. JASSO Performed By: #### L 500.3400 ####[facility] [address] [place], [address] Low density lipoprotein (LDL ) cholesterol measurementOrdered By: Fam Jasso on 11-16-2024 Cholesterol in LDL [Mass/Vol] 76 mg/dL 0-130 [facility] Lymphocytes Auto (Unsp spec) [#/Vol]Ordered By: Fam Jasso on 11-16-2024 Lymphocytes (Bld) [#/Vol] 2.01 10*3/uL 0.83-4.51 [facility] Lymphocytes/100 WBC Auto (Un sp spec)Ordered By: Fam Jasso on 11-16-2024 Lymphocytes/100 WBC (Bld) 37.0 % 19-41 [facility] MCV (mean corpuscular volume ) determinationOrdered By: Fam Jasso on 11-16-2024 MCV (RBC) [Entitic vol] 96.0 fL 81-99 [facility] Mean corpuscular hemoglobin (MCH) determinationOrdered By: Fam Jasso on 11-16-2024 MCH (RBC) [Entitic mass] 29.3 pg 27.0-32.0 [facility] Mean corpuscular hemoglobin concentration (MCHC) determinationOrdered By: Fam Jasso on 11-16-2024 MCHC (RBC) [Mass/Vol] 30.5 g/dL Low 32-[address] [facility] Mean platelet volume determi nationOrdered By: Fam Jasso on 11-16-2024 Platelet mean volume (Bld) [Entitic vol] 11.6 fL 6.2-12.0 [facility] Monocyte percentageOrdered B y: Fam Jasso on 11-16-2024 Monocytes/100 WBC (Bld) 7.7 % 0-10 [facility] Neutrophil percentageOrdered By: Fam Jasso on 11-16-2024 Neutrophils/100 WBC (Bld) 52.5 % 47-70 [facility] Nucleated red blood cell per centageOrdered By: Fam Jasso on 11-16-2024 Nucleated RBC/100 WBC (Bld) [Ratio] 0 % 0-5 [facility] Platelet countOrdered By: Katie Jasso on 11-16-2024 Platelets (Bld) [#/Vol] 196 10*3/uL 150-450 [facility] Potassium measurementOrdered By: Fam Jasso on 11-16-2024 Potassium [Moles/Vol] 4.0 mmol/L 3.5-5.[address] [facility] RBC Auto (Bld) [#/Vol]Ordere d By: Fam Jasso on 11-16-2024 RBC (Bld) [#/Vol] 4.27 10*6/uL 4.2-5.4 [facility] Serum anion gap measurementO rdered By: Fam Jasso on 11-16-2024 Anion gap [Moles/Vol] 6 mmol/L 5-[address] [facility] Serum globulin measurementOr dered By: Fam Jasso on 11-16-2024 Globulin (S) [Mass/Vol] 3.8 g/dL 2.2-4.2 [facility] Serum or plasma alanine gómez otransferase (ALT) measurementOrdered By: Fam Jasso on 11-16-2024 ALT [Catalytic activity/Vol] 21 U/L 13-56 [facility] Serum or plasma albumin nicholas urement (mass/volume)Ordered By: Fam Jasso on 11-16-2024 Albumin [Mass/Vol] 3.5 g/dL 3.2-5.0 [facility] Serum or plasma alkaline stephanie sphatase measurementOrdered By: Fam Jasso on 11-16-2024 ALP [Catalytic activity/Vol] 66 U/L 45-117 [facility] Serum or plasma calcium nicholas urement (mass/volume)Ordered By: Fam Jasso on 11-16-2024 Calcium [Mass/Vol] 10.0 mg/dL 8.5-10.1 [facility] Serum or plasma cholesterol measurement (mass/volume)Ordered By: Fam Jasso on 11-16-2024 Cholesterol [Mass/Vol] 152 mg/dL <200 [facility] Comment on above: <200 mg/dL Desirable 200-240 mg/dL Borderline >240 mg/dL High Risk Serum or plasma creatinine m easurement (mass/volume)Ordered By: Fam Jasso on 11-16-2024 Creatinine [Mass/Vol] 1.01 mg/dL 0.55-1.[address] [facility] Comment on above: The validity of the calculated GFR & GFRAA in patients over 70 years has not been determined. Clinical correlation is essential. Serum or plasma urea nitroge n measurement (mass/volume)Ordered By: Fam Jasso on 11-16-2024 Urea nitrogen [Mass/Vol] 15 mg/dL 7-18 [facility] Sodium levelOrdered By: Saurabh Jasso on 11-16-2024 Sodium [Moles/Vol] 140 mmol/L 136-145 [facility] Total proteinOrdered By: Yojan esparza Louisa on 11-16-2024 Protein [Mass/Vol] 7.3 g/dL 6.4-8.2 [facility] Triglycerides measurementOrd ered By: Katiekelinkristin Perezponchojan on 11-16-2024 Triglyceride [Mass/Vol] 84 mg/dL <199 [facility] Comment on above: The drugs N-Acetylcy steine and Metamizole may falsely depress this assay.Serum Triglycerides Reference Interval Normal <150 mg/dL Borderline high 150 - 199 mg/dL High 200 - 499 mg/dL Very High > or = 500 mg/dL Very low density lipoprotein (VLDL) cholesterol measurementOrdered By: Fam Jasso on 11-16-2024 VLDL Cholesterol 17 mg/dL 5-40 [facility] White blood cell (WBC) count Ordered By: Fam Jasso on 11-16-2024 WBC (Bld) [#/Vol] 5.4 10*3/uL 4.4-11.0 [facility] DEVICE EVALUATION (SCANNED)o n 11-07-2024 [facility] Radiology Study observation (narrative) [facility] Pulmonary Visit Reporton Pulmonary Visit Report [facility] [place] [address] [place] [address] OFFICE VISIT Date of Service: 09/08/24 MR#: [id number] Acct: [id number] Name: HILL LEE Rep #: [id number] : 1950 Provider: Kaitlynn Gudino NP Age/Sex: 74/F Location: [facility] [place].PMW Status: Signed Assessment and Plan Assessment and Plan (1) Obstructive sleep apnea: Status: Chronic Comment: AHI 8.9, REM AHI 36.5 Plan: The patient has failed AutoPap therapy. She has worked with RT and there was recommendation to proceed with BiPAP therapy from the June 16, 2023 visit. See PAP ed and training letter. Lengthy discussion about the pathophysiology of obstructive sleep apnea. I discussed the risks of untreated sleep apnea as well as the benefits. I do believe that there would be benefit for patient to work with RT for PAP education prior to titration study. The patient is encouraged to find a mask that fits with the tubing coming out of the front so that she can leave her headgear in place at night and disconnect the tubing so that she is able to ambulate to the bathroom. Unfortunately she would not be able to utilize a mask set up with magnets due to pacemaker device. I plan to review compliance download on follow-up in 6 to 8 weeks. (2) COPD (chronic obstructive pulmonary disease): Status: Chronic Qualifiers: COPD type: unspecified COPD Qualified Code(s): J44.9 - Chronic obstructive pulmonary disease, unspecified Plan: There is significant reversibility that has been identified on PFT from May 2023. COPD is suboptimally controlled today. I do believe that she has had an increase in respiratory symptoms because she has not been compliant with the recommended daily maintenance therapy. I have reviewed a morning regimen which includes using her Breztri 2 puffs prior to brushing her teeth so that good oral hygiene can be performed. I have recommended that she complete this regimen in the evening as well so that consistent use of triple therapy can be instituted. I have reviewed instructions on albuterol HFA inhaler use. The patient understands that if she has worsening respiratory symptoms or respiratory illness she is to notify this practice or report to local urgent care or ED. Breztri is refilled today. For the reproducible chest wall pain I have recommended that she use acetaminophen, this will likely resolve within 4 to 6 weeks. I recommend repeating the PFT prior to follow-up. (3) Obesity: Status: Chronic Qualifiers: Body mass index: BMI 31.0-31.9 Obesity classification: adult class 1 (BMI 30 - 34.9) Obesity type: due to excess calories Serious obesity comorbidity presence: without serious comorbidity Qualified Code(s): E66.811 - Obesity, class 1; E66.09 - Other obesity due to excess calories; Z68.31 - Body mass index [BMI] 31.0-31.9, adult Plan: Obesity complicates the care, plan, prognosis. Weight loss is warranted. The patient should pursue a prudent diet for now. Once she is set up on PAP therapy and has received benefit from the device then a consistent exercise regimen will be warranted. (4) Paroxysmal atrial fibrillation: Status: Chronic Plan: Complicates care, plan, prognosis. The patient understands the correlation between obstructive sleep apnea and cardiovascular disease. For now continue to follow with cardiology. Consider obtaining overnight pulse oximetry when she is set up on PAP therapy to ensure that nocturnal hypoxemia is controlled. Orders: Orders Pulmonary Function Test (Comp) 09/16/24 J44.9 - Chronic obstructive pulmonary disease, unspecified Self Mgmnt Educ Training Today G47.33 - Obstructive sleep apnea (adult) (pediatric) Polysomnography with PAP Today G47.33 - Obstructive sleep apnea (adult) (pediatric) Medications: Refilled tczfohgrqh-uwrjkfpl-w ormoterol 160-9-4.8 mcg/actuation (Breztri Aerosphere) 2 inhalations inhalation BID 10.7 grams 6RF G47.33 - Obstructive sleep apnea (adult) (pediatric) Plan Details Follow Up: 6 to 8 weeks HPI HPI Comments Details: This patient presents to the office today for follow-up of her COPD and obstructive sleep apnea, for which she has been noncompliant. She is ambulatory and currently on room air. She did have a pacemaker placed April 07, 2024 and was hospitalized at [facility] for congestive heart failure. She has not required any antibiotics or prednisone for breathing problems. She does have Breztri available for which she uses on an as-needed basis, not compliant with daily use as prescribed. She has not recently used albuterol rescue inhaler. She indicates that she stru ggled to remember to use the device in a consistent manner. She does have some shortness of breath on exertion along with occasional dry cough and wheezing. She denies chest tightness. She denies any palpitations. She d (more content not included)... Normal [facility] DEVICE EVALUATION (SCANNED)o n 05-06-2024 [facility] Radiology Study observation (narrative) [facility] CBC AND ELECTRONIC DIFFon Basophils (Bld) [#/Vol] K/uL 0.00 - 0.15 K/uL [facility] Basophils/100 WBC (Bld) 0.3 % O [facility] Differential cell count method Nom (Bld) Electronic Differential [facility] Eosinophils (Bld) [#/Vol] 0.12 10*3/uL 0.00 - 0.42 K/uL [facility] Eosinophils/100 WBC (Bld) 1.8 % [facility] Erythrocyte distribution width (RBC) [Ratio] 14.2 % 10.8 - 14.9 % [facility] Hematocrit (Bld) [Volume fraction] 36.5 % 34.9 - 44.3 % [facility] Hemoglobin (Bld) [Mass/Vol] 10.9 g/dL Low 11.4 - 15.2 g/dL [facility] Immature granulocytes (Bld) [#/Vol] K/uL NINF - 0.08 K/uL [facility] Immature granulocytes/100 WBC (Bld) 0.4 % [facility] Interpretation and review of laboratory results Abnormal [facility] Lymphocytes (Bld) [#/Vol] 1.60 10*3/uL 1.16 - 3.51 K/uL [facility] Lymphocytes/100 WBC (Bld) 23.6 % [facility] MCH (RBC) [Entitic mass] 28.5 pg 25. 9 - 33.9 pg [facility] MCHC (RBC) [Mass/Vol] 29.9 g/dL Low 31.4 - 35.9 g/dL [facility] MCV (RBC) [Entitic vol] 95.5 fL 79.6 - 97.7 fL [facility] Monocytes (Bld) [#/Vol] 0.59 10*3/uL 0.22 - 0.87 K/uL [facility] Monocytes/100 WBC (Bld) 8.7 % [facility] Neutrophils (Bld) [#/Vol] 4.42 10*3/uL 1.64 - 7.28 K/uL [facility] Nucleated RBC/100 WBC (Bld) [Ratio] 0.0 % [facility] Platelet mean volume (Bld) [Entitic vol] 11.4 fL 8.5 - 12.2 fL [facility] Platelets (Bld) [#/Vol] 188 10*3/uL 150 - 393 K/uL [facility] RBC (Bld) [#/Vol] 3.82 10*6/uL Low [facility] Segmented neutrophils/100 WBC (Bld) 65.2 % [facility] WBC (Bld) [#/Vol] 6.78 10*3/uL 3.99 - 11. 19 K/uL [facility] Abs Baso Auto < Normal 0.00-0.15 [facility] Comment on above: Performed By: #### L [id number] #### [facility] (DEFAULT) [address] [place] [address] Basophils/100 WBC (Bld) 0.3 % Normal O [facility] Comment on above: Performed By: #### L [id number] #### [facility] (DEFAULT) [address] [place] [address] DIFF STATUS Electronic Differential Normal [facility] Comment on above: Performed By: #### L [id number] #### [facility] (DEFAULT) [address] [place] [address] Eosinophils (Bld) [#/Vol] 0.12 10*3/uL Normal 0.00-0.42 [facility] Comment on above: Performed By: #### L [id number] #### [facility] (DEFAULT) [address] [place] [address] Eosinophils/100 WBC (Bld) 1.8 % Normal [facility] Comment on above: Performed By: #### L [id number] #### [facility] (DEFAULT) [address] [address] Hematocrit (Bld) [Volume fraction] 36.5 % Normal 34.9-44.3 [facility] Comment on above: Performed By: #### L [id number] #### [facility] (DEFAULT) [address] [place] [address] Hemoglobin (Bld) [Mass/Vol] 10.9 g/dL Low 11.4-15.2 [facility] Comment on above: Performed By: #### L [id number] #### [facility] (DEFAULT) [address] [address] Immature Grans % 0.4 % Normal [facility] Comment on above: Performed By: #### L [id number] #### [facility] (DEFAULT) [address] [address] Immature Grans Absolute < Normal <=0.08 [facility] Comment on above: Performed By: #### L [id number] #### [facility] (DEFAULT) [address] [address] Lymphocytes (Bld) [#/Vol] 1.60 10*3/uL Normal 1.16-3.51 [facility] Comment on above: Performed By: #### L [id number] #### [facility] (DEFAULT) [address] [address] Lymphocytes/100 WBC (Bld) 23.6 % Normal [facility] Comment on above: Performed By: #### L [id number] #### [facility] (DEFAULT) [address] [address] MCV (RBC) [Entitic vol] 95.5 fL Normal 79.6-97.7 [facility] Comment on above: Performed By: #### L [id number] #### [facility] (DEFAULT) [address] [address] Mean Cell Hgb 28.5 pg Normal 25.9-33.9 [facility] Comment on above: Performed By: #### L [id number] #### [facility] (DEFAULT) [address] [address] Mean Cell Hgb Conc 29.9 g/dL Low 31.4-35.9 [facility] Comment on above: Performed By: #### L [id number] #### [facility] (DEFAULT) [address] [place] [address] Monocytes (Bld) [#/Vol] 0.59 10*3/uL Normal 0.22-0.87 [facility] Comment on above: Performed By: #### L [id number] #### [facility] (DEFAULT) [address] [place] [address] Monocytes/100 WBC (Bld) 8.7 % Normal O [facility] Comment on above: Performed By: #### L [id number] #### [facility] (DEFAULT) [address] [place] [address] Nucleated RBC 0.0 /100 WBC Normal <=0.2 [facility] Comment on above: Performed By: #### L [id number] #### [facility] (DEFAULT) [address] [place] [address] Platelet mean volume (Bld) [Entitic vol] 11.4 fL Normal 8.5-12.2 [facility] Comment on above: Performed By: #### L [id number] #### [facility] (DEFAULT) [address] [place] [address] Platelets (Bld) [#/Vol] 188 10*3/uL Normal 150-393 [facility] Comment on above: Performed By: #### L [id number] #### [facility] (DEFAULT) [address] [place] [address] RBC (Bld) [#/Vol] 3.82 10*6/uL Low 3.91-5.04 [facility] Comment on above: Performed By: #### L [id number] #### [facility] (DEFAULT) [address] [place] [address] RBC Distribution 14.2 % Normal 10.8-14.9 [facility] Comment on above: Performed By: #### L [id number] #### [facility] (DEFAULT) [address] [place] [address] Segs + Bands Auto 65.2 % Normal [facility] Comment on above: Performed By: #### L [id number] #### [facility] (DEFAULT) [address] [place] [address] Segs + Bands,Absolute Auto 4.42 K/uL Normal 1.64-7.28 [facility] Comment on above: Performed By: #### L [id number] #### [facility] (DEFAULT) [address] [place] [address] WBC (Bld) [#/Vol] 6.78 10*3/uL Normal 3.99-11.19 [facility] Comment on above: Performed By: #### L [id number] #### [facility] (DEFAULT) [address] [place] [address] CHEM 7 (LYTES,BUN,CREA,GLUC) on 04-07-2024 Anion gap [Moles/Vol] 11 mmol/L 7 - 17 mmol/L [facility] Chloride [Moles/Vol] 106 mmol/L 98 - 10 8 mmol/L [facility] CO2 [Moles/Vol] 28 mmol/L 21 - 31 mmol/L [facility] Creatinine [Mass/Vol] 1.08 mg/dL 0.50 - 1.20 mg/dL [facility] eGFR, CKD-EPI, Female 53 Low - PINF [facility] Comment on above: Reported eGFR is bas ed on the CKD-EPI 2020 equation using creatinine, age, and sex. Glucose [Mass/Vol] 98 mg/dL 70 - 99 mg/dL [facility] Interpretation and review of laboratory results Abnormal [facility] Osmolality Calc [Osmolality] 294 [facility] Potassium [Moles/Vol] 4.0 mmol/L 3.5 - 5.0 mmol/L [facility] Sodium [Moles/Vol] 141 mmol/L 135 - 145 mmol/L [facility] Urea nitrogen [Mass/Vol] 12 mg/dL 7 - 25 mg/d L [facility] Urea nitrogen/Creatinine [Mass ratio] 11 mg/mg [facility] Anion gap [Moles/Vol] 11 mmol/L Normal 7-[address] [facility] Comment on above: Performed By: #### C HM7 #### [facility] (DEFAULT) [address] [place] [address] Chloride [Moles/Vol] 106 mmol/L Normal 98-108 [facility] Comment on above: Performed By: #### C HM7 #### [facility] (DEFAULT) [address] [place] [address] CO2 [Moles/Vol] 28 mmol/L Normal 21-31 [facility] Comment on above: Performed By: #### C HM7 #### [facility] (DEFAULT) [address] [place] [address] Creatinine [Mass/Vol] 1.08 mg/dL Normal 0.50-1.[address] [facility] Comment on above: Performed By: #### C HM7 #### [facility] (DEFAULT) [address] [place] [address] GFR/1.73 sq M.predicted among non-blacks MDRD (S/P/Bld) [Vol rate/Area] 54 mL/min/{1.73_m2} Low >=60 [facility] Comment on above: Result Comment: Repo rted eGFR is based on the CKD-EPI 2020 equation using creatinine, age, and sex. Performed By: #### C HM7 #### [facility] (DEFAULT) [address] [place] [address] Glucose [Mass/Vol] 98 mg/dL Normal 70-99 [facility] Comment on above: Performed By: #### C HM7 #### [facility] (DEFAULT) [address] [place] [address] Osmolality [Osmolality] 294 mosm/kg Normal 278-305 [facility] Comment on above: Performed By: #### C HM7 #### [facility] (DEFAULT) [address] [place] [address] Potassium [Moles/Vol] 4.0 mmol/L Normal 3.5-5.[address] [facility] Comment on above: Performed By: #### C HM7 #### [facility] (DEFAULT) [address] [place] [address] Sodium [Moles/Vol] 141 mmol/L Normal 135-145 [facility] Comment on above: Performed By: #### C HM7 #### [facility] (DEFAULT) [address] [place] [address] Urea nitrogen [Mass/Vol] 12 mg/dL Normal 7-25 [facility] Comment on above: Performed By: #### C HM7 #### [facility] (DEFAULT) [address] [place] [address] Urea nitrogen/Creatinine [Mass ratio] 11 mg/mg Normal [facility] Comment on above: Performed By: #### C HM7 #### [facility] (DEFAULT) [address] [place] [address] DEVICE EVALUATION (SCANNED)o n 04-07-2024 Radiology Study observation (narrative) [facility] EP PROCEDURE - EPS/ABLATION/ DEVICEon 04-07-2024 EP PROCEDURE - EPS/ABLATION/DEVICE Hill Lee is a 73 y.o. 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 who presented to the [facility] EP lab for AVN ablation and QUALITY SYSTEMS ENGINEER-D placement for primary prevention due to intermittent RVR episodes despite BB, amiodarone, and digoxin. Her EF is <35%. Following local anesthesia, an incision was made over L chest and pocket created. Axillary vein access obtained x2 under fluoro guidance. An RV lead was placed in apical septum. CS was difficult to cannulate due to anatomy but multiple branches were eventually cannulated without good lead parameters. A 3830 lead was subsequently placed in septum with LBBAP. Leads were sutured and connected to device. Device was sutured in pocket. Following antibiotic saline flush, pocket was sutured closed. We then proceeded with AVN ablation. R femoral vein access x1 under US guidance. His deflection was mapped with adequate atrial and ventricular egm ratio. 2 RF lesions were applied at this location with resultant complete AV block. A total of 20 minutes were observed in the EP lab after AV slick ablation and no return of AV conduction was observed. Device was reprogrammed to VVIR 80-120 bpm. Conclusions Successful implantation of QUALITY SYSTEMS ENGINEER-D (with LBBAP in LV lead port) with adequate pacing threshold, sensing and lead impedance. Successful AVN ablation. Recommendations Bedrest for 2 hours Sheath care per protocol Chest X-ray (PA/L). Device interrogation in the morning. Aquacel dressing in place for 7 days. Device re-programming in 6 weeks at device clinic Hold anticoagulation for 24 hours (No heparin IV or NOAC, ok to continue warfarin). Stop amiodarone and digoxin. Reduce metoprolol to 50 mg daily. EP PLATING EQUIPMENT TENDER follow up in 3-4 months. Remain overnight for monitoring. Table formatting from the original result was not included. Hill Lee EP Procedure - EPS/Ablation/Device Ordering Physician: ELLIOTT EASTMAN Order #: [id number] Study Date: 04/06/2024 Patient Information Name MRN Description Hill Lee [id number] 73 y.o. female Physicians Panel Physicians Referring Physician Case Authorizing Physician Elliott Eastman MD (Primary) MD Pat Casanova MD (Fellow) Procedures ICD Generator Implant Lead Insertion AV Node Ablation LV LEAD IMPLANT Pre Procedure Diagnosis Permanent atrial fibrillation [I48.21] Post Procedure Diagnosis Permanent atrial fibrillation [I48.21] Indications Permanent atrial fibrillation [I48.21 (ICD-10-CM)] Conclusion Hill Lee is a 73 y.o. 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 who presented to the [facility] EP lab for AVN ablation and QUALITY SYSTEMS ENGINEER-D placement for primary prevention due to intermittent RVR episodes despite BB, amiodarone, and digoxin. Her EF is <35%. Following local anesthesia, an incision was made over L chest and pocket created. Axillary vein access obtained x2 under fluoro guidance. An RV lead was placed in apical septum. CS was difficult to cannulate due to anatomy but multiple branches were eventually cannulated without good lead parameters. A 3830 lead was subsequently placed in septum with LBBAP. Leads were sutured and connected to device. Device was sutured in pocket. Following antibiotic saline flush, pocket was sutured closed. We then proceeded with AVN ablation. R femoral vein access x1 under US guidance. His deflection was mapped with adequate atrial and ventricular egm ratio. 2 RF lesions were applied at this location with resultant complete AV block. A total of 20 minutes were observed in the EP lab after AV slick ablation and no return of AV conduction was observed. Device was reprogrammed to VVIR 80-120 bpm. Conclusions Successful implantation of QUALITY SYSTEMS ENGINEER-D (with LBBAP in LV lead port) with adequate pacing threshold, sensing and lead impedance. Successful AVN ablation. Recommendations Bedrest for 2 hours Sheath care per protocol Chest X-ray (PA/L). Device interrogation in the morning. Aquacel dressing in place for 7 days. Device re-programming in 6 weeks at device clinic Hold anticoagulation for 24 hours (No heparin IV or NOAC, ok to continue warfarin). Stop amiodarone and digoxin. Reduce metoprolol to 50 mg daily. EP PLATING EQUIPMENT TENDER follow up in 3-4 months. Remain overnight for monitoring. Consent The procedure was explained including the potential risks of infection, heart perforation, re-operation, and other risks pertinent to procedure. Informed consent and permission to proceed was given. Site Preparation On the day of the procedure, the patient was brought to the operating room and the groin prepped with chloraprep. Site prepped by RT Jeffry. On the day of the procedure, the patient was brought to the operating room and the left chest prepped with chloraprep. Site (more content not included)... Normal [facility] Electrophysiology studyon Body surface area Derived from formula 2.17 m2 [facility] Hill Lee is a [age] y.o. 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 who presented to [facility] for AVN ablation and QUALITY SYSTEMS ENGINEER-D placement for primary prevention due to intermittent RVR episodes despite BB, amiodarone, and digoxin. Her EF is <35%. Following local anesthesia, an incision was made over L chest and pocket created. Axillary vein access obtained x2 under fluoro guidance. An RV lead was placed in apical septum. CS was difficult to cannulate due to anatomy but multiple branches were eventually cannulated without good lead parameters. A 3830 lead was subsequently placed in septum with LBBAP. Leads were sutured and connected to device. Device was sutured in pocket. Following antibiotic saline flush, pocket was sutured closed. We then proceeded with AVN ablation. R femoral vein access x1 under US guidance. His deflection was mapped with adequate atrial and ventricular egm ratio. 2 RF lesions were applied at this location with resultant complete AV block. A total of 20 minutes were observed in the EP lab after AV slick ablation and no return of AV conduction was observed. Device was reprogrammed to VVIR 80-120 bpm. Conclusions Successful implantation of QUALITY SYSTEMS ENGINEER-D (with LBBAP in LV lead port) with adequate pacing threshold, sensing and lead impedance. Successful AVN ablation. Recommendations Bedrest for 2 hours Sheath care per protocol Chest X-ray (PA/L). Device interrogation in the morning. Aquacel dressing in place for 7 days. Device re-programming in 6 weeks at device clinic Hold anticoagulation for 24 hours (No heparin IV or NOAC, ok to continue warfarin). Stop amiodarone and digoxin. Reduce metoprolol to 50 mg daily. EP PLATING EQUIPMENT TENDER follow up in 3-4 months. Remain overnight for monitoring. [facility] No Panel Informationon 04-07 [facility] XR CHEST PA AND LATERAL 2 EWSon 04-07-2024 XR CHEST PA AND LATERAL 2 VIEWS EXAM: XR CHEST PA AND LATERAL 2 VIEWS, 04/06/2024 22:41 PM COMPARISON: No prior studies available for comparison. CLINICAL INDICATIONS: Rule out Pneumothorax Following Device Implantation RELEVANT CLINICAL HISTORY: Please complete this Xray within 2-4 hours from the completion of the procedure. Please read as a stat read. Please page the on-call EP fellow at [phone] with any emergent finding such as pneumothorax.; FINDINGS: (Adequate technique) Implanted Devices: Left subclavian ICD in place. Lungs: Clear, without mass, interstitial disease, or consolidation. Pleural Spaces: No pleural effusion. No pneumothorax. Mediastinum and Andreina: Normal Cardiac silhouette and great vessels: Normal to slightly increased heart size. Unremarkable aorta. Chest Wall: Normal IMPRESSION: No acute process. Heart size upper limit of normal. Normal [facility] XR Chest PA and Lateralon IMPRESSION: No acute process. Heart size upper limit of normal. OLOGY EXAM: XR CHEST PA AN D LATERAL 2 VIEWS, 04/06/2024 22:41 PM COMPARISON: No prior studies available for comparison. CLINICAL INDICATIONS: Rule out Pneumothorax Following Device Implantation RELEVANT CLINICAL HISTORY: Please complete this Xray within 2-4 hours from the completion of the procedure. Please read as a stat read. Please page the on-call EP fellow at [phone] with any emergent finding such as pneumothorax.; FINDINGS: (Adequate technique) Implanted Devices: Left subclavian ICD in place. Lungs: Clear, without mass, interstitial disease, or consolidation. Pleural Spaces: No pleural effusion. No pneumothorax. Mediastinum and Andreina: Normal Cardiac silhouette and great vessels: Normal to slightly increased heart size. Unremarkable aorta. Chest Wall: Normal RADIOLOGY Pete Glaser MD - 04/07/2024 EXAM: XR CHEST PA AND LATERAL 2 VIEWS, 04/06/2024 22:41 PM COMPARISON: No prior studies available for comparison. CLINICAL INDICATIONS: Rule out Pneumothorax Following Device Implantation RELEVANT CLINICAL HISTORY: Please complete this Xray within 2-4 hours from the completion of the procedure. Please read as a stat read. Please page the on-call EP fellow at [phone] with any emergent finding such as pneumothorax.; FINDINGS: (Adequate technique) Implanted Devices: Left subclavian ICD in place. Lungs: Clear, without mass, interstitial disease, or consolidation. Pleural Spaces: No pleural effusion. No pneumothorax. Mediastinum and Andreina: Normal Cardiac silhouette and great vessels: Normal to slightly increased heart size. Unremarkable aorta. Chest Wall: Normal IMPRESSION IMPRESSION: No acute process. Heart size upper limit of normal. [facility] CBC AND ELECTRONIC DIFFon Basophils (Bld) [#/Vol] K/uL 0.00 - 0.15 K/uL [facility] Basophils/100 WBC (Bld) 0.3 % O [facility] Differential cell count method Nom (Bld) Electronic Differential [facility] Eosinophils (Bld) [#/Vol] 0.10 10*3/uL 0.00 - 0.42 K/uL [facility] Eosinophils/100 WBC (Bld) 1.1 % [facility] Erythrocyte distribution width (RBC) [Ratio] 14.0 % 10.8 - 14.9 % [facility] Hematocrit (Bld) [Volume fraction] 41.6 % 34.9 - 44.3 % [facility] Hemoglobin (Bld) [Mass/Vol] 12.7 g/dL 11.4 - 15.2 g/dL [facility] Immature granulocytes (Bld) [#/Vol] K/uL NINF - 0.08 K/uL [facility] Immature granulocytes/100 WBC (Bld) 0.2 % [facility] Interpretation and review of laboratory results Abnormal [facility] Lymphocytes (Bld) [#/Vol] 2.08 10*3/uL 1.16 - 3.51 K/uL [facility] Lymphocytes/100 WBC (Bld) 23.2 % [facility] MCH (RBC) [Entitic mass] 28.4 pg 25. 9 - 33.9 pg [facility] MCHC (RBC) [Mass/Vol] 30.5 g/dL Low 31.4 - 35.9 g/dL [facility] MCV (RBC) [Entitic vol] 93.1 fL 79.6 - 97.7 fL [facility] Monocytes (Bld) [#/Vol] 0.61 10*3/uL 0.22 - 0.87 K/uL [facility] Monocytes/100 WBC (Bld) 6.8 % O [facility] Neutrophils (Bld) [#/Vol] 6.11 10*3/uL 1.64 - 7.28 K/uL [facility] Nucleated RBC/100 WBC (Bld) [Ratio] 0.0 % NINF [facility] Platelet mean volume (Bld) [Entitic vol] 11.5 fL 8.5 - 12.2 fL [facility] Platelets (Bld) [#/Vol] 251 10*3/uL 150 - 393 K/uL [facility] RBC (Bld) [#/Vol] 4.47 10*6/uL [facility] Segmented neutrophils/100 WBC (Bld) 68.4 % [facility] WBC (Bld) [#/Vol] 8.95 10*3/uL 3.99 - 11. 19 K/uL [facility] Abs Baso Auto < Normal 0.00-0.15 [facility] Comment on above: Performed By: #### L [id number] #### [facility] (DEFAULT) [address] [place] [address] Basophils/100 WBC (Bld) 0.3 % Normal O [facility] Comment on above: Performed By: #### L [id number] #### [facility] (DEFAULT) [address] [place] [address] DIFF STATUS Electronic Differential Normal [facility] Comment on above: Performed By: #### L [id number] #### [facility] (DEFAULT) [address] [place] [address] Eosinophils (Bld) [#/Vol] 0.10 10*3/uL Normal 0.00-0.42 [facility] Comment on above: Performed By: #### L [id number] #### [facility] (DEFAULT) [address] [address] Eosinophils/100 WBC (Bld) 1.1 % Normal [facility] Comment on above: Performed By: #### L [id number] #### [facility] (DEFAULT) [address] [place] [address] Hematocrit (Bld) [Volume fraction] 41.6 % Normal 34.9-44.3 [facility] Comment on above: Performed By: #### L [id number] #### [facility] (DEFAULT) [address] [address] Hemoglobin (Bld) [Mass/Vol] 12.7 g/dL Normal 11.4-15.2 [facility] Comment on above: Performed By: #### L [id number] #### [facility] (DEFAULT) [address] [address] Immature Grans % 0.2 % Normal [facility] Comment on above: Performed By: #### L [id number] #### [facility] (DEFAULT) [address] [address] Immature Grans Absolute < Normal <=0.08 [facility] Comment on above: Performed By: #### L [id number] #### [facility] (DEFAULT) [address] [address] Lymphocytes (Bld) [#/Vol] 2.08 10*3/uL Normal 1.16-3.51 [facility] Comment on above: Performed By: #### L [id number] #### [facility] (DEFAULT) [address] [address] Lymphocytes/100 WBC (Bld) 23.2 % Normal [facility] Comment on above: Performed By: #### L [id number] #### [facility] (DEFAULT) [address] [address] MCV (RBC) [Entitic vol] 93.1 fL Normal 79.6-97.7 [facility] Comment on above: Performed By: #### L [id number] #### [facility] (DEFAULT) [address] [address] Mean Cell Hgb 28.4 pg Normal 25.9-33.9 [facility] Comment on above: Performed By: #### L [id number] #### [facility] (DEFAULT) [address] [address] Mean Cell Hgb Conc 30.5 g/dL Low 31.4-35.9 [facility] Comment on above: Performed By: #### L [id number] #### [facility] (DEFAULT) [address] [place] [address] Monocytes (Bld) [#/Vol] 0.61 10*3/uL Normal 0.22-0.87 [facility] Comment on above: Performed By: #### L [id number] #### [facility] (DEFAULT) [address] [place] [address] Monocytes/100 WBC (Bld) 6.8 % Normal [facility] Comment on above: Performed By: #### L [id number] #### [facility] (DEFAULT) [address] [address] Nucleated RBC 0.0 /100 WBC Normal <=0.2 [facility] Comment on above: Performed By: #### L [id number] #### [facility] (DEFAULT) [address] [address] Platelet mean volume (Bld) [Entitic vol] 11.5 fL Normal 8.5-12.2 [facility] Comment on above: Performed By: #### L [id number] #### [facility] (DEFAULT) [address] [place] [address] Platelets (Bld) [#/Vol] 251 10*3/uL Normal 150-393 [facility] Comment on above: Performed By: #### L [id number] #### [facility] (DEFAULT) [address] [place] [address] RBC (Bld) [#/Vol] 4.47 10*6/uL Normal 3.91-5.04 [facility] Comment on above: Performed By: #### L [id number] #### [facility] (DEFAULT) [address] [place] [address] RBC Distribution 14.0 % Normal 10.8-14.9 [facility] Comment on above: Performed By: #### L [id number] #### [facility] (DEFAULT) [address] [place] [address] Segs + Bands Auto 68.4 % Normal [facility] Comment on above: Performed By: #### L [id number] #### [facility] (DEFAULT) [address] [place] [address] Segs + Bands,Absolute Auto 6.11 K/uL Normal 1.64-7.28 [facility] Comment on above: Performed By: #### L [id number] #### [facility] (DEFAULT) [address] [place] [address] WBC (Bld) [#/Vol] 8.95 10*3/uL Normal 3.99-11.19 [facility] Comment on above: Performed By: #### L [id number] #### [facility] (DEFAULT) [address] [place] [address] CHEM 7 (LYTES,BUN,CREA,GLUC) on 04-06-2024 Anion gap [Moles/Vol] 15 mmol/L 7 - 17 mmol/L [facility] Chloride [Moles/Vol] 102 mmol/L 98 - 10 8 mmol/L [facility] CO2 [Moles/Vol] 26 mmol/L 21 - 31 mmol/L [facility] Creatinine [Mass/Vol] 1.05 mg/dL 0.50 - 1.20 mg/dL [facility] eGFR, CKD-EPI, Female 55 Low - PINF [facility] Comment on above: Reported eGFR is bas ed on the CKD-EPI 2020 equation using creatinine, age, and sex. Glucose [Mass/Vol] 121 mg/dL High 70 - 99 mg/dL [facility] Interpretation and review of laboratory results Abnormal [facility] Osmolality Calc [Osmolality] 294 [facility] Potassium [Moles/Vol] 4.3 mmol/L 3.5 - 5.0 mmol/L [facility] Sodium [Moles/Vol] 139 mmol/L 135 - 145 mmol/L [facility] Urea nitrogen [Mass/Vol] 15 mg/dL 7 - 25 mg/d L [facility] Urea nitrogen/Creatinine [Mass ratio] 14 mg/mg [facility] Anion gap [Moles/Vol] 15 mmol/L Normal 7-[address] [facility] Comment on above: Performed By: #### C HM7 #### [facility] (DEFAULT) [address] [place] [address] Chloride [Moles/Vol] 102 mmol/L Normal 98-108 [facility] Comment on above: Performed By: #### C HM7 #### [facility] (DEFAULT) [address] [place] [address] CO2 [Moles/Vol] 26 mmol/L Normal 21-31 [facility] Comment on above: Performed By: #### C HM7 #### [facility] (DEFAULT) [address] [place] [address] Creatinine [Mass/Vol] 1.05 mg/dL Normal 0.50-1.[address] [facility] Comment on above: Performed By: #### C HM7 #### [facility] (DEFAULT) [address] [place] [address] GFR/1.73 sq M.predicted among non-blacks MDRD (S/P/Bld) [Vol rate/Area] 56 mL/min/{1.73_m2} Low >=60 [facility] Comment on above: Result Comment: Repo rted eGFR is based on the CKD-EPI 2020 equation using creatinine, age, and sex. Performed By: #### C HM7 #### [facility] (DEFAULT) [address] [place] [address] Glucose [Mass/Vol] 121 mg/dL High 70-99 [facility] Comment on above: Performed By: #### C HM7 #### [facility] (DEFAULT) [address] [place] [address] Osmolality [Osmolality] 294 mosm/kg Normal 278-305 [facility] Comment on above: Performed By: #### C HM7 #### [facility] (DEFAULT) [address] [place] [address] Potassium [Moles/Vol] 4.3 mmol/L Normal 3.5-5.[address] [facility] Comment on above: Performed By: #### C HM7 #### [facility] (DEFAULT) [address] [place] [address] Sodium [Moles/Vol] 139 mmol/L Normal 135-145 [facility] Comment on above: Performed By: #### C HM7 #### [facility] (DEFAULT) [address] [place] [address] Urea nitrogen [Mass/Vol] 15 mg/dL Normal 7-25 [facility] Comment on above: Performed By: #### C HM7 #### [facility] (DEFAULT) [address] [place] [address] Urea nitrogen/Creatinine [Mass ratio] 14 mg/mg Normal [facility] Comment on above: Performed By: #### C HM7 #### [facility] (DEFAULT) [address] [place] [address] Electrophysiology studyon Radiology Study observation (narrative) [facility] GLUCOSE POCon 04-06-2024 Glucose [Mass/Vol] 93 mg/dL 70 - 99 mg/dL [facility] POC Sample Type CAPBL [facility] Test performed at address of the patient encounter. [facility] Glucose [Mass/Vol] 97 mg/dL 70 - 99 mg/dL [facility] POC Sample Type CAPBL [facility] Test performed at address of the patient encounter. [facility] Glucose [Mass/Vol] 90 mg/dL 70 - 99 mg/dL [facility] POC Sample Type CAPBL [facility] Test performed at address of the patient encounter. [facility] Glucose [Mass/Vol] 200 mg/dL High 70 - 99 mg/dL [facility] Interpretation and review of laboratory results Abnormal [facility] POC Sample Type VENO [facility] Test performed at address of the patient encounter. [facility] PT,INR,PTTon 04-06-2024 aPTT Coag (PPP) [Time] 25.6 s OS [facility] INR Coag (Bld) [Relative time] 1.2 {INR} High 0.9 - 1.1 [facility] Interpretation and review of laboratory results Abnormal [facility] PT Coag (PPP) [Time] 14.8 s High [facility] aPTT Coag (Bld) [Time] 25.6 s Normal 24.0-34.3 [facility] Comment on above: Performed By: #### P TPTT #### [facility] (DEFAULT) [address] [place] [address] INR Coag (PPP) [Relative time] 1.2 {INR} High 0.9-1.1 [facility] Comment on above: Performed By: #### P TPTT #### [facility] (DEFAULT) [address] [place] [address] PT Coag (PPP) [Time] 14.8 s High 11.9-14.2 [facility] Comment on above: Performed By: #### P TPTT #### [facility] (DEFAULT) [address] [place] [address] XR Chest PA and Lateralon Radiology Study observation (narrative) [facility] Sury 02-26-2024 CNCO Letter Text Normal [facility] Yaneli 02-22-2024 CNPN Telephone (CARCMN) RAFI LEEHILL ([id number]) 1950 F Date Time Provider Department 02/22/24 HANS WANG During your visit today, we recorded the following information about you: Alejandro Torres 02/22/2024 3:22 PM Signed Contacted patient via Phone to schedule appointment; no answer -VMM left requesting for a return phone call. Alejandro Torres February 22, 2024 3:21 PM Alejandro Torres 02/24/2024 10:32 AM Signed Contacted patient via Phone to schedule appointment; no answer -VMM left requesting for a return phone call. Alejandro Torres February 24, 2024 10:31 AM Alejandro Torres 02/26/2024 10:36 AM Signed Contacted patient via Phone to schedule appointment; no answer -VMM left requesting for a return phone call. Alejandro Torres February 26, 2024 10:36 AM Alejandro Torres 02/26/2024 10:38 AM Signed Letter sent to patient requesting to schedule an appointment. Alejandro Torres February 26, 2024 10:38 AM Allergies As of Date: 02/22/2024 Noted Allergy Reaction PENICILLIN G 02/17/2006 Date Reviewed: 10/18/2023 Reviewed by: Zhanna Townsend LPN - Fully Assessed Reason for Visit: Appointment [186] Prescriptions as of 02/26/2024 - digoxin (LANOXIN) 125 mcg (0.125 mg) tablet Take 1 tablet by mouth once daily. - metoprolol succinate ER (TOPROL XL) 50 mg 24 hr tablet Take 1 tablet by mouth once daily. - allopurinol (ZYLOPRIM) 100 mg tablet Take 1 tablet by mouth every afternoon. - amiodarone (PACERONE) 200 mg tablet Take 1 tablet by mouth every afternoon. - amLODIPine (NORVASC) 5 mg tablet Take 1 tablet by mouth every afternoon. - ELIQUIS 5 mg tab(s) take 1 5 MG tablet orally twice a day - jcrpornsvw-lpdqocmf-j ormoterol (BREZTRI) 160-9-4.8 mcg/actuation HFA aerosol inhaler Inhale as instructed. - FARXIGA 10 mg tablet Take 1 tablet by mouth every afternoon. - furosemide (LASIX) 40 mg tablet Take 1-1.5 tablets by mouth every afternoon. - potassium chloride 20 mEq TbER Take 1 tablet by mouth every 12 hours. - Omeprazole 40 mg capsule Take 1 capsule by mouth once daily. - aspirin, enteric coated (ASPIRIN, ENTERIC COATED) 81 mg EC tablet Take 81 mg by mouth once daily. - metoprolol tartrate, short acting, 25 mg tablet Take 25 mg by mouth once daily. - LISINOPRIL 40 MG TAB Take one(1) tablet daily. - Multivitamin (MULTIPLE VITAMIN) ORAL Tab Take one(1) tablet daily. Problem List As Of Date 02/22/2024 Noted Resolved BENIGN HYPERTENSION [I10] 05/17/2007 ESOPHAGEAL REFLUX [K21.9] 05/17/2007 Gastroesophageal reflux disease [K21.9] 07/26/2018 Dysphagia [R13.10] 07/26/2018 Family history of colon cancer [Z80.0] 07/26/2018 Acute gastric ulcer [K25.3] 10/11/2018 Aneurysm of ascending aorta without rupture (HC*11/27/2023 Encounter Status:Closed by ALEJANDRO TORRES on 02/22/24 Normal [facility] Basophil percentageOrdered B y: Vikas King on 01-19-2024 Bilirubin [Mass/Vol] 0.50 mg/dL 0.20-1.00 [facility] Comment on above: For patients on eltr ombopag therapy, use of Dimension [place] TBIL is not recommended. Chloride [Moles/Vol] 104 mmol/L 98-107 [facility] Cholesterol [Mass/Vol] 251 mg/dL <200 [facility] Comment on above: <200 mg/dL Desirable 200-240 mg/dL Borderline >240 mg/dL High Risk Glucose [Mass/Vol] 105 mg/dL 74-106 [facility] Comment on above: Fasting Glucose resu lt from 100 to 125 mg/dL suggests IMPAIRED HOMEOSTASIS per A.D.A. criteria. Potassium [Moles/Vol] 3.9 mmol/L 3.5-5.[address] [facility] Protein [Mass/Vol] 7.5 g/dL 6.4-8.2 [facility] Sodium [Moles/Vol] 140 mmol/L 136-145 [facility] Triglyceride [Mass/Vol] 219 mg/dL <199 [facility] Comment on above: The drugs N-Acetylcy steine and Metamizole may falsely depress this assay.Serum Triglycerides Reference Interval Normal <150 mg/dL Borderline high 150 - 199 mg/dL High 200 - 499 mg/dL Very High > or = 500 mg/dL Laboratory - Chemistry and C hemistry - challengeOrdered By: Vikas King on 01-19-2024 Albumin/Globulin [Mass ratio] 1.0 {ratio} 0.9-2.4 [facility] ALP [Catalytic activity/Vol] 67 U/L 45-117 [facility] ALT [Catalytic activity/Vol] 29 U/L 13-56 [facility] Cholesterol in HDL [Mass/Vol] 56 mg/dL >40 [facility] Comment on above: The drugs N-Acetylcy steine and Metamizole may falsely depress this assay. Reference Range HDL <40 mg/dL Low HDL Cholesterol HDL >or= 60 mg/dL High HDL Cholesterol Cholesterol in LDL [Mass/Vol] 151 mg/dL 0-130 [facility] CO2 [Moles/Vol] 31.0 mmol/L 21.0-32.0 [facility] Globulin (S) [Mass/Vol] 3.8 g/dL 2.2-4.2 [facility] Magnesium [Mass/Vol] 2.3 mg/dL 1.6-2.6 [facility] Urea nitrogen/Creatinine [Mass ratio] 12.9 mg/mg 10-20 [facility] No Panel InformationOrdered By: Vikas King on 01-19-2024 Digoxin Level 1.32 ng/mL 0.80-2.00 [facility] Estimated GFR (MDRD) Amer 48 mL/min >60 [facility] Comment on above: GFR Calc Estimated GFR (MDRD) Non-Af Amer 39 mL/min >60 [facility] Comment on above: Non- GFR Calc VLDL Cholesterol 44 mg/dL 5-40 [facility] Serum or plasma calcium nicholas urement (mass/volume)Ordered By: Vikas King on 01-19-2024 Calcium [Mass/Vol] 9.8 mg/dL 8.5-10.1 [facility] Serum or plasma creatinine m easurement (mass/volume)Ordered By: Vikas King on 01-19-2024 Creatinine [Mass/Vol] 1.39 mg/dL 0.55-1.[address] [facility] Comment on above: The validity of the calculated GFR & GFRAA in patients over 70 years has not been determined. Clinical correlation is essential. Serum or plasma urea nitroge n measurement (mass/volume)Ordered By: Vikas King on 01-19-2024 Urea nitrogen [Mass/Vol] 18 mg/dL 7-18 [facility] Thin prep Papanicolaou smear with manual screeningOrdered By: Vikascain King on 01-19-2024 Thin prep Papanicolaou smear with manual screening 3.7 g/dL 3.2-5.0 [facility] Thin prep Papanicolaou smear with manual screening 23 U/L 15-37 [facility] Thin prep Papanicolaou smear with manual screening 5 5-15 [facility] CNOVon 12-16-2023 CNOV Office Visit ([facility] ) HILL GRANT ([id number]) 1950 F Date Time Provider Department 12/16/23 12:15 PM HANS WANG [facility] During your visit today, we recorded the following information about you: Pulse Blood pressure Weight 75/minute 140/85 100.8 kg Hans Wang MD 12/16/2023 2:18 PM Signed [facility] [place] Candido Rodriguez Department of Cardiovascular Medicine SECTION OF CLINICAL CARDIOLOGY OUTPATIENT VISIT DATE December 16, 2023 OUTPATIENT VISIT TYPE NEW PRIMARY CARE PHYSICIAN: Temitope Summers MD ([facility]) [address] [place] [id number] REFERRING PHYSICIAN: Claudia Ma [id number] [facility] [id number] CHIEF COMPLAINT: No chief complaint on file. HISTORY OF PRESENT ILLNESS: Ms. Rafi Lee is a 73 year old female [...] lightheadedness or syncope. NURSING INTAKE: Ms. Rafi Lee is a 73 year old female from [place], [place] here today for cardiovascular evaluation related to pre-operative clearance. She is undergoing evaluation by Dr. Ma for ascending aorta aneurysm. Hill has a significant medical history of Ascending [...] rates. She does state she is always dizzy. Bilateral lower extremity swelling. They are cold [...] Aortic aneurysm (HCC) Dr. Zuleta is pt's endocrinology physician Chronic obstructive pulmonary disease (COPD) ([facility]) Gout Hypertension Snoring Stroke (HCC) TIA-unsure of when PAST SURGICAL HISTORY Procedure Laterality Date COLONOSCOPY FLX DX W/COLLJ SPEC WHEN PFRMD 01/2005 COLONOSCOPY FLX DX W/COLLJ SPEC WHEN PFRMD 08/25/2013 Colonoscopy COLONOSCOPY FLX DX W/COLLJ SPEC WHEN PFRMD 08/16/2018 Colonoscopy ESOPHAGOGASTRODUODENO SCOPY TRANSORAL DIAGNOSTIC 08/25/2013 EGD ESOPHAGOGASTRODUODENO SCOPY TRANSORAL DIAGNOSTIC 12/01/13 EGD ESOPHAGOGASTRODUODENO SCOPY TRANSORAL DIAGNOSTIC 10/11/2018 repeat 2 month ESOPHAGOGASTRODUODENO SCOPY TRANSORAL DIAGNOSTIC 12/16/2018 EGD SOCIAL HISTORY Social [...] tablet by mouth once daily. allopurinol (ZYLOPRIM) 1 (more content not included)... Normal [facility] ECG COMPLETEon 12-16-2023 ECG COMPLETE Ventricular Rate : 111 BPM QRS Duration : 100 ms Q-T Interval : 296 ms QTC Calculation(Bazett) : 402 ms Calculated R [place] : -17 degrees Calculated T [place] : -167 degrees ATRIAL FIBRILLATION WITH RAPID VENTRICULAR RESPONSE NONSPECIFIC ST AND T WAVE ABNORMALITY ABNORMAL ECG Confirmed by COCO FIGUEREDO MD ([id number]) on 12/21/2023 11:46:21 AM NAME : HILL GRANT PID : [id number] : 1950 Gender : Female Race : ORD : [id number] Procedure Date : Dec 16 2023 11:41:06 Edit Date : Dec 21 2023 11:46:25 Diagnosis: ATRIAL FIBRILLATION WITH RAPID VENTRICULAR RESPONSE NONSPECIFIC ST AND T WAVE ABNORMALITY ABNORMAL ECG Confirmed by COCO FIGUEREDO MD ([id number]) on 12/21/2023 11:46:21 AM Test Reason : Location : 314 : [facility] Overread By : COCO FIGUEREDO MD Edited By : COCO FIGUEREDO MD Referred By : HANS WANG Acquired by : ESTRELLA KRUEGER [facility] Absolute lymphocyte countOrd ered By: Vikas King on 12-09-2023 Lymphocytes Auto (Unsp spec) [#/Vol] 2.35 10*3/uL 0.83-4.51 [facility] Activated partial thrombopla stin time (aPTT) in platelet poor plasma by coagulation aOrdered By: Vikas King on 12-09-2023 aPTT Coag (PPP) [Time] 28.9 s 24.1-36.2 [facility] Automated lymphocyte count a s percentage of total leukocytesOrdered By: Vikas King on 12-09-2023 Lymphocytes/100 WBC Auto (Unsp spec) 28.3 % 19-41 [facility] Basophil percentageOrdered B y: Vikas King on 12-09-2023 Basophils/100 WBC (Bld) 0.4 % 0-1 [facility] Chloride [Moles/Vol] 106 mmol/L 98-107 [facility] Eosinophils/100 WBC (Bld) 1.3 % 0-5 [facility] Glucose [Mass/Vol] 117 mg/dL 74-106 [facility] Comment on above: Fasting Glucose resu lt from 100 to 125 mg/dL suggests IMPAIRED HOMEOSTASIS per A.D.A. criteria. Hemoglobin (Bld) [Mass/Vol] 12.2 g/dL 12.0-15.0 [facility] Monocytes/100 WBC (Bld) 8.1 % 0-10 [facility] Neutrophils (Bld) [#/Vol] 5.1 10*3/uL 2.0-7.7 [facility] Neutrophils/100 WBC (Bld) 61.7 % 47-70 [facility] Potassium [Moles/Vol] 3.8 mmol/L 3.5-5.[address] [facility] Sodium [Moles/Vol] 140 mmol/L 136-145 [facility] WBC (Bld) [#/Vol] 8.3 10*3/uL 4.4-11.0 [facility] Determination of erythrocyte mean corpuscular volume (MCV)Ordered By: Vikas King on 12-09-2023 MCV (RBC) [Entitic vol] 97.6 fL 81-99 [facility] Erythrocyte distribution wid th ratioOrdered By: Vikascain King on 12-09-2023 Erythrocyte distribution width (RBC) [Ratio] 13.1 % 11.6-14.6 [facility] Erythrocyte distribution wid th standard deviationOrdered By: Vikascain King on 12-09-2023 Erythrocyte distribution width (RBC) [Entitic vol] 46.5 fL 35.1-43.9 [facility] Hematocrit Auto (Bld) [Volum e fraction]Ordered By: Vikas King on 12-09-2023 Hematocrit (Bld) [Volume fraction] 40.7 % 37-47 [facility] Immature granulocytes/100 WB C Auto (Bld)Ordered By: Vikas King on 12-09-2023 Immature granulocytes/100 WBC (Bld) 0.200 % 0.0-0.9 [facility] Comment on above: IG% - Immature Granu locytes (promyelocytes, myelocytes and metamyelocytes) > 1% indicates that a LEFT SHIFT is Present. Laboratory - Chemistry and C hemistry - challengeOrdered By: Vikas King on 12-09-2023 CO2 [Moles/Vol] 30.0 mmol/L 21.0-32.0 [facility] Urea nitrogen/Creatinine [Mass ratio] 16.1 mg/mg 10-20 [facility] Laboratory - CoagulationOrde red By: Vikas King on 12-09-2023 INR Coag (Bld) [Relative time] 1.2 {INR} [facility] PT Coag (PPP) [Time] 15.4 s 11.7-14.9 [facility] Laboratory - Hematology and Cell countsOrdered By: Vikas King on 12-09-2023 MCH (RBC) [Entitic mass] 29.3 pg 27.0-32.0 [facility] MCHC (RBC) [Mass/Vol] 30.0 g/dL 32-[address] [facility] Nucleated RBC/100 WBC (Bld) [Ratio] 0 % 0-5 [facility] Platelet mean volume (Bld) [Entitic vol] 11.8 fL 6.2-12.0 [facility] Platelets (Bld) [#/Vol] 269 10*3/uL 150-450 [facility] No Panel InformationOrdered By: Vikas King on 12-09-2023 Estimated GFR (MDRD) Amer 48 mL/min >60 [facility] Comment on above: GFR Calc Estimated GFR (MDRD) Non-Af Amer 40 mL/min >60 [facility] Comment on above: Non- GFR Calc RBC Auto (Bld) [#/Vol]Ordere d By: Vikas King on 12-09-2023 RBC (Bld) [#/Vol] 4.17 10*6/uL 4.2-5.4 [facility] Serum or plasma calcium nicholas urement (mass/volume)Ordered By: Vikas King on 12-09-2023 Calcium [Mass/Vol] 9.5 mg/dL 8.5-10.1 [facility] Serum or plasma creatinine m easurement (mass/volume)Ordered By: Vikas King on 12-09-2023 Creatinine [Mass/Vol] 1.37 mg/dL 0.55-1.[address] [facility] Comment on above: The validity of the calculated GFR & GFRAA in patients over 70 years has not been determined. Clinical correlation is essential. Serum or plasma urea nitroge n measurement (mass/volume)Ordered By: Vikas King on 12-09-2023 Urea nitrogen [Mass/Vol] 22 mg/dL 7-18 [facility] Thin prep Papanicolaou smear with manual screeningOrdered By: Vikas King on 12-09-2023 Thin prep Papanicolaou smear with manual screening 4 5-15 [facility] CNPNon 11-18-2023 CNPN Telephone ([facility]) HILL GRANT F ([id number]) 1950 F Date Time Provider Department 11/18/23 CLAUDIA MA [facility] During your visit today, we recorded the following information about you: Celena Guerra 11/20/2023 11:10 AM Signed 11/18/23 - recv'd referral to Dr. Ma. Recvd recs AND ins. Celena Guerra 11/20/2023 11:10 AM Signed 11/20/23 - recvd images pushed over Devin Skelton, STEFANIA 11/24/2023 9:[address] Ma has reviewed the available records and is recommending patient be evaluated by Cardiology. Contacted patient to discuss, left brief voicemail requesting call back. STEFANIA Pereira Lindsay, STEFANIA 11/27/2023 10:37 AM Signed Scheduling plan: Evaluation only with Cardiology. Patient called back. She reports she would like to schedule the evaluation Dr. Ma has recommended and that her schedule is flexible. Reviewed process. Advised her to call with any questions in the interim. STEFANIA Pereira Lindsay, RN 11/27/2023 10:38 AM Signed Addended by: DEVIN SKELTON on: 11/27/2023 10:38 AM Modules accepted: Orders Keke Palacios 12/04/2023 10:34 AM Addendum Left message to return call. Sent information via [employer]. Keke Palacios 12/04/2023 10:35 AM Signed Confirmed appointment with Mrs. Lee. Correction sent schedule via [employer]. Allergies As of Date: 11/18/2023 Noted Allergy Reaction PENICILLIN G 02/17/2006 Date Reviewed: 10/18/2023 Reviewed by: Zhanna Townsend LPN - Fully Assessed Reason for Visit: Insurance Inquiry [[id number]] Referral Information [[id number]] Request Outside Medical Records [[id number]] Primary Visit Diagnosis:Pre-operati ve cardiovascular examination [Z01.810] Other Visit Diagnoses:Aneurysm of ascending aorta without rupture (HCC) [I71.21] Atrial fibrillation, unspecified type (HCC) [I48.91] Order(s):CONSULT TO CARDIOLOGY [9004] Order #: [id number]: 1 FUTURE Prescriptions as of 12/04/2023 - allopurinol (ZYLOPRIM) 100 mg tablet Take 1 tablet by mouth every afternoon. - amiodarone (PACERONE) 200 mg tablet Take 1 tablet by mouth every afternoon. - amLODIPine (NORVASC) 5 mg tablet Take 1 tablet by mouth every afternoon. - ELIQUIS 5 mg tab(s) take 1 5 MG tablet orally twice a day - ezppevczdy-mcejbvfg-m ormoterol (BREZTRI) 160-9-4.8 mcg/actuation HFA aerosol inhaler Inhale as instructed. - FARXIGA 10 mg tablet Take 1 tablet by mouth every afternoon. - furosemide (LASIX) 40 mg tablet Take 1.5 tablets by mouth every afternoon. - potassium chloride 20 mEq TbER Take 1 tablet by mouth every 12 hours. - azithromycin (ZITHROMAX Z-YISEL) 250 mg tablet Take 2 tablets day one, then 1 tablet daily days 2 through 5. - Omeprazole 40 mg capsule Take 1 capsule by mouth once daily. - aspirin, enteric coated (ASPIRIN, ENTERIC COATED) 81 mg EC tablet Take 81 mg by mouth once daily. - metoprolol tartrate, short acting, 25 mg tablet Take 25 mg by mouth once daily. - LISINOPRIL 40 MG TAB Take one(1) tablet daily. - Multivitamin (MULTIPLE VITAMIN) ORAL Tab Take one(1) tablet daily. Problem List As Of Date 11/18/2023 Noted Resolved BENIGN HYPERTENSION [I10] 05/17/2007 ESOPHAGEAL REFLUX [K21.9] 05/17/2007 Gastroesophageal reflux disease [K21.9] 07/26/2018 Dysphagia [R13.10] 07/26/2018 Family history of colon cancer [Z80.0] 07/26/2018 Acute gastric ulcer [K25.3] 10/11/2018 Encounter Status:Closed by CELENA GUERRA on 11/19/23 [facility] Absolute lymphocyte countOrd ered By: Carol Humphries on 10-27-2023 Lymphocytes Auto (Unsp spec) [#/Vol] 2.09 10*3/uL 0.83-4.51 [facility] Basophil percentageOrdered B y: Carol Humphries on 10-27-2023 Basophils/100 WBC (Bld) 0.3 % 0-1 [facility] Eosinophils/100 WBC (Bld) 1.6 % 0-5 [facility] Neutrophils (Bld) [#/Vol] 4.1 10*3/uL 2.0-7.7 [facility] Neutrophils/100 WBC (Bld) 60.2 % 47-70 [facility] WBC (Bld) [#/Vol] 6.8 10*3/uL 4.4-11.0 [facility] Basophil percentageOrdered B y: Fam Jasso on 10-27-2023 Chloride [Moles/Vol] 105 mmol/L 98-107 [facility] Glucose [Mass/Vol] 107 mg/dL 74-106 [facility] Comment on above: Fasting Glucose resu lt from 100 to 125 mg/dL suggests IMPAIRED HOMEOSTASIS per A.D.A. criteria. Potassium [Moles/Vol] 3.7 mmol/L 3.5-5.[address] [facility] Sodium [Moles/Vol] 140 mmol/L 136-145 [facility] Blood erythrocytes count (nu mber/volume)Ordered By: Carol Humphries on 10-27-2023 RBC (Bld) [#/Vol] 4.47 10*6/uL 4.2-5.4 [facility] Blood hemoglobin measurement (mass/volume)Ordered By: Carol Humphries on 10-27-2023 Hemoglobin (Bld) [Mass/Vol] 13.6 g/dL 12.0-15.0 [facility] Blood lymphocytes/100 leukoc ytesOrdered By: Carol Humphries on 10-27-2023 Lymphocytes/100 WBC (Bld) 30.6 % 19-41 [facility] Blood monocytes/100 leukocyt esOrdered By: Carol Humphries on 10-27-2023 Monocytes/100 WBC (Bld) 7.0 % 0-10 [facility] Blood platelet mean volumeOr dered By: Carol Humphries on 10-27-2023 Platelet mean volume (Bld) [Entitic vol] 11.4 fL 6.2-12.0 [facility] Determination of erythrocyte mean corpuscular volume (MCV)Ordered By: Carol Humphries on 10-27-2023 MCV (RBC) [Entitic vol] 98.4 fL 81-99 [facility] Hematocrit Auto (Bld) [Volum e fraction]Ordered By: Carol Humphries on 10-27-2023 Hematocrit (Bld) [Volume fraction] 44.0 % 37-47 [facility] Laboratory - Chemistry and C hemistry - challengeOrdered By: Fam Jasso on 10-27-2023 CO2 [Moles/Vol] 29.0 mmol/L 21.0-32.0 [facility] Urea nitrogen/Creatinine [Mass ratio] 13.4 mg/mg 10-20 [facility] Laboratory - Hematology and Cell countsOrdered By: Carol Humphries on 10-27-2023 Erythrocyte distribution width (RBC) [Entitic vol] 46.4 fL 35.1-43.9 [facility] Erythrocyte distribution width (RBC) [Ratio] 12.8 % 11.6-14.6 [facility] Immature granulocytes/100 WBC (Bld) 0.300 % 0.0-0.9 [facility] Comment on above: IG% - Immature Granu locytes (promyelocytes, myelocytes and metamyelocytes) > 1% indicates that a LEFT SHIFT is Present. MCH (RBC) [Entitic mass] 30.4 pg 27.0-32.0 [facility] Nucleated RBC/100 WBC (Bld) [Ratio] 0 % 0-5 [facility] MCHC Auto (RBC) [Mass/Vol]Or dered By: Carol Humphries on 10-27-2023 MCHC (RBC) [Mass/Vol] 30.9 g/dL 32-[address] [facility] No Panel InformationOrdered By: Fam Jasso on 10-27-2023 Estimated GFR (MDRD) Amer 44 mL/min >60 [facility] Comment on above: GFR Calc Estimated GFR (MDRD) Non-Af Amer 36 mL/min >60 [facility] Comment on above: Non- GFR Calc Platelets bldOrdered By: Hector Humphries on 10-27-2023 Platelets (Bld) [#/Vol] 283 10*3/uL 150-450 [facility] Serum or plasma calcium nicholas urement (mass/volume)Ordered By: Fam Jasso on 10-27-2023 Calcium [Mass/Vol] 10.2 mg/dL 8.5-10.1 [facility] Serum or plasma creatinine m easurement (mass/volume)Ordered By: Fam Jasso on 10-27-2023 Creatinine [Mass/Vol] 1.49 mg/dL 0.55-1.[address] [facility] Comment on above: The validity of the calculated GFR & GFRAA in patients over 70 years has not been determined. Clinical correlation is essential. Serum or plasma urea nitroge n measurement (mass/volume)Ordered By: Fam Jasso on 10-27-2023 Urea nitrogen [Mass/Vol] 20 mg/dL 7-18 [facility] Thin prep Papanicolaou smear with manual screeningOrdered By: Fam Jasso on 10-27-2023 Thin prep Papanicolaou smear with manual screening 6 5-15 [facility] CNOVon 10-18-2023 CNOV Office Visit ([facility] ) HILL GRANT ([id number]) 1950 F Date Time Provider Department 10/18/23 11:00 AM MELISSA GLASER [facility] During your visit today, we recorded the following information about you: Temperature Pulse Respiration Blood pressure 98.6 degrees 126/minute 18/minute 118/80 Weight 104.2 kg Melissa Glaser APRN.CNP 10/18/2023 11:39 AM Signed Subjective HPI HPI Hill Lee is a 73 year old female [...] Aortic aneurysm (HCC) Dr. Zuleta is pt's endocrinology physician Chronic obstructive pulmonary disease (COPD) ([facility]) Gout Hypertension Snoring Stroke (HCC) TIA-unsure of when PAST SURGICAL HISTORY Procedure Laterality Date COLONOSCOPY FLX DX W/COLLJ SPEC WHEN PFRMD 01/2005 COLONOSCOPY FLX DX W/COLLJ SPEC WHEN PFRMD 08/25/2013 Colonoscopy COLONOSCOPY FLX DX W/COLLJ SPEC WHEN PFRMD 08/16/2018 Colonoscopy ESOPHAGOGASTRODUODENO SCOPY TRANSORAL DIAGNOSTIC 08/25/2013 EGD ESOPHAGOGASTRODUODENO SCOPY TRANSORAL DIAGNOSTIC 12/01/13 EGD ESOPHAGOGASTRODUODENO SCOPY TRANSORAL DIAGNOSTIC 10/11/2018 repeat 2 month ESOPHAGOGASTRODUODENO SCOPY TRANSORAL DIAGNOSTIC 12/16/2018 EGD ALLERGIES Penicillin G MEDICATIONS allopurinol (ZYLOPRIM) 100 mg tablet Take 1 tablet by mouth every afternoon. amiodarone (PACERONE) 200 mg tablet Take 1 tablet by mouth every afternoon. amLODIPine (NORVASC) 5 mg tablet Take 1 tablet by mouth every afternoon. ELIQUIS 5 mg tab(s) take 1 5 MG tablet orally twice a day rxdfguxncq-yqeztjls-b ormoterol (BREZTRI) 160-9-4.8 mcg/actuation HFA aerosol inhaler Inhale [...] worsen. - DOXYCYCLINE HYCLATE 100 MG TABLET Melissa Glaser APRN.RN DIALYSIS Allergies As of Date: 10/18/2023 Noted Allergy Reaction PENICILLIN G 02/17/2006 Date Reviewed: 10/18/2023 Reviewed by: Zhanna Townsend LPN - Fully Assessed Reason for Visit: Cough [28] Cmt: Cough and runny nose, SOB x 2 days Primary Visit Diagnosis:Si (more content not included)... Normal [facility] Absolute lymphocyte countOrd ered By: Fam Jasso on 07-30-2023 Lymphocytes Auto (Unsp spec) [#/Vol] 1.64 10*3/uL 0.83-4.51 [facility] Basophil percentageOrdered B y: Fam Jasso on 07-30-2023 Basophils/100 WBC (Bld) 0.4 % 0-1 [facility] Bilirubin [Mass/Vol] 0.50 mg/dL 0.20-1.00 [facility] Comment on above: For patients on eltr ombopag therapy, use of Dimension [place] TBIL is not recommended. Chloride [Moles/Vol] 102 mmol/L 98-107 [facility] Eosinophils/100 WBC (Bld) 1.8 % 0-5 [facility] Glucose [Mass/Vol] 112 mg/dL 74-106 [facility] Comment on above: Fasting Glucose resu lt from 100 to 125 mg/dL suggests IMPAIRED HOMEOSTASIS per A.D.A. criteria. Neutrophils (Bld) [#/Vol] 3.4 10*3/uL 2.0-7.7 [facility] Neutrophils/100 WBC (Bld) 61.6 % 47-70 [facility] Potassium [Moles/Vol] 3.0 mmol/L 3.5-5.[address] [facility] Protein [Mass/Vol] 7.0 g/dL 6.4-8.2 [facility] Sodium [Moles/Vol] 140 mmol/L 136-145 [facility] WBC (Bld) [#/Vol] 5.6 10*3/uL 4.4-11.0 [facility] Blood erythrocytes count (nu mber/volume)Ordered By: Fam Jasso on 07-30-2023 RBC (Bld) [#/Vol] 3.58 10*6/uL 4.2-5.4 [facility] Blood hemoglobin measurement (mass/volume)Ordered By: Fam Jasso on 07-30-2023 Hemoglobin (Bld) [Mass/Vol] 10.8 g/dL 12.0-15.0 [facility] Blood lymphocytes/100 leukoc ytesOrdered By: Fam Jasso on 07-30-2023 Lymphocytes/100 WBC (Bld) 29.4 % 19-41 [facility] Blood monocytes/100 leukocyt esOrdered By: Fam Jasso on 07-30-2023 Monocytes/100 WBC (Bld) 6.6 % 0-10 [facility] Blood platelet mean volumeOr dered By: Fam Jasso on 07-30-2023 Platelet mean volume (Bld) [Entitic vol] 12.0 fL 6.2-12.0 [facility] Determination of erythrocyte mean corpuscular volume (MCV)Ordered By: Fam Jasso on 07-30-2023 MCV (RBC) [Entitic vol] 97.8 fL 81-99 [facility] [facility] Hematocrit Auto (Bld) [Volum e fraction]Ordered By: Fam Jasso on 07-30-2023 Hematocrit (Bld) [Volume fraction] 35.0 % 37-47 [facility] Iron measurement (mass/mass) Ordered By: Fam Jasso on 07-30-2023 Iron (Unsp spec) [Mass/Mass] 57 ug/dL 50-170 [facility] Laboratory - Chemistry and C hemistry - challengeOrdered By: Fam Jasso on 07-30-2023 ALP [Catalytic activity/Vol] 57 U/L 45-117 [facility] ALT [Catalytic activity/Vol] 40 U/L 13-56 [facility] CO2 [Moles/Vol] 32.0 mmol/L 21.0-32.0 [facility] Globulin (S) [Mass/Vol] 3.5 g/dL 2.2-4.2 [facility] Natriuretic peptide B (Bld) [Mass/Vol] 507.8 pg/mL 0-100 [facility] Urea nitrogen/Creatinine [Mass ratio] 18.0 mg/mg 10-20 [facility] Laboratory - Hematology and Cell countsOrdered By: Fam Jasso on 07-30-2023 Erythrocyte distribution width (RBC) [Entitic vol] 52.0 fL 35.1-43.9 [facility] Erythrocyte distribution width (RBC) [Ratio] 14.7 % 11.6-14.6 [facility] Immature granulocytes/100 WBC (Bld) 0.200 % 0.0-0.9 [facility] Comment on above: IG% - Immature Granu locytes (promyelocytes, myelocytes and metamyelocytes) > 1% indicates that a LEFT SHIFT is Present. MCH (RBC) [Entitic mass] 30.2 pg 27.0-32.0 [facility] Nucleated RBC/100 WBC (Bld) [Ratio] 0 % 0-5 [facility] MCHC Auto (RBC) [Mass/Vol]Or dered By: Fam Jasso on 07-30-2023 MCHC (RBC) [Mass/Vol] 30.9 g/dL 32-[address] [facility] No Panel InformationOrdered By: Fam Jasso on 07-30-2023 Estimated GFR (MDRD) Amer 52 mL/min >60 [facility] Comment on above: GFR Calc Estimated GFR (MDRD) Non-Af Amer 43 mL/min >60 [facility] Comment on above: Non- GFR Calc Total Iron Binding Capacity 337 ug/dL 250-450 [facility] Platelets bldOrdered By: Yo Jasso on 07-30-2023 Platelets (Bld) [#/Vol] 170 10*3/uL 150-450 [facility] Serum or plasma albumin nicholas urement (mass/volume)Ordered By: Fam Jasso on 07-30-2023 Albumin [Mass/Vol] 3.5 g/dL 3.2-5.0 [facility] Serum or plasma albumin/glob ulin mass ratioOrdered By: Fam Jasso on 07-30-2023 Albumin/Globulin [Mass ratio] 1.0 {ratio} 0.9-2.4 [facility] Serum or plasma calcium nicholas urement (mass/volume)Ordered By: Fam Jasso on 07-30-2023 Calcium [Mass/Vol] 8.9 mg/dL 8.5-10.1 [facility] Serum or plasma creatinine m easurement (mass/volume)Ordered By: Fam Jasso on 07-30-2023 Creatinine [Mass/Vol] 1.28 mg/dL 0.55-1.[address] [facility] Comment on above: The validity of the calculated GFR & GFRAA in patients over 70 years has not been determined. Clinical correlation is essential. Serum or plasma ferritin geovanna surement (mass/volume)Ordered By: Fam Jasso on 07-30-2023 Ferritin [Mass/Vol] 32 ng/mL 8-252 [facility] Serum or plasma urea nitroge n measurement (mass/volume)Ordered By: Fam Jasso on 07-30-2023 Urea nitrogen [Mass/Vol] 23 mg/dL 7-18 [facility] Thin prep Papanicolaou smear with manual screeningOrdered By: Fam Jasso on 07-30-2023 Thin prep Papanicolaou smear with manual screening 33 U/L 15-37 [facility] Thin prep Papanicolaou smear with manual screening 6 5-15 [facility] Basophil percentageOrdered B y: Carol Humphries on 07-06-2023 Chloride [Moles/Vol] 104 mmol/L 98-107 [facility] Glucose [Mass/Vol] 99 mg/dL 74-106 [facility] Potassium [Moles/Vol] 4.7 mmol/L 3.5-5.[address] [facility] Sodium [Moles/Vol] 137 mmol/L 136-145 [facility] Laboratory - Chemistry and C hemistry - challengeOrdered By: Carol Humphries on 07-06-2023 CO2 [Moles/Vol] 28.0 mmol/L 21.0-32.0 [facility] Urea nitrogen/Creatinine [Mass ratio] 28.6 mg/mg 08-14 [facility] No Panel InformationOrdered By: Carol Humphries on 07-06-2023 Estimated GFR (MDRD) Amer 34 mL/min >60 [facility] Comment on above: GFR Calc Estimated GFR (MDRD) Non-Af Amer 28 mL/min >60 [facility] Comment on above: Non- GFR Calc Serum or plasma calcium nicholas urement (mass/volume)Ordered By: Carol Humphries on 07-06-2023 Calcium [Mass/Vol] 10.1 mg/dL 8.5-10.1 [facility] Serum or plasma creatinine m easurement (mass/volume)Ordered By: Carol Humphries on 07-06-2023 Creatinine [Mass/Vol] 1.85 mg/dL 0.55-1.[address] [facility] Comment on above: The validity of the calculated GFR & GFRAA in patients over 70 years has not been determined. Clinical correlation is essential. Serum or plasma urea nitroge n measurement (mass/volume)Ordered By: Carol Humphries on 07-06-2023 Urea nitrogen [Mass/Vol] 53 mg/dL 7-18 [facility] Thin prep Papanicolaou smear with manual screeningOrdered By: Carol Humphries on 07-06-2023 Thin prep Papanicolaou smear with manual screening 5 5-15 [facility] Basophil percentageOrdered B y: Carol Humphries on 06-10-2023 Chloride [Moles/Vol] 102 mmol/L 98-107 [facility] Glucose [Mass/Vol] 100 mg/dL 74-106 [facility] Comment on above: Fasting Glucose resu lt from 100 to 125 mg/dL suggests IMPAIRED HOMEOSTASIS per A.D.A. criteria. Potassium [Moles/Vol] 3.1 mmol/L 3.5-5.[address] [facility] Sodium [Moles/Vol] 139 mmol/L 136-145 [facility] Laboratory - Chemistry and C hemistry - challengeOrdered By: Carol Humphries on 06-10-2023 CO2 [Moles/Vol] 31.0 mmol/L 21.0-32.0 [facility] Urea nitrogen/Creatinine [Mass ratio] 13.0 mg/mg 08-14 [facility] No Panel InformationOrdered By: Carol Humphries on 06-10-2023 Estimated GFR (MDRD) Amer 70 mL/min >60 [facility] Comment on above: GFR Calc Estimated GFR (MDRD) Non-Af Amer 58 mL/min >60 [facility] Comment on above: Non- GFR Calc Serum or plasma calcium nicholas urement (mass/volume)Ordered By: Carol Humphries on 06-10-2023 Calcium [Mass/Vol] 9.4 mg/dL 8.5-10.1 [facility] Serum or plasma creatinine m easurement (mass/volume)Ordered By: Carol Humphries on 06-10-2023 Creatinine [Mass/Vol] 1.00 mg/dL 0.55-1.[address] [facility] Comment on above: The validity of the calculated GFR & GFRAA in patients over 70 years has not been determined. Clinical correlation is essential. Serum or plasma urea nitroge n measurement (mass/volume)Ordered By: Carol Humphries on 06-10-2023 Urea nitrogen [Mass/Vol] 13 mg/dL 7-18 [facility] Thin prep Papanicolaou smear with manual screeningOrdered By: Carol Humphries on 06-10-2023 Thin prep Papanicolaou smear with manual screening 6 5-15 [facility] Basophil percentageOrdered B y: Patrick Morris on 05-12-2023 Chloride [Moles/Vol] 103 mmol/L 98-107 [facility] Glucose [Mass/Vol] 113 mg/dL 74-106 [facility] Comment on above: Fasting Glucose resu lt from 100 to 125 mg/dL suggests IMPAIRED HOMEOSTASIS per A.D.A. criteria. Potassium [Moles/Vol] 4.3 mmol/L 3.5-5.[address] [facility] Sodium [Moles/Vol] 137 mmol/L 136-145 [facility] Laboratory - Chemistry and C hemistry - challengeOrdered By: Patrick Morris on 05-12-2023 CO2 [Moles/Vol] 28.0 mmol/L 21.0-32.0 [facility] Natriuretic peptide B (Bld) [Mass/Vol] 327.4 pg/mL 0-100 [facility] Urea nitrogen/Creatinine [Mass ratio] 14.8 mg/mg 10-20 [facility] No Panel InformationOrdered By: Patrick Morris on 05-12-2023 Estimated GFR (MDRD) Amer 64 mL/min >60 [facility] Comment on above: GFR Calc Estimated GFR (MDRD) Non-Af Amer 53 mL/min >60 [facility] Comment on above: Non- GFR Calc Serum or plasma calcium nicholas urement (mass/volume)Ordered By: Patrick Morris on 05-12-2023 Calcium [Mass/Vol] 9.6 mg/dL 8.5-10.1 [facility] Serum or plasma creatinine m easurement (mass/volume)Ordered By: Patrick Morris on 05-12-2023 Creatinine [Mass/Vol] 1.08 mg/dL 0.55-1.[address] [facility] Comment on above: The validity of the calculated GFR & GFRAA in patients over 70 years has not been determined. Clinical correlation is essential. Serum or plasma urea nitroge n measurement (mass/volume)Ordered By: Patrick Morris on 05-12-2023 Urea nitrogen [Mass/Vol] 16 mg/dL 05-12 [facility] Thin prep Papanicolaou smear with manual screeningOrdered By: Patrick Morris on 05-12-2023 Thin prep Papanicolaou smear with manual screening 6 5-15 [facility] Basophil percentageOrdered B y: Carol Humphries on 05-04-2023 Chloride [Moles/Vol] 104 mmol/L 98-107 [facility] Glucose [Mass/Vol] 113 mg/dL 74-106 [facility] Comment on above: Fasting Glucose resu lt from 100 to 125 mg/dL suggests IMPAIRED HOMEOSTASIS per A.D.A. criteria. Potassium [Moles/Vol] 3.9 mmol/L 3.5-5.[address] [facility] Sodium [Moles/Vol] 138 mmol/L 136-145 [facility] Laboratory - Chemistry and C hemistry - challengeOrdered By: Carol Humphries on 05-04-2023 CO2 [Moles/Vol] 32.0 mmol/L 21.0-32.0 [facility] Urea nitrogen/Creatinine [Mass ratio] 12.3 mg/mg 10-20 [facility] No Panel InformationOrdered By: Carol Humphries on 05-04-2023 Estimated Creatinine Clearance Calc 42.92 ml/min [facility] Estimated GFR (MDRD) Amer 55 mL/min >60 [facility] Comment on above: GFR Calc Estimated GFR (MDRD) Non-Af Amer 46 mL/min >60 [facility] Comment on above: Non- GFR Calc Serum or plasma calcium nicholas urement (mass/volume)Ordered By: Carol Humphries on 05-04-2023 Calcium [Mass/Vol] 9.8 mg/dL 8.5-10.1 [facility] Serum or plasma creatinine m easurement (mass/volume)Ordered By: Carol Humphries on 05-04-2023 Creatinine [Mass/Vol] 1.22 mg/dL 0.55-1.[address] [facility] Comment on above: The validity of the calculated GFR & GFRAA in patients over 70 years has not been determined. Clinical correlation is essential. Serum or plasma urea nitroge n measurement (mass/volume)Ordered By: Carol Humphries on 05-04-2023 Urea nitrogen [Mass/Vol] 15 mg/dL 7-18 [facility] Thin prep Papanicolaou smear with manual screeningOrdered By: Carol Humphries on 05-04-2023 Thin prep Papanicolaou smear with manual screening 2 5-15 [facility] Absolute lymphocyte countOrd ered By: Carol Humphries on 04-14-2023 Lymphocytes Auto (Unsp spec) [#/Vol] 2.72 10*3/uL 0.83-4.51 [facility] Basophil percentageOrdered B y: Carol Humphries on 04-14-2023 Basophils/100 WBC (Bld) 0.4 % 0-1 [facility] Chloride [Moles/Vol] 105 mmol/L 98-107 [facility] Eosinophils/100 WBC (Bld) 1.2 % 0-5 [facility] Glucose [Mass/Vol] 116 mg/dL 74-106 [facility] Comment on above: Fasting Glucose resu lt from 100 to 125 mg/dL suggests IMPAIRED HOMEOSTASIS per A.D.A. criteria. Neutrophils (Bld) [#/Vol] 6.3 10*3/uL 2.0-7.7 [facility] Neutrophils/100 WBC (Bld) 64.5 % 47-70 [facility] Potassium [Moles/Vol] 3.8 mmol/L 3.5-5.[address] [facility] Sodium [Moles/Vol] 139 mmol/L 136-145 [facility] WBC (Bld) [#/Vol] 9.8 10*3/uL 4.4-11.0 [facility] Blood erythrocytes count (nu mber/volume)Ordered By: Carol Humphries on 04-14-2023 RBC (Bld) [#/Vol] 4.16 10*6/uL 4.2-5.4 [facility] Blood hemoglobin measurement (mass/volume)Ordered By: Carol Humphries on 04-14-2023 Hemoglobin (Bld) [Mass/Vol] 12.5 g/dL 12.0-15.0 [facility] Blood lymphocytes/100 leukoc ytesOrdered By: Carol Humphries on 04-14-2023 Lymphocytes/100 WBC (Bld) 27.9 % 19-41 [facility] Blood monocytes/100 leukocyt esOrdered By: Carol Humphries on 04-14-2023 Monocytes/100 WBC (Bld) 5.6 % 0-10 [facility] Blood platelet mean volumeOr dered By: Carol Humphries on 04-14-2023 Platelet mean volume (Bld) [Entitic vol] 11.6 fL 6.2-12.0 [facility] Determination of erythrocyte mean corpuscular volume (MCV)Ordered By: Carol Humphries on 04-14-2023 MCV (RBC) [Entitic vol] 97.1 fL 81-99 [facility] Hematocrit Auto (Bld) [Volum e fraction]Ordered By: Carol Humphries on 04-14-2023 Hematocrit (Bld) [Volume fraction] 40.4 % 37-47 [facility] Laboratory - Chemistry and C hemistry - challengeOrdered By: Carol Humphries on 04-14-2023 CO2 [Moles/Vol] 29.0 mmol/L 21.0-32.0 [facility] Free T4 [Mass/Vol] 0.96 ng/dL 0.76-1.46 [facility] Natriuretic peptide B (Bld) [Mass/Vol] 404.3 pg/mL 0-100 [facility] Urea nitrogen/Creatinine [Mass ratio] 17.5 mg/mg 10-20 [facility] Laboratory - Hematology and Cell countsOrdered By: Carol Humphries on 04-14-2023 Erythrocyte distribution width (RBC) [Entitic vol] 45.4 fL 35.1-43.9 [facility] Erythrocyte distribution width (RBC) [Ratio] 12.8 % 11.6-14.6 [facility] Immature granulocytes/100 WBC (Bld) 0.400 % 0.0-0.9 [facility] Comment on above: IG% - Immature Granu locytes (promyelocytes, myelocytes and metamyelocytes) > 1% indicates that a LEFT SHIFT is Present. MCH (RBC) [Entitic mass] 30.0 pg 27.0-32.0 [facility] Nucleated RBC/100 WBC (Bld) [Ratio] 0 % 0-5 [facility] MCHC Auto (RBC) [Mass/Vol]Or dered By: Carol Humphries on 04-14-2023 MCHC (RBC) [Mass/Vol] 30.9 g/dL 32-[address] [facility] No Panel InformationOrdered By: Carol Humphries on 04-14-2023 Estimated GFR (MDRD) Amer 72 mL/min >60 [facility] Comment on above: GFR Calc Estimated GFR (MDRD) Non-Af Amer 60 mL/min >60 [facility] Comment on above: Non- GFR Calc Free Triiodothyronine (T3) pg/dL 2.6 pg/mL 2.18-3.98 [facility] Thyroid Stimulating Hormone (TSH) 0.69 uIU/mL 0.358-3.74 [facility] Platelets bldOrdered By: Hector Humphries on 04-14-2023 Platelets (Bld) [#/Vol] 275 10*3/uL 150-450 [facility] Serum or plasma calcium nicholas urement (mass/volume)Ordered By: Carol Humphries on 04-14-2023 Calcium [Mass/Vol] 9.9 mg/dL 8.5-10.1 [facility] Serum or plasma creatinine m easurement (mass/volume)Ordered By: Carol Humphries on 04-14-2023 Creatinine [Mass/Vol] 0.97 mg/dL 0.55-1.[address] [facility] Comment on above: The validity of the calculated GFR & GFRAA in patients over 70 years has not been determined. Clinical correlation is essential. Serum or plasma urea nitroge n measurement (mass/volume)Ordered By: Carol Humphries on 04-14-2023 Urea nitrogen [Mass/Vol] 17 mg/dL 7-18 [facility] Thin prep Papanicolaou smear with manual screeningOrdered By: Carol Humphries on 04-14-2023 Thin prep Papanicolaou smear with manual screening 5 5-15 [facility] Absolute lymphocyte countOrd ered By: Carol Humphries on 01-14-2023 Lymphocytes Auto (Unsp spec) [#/Vol] 3.45 10*3/uL 0.83-4.51 [facility] Basophil percentageOrdered B y: Carol Humphries on 01-14-2023 Basophils/100 WBC (Bld) 0.4 % 0-1 [facility] Chloride [Moles/Vol] 104 mmol/L 98-107 [facility] Eosinophils/100 WBC (Bld) 1.5 % 0-5 [facility] Glucose [Mass/Vol] 93 mg/dL 74-106 [facility] Neutrophils (Bld) [#/Vol] 4.0 10*3/uL 2.0-7.7 [facility] Neutrophils/100 WBC (Bld) 49.7 % 47-70 [facility] Potassium [Moles/Vol] 3.9 mmol/L 3.5-5.[address] [facility] Sodium [Moles/Vol] 141 mmol/L 136-145 [facility] WBC (Bld) [#/Vol] 8.1 10*3/uL 4.4-11.0 [facility] Blood erythrocytes count (nu mber/volume)Ordered By: Carol Humphries on 01-14-2023 RBC (Bld) [#/Vol] 4.25 10*6/uL 4.2-5.4 [facility] Blood hemoglobin measurement (mass/volume)Ordered By: Carol Humphries on 01-14-2023 Hemoglobin (Bld) [Mass/Vol] 13.0 g/dL 12.0-15.0 [facility] Blood lymphocytes/100 leukoc ytesOrdered By: Carol Humphries on 01-14-2023 Lymphocytes/100 WBC (Bld) 42.5 % 19-41 [facility] Blood monocytes/100 leukocyt esOrdered By: Carol Humphries on 01-14-2023 Monocytes/100 WBC (Bld) 5.5 % 0-10 [facility] Blood platelet mean volumeOr dered By: Carol Humphries on 01-14-2023 Platelet mean volume (Bld) [Entitic vol] 10.4 fL 6.2-12.0 [facility] Determination of erythrocyte mean corpuscular volume (MCV)Ordered By: Carol Humphries on 01-14-2023 MCV (RBC) [Entitic vol] 96.7 fL 81-99 [facility] Hematocrit Auto (Bld) [Volum e fraction]Ordered By: Carol Humphries on 01-14-2023 Hematocrit (Bld) [Volume fraction] 41.1 % 37-47 [facility] Laboratory - Chemistry and C hemistry - challengeOrdered By: Carol Humphries on 01-14-2023 CO2 [Moles/Vol] 32.0 mmol/L 21.0-32.0 [facility] Free T4 [Mass/Vol] 0.97 ng/dL 0.76-1.46 [facility] Natriuretic peptide B (Bld) [Mass/Vol] 26.9 pg/mL 0-100 [facility] Urea nitrogen/Creatinine [Mass ratio] 16.7 mg/mg 10-20 [facility] Laboratory - Hematology and Cell countsOrdered By: Carol Humphries on 01-14-2023 Erythrocyte distribution width (RBC) [Entitic vol] 42.2 fL 35.1-43.9 [facility] Erythrocyte distribution width (RBC) [Ratio] 12.0 % 11.6-14.6 [facility] Immature granulocytes/100 WBC (Bld) 0.400 % 0.0-0.9 [facility] Comment on above: IG% - Immature Granu locytes (promyelocytes, myelocytes and metamyelocytes) > 1% indicates that a LEFT SHIFT is Present. MCH (RBC) [Entitic mass] 30.6 pg 27.0-32.0 [facility] Nucleated RBC/100 WBC (Bld) [Ratio] 0 % 0-5 [facility] MCHC Auto (RBC) [Mass/Vol]Or dered By: Carol Humphries on 01-14-2023 MCHC (RBC) [Mass/Vol] 31.6 g/dL 32-[address] [facility] No Panel InformationOrdered By: Carol Humphries on 01-14-2023 Estimated GFR (MDRD) Amer 79 mL/min >60 [facility] Comment on above: GFR Calc Estimated GFR (MDRD) Non-Af Amer 65 mL/min >60 [facility] Comment on above: Non- GFR Calc Free Triiodothyronine (T3) pg/dL 2.6 pg/mL 2.18-3.98 [facility] Thyroid Stimulating Hormone (TSH) 0.60 uIU/mL 0.358-3.74 [facility] Platelets bldOrdered By: Hector Humphries on 01-14-2023 Platelets (Bld) [#/Vol] 264 10*3/uL 150-450 [facility] Serum or plasma calcium nicholas urement (mass/volume)Ordered By: Carol Humphries on 01-14-2023 Calcium [Mass/Vol] 9.9 mg/dL 8.5-10.1 [facility] Serum or plasma creatinine m easurement (mass/volume)Ordered By: Carol Humphries on 01-14-2023 Creatinine [Mass/Vol] 0.90 mg/dL 0.55-1.[address] [facility] Comment on above: The validity of the calculated GFR & GFRAA in patients over 70 years has not been determined. Clinical correlation is essential. Serum or plasma urea nitroge n measurement (mass/volume)Ordered By: Carol Humphries on 01-14-2023 Urea nitrogen [Mass/Vol] 15 mg/dL 7-18 [facility] Thin prep Papanicolaou smear with manual screeningOrdered By: Carol Humphries on 01-14-2023 Thin prep Papanicolaou smear with manual screening 5 5-15 [facility] Basophil percentageOrdered B y: Carol Humphries on 10-01-2022 Chloride [Moles/Vol] 104 mmol/L 98-107 [facility] Glucose [Mass/Vol] 98 mg/dL 74-106 [facility] Potassium [Moles/Vol] 3.2 mmol/L 3.5-5.[address] [facility] Sodium [Moles/Vol] 141 mmol/L 136-145 [facility] Laboratory - Chemistry and C hemistry - challengeOrdered By: Carol Humphries on 10-01-2022 CO2 [Moles/Vol] 35.0 mmol/L 21.0-32.0 [facility] Urea nitrogen/Creatinine [Mass ratio] 16.3 mg/mg 10-20 [facility] Laboratory - Chemistry and C hemistry - challengeOrdered By: Pretty Maria on 10-01-2022 Natriuretic peptide B (Bld) [Mass/Vol] 165.3 pg/mL 0-100 [facility] No Panel InformationOrdered By: Pretty Maria on 10-01-2022 Troponin I High Sensitivity 9 pg/mL 3.0-54.0 [facility] Comment on above: Please Note: New Jenn t Units and Gender Specific Reference Ranges. For more information see Policy Stat Procedure [place] High Sensitivity Troponin (TNIH) and attachments. No Panel InformationOrdered By: Carol Humphries on 10-01-2022 Estimated GFR (MDRD) Amer 83 mL/min >60 [facility] Comment on above: GFR Calc Estimated GFR (MDRD) Non-Af Amer 69 mL/min >60 [facility] Comment on above: Non- GFR Calc Serum or plasma calcium nicholas urement (mass/volume)Ordered By: Carol Humphries on 10-01-2022 Calcium [Mass/Vol] 9.3 mg/dL 8.5-10.1 [facility] Serum or plasma creatinine m easurement (mass/volume)Ordered By: Carol Humphries on 10-01-2022 Creatinine [Mass/Vol] 0.86 mg/dL 0.55-1.[address] [facility] Comment on above: The validity of the calculated GFR & GFRAA in patients over 70 years has not been determined. Clinical correlation is essential. Serum or plasma urea nitroge n measurement (mass/volume)Ordered By: Carol Humphries on 10-01-2022 Urea nitrogen [Mass/Vol] 14 mg/dL 7-18 [facility] Thin prep Papanicolaou smear with manual screeningOrdered By: Carol Humphries on 10-01-2022 Thin prep Papanicolaou smear with manual screening 2 5-15 [facility] Absolute lymphocyte counton 08-26-2022 Lymphocytes Auto (Unsp spec) [#/Vol] 2.46 10*3/uL 0.83-4.51 [facility] Work Phone: Basophil percentageon 2021 Basophils/100 WBC (Bld) 0.3 % 0-1 [facility] Work Phone: Chloride [Moles/Vol] 104 mmol/L 98-107 [facility]: Eosinophils/100 WBC (Bld) 2.4 % 0-5 [facility] Work Phone: Glucose [Mass/Vol] 95 mg/dL 74-106 [facility] Work Phone: [phone] Neutrophils (Bld) [#/Vol] 3.9 10*3/uL 2.0-7.7 [facility] Work Phone: [phone] Neutrophils/100 WBC (Bld) 54.9 % 47-70 [facility] Work Phone: [phone] Potassium [Moles/Vol] 3.7 mmol/L 3.5-5.[address] [facility] Work Phone: [phone] Sodium [Moles/Vol] 140 mmol/L 136-145 [facility] Work Phone: [phone] WBC (Bld) [#/Vol] 7.2 10*3/uL 4.4-11.0 [facility] Work Phone: [phone] Blood erythrocytes count (nu mber/volume)on 08-26-2022 RBC (Bld) [#/Vol] 3.87 10*6/uL 4.2-5.4 [facility] Work Phone: [phone] Blood hemoglobin measurement (mass/volume)on 08-26-2022 Hemoglobin (Bld) [Mass/Vol] 11.8 g/dL 12.0-15.0 [facility] Work Phone: Blood lymphocytes/100 leukoc yteson 08-26-2022 Lymphocytes/100 WBC (Bld) 34.4 % 19-41 [facility] Work Phone: Blood monocytes/100 leukocyt eson 08-26-2022 Monocytes/100 WBC (Bld) 7.7 % 0-10 [facility] Work Phone: Blood platelet mean volumeon 08-26-2022 Platelet mean volume (Bld) [Entitic vol] 11.3 fL 6.2-12.0 [facility] Work Phone: Determination of erythrocyte mean corpuscular volume (MCV)on 08-26-2022 MCV (RBC) [Entitic vol] 94.3 fL 81-99 [facility] Work Phone: Hematocrit Auto (Bld) [Volum e fraction]on 08-26-2022 Hematocrit (Bld) [Volume fraction] 36.5 % 37-47 [facility] Work Phone: Laboratory - Chemistry and C hemistry - challengeon 08-26-2022 CO2 [Moles/Vol] 31.0 mmol/L 21.0-32.0 [facility] Work Phone: Natriuretic peptide B (Bld) [Mass/Vol] 155.8 pg/mL 0-100 [facility] Work Phone: Urea nitrogen/Creatinine [Mass ratio] 15.3 mg/mg 10-20 [facility] Work Phone: Laboratory - Hematology and Cell countson 08-26-2022 Erythrocyte distribution width (RBC) [Entitic vol] 48.9 fL 35.1-43.9 [facility] Work Phone: Erythrocyte distribution width (RBC) [Ratio] 14.2 % 11.6-14.6 [facility] Work Phone: Immature granulocytes/100 WBC (Bld) 0.300 % 0.0-0.9 [facility] Work Phone: Comment on above: IG% - Immature Granu locytes (promyelocytes, myelocytes and metamyelocytes) > 1% indicates that a LEFT SHIFT is Present. MCH (RBC) [Entitic mass] 30.5 pg 27.0-32.0 [facility] Work Phone: Nucleated RBC/100 WBC (Bld) [Ratio] 0 % 0-5 [facility] Work Phone: MCHC Auto (RBC) [Mass/Vol]on 08-26-2022 MCHC (RBC) [Mass/Vol] 32.3 g/dL 32-[address] [facility] Work Phone: No Panel Informationon 08-26 Estimated GFR (MDRD) Amer 62 mL/min >60 [facility] Work Phone: Comment on above: GFR Calc Estimated GFR (MDRD) Non-Af Amer 51 mL/min >60 [facility] Work Phone: Comment on above: Non- GFR Calc Platelets bldon 08-26-2022 Platelets (Bld) [#/Vol] 207 10*3/uL 150-450 [facility] Work Phone: Serum or plasma calcium nicholas urement (mass/volume)on 08-26-2022 Calcium [Mass/Vol] 9.5 mg/dL 8.5-10.1 [facility] Work Phone: Serum or plasma creatinine m easurement (mass/volume)on 08-26-2022 Creatinine [Mass/Vol] 1.11 mg/dL 0.55-1.[address] [facility] Work Phone: Comment on above: The validity of the calculated GFR & GFRAA in patients over 70 years has not been determined. Clinical correlation is essential. Serum or plasma urea nitroge n measurement (mass/volume)on 08-26-2022 Urea nitrogen [Mass/Vol] 17 mg/dL 7-18 [facility] Work Phone: Thin prep Papanicolaou smear with manual screeningon 08-26-2022 Thin prep Papanicolaou smear with manual screening 5 5-15 [facility] Work Phone: Basophil percentageon 2021 Chloride [Moles/Vol] 103 mmol/L 98-107 [facility] Work Phone: Glucose [Mass/Vol] 127 mg/dL 74-106 [facility] Work Phone: Comment on above: Fasting Glucose resu lt greater than or equal to 126 mg/dL suggests DIABETES MELLITUS per A.D.A. criteria. Potassium [Moles/Vol] 3.8 mmol/L 3.5-5.[address] [facility] Work Phone: Sodium [Moles/Vol] 139 mmol/L 136-145 [facility] Work Phone: Laboratory - Chemistry and C hemistry - challengeon 07-31-2022 CO2 [Moles/Vol] 29.0 mmol/L 21.0-32.0 [facility] Work Phone: Natriuretic peptide B (Bld) [Mass/Vol] 354.8 pg/mL 0-100 [facility] Work Phone: Urea nitrogen/Creatinine [Mass ratio] 19.4 mg/mg 10-20 [facility] Work Phone: No Panel Informationon 07-31 Estimated GFR (MDRD) Amer 52 mL/min >60 [facility] Work Phone: Comment on above: GFR Calc Estimated GFR (MDRD) Non-Af Amer 43 mL/min >60 [facility] Work Phone: Comment on above: Non- GFR Calc Serum or plasma calcium nicholas urement (mass/volume)on 07-31-2022 Calcium [Mass/Vol] 9.5 mg/dL 8.5-10.1 [facility] Work Phone: Serum or plasma creatinine m easurement (mass/volume)on 07-31-2022 Creatinine [Mass/Vol] 1.29 mg/dL 0.55-1.[address] [facility] Work Phone: Comment on above: The validity of the calculated GFR & GFRAA in patients over 70 years has not been determined. Clinical correlation is essential. Serum or plasma urea nitroge n measurement (mass/volume)on 07-31-2022 Urea nitrogen [Mass/Vol] 25 mg/dL 7-18 [facility] Work Phone: Thin prep Papanicolaou smear with manual screeningon 07-31-2022 Thin prep Papanicolaou smear with manual screening 7 5-15 [facility] Work Phone: Basophil percentageon 2021 Chloride [Moles/Vol] 100 mmol/L 98-107 [facility] Work Phone: Glucose [Mass/Vol] 145 mg/dL 74-106 [facility] Work Phone: Comment on above: Fasting Glucose resu lt greater than or equal to 126 mg/dL suggests DIABETES MELLITUS per A.D.A. criteria. Potassium [Moles/Vol] 3.1 mmol/L 3.5-5.[address] [facility] Work Phone: Sodium [Moles/Vol] 140 mmol/L 136-145 [facility] Work Phone: Laboratory - Chemistry and C hemistry - challengeon 07-14-2022 CO2 [Moles/Vol] 29.0 mmol/L 21.0-32.0 [facility] Work Phone: Urea nitrogen/Creatinine [Mass ratio] 17.4 mg/mg - [facility] Work Phone: No Panel Informationon 07-14 Estimated GFR (MDRD) Amer 63 mL/min >60 [facility] Work Phone: Comment on above: GFR Calc Estimated GFR (MDRD) Non-Af Amer 52 mL/min >60 [facility] Work Phone: Comment on above: Non- GFR Calc Serum or plasma calcium nicholas urement (mass/volume)on 07-14-2022 Calcium [Mass/Vol] 9.8 mg/dL 8.5-10.1 [facility] Work Phone: Serum or plasma creatinine m easurement (mass/volume)on 07-14-2022 Creatinine [Mass/Vol] 1.09 mg/dL 0.55-1.[address] [facility] Work Phone: [phone] Comment on above: The validity of the calculated GFR & GFRAA in patients over 70 years has not been determined. Clinical correlation is essential. Serum or plasma urea nitroge n measurement (mass/volume)on 07-14-2022 Urea nitrogen [Mass/Vol] 19 mg/dL 7-18 [facility] Work Phone: [phone] Thin prep Papanicolaou smear with manual screeningon 07-14-2022 Thin prep Papanicolaou smear with manual screening 11 5-15 [facility] Work Phone: [phone] Absolute lymphocyte counton 07-02-2022 Lymphocytes Auto (Unsp spec) [#/Vol] 2.07 10*3/uL 0.83-4.51 [facility] Work Phone: Basophil percentageon 2021 Basophils/100 WBC (Bld) 0.3 % 0-1 [facility] Work Phone: [phone] Chloride [Moles/Vol] 103 mmol/L 98-107 [facility] Work Phone: [phone] Eosinophils/100 WBC (Bld) 1.2 % 0-5 [facility] Work Phone: [phone] Glucose [Mass/Vol] 110 mg/dL 74-106 [facility] Work Phone: [phone] Comment on above: Fasting Glucose resu lt from 100 to 125 mg/dL suggests IMPAIRED HOMEOSTASIS per A.D.A. criteria. Neutrophils (Bld) [#/Vol] 4.1 10*3/uL 2.0-7.7 [facility] Work Phone: [phone] Neutrophils/100 WBC (Bld) 60.4 % 47-70 [facility] Work Phone: [phone] Potassium [Moles/Vol] 3.5 mmol/L 3.5-5.[address] [facility] Work Phone: [phone] Sodium [Moles/Vol] 140 mmol/L 136-145 [facility] Work Phone: WBC (Bld) [#/Vol] 6.7 10*3/uL 4.4-11.0 [facility]: Blood erythrocytes count (nu mber/volume)on 07-02-2022 RBC (Bld) [#/Vol] 4.07 10*6/uL [facility]: Blood hemoglobin measurement (mass/volume)on 07-02-2022 Hemoglobin (Bld) [Mass/Vol] 12.1 g/dL 12.0-15.0 [facility] Work Phone: Blood lymphocytes/100 leukoc yteson 07-02-2022 Lymphocytes/100 WBC (Bld) 30.7 % 19-41 [facility] Work Phone: Blood monocytes/100 leukocyt eson 07-02-2022 Monocytes/100 WBC (Bld) 7.1 % 0-10 [facility] Work Phone: Blood platelet mean volumeon 07-02-2022 Platelet mean volume (Bld) [Entitic vol] 11.7 fL 6.2-12.0 [facility] Work Phone: Determination of erythrocyte mean corpuscular volume (MCV)on 07-02-2022 MCV (RBC) [Entitic vol] 94.6 fL 81-99 [facility] Work Phone: Hematocrit Auto (Bld) [Volum e fraction]on 07-02-2022 Hematocrit (Bld) [Volume fraction] 38.5 % 37-47 [facility] Work Phone: Laboratory - Chemistry and C hemistry - challengeon 07-02-2022 CO2 [Moles/Vol] 30.0 mmol/L 21.0-32.0 [facility] Work Phone: Magnesium [Mass/Vol] 2.0 mg/dL 1.6-2.6 [facility] Work Phone: Natriuretic peptide B (Bld) [Mass/Vol] 425.3 pg/mL 0-100 [facility] Work Phone: Urea nitrogen/Creatinine [Mass ratio] 17.5 mg/mg 10-20 [facility] Work Phone: Laboratory - Hematology and Cell countson 07-02-2022 Erythrocyte distribution width (RBC) [Entitic vol] 48.8 fL 35.1-43.9 [facility] Work Phone: Erythrocyte distribution width (RBC) [Ratio] 14.1 % 11.6-14.6 [facility] Work Phone: Immature granulocytes/100 WBC (Bld) 0.300 % 0.0-0.9 [facility] Work Phone: Comment on above: IG% - Immature Granu locytes (promyelocytes, myelocytes and metamyelocytes) > 1% indicates that a LEFT SHIFT is Present. MCH (RBC) [Entitic mass] 29.7 pg 27.0-32.0 [facility] Work Phone: Nucleated RBC/100 WBC (Bld) [Ratio] 0 % 0-5 [facility] Work Phone: MCHC Auto (RBC) [Mass/Vol]on 07-02-2022 MCHC (RBC) [Mass/Vol] 31.4 g/dL 32-[address] [facility] Work Phone: No Panel Informationon 07-02 Estimated GFR (MDRD) Amer 77 mL/min >60 [facility] Work Phone: Comment on above: GFR Calc Estimated GFR (MDRD) Non-Af Amer 64 mL/min >60 [facility] Work Phone: Comment on above: Non- GFR Calc Thyroid Stimulating Hormone (TSH) 0.72 uIU/mL 0.358-3.74 [facility] Work Phone: Platelets bldon 07-02-2022 Platelets (Bld) [#/Vol] 229 10*3/uL 150-450 [facility] Work Phone: Serum or plasma calcium nicholas urement (mass/volume)on 07-02-2022 Calcium [Mass/Vol] 9.6 mg/dL 8.5-10.1 [facility] Work Phone: Serum or plasma creatinine m easurement (mass/volume)on 07-02-2022 Creatinine [Mass/Vol] 0.92 mg/dL 0.55-1.[address] [facility] Work Phone: Comment on above: The validity of the calculated GFR & GFRAA in patients over 70 years has not been determined. Clinical correlation is essential. Serum or plasma urea nitroge n measurement (mass/volume)on 07-02-2022 Urea nitrogen [Mass/Vol] 16 mg/dL 7-18 [facility] Work Phone: Thin prep Papanicolaou smear with manual screeningon 07-02-2022 Thin prep Papanicolaou smear with manual screening 7 5-15 [facility] Work Phone: Basophil percentageon 2021 Chloride [Moles/Vol] 101 mmol/L 98-107 [facility] Work Phone: Glucose [Mass/Vol] 103 mg/dL 74-106 [facility] Work Phone: Comment on above: Fasting Glucose resu lt from 100 to 125 mg/dL suggests IMPAIRED HOMEOSTASIS per A.D.A. criteria. Potassium [Moles/Vol] 3.6 mmol/L 3.5-5.[address] [facility] Work Phone: Sodium [Moles/Vol] 136 mmol/L 136-145 [facility] Work Phone: Laboratory - Chemistry and C hemistry - challengeon 05-23-2022 CO2 [Moles/Vol] 29.0 mmol/L 21.0-32.0 [facility] Work Phone: Natriuretic peptide B (Bld) [Mass/Vol] 381.6 pg/mL 0-100 [facility] Work Phone: Urea nitrogen/Creatinine [Mass ratio] 14.4 mg/mg 10-20 [facility] Work Phone: No Panel Informationon 05-23 Estimated GFR (MDRD) Amer 79 mL/min >60 [facility] Work Phone: Comment on above: GFR Calc Estimated GFR (MDRD) Non-Af Amer 65 mL/min >60 [facility] Work Phone: Comment on above: Non- GFR Calc Serum or plasma calcium nicholas urement (mass/volume)on 05-23-2022 Calcium [Mass/Vol] 9.7 mg/dL 8.5-10.1 [facility] Work Phone: Serum or plasma creatinine m easurement (mass/volume)on 05-23-2022 Creatinine [Mass/Vol] 0.90 mg/dL 0.55-1.[address] [facility] Work Phone: Comment on above: The validity of the calculated GFR & GFRAA in patients over 70 years has not been determined. Clinical correlation is essential. Serum or plasma urea nitroge n measurement (mass/volume)on 05-23-2022 Urea nitrogen [Mass/Vol] 13 mg/dL 7-18 [facility] Work Phone: Thin prep Papanicolaou smear with manual screeningon 05-23-2022 Thin prep Papanicolaou smear with manual screening 6 5-15 [facility] Work Phone: Basophil percentageon 2021 Chloride [Moles/Vol] 101 mmol/L 98-107 [facility] Work Phone: Glucose [Mass/Vol] 103 mg/dL 74-106 [facility] Work Phone: Comment on above: Fasting Glucose resu lt from 100 to 125 mg/dL suggests IMPAIRED HOMEOSTASIS per A.D.A. criteria. Potassium [Moles/Vol] 3.5 mmol/L 3.5-5.[address] [facility] Work Phone: Sodium [Moles/Vol] 140 mmol/L 136-145 [facility] Work Phone: Laboratory - Chemistry and C hemistry - challengeon 05-21-2022 CO2 [Moles/Vol] 32.0 mmol/L 21.0-32.0 [facility] Work Phone: Natriuretic peptide B (Bld) [Mass/Vol] 315.0 pg/mL 0-100 [facility] Work Phone: Urea nitrogen/Creatinine [Mass ratio] 12.0 mg/mg 10-20 [facility] Work Phone: No Panel Informationon 05-21 Estimated GFR (MDRD) Amer 70 mL/min >60 [facility] Work Phone: Comment on above: GFR Calc Estimated GFR (MDRD) Non-Af Amer 58 mL/min >60 [facility] Work Phone: Comment on above: Non- GFR Calc Serum or plasma calcium nicholas urement (mass/volume)on 05-21-2022 Calcium [Mass/Vol] 10.0 mg/dL 8.5-10.1 [facility] Work Phone: Serum or plasma creatinine m easurement (mass/volume)on 05-21-2022 Creatinine [Mass/Vol] 1.00 mg/dL 0.55-1.[address] [facility] Work Phone: Comment on above: The validity of the calculated GFR & GFRAA in patients over 70 years has not been determined. Clinical correlation is essential. Serum or plasma urea nitroge n measurement (mass/volume)on 05-21-2022 Urea nitrogen [Mass/Vol] 12 mg/dL 7-18 [facility] Work Phone: Thin prep Papanicolaou smear with manual screeningon 05-21-2022 Thin prep Papanicolaou smear with manual screening 7 5-15 [facility] Work Phone: Laboratory - Chemistry and C hemistry - challengeon 05-16-2022 Natriuretic peptide B (Bld) [Mass/Vol] 447.2 pg/mL 0-100 [facility] Work Phone: Absolute lymphocyte counton 04-14-2022 Lymphocytes Auto (Unsp spec) [#/Vol] 2.10 10*3/uL 0.83-4.51 [facility] Work Phone: [phone] Basophil percentageon 2021 Basophils/100 WBC (Bld) 0.3 % 0-1 [facility] Work Phone: Bilirubin [Mass/Vol] 0.60 mg/dL 0.20-1.00 [facility] Work Phone: Comment on above: For patients on eltr ombopag therapy, use of Dimension [place] TBIL is not recommended. Chloride [Moles/Vol] 106 mmol/L 98-107 [facility] Work Phone: Cholesterol [Mass/Vol] 175 mg/dL <200 [facility] Work Phone: Comment on above: <200 mg/dL Desirable 200-240 mg/dL Borderline >240 mg/dL High Risk Eosinophils/100 WBC (Bld) 2.4 % 0-5 [facility] Work Phone: Glucose [Mass/Vol] 114 mg/dL 74-106 [facility] Work Phone: Comment on above: Fasting Glucose resu lt from 100 to 125 mg/dL suggests IMPAIRED HOMEOSTASIS per A.D.A. criteria. Neutrophils (Bld) [#/Vol] 4.0 10*3/uL 2.0-7.7 [facility] Work Phone: Neutrophils/100 WBC (Bld) 58.8 % 47-70 [facility] Work Phone: Potassium [Moles/Vol] 3.6 mmol/L 3.5-5.[address] [facility] Work Phone: Protein [Mass/Vol] 7.6 g/dL 6.4-8.2 [facility] Work Phone: Sodium [Moles/Vol] 141 mmol/L 136-145 [facility] Work Phone: Triglyceride [Mass/Vol] 95 mg/dL <199 [facility] Work Phone: Comment on above: The drugs N-Acetylcy steine and Metamizole may falsely depress this assay.Serum Triglycerides Reference Interval Normal <150 mg/dL Borderline high 150 - 199 mg/dL High 200 - 499 mg/dL Very High > or = 500 mg/dL WBC (Bld) [#/Vol] 6.7 10*3/uL 4.4-11.0 [facility] Work Phone: Blood erythrocytes count (nu mber/volume)on 04-14-2022 RBC (Bld) [#/Vol] 3.79 10*6/uL 4.2-5.4 [facility] Work Phone: Blood hemoglobin measurement (mass/volume)on 04-14-2022 Hemoglobin (Bld) [Mass/Vol] 11.3 g/dL 12.0-15.0 [facility] Work Phone: Blood lymphocytes/100 leukoc yteson 04-14-2022 Lymphocytes/100 WBC (Bld) 31.3 % 19-41 [facility] Work Phone: Blood monocytes/100 leukocyt eson 04-14-2022 Monocytes/100 WBC (Bld) 6.9 % 0-10 [facility] Work Phone: Blood platelet mean volumeon 04-14-2022 Platelet mean volume (Bld) [Entitic vol] 11.8 fL 6.2-12.0 [facility] Work Phone: Determination of erythrocyte mean corpuscular volume (MCV)on 04-14-2022 MCV (RBC) [Entitic vol] 95.8 fL 81-99 [facility] Work Phone: Hematocrit Auto (Bld) [Volum e fraction]on 04-14-2022 Hematocrit (Bld) [Volume fraction] 36.3 % 37-47 [facility] Work Phone: Laboratory - Chemistry and C hemistry - challengeon 04-14-2022 ALP [Catalytic activity/Vol] 62 U/L 45-117 [facility] Work Phone: ALT [Catalytic activity/Vol] 36 U/L 13-56 [facility] Work Phone: CO2 [Moles/Vol] 28.0 mmol/L 21.0-32.0 [facility] Work Phone: Globulin (S) [Mass/Vol] 3.9 g/dL 2.2-4.2 [facility] Work Phone: Urea nitrogen/Creatinine [Mass ratio] 14.5 mg/mg 10-20 [facility] Work Phone: [phone] Laboratory - Hematology and Cell countson 04-14-2022 Erythrocyte distribution width (RBC) [Entitic vol] 45.2 fL 35.1-43.9 [facility] Work Phone: [phone] Erythrocyte distribution width (RBC) [Ratio] 13.1 % 11.6-14.6 [facility] Work Phone: Immature granulocytes/100 WBC (Bld) 0.300 % 0.0-0.9 [facility] Work Phone: Comment on above: IG% - Immature Granu locytes (promyelocytes, myelocytes and metamyelocytes) > 1% indicates that a LEFT SHIFT is Present. MCH (RBC) [Entitic mass] 29.8 pg 27.0-32.0 [facility] Work Phone: Nucleated RBC/100 WBC (Bld) [Ratio] 0 % 0-5 [facility] Work Phone: MCHC Auto (RBC) [Mass/Vol]on 04-14-2022 MCHC (RBC) [Mass/Vol] 31.1 g/dL 32-[address] Work Phone: No Panel Informationon 04-14 Estimated GFR (MDRD) Amer 73 mL/min >60 [facility] Work Phone: Comment on above: GFR Calc Estimated GFR (MDRD) Non-Af Amer 60 mL/min >60 [facility] Work Phone: Comment on above: Non- GFR Calc Platelets bldon 04-14-2022 Platelets (Bld) [#/Vol] 254 10*3/uL 150-450 [facility] Work Phone: Serum or plasma albumin nicholas urement (mass/volume)on 04-14-2022 Albumin [Mass/Vol] 3.7 g/dL 3.2-5.0 [facility] Work Phone: Serum or plasma albumin/glob ulin mass ratioon 04-14-2022 Albumin/Globulin [Mass ratio] 0.9 {ratio} 0.9-2.4 [facility] Work Phone: Serum or plasma calcium nicholas urement (mass/volume)on 04-14-2022 Calcium [Mass/Vol] 9.6 mg/dL 8.5-10.1 [facility] Work Phone: Serum or plasma cholesterol in HDL measurement (mass/volume)on 04-14-2022 Cholesterol in HDL [Mass/Vol] 55 mg/dL >40 [facility] Work Phone: Comment on above: The drugs N-Acetylcy steine and Metamizole may falsely depress this assay. Reference Range HDL <40 mg/dL Low HDL Cholesterol HDL >or= 60 mg/dL High HDL Cholesterol Serum or plasma cholesterol in VLDL measurement (mass/volume)on 04-14-2022 Cholesterol in VLDL [Mass/Vol] 19 mg/dL 5-40 [facility] Work Phone: Serum or plasma creatinine m easurement (mass/volume)on 04-14-2022 Creatinine [Mass/Vol] 0.97 mg/dL 0.55-1.[address] [facility] Work Phone: Comment on above: The validity of the calculated GFR & GFRAA in patients over 70 years has not been determined. Clinical correlation is essential. Serum or plasma low density lipoprotein (LDL) cholesterol measurement (mass/volume)on 04-14-2022 Cholesterol in LDL [Mass/Vol] 101 mg/dL 0-130 [facility] Work Phone: Serum or plasma urea nitroge n measurement (mass/volume)on 04-14-2022 Urea nitrogen [Mass/Vol] 14 mg/dL 7-18 [facility] Work Phone: Thin prep Papanicolaou smear with manual screeningon 04-14-2022 Thin prep Papanicolaou smear with manual screening 28 U/L 15-37 [facility] Work Phone: Thin prep Papanicolaou smear with manual screening 7 5-15 [facility] Work Phone: XR KNEE THREE VIEWS RIGHTon 08-24-2021 XR KNEE THREE VIEWS RIGHT ORIGINAL EXAMINATION: THREE XRAY VIEWS OF THE RIGHT KNEE08/24/2021 3:35 pm COMPARISON: None HISTORY: ORDERING SYSTEM PROVIDED HISTORY: Reason for Exam: Pain Arthritis pain FINDINGS: No acute fracture. Mild lateral subluxation of the patella. Tricompartmental osteophyte formation. Joint space narrowing within the medial tibiofemoral and patellofemoral compartments. There are no suspicious osseous lesions. Small to moderate effusion. IMPRESSION: 1. No acute fracture. 2. Mild lateral subluxation of the patella. 3. Mild to moderate effusion of the knee joint. I have personally reviewed the images of this examination and agree with the resident's findings and interpretation. Interpreted by: Jose Damico DO Preliminary Report By: Kaitlynn Rowe Electronically signed By Jose Damico DO Dictated Date: 08/24/2021 5:02:24 PM Prelim Date: 08/24/2021 5:09:26 PM Sign Date: 08/24/2021 5:29:34 PM Ordering Provider: JONATHAN WAGONER [facility] ([place]) Vital Signs Date Time Vital Sign Value Performing Clinician Paul troncoso 03-24-2025 10:30-0400 Body height 177.[address] Fam Jasso MD Work Phone: [facility] 03-24-2025 10:30-0400 Body mass index (BMI) [Ratio] 32 kg/m2 Dr. Fam Jasso MD Work Phone: [facility] 03-24-2025 10:30-0400 Body temperature 96.4 [degF] Dr. Fam Jasso MD Work Phone: [facility] 03-24-2025 10:30-0400 Body weight 101.[address] Fam Jasso MD Work Phone: [facility] 03-24-2025 10:30-0400 Diastolic blood pressure 62 mm[Hg] Dr. Fam Jasso MD Work Phone: [facility] 03-24-2025 10:30-0400 Heart rate 94 /min Dr. Fam Jasso MD Work Phone: [facility] 03-24-2025 10:30-0400 Respiratory rate 16 /min Dr. Fam Jasso MD Work Phone: [facility] 03-24-2025 10:30-0400 SaO2% (BldA) [Mass fraction] 96 % Dr. Fam Jsaso MD Work Phone: [facility] 03-24-2025 10:30-0400 Systolic blood pressure 118 mm[Hg] Dr. Fam Jasso MD Work Phone: [facility] 02-17-2025 05:22-0400 Body mass index (BMI) [Ratio] 31.5 kg/m2 Dr. Fam Jasso MD Work Phone: [facility] 02-17-2025 05:22-0400 Body temperature 96.9 [degF] Dr. Fam Jasso MD Work Phone: [facility] 02-17-2025 05:22-0400 Body weight 99.[address] Fam Jasso MD Work Phone: [facility] 02-17-2025 05:22-0400 Diastolic blood pressure 88 mm[Hg] Dr. Fam Jasso MD Work Phone: [facility] 02-17-2025 05:22-0400 Heart rate 81 /min Dr. Fam Jasso MD Work Phone: [facility] 02-17-2025 05:22-0400 Respiratory rate 20 /min Dr. Fam Jasso MD Work Phone: [facility] 02-17-2025 05:22-0400 SaO2% (BldA) [Mass fraction] 98 % Dr. Fam Jasso MD Work Phone: [facility] 02-17-2025 05:22-0400 Systolic blood pressure 141 mm[Hg] Dr. Fam Jasso MD Work Phone: [facility] 01-04-2025 13:55-0400 Body height 177.[address] Fam Jasso MD Work Phone: [facility] 01-04-2025 13:55-0400 Body mass index (BMI) [Ratio] 31.7 kg/m2 Dr. Fam Jasso MD Work Phone: [facility] 01-04-2025 13:55-0400 Body weight 100.[address] Fam Jasso MD Work Phone: [facility] 01-04-2025 13:55-0400 Diastolic blood pressure 94 mm[Hg] Dr. Fam Jasso MD Work Phone: [facility] 01-04-2025 13:55-0400 Heart rate 71 /min Dr. Fam Jasso MD Work Phone: [facility] 01-04-2025 13:55-0400 Respiratory rate 20 /min Dr. Fam Jasso MD Work Phone: [facility] 01-04-2025 13:55-0400 Systolic blood pressure 146 mm[Hg] Dr. Fam aJsso MD Work Phone: [facility] 12-23-2024 05:55-0500 Body mass index (BMI) [Ratio] 31.4 kg/m2 Dr. Fam Jasso MD Work Phone: [facility] 12-23-2024 05:55-0500 Body temperature 96.4 [degF] Dr. Fam Jasso MD Work Phone: [facility] 12-23-2024 05:55-0500 Body weight 99.[address] Fam Jasso MD Work Phone: [facility] 12-23-2024 05:55-0500 Diastolic blood pressure 78 mm[Hg] Dr. Fam Jasso MD Work Phone: [facility] 12-23-2024 05:55-0500 Heart rate 83 /min Dr. Fam Jasso MD Work Phone: [facility] 12-23-2024 05:55-0500 Respiratory rate 20 /min Dr. Fam Jasso MD Work Phone: [facility] 12-23-2024 05:55-0500 SaO2% (BldA) [Mass fraction] 96 % Dr. Fam Jasso MD Work Phone: [facility] 12-23-2024 05:55-0500 Systolic blood pressure 118 mm[Hg] Dr. Fam Jasso MD Work Phone: [facility] 11-16-2024 10:15-0500 Body mass index (BMI) [Ratio] 32.3 kg/m2 Dr. Fam Jasso MD Work Phone: [facility] 11-16-2024 10:15-0500 Body temperature 98.1 [degF] Dr. Fam Jasso MD Work Phone: [facility] 11-16-2024 10:15-0500 Body weight 102.[address] Fam Jasso MD Work Phone: [facility] 11-16-2024 10:15-0500 Diastolic blood pressure 76 mm[Hg] Dr. Fam Jasso MD Work Phone: [facility] 11-16-2024 10:15-0500 Heart rate 72 /min Dr. Fam Jasso MD Work Phone: [facility] 11-16-2024 10:15-0500 Respiratory rate 24 /min Dr. Fam Jasso MD Work Phone: [facility] 11-16-2024 10:15-0500 SaO2% (BldA) [Mass fraction] 98 % Dr. Fam Jasso MD Work Phone: [facility] 11-16-2024 10:15-0500 Systolic blood pressure 112 mm[Hg] Dr. Fam Jasso MD Work Phone: [facility] 04-07-2024 10:00-0400 Heart rate 80 /min Elliott Eastman MD Work Phone: [facility] [place] 04-07-2024 07:17-0400 Body temperature 98.6 [degF] Elliott Eastman MD Work Phone: [facility] [place] 04-07-2024 07:17-0400 Diastolic blood pressure 67 mm[Hg] Elliott Eastman MD Work Phone: [facility] [place] 04-07-2024 07:17-0400 Respiratory rate 21 /min Elliott Eastman MD Work Phone: [facility] [place] 04-07-2024 07:17-0400 SaO2% (BldA) [Mass fraction] 95 % Elliott Eastman MD Work Phone: [facility] [place] 04-07-2024 07:17-0400 Systolic blood pressure 114 mm[Hg] Elliott Eastman MD Work Phone: [facility] [place] 04-07-2024 04:10-0400 Body mass index (BMI) [Ratio] 31.82 kg/m2 Elliott Eastman MD Work Phone: [facility] [place] 04-07-2024 04:10-0400 Body weight 100.61 kg Elliott Eastman MD Work Phone: [facility] [place] 04-06-2024 10:58-0400 Body height 177.8 cm Elliott Eastman MD Work Phone: [facility] [place] 02-16-2024 14:49-0400 Body height 177.[address] Fam Jasso Work Phone: [facility] 01-29-2024 10:00-0400 Body mass index (BMI) [Ratio] 31.8 kg/m2 Dr. Fam Jasso Work Phone: [facility] 01-29-2024 10:00-0400 Body temperature 97.6 [degF] Dr. Fam Jasso Work Phone: [facility] 01-29-2024 10:00-0400 Body weight 100.[address] Fam Jasso Work Phone: [facility] 01-29-2024 10:00-0400 Diastolic blood pressure 66 mm[Hg] Dr. Fam Jasso Work Phone: [facility] 01-29-2024 10:00-0400 Heart rate 130 /min Dr. Fam Jasso Work Phone: [facility] 01-29-2024 10:00-0400 Respiratory rate 18 /min Dr. Fam Jasso Work Phone: [facility] 01-29-2024 10:00-0400 SaO2% (BldA) [Mass fraction] 98 % Dr. Fam Jasso Work Phone: [facility] 01-29-2024 10:00-0400 Systolic blood pressure 112 mm[Hg] Dr. Fam Jasso Work Phone: [facility] 01-19-2024 13:02-0400 Body height 177.[address] Fam Jasso Work Phone: [facility] 01-19-2024 13:02-0400 Body mass index (BMI) [Ratio] 31.7 kg/m2 Dr. Fam Jasso Work Phone: [facility] 01-19-2024 13:02-0400 Body weight 100.[address] Fam Jasso Work Phone: [facility] 01-19-2024 13:02-0400 Diastolic blood pressure 80 mm[Hg] Dr. Fam Jasso Work Phone: [facility] 01-19-2024 13:02-0400 Heart rate 66 /min Dr. Fam Jasso Work Phone: [facility] 01-19-2024 13:02-0400 Respiratory rate 18 /min Dr. Fam Jasso Work Phone: [facility] 01-19-2024 13:02-0400 Systolic blood pressure 114 mm[Hg] Dr. Fam Jasso Work Phone: [facility] 12-17-2023 08:28-0500 Body height 177.[address] Fam Jasso Work Phone: [facility] 12-17-2023 08:28-0500 Body weight 100.[address] Fam Jasso Work Phone: [facility] 12-16-2023 13:17-0500 Diastolic blood pressure 85 mm[Hg] Hans Wang MD Work Phone: [facility] 12-16-2023 13:17-0500 Systolic blood pressure 140 mm[Hg] Hans Wang MD Work Phone: [facility] 12-16-2023 13:06-0500 Body weight 100.83 kg Hans Wang MD Work Phone: [facility] 12-16-2023 13:06-0500 Heart rate 75 /min Hans Wang MD Work Phone: [facility] 12-16-2023 13:06-0500 SaO2% (BldA) [Mass fraction] 97 % Hans Wang MD Work Phone: [facility] 12-16-2023 09:20-0500 Body mass index (BMI) [Ratio] 31.8 kg/m2 Dr. Fam Jasso Work Phone: [facility] 12-09-2023 14:21-0500 Body height 177.[address] Fam Jasso Work Phone: [facility] 12-09-2023 14:21-0500 Body mass index (BMI) [Ratio] 31.8 kg/m2 Dr. Fam Jasso Work Phone: [facility] 12-09-2023 14:21-0500 Body weight 100.[address] Fam Jasso Work Phone: [facility] 12-09-2023 14:21-0500 Diastolic blood pressure 83 mm[Hg] Dr. Fam Jasso Work Phone: [facility] 12-09-2023 14:21-0500 Heart rate 128 /min Dr. Fam Jasso Work Phone: [facility] 12-09-2023 14:21-0500 Respiratory rate 20 /min Dr. Fam Jasso Work Phone: [facility] 12-09-2023 14:21-0500 SaO2% (BldA) [Mass fraction] 95 % Dr. Fam Jasso Work Phone: [facility] 12-09-2023 14:21-0500 Systolic blood pressure 109 mm[Hg] Dr. Fam Jasso Work Phone: [facility] 10-18-2023 11:12-0500 Body temperature 98.6 [degF] Melissa Alfredito HOSPICE EXECUTIVE DIRECTOR.RN DIALYSIS Work Phone: [facility] 10-18-2023 11:12-0500 Body weight 104.24 kg Melissa King HOSPICE EXECUTIVE DIRECTOR.RN DIALYSIS Work Phone: [facility] 10-18-2023 11:12-0500 Diastolic blood pressure 80 mm[Hg] Melissa Alfredito HOSPICE EXECUTIVE DIRECTOR.RN DIALYSIS Work Phone: [facility] 10-18-2023 11:12-0500 Heart rate 126 /min Melissa Alfredito HOSPICE EXECUTIVE DIRECTOR.RN DIALYSIS Work Phone: [facility] 10-18-2023 11:12-0500 Respiratory rate 18 /min Melissa Glaser HOSPICE EXECUTIVE DIRECTOR.RN DIALYSIS Work Phone: [facility] 10-18-2023 11:12-0500 SaO2% (BldA) [Mass fraction] 100 % Melissa Alfredito HOSPICE EXECUTIVE DIRECTOR.RN DIALYSIS Work Phone: [facility] 10-18-2023 11:12-0500 Systolic blood pressure 118 mm[Hg] Melissa Alfredito HOSPICE EXECUTIVE DIRECTOR.RN DIALYSIS Work Phone: [facility] 09-02-2023 06:25-0500 Body height 177.[address] Fam Jasso Work Phone: [facility] 09-02-2023 06:25-0500 Body mass index (BMI) [Ratio] 32.4 kg/m2 Dr. Fam Jasso Work Phone: [facility] 09-02-2023 06:25-0500 Body temperature 98.1 [degF] Dr. Fam Jasso Work Phone: [facility] 09-02-2023 06:25-0500 Body weight 102.[address] Fam Jasso Work Phone: [facility] 09-02-2023 06:25-0500 Diastolic blood pressure 91 mm[Hg] Dr. Fam Jasso Work Phone: [facility] 09-02-2023 06:25-0500 Heart rate 118 /min Dr. Fam Jasso Work Phone: [facility] 09-02-2023 06:25-0500 Respiratory rate 18 /min Dr. Fam Jasso Work Phone: [facility] 09-02-2023 06:25-0500 SaO2% (BldA) [Mass fraction] 98 % Dr. Fam Jasso Work Phone: [facility] 09-02-2023 06:25-0500 Systolic blood pressure 119 mm[Hg] Dr. Fam Jasso Work Phone: [facility] 07-31-2023 08:59-0400 Body mass index (BMI) [Ratio] 32.3 kg/m2 Dr. Fam Jasso Work Phone: [facility] 07-31-2023 08:59-0400 Body weight 102.[address] Fam Jasso Work Phone: [facility] 07-31-2023 08:59-0400 Diastolic blood pressure 79 mm[Hg] Dr. Fam Jasso Work Phone: [facility] 07-31-2023 08:59-0400 Heart rate 96 /min Dr. Fam Jasso Work Phone: [facility] 07-31-2023 08:59-0400 Respiratory rate 22 /min Dr. Fam Jasso Work Phone: [facility] 07-31-2023 08:59-0400 SaO2% (BldA) [Mass fraction] 95 % Dr. Fam Jasso Work Phone: [facility] 07-31-2023 08:59-0400 Systolic blood pressure 114 mm[Hg] Dr. Fam Jasso Work Phone: [facility] 07-30-2023 13:11-0400 Body mass index (BMI) [Ratio] 32.4 kg/m2 Dr. Fam Jasso Work Phone: [facility] 07-30-2023 13:11-0400 Body temperature 95 [degF] Dr. Fam Jasso Work Phone: [facility] 07-30-2023 13:11-0400 Body weight 102.[address] Fam Jasso Work Phone: [facility] 07-30-2023 13:11-0400 Diastolic blood pressure 70 mm[Hg] Dr. Fam Jasso Work Phone: [facility] 07-30-2023 13:11-0400 Heart rate 113 /min Dr. Fam Jasso Work Phone: [facility] 07-30-2023 13:11-0400 Respiratory rate 18 /min Dr. Fam Jasso Work Phone: [facility] 07-30-2023 13:11-0400 SaO2% (BldA) [Mass fraction] 97 % Dr. Fam Jasso Work Phone: [facility] 07-30-2023 13:11-0400 Systolic blood pressure 106 mm[Hg] Dr. Fam Jasso Work Phone: [facility] 07-10-2023 10:47-0400 Body height 177.[address] Fam Jasso Work Phone: [facility] 07-10-2023 10:47-0400 Body weight 102.[address] Fam Jasso Work Phone: [facility] 07-09-2023 07:35-0400 Body mass index (BMI) [Ratio] 32.4 kg/m2 Dr. Fam Jasso Work Phone: [facility] 06-10-2023 10:29-0400 Body height 177.[address] Fam Jasso Work Phone: [facility] 06-10-2023 10:29-0400 Body mass index (BMI) [Ratio] 32.4 kg/m2 Dr. Fam Jasso Work Phone: [facility] 06-10-2023 10:29-0400 Body weight 102.[address] Fam Jasso Work Phone: [facility] 06-10-2023 10:29-0400 Diastolic blood pressure 86 mm[Hg] Dr. Fam Jasso Work Phone: [facility] 06-10-2023 10:29-0400 Heart rate 103 /min Dr. Fam Jasso Work Phone: [facility] 06-10-2023 10:29-0400 Respiratory rate 18 /min Dr. Fam Jasso Work Phone: [facility] 06-10-2023 10:29-0400 SaO2% (BldA) [Mass fraction] 94 % Dr. Fam Jasso Work Phone: [facility] 06-10-2023 10:29-0400 Systolic blood pressure 124 mm[Hg] Dr. Fam Jasso Work Phone: [facility] 06-04-2023 08:53-0400 Body mass index (BMI) [Ratio] 32.4 kg/m2 Dr. Fam Jasso Work Phone: [facility] 06-04-2023 08:53-0400 Body temperature 96.1 [degF] Dr. Fam Jasso Work Phone: [facility] 06-04-2023 08:53-0400 Body weight 102.[address] Fam Jasso Work Phone: [facility] 06-04-2023 08:53-0400 Diastolic blood pressure 66 mm[Hg] Dr. Fam Jasso Work Phone: [facility] 06-04-2023 08:53-0400 Heart rate 81 /min Dr. Fam Jasso Work Phone: [facility] 06-04-2023 08:53-0400 Respiratory rate 20 /min Dr. Fam Jasso Work Phone: [facility] 06-04-2023 08:53-0400 SaO2% (BldA) [Mass fraction] 97 % Dr. Fam Jasso Work Phone: [facility] 06-04-2023 08:53-0400 Systolic blood pressure 116 mm[Hg] Dr. Fam Jasso Work Phone: [facility] 05-15-2023 13:06-0400 Body height 177.[address] Fam Jasso Work Phone: [facility] 05-15-2023 13:06-0400 Body weight 102.[address] Fam Jasso Work Phone: [facility] 05-15-2023 13:06-0400 Heart rate 83 /min Dr. Fam Jasso Work Phone: [facility] 05-15-2023 13:06-0400 SaO2% (BldA) [Mass fraction] 97 % Dr. Fam Jasso Work Phone: [facility] 05-04-2023 10:46-0400 Body height 175.[address] Fam Jasso Work Phone: [facility] 05-04-2023 10:46-0400 Body weight 102.[address] Fam Jasso Work Phone: [facility] 05-01-2023 07:17-0400 Body mass index (BMI) [Ratio] 33.3 kg/m2 Dr. Fam Jasso Work Phone: [facility] 04-14-2023 08:55-0400 Body height 175.[address] Fam Jasso Work Phone: [facility] 04-14-2023 08:55-0400 Body mass index (BMI) [Ratio] 33.3 kg/m2 Dr. Fam Jasso Work Phone: [facility] 04-14-2023 08:55-0400 Body weight 102.[address] Fam Jasso Work Phone: [facility] 04-14-2023 08:55-0400 Diastolic blood pressure 86 mm[Hg] Dr. Fam Jasso Work Phone: [facility] 04-14-2023 08:55-0400 Heart rate 92 /min Dr. Fam Jasso Work Phone: [facility] 04-14-2023 08:55-0400 Respiratory rate 18 /min Dr. Fam Jasso Work Phone: [facility] 04-14-2023 08:55-0400 SaO2% (BldA) [Mass fraction] 96 % Dr. Fam Jasso Work Phone: [facility] 04-14-2023 08:55-0400 Systolic blood pressure 128 mm[Hg] Dr. Fam Jasso Work Phone: [facility] 02-17-2023 08:24-0400 Body height 175.[address] Fam Jasso Work Phone: [facility] 02-17-2023 08:24-0400 Body mass index (BMI) [Ratio] 32.8 kg/m2 Dr. Fam Jasso Work Phone: [facility] 02-17-2023 08:24-0400 Body temperature 97.6 [degF] Dr. Fam Jasso Work Phone: [facility] 02-17-2023 08:24-0400 Body weight 100.[address] Fam Jasso Work Phone: [facility] 02-17-2023 08:24-0400 Diastolic blood pressure 70 mm[Hg] Dr. Fam Jasso Work Phone: [facility] 02-17-2023 08:24-0400 Heart rate 50 /min Dr. Fam Jasso Work Phone: [facility] 02-17-2023 08:24-0400 Respiratory rate 20 /min Dr. Fam Jasso Work Phone: [facility] 02-17-2023 08:24-0400 SaO2% (BldA) [Mass fraction] 97 % Dr. Fam Jasso Work Phone: [facility] 02-17-2023 08:24-0400 Systolic blood pressure 123 mm[Hg] Dr. Fam Jasso Work Phone: [facility] 01-14-2023 09:42-0400 Body height 175.[address] Fam Jasso Work Phone: [facility] 01-14-2023 09:39-0400 Body mass index (BMI) [Ratio] 31.8 kg/m2 Dr. Fam Jasso Work Phone: [facility] 01-14-2023 09:39-0400 Body weight 97.[address] Fam Jasso Work Phone: [facility] 01-14-2023 09:39-0400 Diastolic blood pressure 81 mm[Hg] Dr. Fam Jasso Work Phone: [facility] 01-14-2023 09:39-0400 Heart rate 58 /min Dr. Fam Jasso Work Phone: [facility] 01-14-2023 09:39-0400 Respiratory rate 22 /min Dr. Fam Jasso Work Phone: [facility] 01-14-2023 09:39-0400 SaO2% (BldA) [Mass fraction] 98 % Dr. Fam Jasso Work Phone: [facility] 01-14-2023 09:39-0400 Systolic blood pressure 132 mm[Hg] Dr. Fam Jasso Work Phone: [facility] 10-31-2022 09:34-0500 Body mass index (BMI) [Ratio] 32 kg/m2 Dr. Fam Jasso Work Phone: [facility] 10-31-2022 09:34-0500 Body weight 98.[address] Fam Jasso Work Phone: [facility] 10-31-2022 09:34-0500 Diastolic blood pressure 65 mm[Hg] Dr. Fam Jasso Work Phone: [facility] 10-31-2022 09:34-0500 Heart rate 56 /min Dr. Fam Jasso Work Phone: [facility] 10-31-2022 09:34-0500 Respiratory rate 18 /min Dr. Fam Jasso Work Phone: [facility] 10-31-2022 09:34-0500 Systolic blood pressure 116 mm[Hg] Dr. Fam Jasso Work Phone: [facility] 10-01-2022 10:11-0500 Diastolic blood pressure 84 mm[Hg] Dr. Fam Jasso Work Phone: [facility] 10-01-2022 10:11-0500 Systolic blood pressure 126 mm[Hg] Dr. Fam Jasso Work Phone: [facility] 10-01-2022 09:58-0500 Body height 175.[address] Fam Jasso Work Phone: [facility] Work Phone: 10-01-2022 09:58-0500 Body mass index (BMI) [Ratio] 31.8 kg/m2 Dr. Fam Jasso Work Phone: [facility] 10-01-2022 09:58-0500 Body temperature 97.3 [degF] Dr. Fam Jasso Work Phone: [facility] 10-01-2022 09:58-0500 Body weight 97.[address] Fam Jasso Work Phone: [facility] 10-01-2022 09:58-0500 Heart rate 66 /min Dr. Fam Jasso Work Phone: [facility] 10-01-2022 09:58-0500 Respiratory rate 18 /min Dr. Fam Jasso Work Phone: [facility] 10-01-2022 09:58-0500 SaO2% (BldA) [Mass fraction] 98 % Dr. Fam Jasso Work Phone: [facility] 09-17-2022 11:16-0500 Body mass index (BMI) [Ratio] 31.6 kg/m2 Dr. Fam Jasso Work Phone: [facility] Work Phone: 09-17-2022 11:16-0500 Body temperature 97.7 [degF] Dr. Fam Jasso Work Phone: [facility] Work Phone: 09-17-2022 11:16-0500 Body weight 97.[address] Fam Jasso Work Phone: [facility] Work Phone: 09-17-2022 11:16-0500 Diastolic blood pressure 68 mm[Hg] Dr. Fam Jasso Work Phone: [facility] Work Phone: 09-17-2022 11:16-0500 Heart rate 65 /min Dr. Fam Jasso Work Phone: [facility] Work Phone: 09-17-2022 11:16-0500 Respiratory rate 16 /min Dr. Fam Jasso Work Phone: [facility] Work Phone: 09-17-2022 11:16-0500 SaO2% (BldA) [Mass fraction] 97 % Dr. Fam Jasso Work Phone: [facility] Work Phone: 09-17-2022 11:16-0500 Systolic blood pressure 104 mm[Hg] Dr. Fam Jasso Work Phone: [facility] Work Phone: 08-26-2022 10:36-0400 Diastolic blood pressure 68 mm[Hg] Dr. Fam Jasso Work Phone: [facility] Work Phone: 08-26-2022 10:36-0400 Heart rate 56 /min Dr. Fam Jasso Work Phone: [facility] Work Phone: 08-26-2022 10:36-0400 Respiratory rate 16 /min Dr. Fam Jasso Work Phone: [facility] Work Phone: 08-26-2022 10:36-0400 Systolic blood pressure 120 mm[Hg] Dr. Fam Jasso Work Phone: [facility] Work Phone: 08-19-2022 10:56-0400 Body height 175.[address] Fam Jasso Work Phone: [facility] Work Phone: 08-19-2022 10:56-0400 Body weight 97.[address] Fam Jasso Work Phone: [facility] Work Phone: 08-18-2022 08:32-0400 Body mass index (BMI) [Ratio] 31.7 kg/m2 Dr. Fam Jasso Work Phone: [facility] Work Phone: 08-05-2022 10:20-0400 Body mass index (BMI) [Ratio] 31.4 kg/m2 Dr. Fam Jasso Work Phone: [facility] Work Phone: 08-05-2022 10:20-0400 Body temperature 98.5 [degF] Dr. Fam Jasso Work Phone: [facility] Work Phone: 08-05-2022 10:20-0400 Body weight 96.[address] Fam Jasso Work Phone: [facility] Work Phone: 08-05-2022 10:20-0400 Diastolic blood pressure 64 mm[Hg] Dr. Fam Jasso Work Phone: [facility] Work Phone: 08-05-2022 10:20-0400 Heart rate 77 /min Dr. Fam Jasso Work Phone: [facility] Work Phone: 08-05-2022 10:20-0400 Respiratory rate 14 /min Dr. Fam Jasso Work Phone: [facility] Work Phone: 08-05-2022 10:20-0400 SaO2% (BldA) [Mass fraction] 96 % Dr. Fam Jasso Work Phone: [facility] Work Phone: 08-05-2022 10:20-0400 Systolic blood pressure 106 mm[Hg] Dr. Fam Jasso Work Phone: [facility] Work Phone: 07-31-2022 10:05-0400 Diastolic blood pressure 62 mm[Hg] Dr. Fam Jasso Work Phone: [facility] Work Phone: 07-31-2022 10:05-0400 Systolic blood pressure 86 mm[Hg] Dr. Fam Jasso Work Phone: [facility] Work Phone: 07-31-2022 09:55-0400 Body mass index (BMI) [Ratio] 31.7 kg/m2 Dr. Fam Jasso Work Phone: [facility] Work Phone: 07-31-2022 09:55-0400 Body weight 97.[address] Fam Jasso Work Phone: [facility] Work Phone: 07-31-2022 09:55-0400 Heart rate 84 /min Dr. Fam Jasso Work Phone: [facility] Work Phone: 07-31-2022 09:55-0400 Respiratory rate 18 /min Dr. Fam Jasso Work Phone: [facility] Work Phone: 07-02-2022 08:45-0400 Body height 175.[address] Fam Jasso Work Phone: [facility] Work Phone: 07-02-2022 08:45-0400 Body mass index (BMI) [Ratio] 32 kg/m2 Dr. Fam Jasso Work Phone: [facility] Work Phone: 07-02-2022 08:45-0400 Body weight 98.[address] Fam Jasso Work Phone: [facility] Work Phone: 07-02-2022 08:45-0400 Diastolic blood pressure 70 mm[Hg] Dr. Fam Jasso Work Phone: [facility] Work Phone: 07-02-2022 08:45-0400 Heart rate 90 /min Dr. Fam Jasso Work Phone: [facility] Work Phone: 07-02-2022 08:45-0400 Respiratory rate 22 /min Dr. Fam Jasso Work Phone: [facility] Work Phone: 07-02-2022 08:45-0400 SaO2% (BldA) [Mass fraction] 96 % Dr. Fam Jasso Work Phone: [facility] Work Phone: 07-02-2022 08:45-0400 Systolic blood pressure 102 mm[Hg] Dr. Fam Jasso Work Phone: [facility] Work Phone: 05-21-2022 10:34-0400 Body height 175.[address] Fam Jasso Work Phone: [facility] Work Phone: 05-21-2022 10:33-0400 Body mass index (BMI) [Ratio] 31.6 kg/m2 Dr. Fam Jasso Work Phone: [facility] Work Phone: 05-21-2022 10:33-0400 Body weight 97.[address] Fam Jasso Work Phone: [facility] Work Phone: 05-21-2022 10:33-0400 Diastolic blood pressure 70 mm[Hg] Dr. Fam Jasso Work Phone: [facility] Work Phone: 05-21-2022 10:33-0400 Heart rate 79 /min Dr. Fam Jasso Work Phone: [facility] Work Phone: 05-21-2022 10:33-0400 Respiratory rate 18 /min Dr. Fam Jasso Work Phone: [facility] Work Phone: 05-21-2022 10:33-0400 Systolic blood pressure 105 mm[Hg] Dr. Fam Jasso Work Phone: [facility] Work Phone: 05-16-2022 10:28-0400 Body height 175.[address] Fam Jasso Work Phone: [facility] Work Phone: 05-16-2022 10:28-0400 Body mass index (BMI) [Ratio] 32 kg/m2 Dr. Fam Jasso Work Phone: [facility] Work Phone: 05-16-2022 10:28-0400 Body temperature 98 [degF] Dr. Fam Jasso Work Phone: [facility] Work Phone: 05-16-2022 10:28-0400 Body weight 98.[address] Fam Jasso Work Phone: [facility] Work Phone: 05-16-2022 10:28-0400 Diastolic blood pressure 64 mm[Hg] Dr. Fam Jasso Work Phone: [facility] Work Phone: 05-16-2022 10:28-0400 Heart rate 88 /min Dr. Fam Jasso Work Phone: [facility] Work Phone: 05-16-2022 10:28-0400 Respiratory rate 16 /min Dr. Fam Jasso Work Phone: [facility] Work Phone: 05-16-2022 10:28-0400 SaO2% (BldA) [Mass fraction] 97 % Dr. Fam Jasso Work Phone: [facility] Work Phone: 05-16-2022 10:28-0400 Systolic blood pressure 122 mm[Hg] Dr. Fam Jasso Work Phone: [facility] Work Phone: 04-14-2022 09:40-0400 Body height 175.[address] Fam Jasso Work Phone: [facility] Work Phone: 04-14-2022 09:40-0400 Body mass index (BMI) [Ratio] 31.9 kg/m2 Dr. Fam Jasso Work Phone: [facility] Work Phone: 04-14-2022 09:40-0400 Body temperature 98.3 [degF] Dr. Fam Jasso Work Phone: [facility] Work Phone: 04-14-2022 09:40-0400 Body weight 98.[address] Fam Jasso Work Phone: [facility] Work Phone: 04-14-2022 09:40-0400 Diastolic blood pressure 62 mm[Hg] Dr. Fam Jasso Work Phone: [facility] Work Phone: 04-14-2022 09:40-0400 Heart rate 110 /min Dr. Fam Jasso Work Phone: [facility] Work Phone: 04-14-2022 09:40-0400 Respiratory rate 16 /min Dr. Fam Jasso Work Phone: [facility] Work Phone: 04-14-2022 09:40-0400 SaO2% (BldA) [Mass fraction] 97 % Dr. Fam Jasso Work Phone: [facility] Work Phone: 04-14-2022 09:40-0400 Systolic blood pressure 114 mm[Hg] Dr. Fam Jasso Work Phone: [facility] Work Phone: 01-10-2022 09:15-0400 Body mass index (BMI) [Ratio] 31.1 kg/m2 Dr. Fam Jasso Work Phone: [facility] Work Phone: 01-10-2022 09:15-0400 Body temperature 98.5 [degF] Dr. Fam Jasso Work Phone: [facility] Work Phone: 01-10-2022 09:15-0400 Body weight 96.[address] Fam Jasso Work Phone: [facility] Work Phone: 01-10-2022 09:15-0400 Diastolic blood pressure 84 mm[Hg] Dr. Fam Jasso Work Phone: [facility] Work Phone: 01-10-2022 09:15-0400 Heart rate 53 /min Dr. Fam Jasso Work Phone: [facility] Work Phone: 01-10-2022 09:15-0400 Respiratory rate 14 /min Dr. Fam Jasso Work Phone: [facility] Work Phone: 01-10-2022 09:15-0400 SaO2% (BldA) [Mass fraction] 98 % Dr. Fam Jasso Work Phone: [facility] Work Phone: 01-10-2022 09:15-0400 Systolic blood pressure 138 mm[Hg] Dr. Fam Jasso Work Phone: [facility] Work Phone: Encounters Encounter Date Encounter Type Care Provider Facility Start: 03-30-2025 ambulatory Kaitlynn Gudino [facility] ty:[facility] Start: 03-24-2025 End: 03-24-2025 Patient encounter procedure Devin LLOYD -[facility] Work Phone: Start: 03-24-2025 End: 03-24-[address] Fam Jasso MD Work Phone: [facility] Work Phone: Start: 02-17-2025 End: 02-17-2025 Patient encounter procedure PAVAN Gudino -Laboratory Specimen Work Phone: Start: 02-17-2025 End: 02-17-2025 Patient encounter procedure PAVAN Gudino -[facility] Work Phone: Start: 02-17-2025 End: 02-17-2025 ambulatory Kaitlynn Gudino Facility:[facility] [place] [facility] Start: 02-17-2025 End: 02-17-2025 ambulatory Kaitlynn Gudino Facility:[facility] Start: 02-16-2025 End: 02-16-[address] Fam Jasso MD -Outpatient Breast Imaging Work Phone: Start: 02-16-2025 End: 02-16-[facility] Start: 02-01-2025 Non-patient / Non-visit Dr. Vikas saenz MD -[facility] Start: 02-01-2025 End: 02-01-[address] Fam Jasso MD Work Phone: [facility] Work Phone: Start: 02-01-2025 End: 02-01-[address] Vikas King MD -Cardiovascular Services Work Phone: Start: 02-01-2025 End: 02-01-2025 ambulatory Vikas [facility] Facility:[facility] Start: 01-24-2025 End: 01-24-[address] Fam Jasso MD Work Phone: [facility] Work Phone: Start: 01-24-2025 End: 01-24-[address] Fam Jasso MD -Physical Therapy Work Phone: Start: 01-23-2025 End: 01-23-[address] Fam Jasso MD Work Phone: [facility] Work Phone: Start: 01-23-2025 End: 01-23-[address] Vikas King MD -Cat Scan, [facility] Work Phone: Start: 01-23-2025 End: 01-23-2025 ambulatory [facility] Facility:[facility] Start: 01-18-2025 End: 01-18-2025 ambulatory Fam Jasso Facility:[facility] Start: 01-18-2025 End: 01-18-2025 Patient encounter procedure Evelina Arvizu -[facility] Work Phone: Start: 01-12-[address] Lisy Jasso MD -Physical Therapy Work Phone: Start: 01-05-2025 End: 01-05-[address] Fam Jasso MD Work Phone: [facility] Work Phone: Start: 01-05-2025 End: 01-05-[address] Vikas King MD -Laboratory Work Phone: Start: 01-04-2025 End: 01-04-[address] Vikas King MD -[facility] Work Phone: Start: 01-04-2025 End: 01-05-2025 ambulatory Vikas Melia Facility:[facility] Start: 12-23-2024 End: 12-23-2024 Patient encounter procedure PAVAN Gudino -[facility] Work Phone: Start: 12-23-2024 End: 12-23-2024 ambulatory Kaitlynn Gudino Facility:[facility] Start: 11-16-2024 End: 11-16-[address] Fam Jasso MD -[facility] Work Phone: Start: 11-16-2024 End: 11-16-2024 [facility] Start: 11-16-2024 End: 11-16-2024 ambulatory [facility] Facility:[facility] Start: 11-07-2024 ambulatory VIKAS MELIA Facility:[facility] Start: 11-07-2024 End: 11-07-2024 Subsequent hospital visit by physician Elliott Eastman MD Work Phone: [facility] Start: 10-20-2024 End: 10-20-2024 Patient encounter procedure PAVAN Gudino -Sleep Lab Work Phone: Start: 10-20-2024 End: 10-20-2024 ambulatory Kaitlynn Gudino Facility:[facility] Start: 09-27-2024 End: 09-27-2024 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 Start: 08-06-2024 ambulatory [facility] Facility:[facility] Start: 08-06-2024 End: 08-06-2024 Subsequent hospital visit by physician [facility] Remote Device Check Work Phone: [facility] Start: 05-06-2024 ambulatory [facility] Facility:[facility] Start: 05-06-2024 End: 05-06-2024 Subsequent hospital visit by physician Kemar Salcedo MD Work Phone: [facility] Start: 04-20-2024 ambulatory Efpk Jasso Facili ty:[facility] Start: 04-06-2024 ambulatory ELLIOTT EASTMAN Faci lity:[facility] Start: 04-06-2024 End: 04-07-2024 ambulatory ELLIOTT EASTMAN Facility:[facility] Start: 04-06-2024 End: 04-07-2024 Subsequent hospital visit by physician Elliott Eastman MD Work Phone: [facility] Comment on above: Permanent atrial fib rillation Start: 02-22-2024 Telephone encounter Hans hdez MD Work Phone: Cardiology Comment on above: Appointment Start: 02-19-2024 End: 02-19-2024 Clinical Support Encounter Elliott Eastman MD Work Phone: [facility] Comment on above: Permanent atrial fib rillation; NICM (nonischemic cardiomyopathy) Start: 02-19-2024 ambulatory ALDA Borrero y:[facility] Start: 02-19-2024 ambulatory ELLIOTT Miller raisavaughn:[facility] Start: 02-16-2024 End: 02-16-[address] Fam Jasso Work Phone: [facility] Work Phone: Start: 02-16-2024 End: 02-16-[address] Fam Jasso Work Phone: [facility]-Outpatient Bone Densitometry Work Phone: Start: 01-29-[address] Jan Jasso Work Phone: [facility] Start: 01-29-2024 End: 01-29-2024 Encounter for general adult medical examination without abnormal findings Dr. Fam Jasso Work Phone: [facility] Start: 01-29-2024 End: 01-29-[address] Fam Jasso Work Phone: [facility] Work Phone: Start: 01-19-2024 End: 01-19-[address] Fam Jasso Work Phone: [facility] Work Phone: Start: 01-19-2024 End: 01-19-[address] Fam Jasso Work Phone: [facility] Work Phone: Start: 01-01-2024 Non-patient / Non-visit Dr. Katie Jasso Work Phone: [facility] Work Phone: Start: 12-29-2023 Non-patient / Non-visit Dr. Katie Jasso Work Phone: [facility] Start: 12-29-2023 End: 12-29-[address] Fam Jasso Work Phone: [facility] Work Phone: Start: 12-29-2023 End: 12-29-[address] Fam Jasso Work Phone: [facility]-Cardiovascula r Services Work Phone: Start: 12-17-2023 End: 12-17-2023 Admission to same day surgery center Dr. Fam Jasso Work Phone: [facility]-Automobile Body Worker/Special Procedures Work Phone: Start: 12-17-2023 End: 12-17-[address] Fam Jasso Work Phone: [facility] Work Phone: Start: 12-16-2023 Encounter for preprocedural cardiovascular examination TEMITOPE SUMMERS [facility] Start: 12-16-2023 End: 12-16-2023 ambulatory CLAUDIA MA Facility:[facility] Start: 12-16-2023 End: 12-16-2023 Patient encounter procedure Hans Wagn MD Work Phone: Cardiology Comment on above: Preop cardiovascular exam (Primary Dx); Persistent atrial fibrillation (HCC); Disorder of artery or arteriole (HCC); Chronic systolic congestive heart failure (HCC) Start: 12-16-2023 End: 12-16-2023 Patient encounter status Hans Wang MD Work Phone: [facility] Start: 12-09-2023 End: 12-09-[address] Fam Jasso Work Phone: [facility] Work Phone: Start: 12-09-2023 End: 12-09-[address] Fam Jasso Work Phone: [facility]-Laboratory Work Phone: Start: 12-09-2023 End: 12-09-[address] Fam Jasso Work Phone: [facility] Work Phone: Start: 10-30-2023 Non-patient / Non-visit Dr. Katie Jasso Work Phone: [facility] Work Phone: Start: 10-29-2023 End: 10-29-[address] Fam Jasso Work Phone: [facility] Work Phone: Start: 10-29-2023 End: 10-29-[address] Fam Jasso Work Phone: [facility] Work Phone: Start: 10-27-2023 End: 10-27-[address] Fam Jasso Work Phone: [facility] Work Phone: Start: 10-27-2023 End: 10-27-[address] Fam Jasso Work Phone: [facility]-Laboratory Work Phone: Start: 10-18-2023 End: 10-18-2023 ambulatory TEMITOPE SUMMERS Facility:[facility] Start: 10-18-2023 End: 10-18-2023 Patient encounter procedure Melissa Glaser APRN.CNP Work Phone: [facility] Comment on above: Sinobronchitis (Prim nilesh Dx) Start: 09-30-2023 Non-patient / Non-visit Dr. Katie Jasso Work Phone: [facility] Work Phone: Start: 09-30-2023 Non-patient / Non-visit Dr. Katie Jasso Work Phone: [facility] Start: 09-30-2023 End: 09-30-[address] Fam Jasso Work Phone: [facility] Work Phone: Start: 09-30-2023 End: 09-30-[address] Fam Jasso Work Phone: [facility]-Cardiovascula r Services Work Phone: Start: 09-02-2023 End: 09-02-[address] Fam Jasso Work Phone: [facility]-Pulmonary Medicine [facility] Work Phone: Start: 07-31-2023 End: 07-31-[address] Fam Jasso Work Phone: [facility] Work Phone: Start: 07-30-2023 End: 07-30-[address] Fam Jasso Work Phone: [facility] Work Phone: Start: 07-17-2023 End: 07-17-[address] Fam Jasso Work Phone: [facility] Work Phone: Start: 07-10-2023 Non-patient / Non-visit Dr. Katie Jasso Work Phone: [facility] Start: 07-10-2023 Non-patient / Non-visit Dr. Katie Jasso Work Phone: [facility] Start: 07-10-2023 End: 07-10-2023 Admission to same day surgery center Dr. Fam Jasso Work Phone: [facility]-Automobile Body Worker/Special Procedures Work Phone: Start: 07-10-2023 End: 07-10-[address] Fam Jasso Work Phone: [facility] Work Phone: Start: 06-16-2023 End: 06-16-[address] Fam Jasso Work Phone: [facility] Work Phone: Start: 06-16-2023 End: 06-16-[address] Fam Jasso Work Phone: [facility]-Sleep Lab Work Phone: Start: 06-10-2023 End: 06-10-[address] Fam Jasso Work Phone: [facility] Work Phone: Start: 06-10-2023 End: 06-10-[address] Fam Jasso Work Phone: [facility] Work Phone: Start: 06-04-2023 End: 06-04-[address] Fam Jasso Work Phone: [facility]-Pulmonary Medicine [facility] Work Phone: Start: 05-29-2023 Non-patient / Non-visit Dr. Katie Jasso Work Phone: [facility] Start: 05-28-2023 End: 05-28-[address] Fam Jasso Work Phone: [facility] Work Phone: Start: 05-28-2023 End: 05-28-[address] Fam Jasso Work Phone: [facility]-Pulmonary Services/Neurology Work Phone: Start: 05-20-2023 Non-patient / Non-visit Dr. Katie Jasso Work Phone: [facility] Start: 05-15-2023 End: 05-15-[address] Fam Jasso Work Phone: [facility]-Pulmonary Services/Neurology Work Phone: Start: 05-12-2023 End: 05-12-[address] Fam Jasso Work Phone: [facility] Work Phone: Start: 05-12-2023 End: 05-12-[address] Fam Jasso Work Phone: [facility] Work Phone: Start: 05-04-2023 Non-patient / Non-visit Dr. Katie Jasso Work Phone: [facility] Start: 05-04-2023 End: 05-04-2023 Admission to same day surgery center Dr. Fam Jasso Work Phone: [facility]-Automobile Body Worker/Special Procedures Work Phone: Start: 05-04-2023 End: 05-04-[address] Fam Jasso Work Phone: [facility] Work Phone: Start: 04-23-2023 End: 04-23-[address] Fam Jasso Work Phone: [facility] Work Phone: Start: 04-14-2023 End: 04-14-[address] Fam Jasso Work Phone: [facility] Work Phone: Start: 04-14-2023 End: 04-14-[address] Fam Jasso Work Phone: [facility]-Radiology, [facility] Start: 04-14-2023 End: 04-14-[address] Fam Jasso Work Phone: [facility] Start: 02-27-2023 End: 02-27-[address] Fam Jasso Work Phone: [facility] Work Phone: Start: 02-27-2023 End: 02-27-[address] Fam Jasso Work Phone: [facility]-Sleep Lab Start: 02-17-2023 End: 02-17-[address] Fam Jasso Work Phone: [facility]-Pulmonary Medicine [facility] Start: 01-30-2023 End: 01-30-[address] Fam Jasso Work Phone: [facility] Work Phone: Start: 01-30-2023 End: 01-30-[address] Fam Jasso Work Phone: [facility]-Sleep Lab Start: 01-28-2023 End: 01-28-[address] Fam Jasso Work Phone: [facility] Work Phone: Start: 01-28-2023 End: 01-28-[address] Fam Jasso Work Phone: [facility]-Cardiovascula r Services Start: 01-14-2023 End: 01-14-[address] Fam Jasso Work Phone: [facility] Work Phone: Start: 01-14-2023 End: 01-14-[address] Fam Jasso Work Phone: [facility] Start: 10-31-2022 End: 10-31-[address] Fam Jasso Work Phone: [facility] Start: 10-01-2022 End: 10-01-[address] Fam Jasso Work Phone: [facility] Work Phone: Start: 10-01-2022 End: 10-01-[address] Fam Jasso Work Phone: [facility]-Laboratory, [facility] Start: 10-01-2022 End: 10-01-[address] Fam Jasso Work Phone: [facility] Start: 09-17-2022 End: 09-17-[address] Fam Jasso Work Phone: [facility] Start: 08-26-2022 End: 08-26-[address] Fam Jasso Work Phone: [facility] Work Phone: Start: 08-26-2022 End: 08-26-[address] Fam Jasso Work Phone: [facility] Start: 08-19-2022 Non-patient / Non-visit Dr. Katie Jasso Work Phone: [facility] Start: 08-19-2022 End: 08-19-2022 Admission to same day surgery center Dr. Fam Jasso Work Phone: [facility]-Automobile Body Worker/Special Procedures Start: 08-19-2022 End: 08-19-[address] Fam Jasso Work Phone: [facility] Work Phone: Start: 08-05-2022 End: 08-05-[address] Fam Jasso Work Phone: [facility] Start: 07-31-2022 End: 07-31-[address] Fam Jasso Work Phone: [facility]-Laboratory Start: 07-31-2022 End: 07-31-[address] Fam Jasso Work Phone: [facility] Start: 07-16-2022 Non-patient / Non-visit Dr. Katie Jasso Work Phone: [facility] Start: 07-16-2022 End: 07-16-[address] Fam Jasso Work Phone: [facility] Work Phone: Start: 07-16-2022 End: 07-16-[address] Fam Jasso Work Phone: [facility]-Cardiovascula r Services Start: 07-14-2022 End: 07-14-[address] Fam Jasso Work Phone: [facility] Work Phone: Start: 07-14-2022 End: 07-14-[address] Fam Jasso Work Phone: [facility]-Laboratory Start: 07-02-2022 End: 07-02-[address] Fam Jasso Work Phone: [facility] Work Phone: Start: 07-02-2022 End: 07-02-[address] Fam Teresa Phone: [facility] Start: 06-06-2022 Non-patient / Non-visit Dr. Katie Jasso Work Phone: [facility] Start: 06-06-2022 End: 06-06-[address] Fam Jasso Work Phone: [facility]-Cardiovascula r Services Start: 05-30-2022 End: 05-30-[address] Fam Jasso Work Phone: [facility] Start: 05-24-2022 Non-patient / Non-visit Dr. Katie Jasso Work Phone: [facility] Start: 05-23-2022 End: 05-23-[address] Fam Jasso Work Phone: [facility]-Pulmonary Services/Neurology Start: 05-21-2022 End: 05-21-[address] Fam Teresa Phone: [facility] Start: 05-16-2022 End: 05-16-[address] Fam Teresa Phone: [facility]-Laboratory, [facility] Start: 05-16-2022 End: 05-16-[address] Fam Jasso Work Phone: [facility] Start: 05-05-2022 End: 05-05-[address] Fam Teresa Phone: [facility]-Outpatient Breast Imaging Start: 04-14-2022 End: 04-14-[address] Fam Jasso Work Phone: [facility] Start: 01-10-2022 End: 01-10-[address] Fam Jasso Work Phone: [facility] Procedures Date Procedure Procedure Detail Performing Clinician Start: 02-17-2025 Gram stain microscopy D bryson Jasso MD Work Phone: Start: 02-17-[address] Fam Jasso MD Work Phone: Start: 02-16-2025 Screening mammography Cain Jasso MD Work Phone: Start: 01-23-2025 CT angiography of ch est with contrast Dr. Fam Jasso MD Work Phone: Start: 01-04-2025 Evaluation of diagno stic study results Dr. Fam Jasso MD Work Phone: Start: 11-07-2024 DEVICE EVALUATION Other Other OT Start: 05-06-2024 DEVICE EVALUATION Other Other Start: 04-07-2024 DEVICE EVALUATION Other Other Start: 04-07-2024 CBC AND ELECTRONIC DIFF Nanci Wolfe HOSPICE EXECUTIVE DIRECTOR-RN DIALYSIS Work Phone: Start: 04-07-2024 Complete blood count with white cell differential, automated Nanci Wolfe HOSPICE EXECUTIVE DIRECTOR-RN DIALYSIS Work Phone: Start: 04-07-2024 Creatinine blood Nanci Wolfe HOSPICE EXECUTIVE DIRECTOR-RN DIALYSIS Work Phone: Start: 04-06-2024 Radiologic exam chest 2 views Pat Mata MD Work Phone: Start: 04-06-2024 Cardiac electrophysiology Elliott Eastman MD Work Phone: Start: 04-06-2024 Icar catheter ablati on atrioventr node function Elliott Eastman MD Work Phone: Start: 04-06-2024 Insj/rplcmt perm dfb w/trnsvns lds 1/dual chmbr Elliott Eastman MD Work Phone: Start: 04-06-2024 Glucose measurement, blood Elliott Eastman MD Work Phone: Start: 04-06-2024 End: 04-06-2024 Glucose measurement, blood Elliott bejarano MD Work Phone: Start: 04-06-2024 Glucose measurement, blood Elliott Eastman MD Work Phone: Start: 04-06-2024 Ecg routine ecg w/le ast 12 lds w/i&r Denise L Tartt HOSPICE EXECUTIVE DIRECTOR-RN DIALYSIS Work Phone: Start: 04-06-2024 CBC AND ELECTRONIC DIFF Denise L Tartt HOSPICE EXECUTIVE DIRECTOR-RN DIALYSIS Work Phone: Start: 04-06-2024 Complete blood count with white cell differential, automated Denise L Tartt HOSPICE EXECUTIVE DIRECTOR-RN DIALYSIS Work Phone: Start: 04-06-2024 Creatinine blood Marizol ly L Tartt HOSPICE EXECUTIVE DIRECTOR-RN DIALYSIS Work Phone: Start: 02-16-2024 Dual energy X-ray absorptiometry Dr. Fam Jasso Work Phone: Start: 02-16-2024 Screening mammography D bryson Jasso Work Phone: Start: 10-29-2023 CT angiography of ch est with contrast Dr. Fam Jasso Work Phone: Start: 07-31-2023 Plain chest X-ray Dr. Jan Jasso Work Phone: Start: 04-23-2023 CT angiography of ch est with contrast Dr. Fam Jasso Work Phone: Start: 04-14-2023 Plain chest X-ray Dr. Jan Jasso Work Phone: Start: 07-16-2022 Cardiovascular stres s test using pharmacologic stress agent Dr. Fam Jasso Work Phone: Start: 05-30-2022 CT angiography of ch est with contrast Dr. Fam Jasso Work Phone: Start: 05-21-2022 Plain chest X-ray Dr. Jan Jasso Work Phone: Start: 05-05-2022 Screening mammography Cain Jasso Work Phone: Start: 08-16-2018 Colonoscopy Melissa foster HOSPICE EXECUTIVE DIRECTOR.RN DIALYSIS Work Phone: Start: 06-03-2004 Lipid 1996 panel - S vibha or Plasma Melissa Glaser APRN.RN DIALYSIS Work Phone: Plan of Treatment Date Care Activity Detail Author Start: 08-13-2025 End: 08-13-2025 Patient encounter procedure 08/13/2025 Appointment [facility] [address] [phone] [facility] Start: 05-08-2025 End: 05-08-2025 Patient encounter procedure 05/08/2025 1:40 PM EDT Appointment [facility] at [address] [phone] [facility] Start: 04-07-2025 Potassium [Moles/vol ume] in Serum or Plasma POTASSIUM [facility] Start: 03-30-2025 Continuous pulse oximetry [facility] Start: 02-05-2025 End: 02-05-2025 Patient encounter procedure 02/05/2025 Appointment [facility] [address] [phone] [facility] Start: 11-16-2024 Patient referral [facility] Work Phone: Start: 11-07-2024 End: 11-07-2024 Patient encounter procedure 11/07/2024 11:20 AM EST Appointment [facility] [address] [place] [phone] [facility] Start: 08-07-2024 End: 08-07-2024 Patient encounter procedure 08/07/2024 Appointment [facility] [address] [place] [phone] [facility] Start: 06-26-2024 COVID-19 VACCINE ( season) COVID-19 VACCINE () [facility] Start: 06-26-2024 COVID-19 VACCINE ( season) COVID-19 VACCINE () [facility] Start: 06-26-2024 Influenza vaccination [facility] Start: 05-06-2024 End: 05-06-2024 Patient encounter procedure 05/06/2024 11:20 AM EDT Appointment [facility] [address] [place] [phone] [facility] Start: 01-19-2024 Patient referral [facility] Work Phone: Start: 12-17-2023 Patient discharge [facility] Start: 12-16-2023 End: 03-16-2024 CREATININE BLD CREATININE BLD Lab Routine Disorder of artery or arteriole (HCC) Expected: 12/16/2023, Expires: 03/16/[address] [facility] Work Phone: Comment on above: Expected: 12/16/2023 , Expires: 03/16/2024 Start: 10-26-2023 Advance Directive Discussion Advance Directive Discussion [facility] Start: 10-26-2023 Behavioral Health Screening Behavioral Health Screening [facility] Start: 10-26-2023 Depression Assessment Depression Ass essment [facility] Start: 08-16-2023 Screening for malign ant neoplasm of colon [facility] Start: 07-10-2023 Patient discharge [facility] Start: 06-26-2023 COVID-19 VACCINE ( season) COVID-19 VACCINE ( season) [facility] Start: 06-26-2023 Covid-19 Vaccine ( season) Covid-19 Vaccine ( season) [facility] Start: 06-26-2023 Influenza vaccination Influenza Vacc ine (#1) [facility] Start: 05-04-2023 [facility] Start: 01-14-2023 Patient referral [facility] Work Phone: Start: 10-26-2022 Advance Directive Discussion Advance Directive Discussion [facility] Start: 10-26-2022 Depression Assessment Depression Ass essment [facility] Start: 10-01-2022 [facility] Start: 07-02-2022 [facility] Work Phone: Start: 05-21-2022 Plain chest X-ray Chest PA and Later al [facility] Work Phone: Start: 05-21-2022 XR Chest PA and Lateral [facility] Work Phone: Start: 08-16-2019 Screening for malign ant neoplasm of colon COLORECTAL CANCER SCREENING DISCUSSION [facility] [place] Start: 2014 Pneumococcal vaccination PNEUM OCOCCAL VACCINE SERIES (1 of 1 - PCV) [facility] [place] Start: 2014 Screening for osteoporosis Bone Dens ity Screening [facility] Start: 01-14-2014 Screening for malign ant neoplasm of breast Mammogram Screening [facility] Start: 05-17-2010 Diabetes Screening Diabetes Screenin g [facility] Start: 2009 RSV Vaccine (1 - 1-d ose 60+ series) RSV Vaccine (1 - 1-dose 60+ series) [facility] Start: 06-03-2009 Lipid panel Lipid Screening [facility] Start: 1999 Shingrix Vaccine (1 of 2) Auguste grix Vaccine (1 of 2) [facility] Start: 1999 Zoster vaccine hzv l wilber for subcutaneous use ZOSTER (SHINGLES) VACCINE (1 of 2) [facility] [place] Start: 1994 Screening for malign ant neoplasm of colon [facility] Start: 1989 Lipid panel LIPID SCREENING [facility] Start: 1989 Screening for malign ant neoplasm of breast MAMMOGRAM SCREENING DISCUSSION [facility] [place] Start: 1970 Screening for malign ant neoplasm of cervix CERVICAL CANCER SCREENING DISCUSSION [facility] [place] Start: 1968 Third diphtheria, te tanus and acellular pertussis (DTaP) vaccination TDAP (ADULT) [facility] [place] Start: 1968 Urine microalbumin profile DTa P,Tdap,Td Vaccine (1 - Tdap) [facility] Start: 1967 Annual PCP Team Binder Stripper Hand roro Disease Visit Annual PCP Team Chronic Disease Visit [facility] Start: 1967 BP Controlled (<130/80) BP Controlle d (<130/80) [facility] Start: 1967 Hepatitis C screening Hepatitis C Sc reening [facility] Start: 1949 Hepatitis C screening HEPATITI S C VIRUS SCREENING [facility] [place] Start: 1949 Screening for osteoporosis DEXA SCAN DISCUSSION [facility] [place] Start: 1949 Tetanus vaccination TETANUS [facility] Blood chemistry [facility] Blood chemistry [facility] Cardioversion [facility] Work Phone: Cardioversion [facility] Catheterization of l eft heart [facility] CBC W Auto Different ial panel - Blood [facility] End: 01-14-2025 CTA Chest vessels W contrast IV CTA CHEST (GATED) W IVCON Radiology Routine Disorder of artery or arteriole (HCC) 1 Occurrences starting 12/16/2023 until 01/14/[address] [facility] Work Phone: Comment on above: 1 Occurrences starti ng 12/16/2023 until 01/14/2025 CTA Chest vessels WO and W contrast IV [facility] Work Phone: CTA Chest vessels WO and W contrast IV [facility] ECG COMPLETE ECG COMPLETE ECG Routine Preop cardiovascular exam 12/16/2023 11:41 AM EST [facility] Work Phone: End: 12-16-2024 Echocardiography ECHO Cardiology Routine Persistent atrial fibrillation (HCC) 1 Occurrences starting 12/16/2023 until 12/16/[address] [facility] Work Phone: Comment on above: 1 Occurrences starti ng 12/16/2023 until 12/16/2024 Evaluation of diagno stic study results [facility] Work Phone: Exercise tolerance test [facility] Icar catheter ablati on atrioventr node function ABLATION SCHED INTERCARDIAC AV NODE (77674) Chronic a-fib NICM (nonischemic cardiomyopathy) [facility] EP Ins new/rplc prm pac emaker w/transv eltrd ventr PACEMAKER SCHED INSERT BIV DEVICE AND RV/LV LEADS (17356, 81529) Chronic a-fib NICM (nonischemic cardiomyopathy) [facility] EP End: 04-06-2024 Interrogation of cardiac pacemaker PACEMAKER/ICD INTERROGATION Cardiac Services Routine One Time for 1 Occurrences starting 04/06/2024 until 04/06/2024 [facility] Comment on above: One Time for 1 Occur rences starting 04/06/2024 until 04/06/2024 Measurement of respi ratory function [facility] Work Phone: Measurement of respi ratory function [facility] MG Breast - bilatera l Screening [facility] Work Phone: MG [email or web address] - bilatera l Screening [facility] NM Heart Views W str ess and W radionuclide IV [facility] Work Phone: OUTSIDE VENDOR CARDI AC OUTPATIENT EXTENDED RHYTHM RECORDING (WITHOUT TELEMETRY) OUTSIDE VENDOR CARDIAC OUTPATIENT EXTENDED RHYTHM RECORDING (WITHOUT TELEMETRY) Holter Routine Persistent atrial fibrillation (HCC) Ordered: 12/16/[address] [facility] Work Phone: Comment on above: Ordered: 12/16/2023 Patient referral [facility] Work Phone: Polysomnography [facility] Standard ECG ECG ECG STAT 09/2024 10:56 AM EDT [facility] Work Phone: Troponin I measurement [facility] Work Phone: Troponin I measurement [facility] US Carotid arteries [facility] US Heart [facility] XR Cervical spine 2 or 3 Views [facility] XR Spine Lumbar and Sacrum GE 4 Views [facility] Immunizations Immunization Date Immunization Notes Care Provider Sangeeta cheney 07-07-2018 influenza virus vaccine, unspecified formulation Melissa Glaser APRN.CNP Work Phone: [facility] 08-04-[address] Fam Jasso Work Phone: [facility] 08-04-[address] Yo Jasso Work Phone: [facility] Work Phone: 08-04-2008 pneumococcal vaccine , unspecified formulation Dr. Fam Jasso Work Phone: [facility] Payers Date Payer Category Payer Medicare [id number] 2024 Self-pay [id number] 2016 Medicaid [id number] 2016 Medicaid [id number] 5 2011 Medicare [id number] 5 2011 Medicare [id number] 1950 Unknown [id number] 2.16. 840.1.920519.3.579.2.594 1949 Unknown [id number] 2.16. 840.1.520884.3.579.2.594 1949 Unknown [id number] 2.16. 840.1.940420.3.579.2.594 1949 Unknown [id number] 2.16. 840.1.692165.3.579.2.594 1949 Unknown [id number] 2.16. 840.1.233592.3.579.2.594 1949 Unknown [id number] 2.16. 840.1.619752.3.579.2.594 1949 Unknown [id number] 2.. 840.1.787309.3.579.2.594 1949 Unknown [id number] 2. 840.1.444345.3.579.2.594 Medicare ANTHEM MEDICARE PPO [id number] [id number] Unknown [id number] 2.16.8 40.1.551558.3.579.2.462 Unknown [id number] 2.16.8 40.1.829363.3.579.2.462 Unknown [id number] 2.16.8 40.1.340337.3.579.2.462 Unknown [id number] 2.16.8 40.1.909371.3.579.2.462 Unknown [id number] 2.16.8 40.1.267436.3.579.2.462 Unknown [id number] 2.16.8 40.1.791779.3.579.2.462 Unknown [id number] 2.16.8 40.1.937347.3.579.2.462 Unknown [id number] 2.16.8 40.1.727171.3.579.2.462 Unknown [id number] 2.16.8 40.1.416285.3.579.2.462 Unknown [id number] 2.16.8 40.1.173515.3.579.2.462 Unknown [id number] 2.16.8 40.1.801894.3.579.2.462 Unknown [id number] 2.16.8 40.1.763368.3.579.2.462 Unknown [id number] 2.16.8 40.1.884805.3.579.2.462 Unknown [id number] 2.16.8 40.1.028605.3.579.2.462 Unknown [id number] 2.16.8 40.1.420734.3.579.2.462 Unknown [id number] 2.16.8 40.1.737276.3.579.2.462 Unknown [id number] 2.16.8 40.1.346774.3.579.2.462 Unknown [id number] 2.16.8 40.1.330322.3.579.2.462 Unknown [id number] 2.16.8 40.1.993929.3.579.2.462 Unknown [id number] 2.16.8 40.1.094249.3.579.2.462 Unknown [id number] 2.16.8 40.1.009089.3.579.2.462 Unknown [id number] 2.16.8 40.1.812305.3.579.2.462 Unknown [id number] 2.16.8 40.1.155701.3.579.2.462 Social History Date Type Detail Facility Start: 04-14-2022 End: 01-29-2024 Tobacco smoking status IDIS Unknown if ever smoked [facility] Start: 08-03-2013 Occasional [facility] Start: 08-03-2013 None [facility] Start: 08-03-2013 Alone [facility] Start: 1950 Sex Assigned At Female [facility] Start: 10-18-2023 End: 09-30-2024 Tobacco smoking status IDIS Ex-smoker [facility] End: 10-26-2001 History of tobacco use Current smoker [facility] End: 10-26-2001 History of tobacco use Cigarette Smoker [facility] Start: 10-18-2023 End: 04-06-2024 Cigarettes smoked current (pack per day) - Reported 0.5 [facility] Start: 10-18-2023 End: 02-19-2024 Tobacco use and exposure Smokeless tobacco non-user [facility] Start: 10-18-2023 End: 04-07-2024 Alcohol intake Current drinker of alcohol (finding) [facility] Start: 10-18-2023 End: 04-06-[address] [facility] National Score (1-10 0), lower number is lower risk Not on file [facility] Start: 10-18-2023 Tobacco Comment quit around 2001 [facility] Start: 05-17-2007 Alcohol Comment occ [facility] Start: 1950 Sex Assigned At Not on file [facility] Start: 04-06-2024 Alcohol Comment occasional beer [facility] [place] Start: 01-17-2025 End: 02-07-2025 Sex Female (finding) [facility] Medical Equipment Procedure Code Equipment Code Equipment Origin al Text Equipment Identifier Dates Defibrillator Ca rdiac 13mm 57sq Cm [id number] [place] Titanium - [id number] Start: 04-06-2024 Lead Pacing 62cm 8.6fr Right Ventricle Sprint Quattro Secure - [id number] Start: 04-06-2024 Lead Pacing 69cm Atrium Ventricle [employer] Bipolar Fixed - [id number] Start: 04-06-2024 Goals Date Patient Goal Desired Activity /State Personal health goal Clinical Notes 05-04-2023 to 01-25-2025 Note Date & Type Note Facility 01-25-2025 Radiology Diagnostic study note [facility] Imaging Services [address], [place] [id number] CTA Chest W/WO Contrast MR#: [id number] Acct: [id number] Name: HILL GRANT Rep #: [id number] : 1950 F 74 From: Navin Uribe MD PCP: Dr. Fam Jasso MD Status: R EG CLI Study:CTA Chest W/WO Contrast Date of Exam: 01/23/25 Exam# [id number] Ordering Dr: Brett King MD PROCEDURE: CTA CHEST W/WO CONTRAST 01/23/2025 REASON FOR EXAM: EVALUATE TAA COPD. TECHNIQUE: CTA imaging of the chest, abdomen and pelvis without and with intravenous contrast. Coronal and Sagittal reconstruction series were provided. 3D, 3D post processing, 3D reconstructions, Maximum intensity projection (MIPs) Volume rendering and Shaded surface rendering was provided. CONTRAST: Isovue 370 VOLUME: 100mL One or more dose reduction techniques were used (e.g., Automated exposure control, adjustment of the mA and/or kV according to patient size, use of iterative reconstruction technique). RADIATION DOSE SUMMARY: CTDlvol: 24 mGy DLP: 476.65 mGycm COMPARISON: Comparison is made with prior study dated October 29, 2023. FINDINGS: Heart: A left-sided dual-chamber pacemaker is seen. Pulmonary Vessels: No evidence of pulmonary embolism. Arch Vessels: Patent. Stable dilatation of the root of the ascending thoracic aorta measuring 48 mm. 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 This is a normal variant. Thoracic Aorta: Normal caliber. Abdominal Aorta: The proximal portion of the abdominal aorta is unremarkable. Mesenteric Arteries: Widely patent. Renal Arteries: Unremarkable. Other Findings: Fatty infiltration of the liver. 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 Degenerative changes of the thoracic vertebrae. CT/CTA Chest W/WO Contrast IMPRESSION: Stable examination. Reading Location: [facility] CC: Dr. Vikas King MD; Dr. Fam Jasso MD ~ Reading Assistant: Signed [facility] 01-24-2025 Discharge summary Note Date/Time January 24, 2025 7:00 pm [facility] Physical Therapy [facility] [address] [place] [address] / REHABILITATION SERVICES DISCHARGE SUMMARY MR#: [id number] Acct: [id number] Name: HILL GRANT Rep #: [id number] : 1950 74 From: Tata Martinez PT, Cert. MDT Referring Dr.: Dr. Fam Jasso MD Status : REG RCR Insurance: [employer] MEDICARE PPO MEDICAID Discharge Summary D/C summary: It has been my pleasure to treat HILL LEE referred by Dr. Fam Jasso MD, with the diagnosis of BACK PAIN for a total of 13 visit(s). Discharge Date: 01/24/25 Please see the following information for a summary of their discharge status. Subjective Subjective: PATIENT REPORTS SHE HAS NOTICED A BIG IMPROVEMENT SINCE STARTING PHYSICAL THERAPY AND SHE IS SO GLAD SHE CONTINUED IT. SHE STATES THE EX'S ARE A LOT EASIER NOW AND SHE KNOWS WHAT TO DO IN THE WATER AND AT HOME. SHE IS CONSIDERING A MEMBERSHIP TO CONTINUE WATER EX AND IN THE MEAN TIME SHE PLANS TO CONTINUE THE HOME EX'S STATING I HAVE BEEN DOING THEM AT HOME. SHE ALSO STATESI LIKE COMING TO THE POOL AND THEN I FEEL BETTER ALL DAY AFTER I COME TO THE POOL. PATIENT REPORTS CAN WALK TO THE NEIGHBORS AND BACK WITHOUT HER CANE NOW. Pain LBP: Pain Intensity (Out of 10): 4 R HIP: Pain Intensity (Out of 10): 0 NECK: Pain Intensity (Out of 10): 0 R KNEE: Pain Intensity (Out of 10): 0 Overall Improvement % Improvement: 65 Objective Objective/Function: PATIENT WAS SEEN TODAY FOR RE-ASSESSMENT OF PROGRESS TOWARD THE SET PT GOALS AND THE NEED FOR FURTHER PHYSICAL THERAPY VS READINESS FOR DISCHARGE. PATIENT IS INDEP WITH POOL AND HOME EX PROGRAMS AND APPROPRIATE FOR DISCHARGE TO INDEP EX. UPON EXAM TODAY: THIS PATIENT AMBULATES INDEP'LY INTO PT WITHOUT ANY AD'S OR LOB. GAIT AND STRENGTH IS MUCH IMPROVED DEMONSTRATED WITH TESTING BELOW TUG TIME: 9.96 30 STS TEST: 8 WITH ONE UE ASSIST RISING AND SITTING. ROM deficit: DONALDO HIP TIGHTNESS ALL PLANES. DONALDO HS AND CALF TIGHTNESS Motor deficit: DONALDO HIPS 4/5, KNEES 5/5, ANKLES 5/5. Dural Signs: NEGATIVE DONALDO LE'S. Lumbar mvmt loss: flex - MIN ext - MOD R SG - MOD - CATCHING PAIN R LB BENDING AND ON RETURN - NW L SG - MIN PATIENT WITH ONLY MINIMAL C/O PAIN WITH LUMBAR ROM TESTING TODAY. Core strength: FAIR Palpation: INCREASED MUSCLE TONE DONALDO THORACIC AND LUMBAR PARASPINALS BUT NO TENDERNESS. UPON DEPARTURE PATIENT STATES I FEEL SO MUCH BETTER AND I THINK I CAN GET A MEMBERSHIP TO COME A COUPLE TIMES A WEEK TO THE POOL. Goals Goal 1:: DECREASE C/O LOW BACK PAIN BY AT LEAST 50% TO EASE ADL'S - GOAL MET. New Goal: DECREASE C/O LOW BACK PAIN BY AT LEAST 75% TO EASE ADL'S. Goal Progress: Goal Met Goal 2:: IMPROVE PERSONAL CARE, LIFTING, WALKING, SITTING, STANDING, SLEEP, SOCIAL LIFE, TRAVEL AND HOMEMAKING FUNCTION WITH AT LEAST 5 POINT IMPROVEMENT INBACK OSWESTRY SCORE. Goal Progress: Goal Met Goal 3:: INSTRUCT IN PROPHYLAXIS. Goal Progress: Goal Met Plan Plan: D/C TO INDEP EX AND PHYSICIAN FOLLOW UP SCHEDULED 03/17/25. D/C Information d/c sentence: If there are questions or concerns regarding this patient's physical therapy, please feel free to call me at [phone]. Thank you for the referral of thispatient. Sincerely, Tata Martinez PT, Cert MDT Balance/Gait/Functional tests Balance/Special Test Scores Oswestry Low Back Score: 21 Improvement % Improvement: 65 <Electronically signed by Cert. SE Kenney PTT> 01/24/25 1019 CC: Dr. Fam Jasso MD ~ SETH Signed [facility] Work Phone: 1(400) 480-500804-01-2025 Discharge summary [facility] Physical Therapy [facility] [address] [place] [address] [address] [place] [address] / REHABILITATION SERVICES DISCHARGE SUMMARY MR#: [id number] Acct: [id number] Name: HILL GRANT Rep #: [id number] : 1950 74 From: Tata Martinez PT, Cert. MDT Referring Dr.: Dr. Fam Jasso MD Status : REG RCR Insurance: [employer] MEDICARE PPO MEDICAID Discharge Summary D/C summary: It has been my pleasure to treat HILL MCKEE YUNG referred by Dr. Fam Jasso MD, withthe diagnosis of BACK PAIN for a total of 13 visit(s). Discharge Date: 01/24/25 Please see the following information for a summary of their discharge status. Subjective Subjective: PATIENT REPORTS SHE HAS NOTICED A BIG IMPROVEMENT SINCE STARTING PHYSICAL THERAPY AND SHE IS SO GLAD SHE CONTINUED IT. SHE STATES THE EX'S ARE A LOT EASIER NOW AND SHE KNOWS WHAT TO DO INTHE WATER AND AT HOME. SHE IS CONSIDERING A MEMBERSHIP TO CONTINUE WATER EX AND IN THE MEAN TIME SHE PLANS TO CONTINUE THE HOME EX'S STATING I HAVE BEEN DOING THEM AT HOME. SHE ALSO STATESI LIKE COMING TO THE POOL AND THEN I FEEL BETTER ALL DAY AFTER I COME TO THE POOL. PATIENT REPORTS CAN WALKTO THE NEIGHBORS AND BACK WITHOUT HER CANE NOW. Pain LBP: Pain Intensity (Out of 10): 4 R HIP: Pain Intensity (Out of 10): 0 NECK: Pain Intensity (Out of 10): 0 R KNEE: Pain Intensity (Out of 10): 0 Overall Improvement % Improvement: 65 Objective Objective/Function: PATIENT WAS SEEN TODAY FOR RE-ASSESSMENT OF PROGRESS TOWARD THE SET PT GOALS AND THE NEED FOR FURTHER PHYSICAL THERAPY VS READINESS FOR DISCHARGE. PATIENT IS INDEP WITH POOL AND HOME EX PROGRAMS AND APPROPRIATE FOR DISCHARGE TO [facility] EX. UPON EXAM TODAY: THIS PATIENT AMBULATES INDEP'LY INTO PT WITHOUT ANY AD'S OR LOB. GAIT AND STRENGTH IS MUCH IMPROVEDAS DEMONSTRATED WITH TESTING BELOW TUG TIME: 9.96 30 STS TEST: 8 WITH ONE UE ASSIST RISING AND SITTING. ROM deficit: DONALDO HIP TIGHTNESS ALL PLANES. DONALDO HS AND CALF TIGHTNESS Motor deficit: DONALDO HIPS 4/5, KNEES 5/5, ANKLES 5/5. Dural Signs: NEGATIVE DONALDO LE'S. Lumbar mvmt loss: flex - MIN ext - MOD R SG - MOD - CATCHING PAIN R LB BENDING AND ON RETURN - NW L SG - MIN PATIENT WITH ONLY MINIMAL C/O PAIN WITH LUMBAR ROM TESTING TODAY. Core strength: FAIR Palpation: INCREASED MUSCLE TONE DONALDO THORACIC AND LUMBAR PARASPINALS BUT NO TENDERNESS. UPON DEPARTURE PATIENT STATES I FEEL SO MUCH BETTER AND I THINK I CAN GET A MEMBERSHIP TO COME A COUPLE TIMES A WEEK TO THE POOL. Goals Goal 1:: DECREASE C/O LOW BACK PAIN BY AT LEAST 50% TO EASE ADL'S - GOAL MET. New Goal: DECREASE C/O LOW BACK PAIN BY AT LEAST 75% TO EASE ADL'S. Goal Progress: Goal Met Goal 2:: IMPROVE PERSONAL CARE, LIFTING, WALKING, SITTING, STANDING, SLEEP, SOCIAL LIFE, TRAVEL ANDHOMEMAKING FUNCTION WITH AT LEAST 5 POINT IMPROVEMENT INBACK OSWESTRY SCORE. Goal Progress: Goal Met Goal 3:: INSTRUCT IN PROPHYLAXIS. Goal Progress: Goal Met Plan Plan: D/C TO INDEP EX AND PHYSICIAN FOLLOW UP SCHEDULED 03/17/25. D/C Information d/c sentence: If there are questions or concerns regarding this patient's physical therapy, please feel free to call me at [phone]. Thank you for the referral of thispatient. Sincerely, Tata Martinez, PT, Cert MDT Balance/Gait/Functional tests Balance/Special Test Scores Oswestry Low Back Score: 21 Improvement % Improvement: 65 01/24/25 1019 CC: Dr. Fam Jasso MD ~ [facility]-28-2025 Evaluation note* Diagnosis Onset Date Resolution Status Admit Date COPD (chronic obstructive pulmonary disease) chronic November 9:24am Obesity chronic December 23, 2024 9:24am Obstructive sleep apnea [facility] 2024 9:24am Paroxysmal atrial fibrillation [facility] December 23, 2024 9:24am Atrial fibrillation chronic January 04, 2025 2:30pm CHF (congestive heart failure) [facility] January 04, 2025 2:30pm Coronary artery disease chronic M [facility] 2024 2:30pm CHAVEZ (dyspnea on exertion) chronic January 04, 2025 2:30pm Essential hypertension chronic Ma [facility] 2024 2:30pm Nonischemic cardiomyopathy chronic January 04, 2025 2:30pm NSVT (nonsustained ventricul ar tachycardia) chronic January 04, 2025 2:30pm Obstructive sleep apnea chronic M [facility] 2024 2:30pm Thoracic aortic aneurysm (TAA) [facility] January 04, 2025 2:30pm Presence of biventricular implantable cardioverter-defibrillator (ICD) deleted January 04, 2025 2:30pm Atrial fibrillation chronic January 18, 2025 12:46pm Nonischemic cardiomyopathy chronic January 18, 2025 12:46pm Presence of implantable cardioverter-defibrillator (ICD) chronic January 18, 2025 12:46pm COPD (chronic obstructive pulmonary disease) chronic February 17, 025 9:06am Obesity chronic February 17 9:06am Obstructive sleep apnea [facility] 2024 9:06am Paroxysmal atrial fibrillation [facility] February 17, 2025 9:06am [facility] Work Phone: 1(895) 238-510901-22-2025 Evaluation note* Diagnosis Onset Date Resolution Status Admit Date CHF (congestive heart failure) [facility] November 16, 2024 10:04am Chronic back pain chronic November 16, 2024 10:04am Chronic neck pain chronic November 16, 2024 10:04am Essential hypertension chronic [facility] 2024 10:04am Hyperlipemia chronic October 10:04am COPD (chronic obstructive pulmonary disease) chronic November 9:24am Obesity chronic December 23, 2024 9:24am Obstructive sleep apnea chronic F ebruary 2024 9:24am Paroxysmal atrial fibrillation [facility] December 23, 2024 9:24am Atrial fibrillation chronic January 04, 2025 2:30pm CHF (congestive heart failure) [facility] January 04, 2025 2:30pm Coronary artery disease chronic [facility] 2024 2:30pm CHAVEZ (dyspnea on exertion) chronic January 04, 2025 2:30pm Essential hypertension chronic [facility] 2024 2:30pm Nonischemic cardiomyopathy chronic January 04, 2025 2:30pm NSVT (nonsustained ventricul ar tachycardia) chronic January 04, 2025 2:30pm Obstructive sleep apnea chronic [facility] 2024 2:30pm Presence of biventricular implantable cardioverter-defibrillator (ICD) chronic January 04, 2025 2:30pm Thoracic aortic aneurysm (TAA) [facility] January 04, 2025 2:30pm [facility] Work Phone: 1(823) 671-976101-22-2025 Evaluation note* Diagnosis Onset Date Resolution Status Admit Date CHF (congestive heart failure) [facility] November 16, 2024 10:04am Chronic back pain chronic November 16, 2024 10:04am Chronic neck pain chronic November 16, 2024 10:04am Essential hypertension chronic [facility] 2024 10:04am Hyperlipemia chronic October 10:04am COPD (chronic obstructive pulmonary disease) chronic November 9:24am Obesity chronic December 23, 2024 9:24am Obstructive sleep apnea chronic F ebruary 2024 9:24am Paroxysmal atrial fibrillation chron ic December 23, 2024 9:24am Atrial fibrillation chronic January 04, 2025 2:30pm CHF (congestive heart failure) chron ic January 04, 2025 2:30pm Coronary artery disease chronic [facility] 2024 2:30pm CHAVEZ (dyspnea on exertion) chronic January 04, 2025 2:30pm Essential hypertension chronic Ma h 2024 2:30pm Nonischemic cardiomyopathy chronic January 04, 2025 2:30pm NSVT (nonsustained ventricul ar tachycardia) chronic January 04, 2025 2:30pm Obstructive sleep apnea chronic [facility] 2024 2:30pm Thoracic aortic aneurysm (TAA) [facility] January 04, 2025 2:30pm Presence of biventricular implantable cardioverter-defibrillator (ICD) deleted January 04, 2025 2:30pm Atrial fibrillation chronic January 18, 2025 12:46pm Nonischemic cardiomyopathy chronic January 18, 2025 12:46pm Presence of implantable cardioverter-defibrillator (ICD) chronic January 18, 2025 12:46pm [facility] Work Phone: 1(761) 597-759506-13-2024 History of Present illness Narrative* SUZE Friend - 04/07/2024 10:31 AM EDT Discharge Planning Patient Assessment Admission Assessment Patient Assessment Completed: Screening Anticipated discharge disposition: Home Reason for Admission: ICD placement and AV Node Ablation CM reviewed chart and completed admission screening. Patient discharged to home today. No dischargeneeds noted for CM intervention. Holly ARCINIEGA Chief Sustainability Officer [facility] documented in [facility] Plan of care note* Plan of Care - Obdulia Apodaca RN - 04/07/2024 10:23 AM EDT Problem: Adult Inpatient Plan of Care Goal: Plan of Care Review Outcome: Adequate for Discharge Goal: Patient-Specific Goal (Individualized) Outcome: Adequate for Discharge Goal: Absence of Hospital-Acquired Illness or Injury Outcome: Adequate for Discharge Goal: Optimal Comfort and Wellbeing Outcome: Adequate for Discharge Goal: Readiness for Transition of Care Outcome: Adequate for Discharge Problem: Cardiac Rhythm Management Device Goal: Optimal Adjustment to Device Outcome: Adequate for Discharge Goal: Absence of Bleeding Outcome: Adequate for Discharge Goal: Effective Device Function Outcome: Adequate for Discharge Goal: Absence of Infection Signs and Symptoms Outcome: Adequate for Discharge Goal: Acceptable Pain Level Outcome: Adequate for Discharge Goal: Effective Oxygenation and Ventilation Outcome: Adequate for Discharge Skin prepped and cleansed with chlorohexidine per protocol prior to device implant. Patient premedicated with antibiotic prior to procedure. Assessing device site post op as ordered. Chest x-ray completed within four hours of implant and device interrogation per protocol. Device education completed. After Visit Summary reviewed with patient by DEB, RN, and all questions answered. RN reviewed what medications patient still needs for the day, patient verbalized understanding. IV dc'd with no difficulty and tip intact. Telemetry dc'd. VS stable at time of discharge. Patient being discharged to home by car with daughter. No patient belongings left at bedside. No further issues at time of discharge. Stressed to pt to take Farxiga w dinner per her home schedule and her AC at 1830 tonight (24 hrspost). Pt and daughter aware of meds she is supposed to stop taking (dig and amio). Obdulia Apodaca RN 04/07/2024 [facility] [place]06-13-2024 Miscellaneous Notes* Plan of Care - Obdulia Apodaca RN - 04/07/2024 10:23 AM EDT Problem: Adult Inpatient Plan of Care Goal: Plan of Care Review Outcome: Adequate for Discharge Goal: Patient-Specific Goal (Individualized) Outcome: Adequate for Discharge Goal: Absence of Hospital-Acquired Illness or Injury Outcome: Adequate for Discharge Goal: Optimal Comfort and Wellbeing Outcome: Adequate for Discharge Goal: Readiness for Transition of Care Outcome: Adequate for Discharge Problem: Cardiac Rhythm Management Device Goal: Optimal Adjustment to Device Outcome: Adequate for Discharge Goal: Absence of Bleeding Outcome: Adequate for Discharge Goal: Effective Device Function Outcome: Adequate for Discharge Goal: Absence of Infection Signs and Symptoms Outcome: Adequate for Discharge Goal: Acceptable Pain Level Outcome: Adequate for Discharge Goal: Effective Oxygenation and Ventilation Outcome: Adequate for Discharge Skin prepped and cleansed with chlorohexidine per protocol prior to device implant. Patient premedicated with antibiotic prior to procedure. Assessing device site post op as ordered. Chest x-ray completed within four hours of implant and device interrogation per protocol. Device education completed. After Visit Summary reviewed with patient by DEB, RN, and all questions answered. RN reviewed what medications patient still needs for the day, patient verbalized understanding. IV dc'd with no difficulty and tip intact. Telemetry dc'd. VS stable at time of discharge. Patient being discharged to home by car with daughter. No patient belongings left at bedside. No further issues at time of discharge. Stressed to pt to take Farxiga w dinner per her home schedule and her AC at 1830 tonight (24 hrspost). Pt and daughter aware of meds she is supposed to stop taking (dig and amio). Obdulia Apodaca RN 04/07/2024 * Plan of Care - Hill Presley RN - 04/07/2024 5:14 AM EDT Problem: Adult Inpatient Plan of Care Goal: Plan of Care Review 04/07/2024 0513 by Hill Presley RN Outcome: Progressing 04/07/2024 0509 by Hill Presley RN Outcome: Progressing Flowsheets (Taken 04/07/2024 0509) Progress: improving Plan of Care Reviewed With: patient child Note: Vital signs completed per protocol. Monitoring intake and output q8h. Assessing pain q4h and medicate prn. Obtaining daily weights. Labs completed per protocol and will report any abnormal values to physician. Plan of care reviewed and updated with patient and patient demonstrates understanding. Goal: Patient-Specific Goal (Individualized) Outcome: Progressing Goal: Absence of Hospital-Acquired Illness or Injury Outcome: Progressing Goal: Optimal Comfort and Wellbeing Outcome: Progressing Goal: Readiness for Transition of Care Outcome: Progressing * Plan of Care - Hill Presley RN - 04/07/2024 5:11 AM EDT Problem: Adult Inpatient Plan of Care Goal: Plan of Care Review Outcome: Progressing Flowsheets (Taken 04/07/2024 0500) Progress: improving Plan of Care Reviewed With: patient child Note: Vital signs completed per protocol. Monitoring intake and output q8h. Assessing pain q4h and medicate prn. Obtaining daily weights. Labs completed per protocol and will report any abnormal values to physician. Plan of care reviewed and updated with patient and patient demonstrates understanding. * Nursing Notes - Darryl Mckeon RN - 04/06/2024 11:10 AM EDT Pt arrives to room 2420 in IPR for QUALITY SYSTEMS ENGINEER-D/AVN RFA c/ Anesthesia. ECG completed. IV started in L arm.Labs drawn and sent. 0.9 NS IVF initiated @ 10mL/ hr per pump. Pt prep completed. Valuables given to daughter. Clothes secured in room. Questions about procedure answered. Family brought to bedside. Bed in low position, side rail up x2 and call light given to pt. Tele monitor shows AF with slow ventricular rate. * Nursing Notes - Osiris Love RN - 04/06/2024 11:03 AM EDT 1055am Report of PIV WITH ULTRASOUND GUIDANCE Consultation and Evaluation: Patient seen and evaluated for PIV insertion using ultrasound guidance. ID band present, allergies and limb precautions verified with patient/nurse. Skin integrity within normal limits at time of insertion. No evidence of ecchymosis, infiltration, hematoma, edema, or any condition that would prevent safe insertion of a PIV [X ] ultrasound used [ ] ultrasound not used Procedure explained to patient. Anatomical distortion to interfere with placement: none PROCEDURE DETAILS: PIV Insertion Procedure Using standard aseptic technique access was obtained. Good blood return noted, catheter flushed easily with 10mls 0.9 NS per lumen. Securement device used to secure PIV. Dressing applied. Pt denies pain at insertion site. Peripheral IV Line - Single Lumen 04/06/24 1055 forearm, anterior, left 18 gauge;1 1/4 in length (Active) 04/06/24 1055 Present On Admission : no Guiding Device: ultrasound Lumen 1: Additional Lumens: Lumen 2: Location: forearm, anterior, left Device/Lot Number: [id number] catheter system Gauge/Length: 18 gauge;1 1/4 in length Unsuccessful Insertion Attempts: Unsuccessful Attempt Location/Site: Pain Prevention/Patient Tolerance: Removal: Additional Comments: Lumen 3: Peripheral IV Present on Admission: (Retired/Read Only) Location: (Retired/Read Only) Device: (Retired/Read Only) Gauge/Length: Special Assemblies Supervisor/Lot Number: Unsuccessful Insertion Attempts: (Retired/Read Only) Unsuccessful Attempt Locations: Pain Prevention: Patient Tolerance: Insertion: Removal Indication: Peripheral IV Location - Orientation: Peripheral IV Location: Insertion Site WDL WDL 04/06/24 1103 Site Preparation/Maintenance site cleansed: chlorhexidine solution 04/06/24 1103 Lumen 1 Patency/Maintenance flushed without difficulty;blood return, able to obtain 04/06/24 1103 Phlebitis 0-->no symptoms 04/06/24 1103 Infiltration 0-->no symptoms 04/06/24 1103 Patient tolerated procedure well without any complications [] Lidocaine 1% used prior insertion [x] No Lidocaine used Extra insertion note if applicable: RN notified of procedure completion [ x] Obtained labs. [X] Call light in reach. [X] Bed low and locked. [X] Tray table within reach. Education: Patient/Family informed to notify nurse of any complications including pain, redness, swelling, or leakage post insertion. documented in this [facility]06-13-2024 Plan of care note* Plan of Care - Hill Presley RN - 04/07/2024 5:14 AM EDT Problem: Adult Inpatient Plan of Care Goal: Plan of Care Review 04/07/2024 0513 by Hill Presley RN Outcome: Progressing 04/07/2024 0509 by Hill Presley RN Outcome: Progressing Flowsheets (Taken 04/07/2024 0509) Progress: improving Plan of Care Reviewed With: patient child Note: Vital signs completed per protocol. Monitoring intake and output q8h. Assessing pain q4h and medicate prn. Obtaining daily weights. Labs completed per protocol and will report any abnormal values to physician. Plan of care reviewed and updated with patient and patient demonstrates understanding. Goal: Patient-Specific Goal (Individualized) Outcome: Progressing Goal: Absence of Hospital-Acquired Illness or Injury Outcome: Progressing Goal: Optimal Comfort and Wellbeing Outcome: Progressing Goal: Readiness for Transition of Care Outcome: Progressing [facility] [place]06-13-2024 Plan of care note* Plan of Care - Hill Presley RN - 04/07/2024 5:11 AM EDT Problem: Adult Inpatient Plan of Care Goal: Plan of Care Review Outcome: Progressing Flowsheets (Taken 04/07/2024 0509) Progress: improving Plan of Care Reviewed With: patient child Note: Vital signs completed per protocol. Monitoring intake and output q8h. Assessing pain q4h and medicate prn. Obtaining daily weights. Labs completed per protocol and will report any abnormal values to physician. Plan of care reviewed and updated with patient and patient demonstrates understanding. [facility] [place]06-12-2024 Hospital Discharge instructions* Discharge Instr - Activity* Nanci Wolfe APRN-RN DIALYSIS - 04/06/2024 12:02 PM EDT YOUR ACTIVITY RESTRICTIONS FOR THE NEXT FOUR WEEKS Avoid lifting any objects heavier than 10 pounds Avoid raising your device side arm above your shoulder. We encourage you to use the arm on the ICD implanted side as long as the movement is below shoulder level and within the lifting restrictions. Avoid activities that require pushing or pulling heavy objects Avoid vigorous exercise which would include the following: Washing windows or butler Vacuuming Tennis and golf but you may practice putting Lifting weights Running, jogging, or aerobics Contact sports Snow shoveling Mowing the lawn Chopping wood It is ok to lift your arms up to wash your hair but you should not be raising your arm on a repetitive basis. You must wait six weeks post implant before resuming a full golf swing DRIVING RESTRICTIONS You are not allowed to drive for 48 hours after your surgery Patients who have had a syncopal episode (or passed out) have an additional restriction: They are not allowed to drive for three months after their last syncopal (passing out) episode. If you have questions regarding this restriction, please contact your physician s office, not the [facility] * Discharge Instr - Diet* BOAZ Holt - 04/06/2024 12:02 PM EDT Diet: Your doctor has recommended that you follow these diet instructions at home. Refer to the patient education materials you received during your hospital stay. If you would like more nutrition counseling, ask your doctor about making an appointment with an outpatient dietitian. Heart Healthy Diet to promote heart health. Choose healthy fats and oils such as canola or olive oil. Limit high cholesterol foods. Avoid added salt and caffeine in your foods. Controlled Carbohydrate Diet This diet controls carbohydrate intake to help manage and maintain consistent blood glucose levels.Simple sugars are limited and carbohydrate intake is balanced throughout the day. Avoid adding saltto your food and use heart healthy fats such as canola or olive oil. * Discharge Instr - Notify* BOAZ Holt - 04/06/2024 12:02 PM EDT Images from the original note were not included. Call the Device Clinic if you have: Dizziness, lightheadedness, or you pass out A very slow heartbeat - 40 beats per minute or slower Unusual shortness of breath Other signs that concern you If you have any of these signs and need medical help right away, call 911. When you are nauseated, you may feel weak and sweaty and notice a lot of saliva in your mouth. Nausea often leads to vomiting. Most of the time you do not need to worry about nausea and vomiting, butthey can be signs of other illnesses. The doctor has checked you carefully, but problems can develop later. If you notice any problems ornew symptoms, get medical treatment right away. Follow-up care is a kennedy part of your treatment and safety. Be sure to make and go to all appointments, and call your doctor if you are having problems. It's also a good idea to know your test resultsand keep a list of the medicines you take. How can you care for yourself at home? To prevent dehydration, drink plenty of fluids, enough so that your urine is light yellow or clear like water. Choose water and other caffeine-free clear liquids until you feel better. If you have kidney, heart, or liver disease and have to limit fluids, talk with your doctor before you increase the amount of fluids you drink. Rest in bed until you feel better. When you are able to eat, try clear soups, mild foods, and liquids until all symptoms are gone for 12 to 48 hours. Other good choices include dry toast, crackers, cooked cereal, and gelatin dessert, such as Jell-O. When should you call for help? Call 911 anytime you think you may need emergency care. For example, call if: You passed out (lost consciousness) Call your doctor now or seek immediate medical care if: You have symptoms of dehydration, such as: Dry eyes and a dry mouth Passing only a little dark urine Feeling thirstier than usual You have new or worsening belly pain You have a new or higher fever You vomit blood or what looks like coffee grounds Watch closely for changes in your health, and be sure to contact your doctor if: You have on going nausea and vomiting Your vomiting gets worse Your vomiting last longer than 2 days You are not getting better as expected Where can you learn more? Go to https://www.healthwise.net/osumychart. * Discharge Instr - Wound Care* BOAZ Holt - 04/06/2024 12:03 PM EDT Your incision care The pacemaker may buldge slightly under the skin. This is normal and common right after surgery. This will lesson over the nxt few weeks. You may have bruising around the incision, especially if you take blood thinner medicines, called anticoagulants, such as aspirin or warfarin. Itching is a normal part of the healing process. Try not to rub or scratch the incision site. Keep your incision clean and dry. Your dressing is waterproof and can be worn in the shower. Your dressing can be left in place for up to seven (7) days. Dressing may need to be changed sooner, depending on the amount of fluid it absorbs. Dressing flexes with skin during body movement. * Attachments The following attachments cannot be sent through Care Everywhere. * AQUACEL Ag Surgical Dressing ([facility]) ([place]) * Arrhythmia: Living With a Pacemaker: Video ([place]) * Your Care After Ablation ([facility]) ([place]) * Catheter ablation: Post-op ([place]) [facility]* Nursing Notes - Darryl Mckeon RN - 04/06/2024 11:10 AM EDT Pt arrives to room 2420 in IPR for QUALITY SYSTEMS ENGINEER-D/AVN RFA c/ Anesthesia. ECG completed. IV started in L arm.Labs drawn and sent. 0.9 NS IVF initiated @ 10mL/ hr per pump. Pt prep completed. Valuables given to daughter. Clothes secured in room. Questions about procedure answered. Family brought to bedside. Bed in low position, side rail up x2 and call light given to pt. Tele monitor shows AF with slow ventricular rate. [facility]06-12-2024 Nurse Note* Nursing Notes - Osiris Love RN - 04/06/2024 11:03 AM EDT 1055am Report of PIV WITH ULTRASOUND GUIDANCE Consultation and Evaluation: Patient seen and evaluated for PIV insertion using ultrasound guidance. ID band present, allergies and limb precautions verified with patient/nurse. Skin integrity within normal limits at time of insertion. No evidence of ecchymosis, infiltration, hematoma, edema, or any condition that would prevent safe insertion of a PIV [X ] ultrasound used [ ] ultrasound not used Procedure explained to patient. Anatomical distortion to interfere with placement: none PROCEDURE DETAILS: PIV Insertion Procedure Using standard aseptic technique access was obtained. Good blood return noted, catheter flushed easily with 10mls 0.9 NS per lumen. Securement device used to secure PIV. Dressing applied. Pt denies pain at insertion site. Peripheral IV Line - Single Lumen 04/06/24 1055 forearm, anterior, left 18 gauge;1 1/4 in length (Active) 04/06/24 1055 Present On Admission : no Guiding Device: ultrasound Lumen 1: Additional Lumens: Lumen 2: Location: forearm, anterior, left Device/Lot Number: [id number] catheter system Gauge/Length: 18 gauge;1 1/4 in length Unsuccessful Insertion Attempts: Unsuccessful Attempt Location/Site: Pain Prevention/Patient Tolerance: Removal: Additional Comments: Lumen 3: Peripheral IV Present on Admission: (Retired/Read Only) Location: (Retired/Read Only) Device: (Retired/Read Only) Gauge/Length: Special Assemblies Supervisor/Lot Number: Unsuccessful Insertion Attempts: (Retired/Read Only) Unsuccessful Attempt Locations: Pain Prevention: Patient Tolerance: Insertion: Removal Indication: Peripheral IV Location - Orientation: Peripheral IV Location: Insertion Site WDL WD 04/06/24 110 Site Preparation/Maintenance site cleansed: chlorhexidine solution 04/06/24 110 Lumen 1 Patency/Maintenance flushed without difficulty;blood return, able to obtain 04/06/24 110 Phlebitis 0-->no symptoms 04/06/24 1103 Infiltration 0-->no symptoms 04/06/24 1103 Patient tolerated procedure well without any complications [] Lidocaine 1% used prior insertion [x] No Lidocaine used Extra insertion note if applicable: RN notified of procedure completion [ x] Obtained labs. [X] Call light in reach. [X] Bed low and locked. [X] Tray table within reach. Education: Patient/Family informed to notify nurse of any complications including pain, redness, swelling, or leakage post insertion. [facility] [place]06-12-2024 History and physical note* Nanci Wolfe, HOSPICE EXECUTIVE DIRECTOR-RN DIALYSIS - 04/06/2024 10:07 AM EDT Images from the original note were not included. Chief Complaint QUALITY SYSTEMS ENGINEER-D and AV node RFA HPI Hill Lee is a 73 y.o. female with a history of TAA (4.9cm), permanent atrial fibrillation, COPD, HTN, non-ischemic cardiomyopathy, obesity, and PAOLO not on therapy. Diagnosed with A-fib in 2019. Managed with cardioversions and beta blockade. Last cardioversion was in June of 2023, which was unsuccessful. She notes that after the cardioversion, her aneurysm dilated by 0.5 cm shortly afterwards and was told not to have a repeat cardioversion by her vascular doctors. She was recently seenby cardiology and was noted to be tachycardic with heart rates in the 160s. She was started on Digoxin and Amiodarone. However, due to persistent fatigue, history of COPD, she was referred to EP for further evaluation for possible QUALITY SYSTEMS ENGINEER-D with an AV node ablation. The patient established care with Dr. Eastman in January, they discussed treatment options, and she was agreeable to QUALITY SYSTEMS ENGINEER-D and AV node ablation given her non-ischemic cardiomyopathy with LVEF less than or equal to 35% history. She presentstoday for this. A 24-hour Holter in February showed an AF burden of 98.9%. Denies recent infection or antibiotic use. Presents in A-fib. AF symptoms include fatigue, decreased energy and occasional chest pain. Currently denies chest pain. Patient Active Problem List Diagnosis Permanent atrial fibrillation Obesity (BMI 30.0-34.9) Aneurysm of ascending aorta without rupture Essential hypertension, benign Hypertension NICM (nonischemic cardiomyopathy) COPD (chronic obstructive pulmonary disease) PAOLO (obstructive sleep apnea) Past Medical History: Diagnosis Date Aneurysm of ascending aorta without rupture 11/27/2023 Arrhythmia COPD (chronic obstructive pulmonary disease) 02/19/2024 Essential hypertension, benign 05/17/2007 NICM (nonischemic cardiomyopathy) 02/19/2024 Obesity (BMI 30.0-34.9) 02/19/2024 PAOOL (obstructive sleep apnea) 02/19/2024 Permanent atrial fibrillation 02/19/2024 Past Surgical History: Procedure Laterality Date COLONOSCOPY DIAGNOSTIC Medications Prior to Admission Medication Sig Dispense Refill Last Dose Allopurinol 100 MG tablet Take 1 tablet by mouth daily. 04/06/2024 AMIOdarone 200 MG tablet Take 1 tablet by mouth daily. 04/06/2024 Atorvastatin 20 MG tablet Take 1 tablet by mouth at bedtime. 04/05/2024 parspzltzb-ukyfzelxvdzbxn-Xmuxfetjmh 160-9-4.8 MCG/ACT Aerosol inhaler Inhale. Past Month Digoxin 125 MCG tablet Take 1 tablet by mouth daily. 04/06/2024 Eliquis 5 MG tablet take 1 5 MG tablet orally twice a day 04/05/2024 at 2130 Farxiga 10 MG tablet Take 1 tablet by mouth Daily (with dinner). 04/01/2024 furOSEmide 40 MG tablet take 1 and 1/2 tablets by mouth once daily 04/05/2024 lisinopril 40 MG tablet Take 1 tablet by mouth daily. 04/05/2024 Metoprolol succinate 100 MG tablet XL Take 1 tablet by mouth daily. 04/06/[address] capsule Take 1 capsule by mouth daily. 04/06/2024 Potassium Chloride ER 20 MEQ Tab CR tablet Take 1 tablet by mouth 2 times daily. 04/06/2024 Ventolin HFA 108 (90 Base) MCG/ACT Aero Soln inhaler Inhale 2 puffs every 6 hours as needed. Past Month Allergies Allergen Reactions Penicillins Anaphylaxis Seasonal Congestion Social History Socioeconomic History Marital status: Tobacco Use Smoking status: Former Types: Cigarettes Smokeless tobacco: Never Substance and Sexual Activity Alcohol use: Yes Alcohol/week: 1.0 standard drink of alcohol Types: 1 Cans of beer per week Comment: occasional beer Family History Problem Relation Age of Onset Diabetes Mother Myocardial Infarction Mother Heart Failure Mother Lipid Disorder Mother Hypertension Mother Colon Cancer Father Colon Cancer Brother Hypertension Brother Referring MD: Dr. King PCP Vikas SCHMIDT MD: Dr. Eastman Anticoagulation: Eliquis Has the patient missed any doses of anticoagulation. Yes When was the last dose taken. 04/05/24 at 2130 [id number]- Vasc score: 4 (heart failure, female gender, HTN, & age) Previous antiarrythmic medications: Currently on Digoxin and Amiodarone Reason stopped: n/a Previous cardioversions?: Yes Previous ablations?: No Device: None Last eval: 02/19/2024 Shared decision tool for primary prevention ICD NYHA Class II Patient on guideline directed therapy for greater than 3 months? yes Hill Lee has been evaluated and determined to meet [facility] primary prevention ICD implant criteriadue to: Non-ischemic dilated cardiomyopathy with LVEF less than or equal to 35% with NYHA class II or III heart failure and post NH greater than 40 days and post PCI or CABG greater than 3 months, onoptimal medical therapy greater than or equal to 3 months. Hill Lee participated in a shared decision making encounter today using the evidence based tool A decision aid for ICD and has: Elected to proceed with ICD implant. Prior Cardiac testing: Results for orders placed in visit on 12/29/23 ECHOCARDIOGRAM (OUTSIDE) (Final) Review of System Constitutional: Negative for fever, weight loss, weight gain and malaise/fatigue. Skin: Negative. HEENT: Negative. Cardiovascular: Negative for leg swelling. Negative for palpitations, chest pain, dyspnea, orthopnea, claudication, edema and PND. Negative for lightheadedness or syncope. Respiratory: Negative for cough. Is not experiencing shortness of breath currently. Gastrointestinal: Negative for abdominal pain, nausea, vomiting, diarrhea, melena, and constipation. Endocrine: Negative for polyuria, polydipsia, heat or cold intolerance. Genitourinary: Negative for frequency or burning with urination. Past history of BPH or difficult catheterization? Denies. Neurological: Negative for dizziness and headaches. Psychiatric: Negative for depression, nervous/anxious and substance abuse. Telemetry/EKG: AF HR 64 BP 137/74 (BP Location: Right arm, BP Position: Lying) Pulse 71 Temp 97.6 F (36.4 C) (Oral) Resp 20 Ht 1.778 m (5' 10) Wt 99.7 kg (219 lb 12.8 oz) SpO2 96% BMI 31.54 kg/m Smoking Status Former Body mass index is 31.54 kg/m . Physical Exam General appearance - alert, LOC x 3, well appearing, and in no distress Neck - supple, no significant adenopathy, carotids upstroke normal bilaterally without bruits. Chest - lungs clear to auscultation Heart - irregularly irregular, S1 and S2 normal, + murmurs, no clicks, gallops or rubs, normal bilateral carotid upstroke without bruits, no JVD Extremities - peripheral pulses normal, no pedal edema, no clubbing or cyanosis Skin - normal coloration and turgor, no rashes, no suspicious skin lesions noted Lab Results Component Value Date SODIUM 139 04/06/2024 POTASSIUM 4.3 04/06/2024 CHLORIDE 102 04/06/2024 CO2 26 04/06/2024 BUN 15 04/06/2024 CREATSERUM 1.05 04/06/2024 GLUCOSE 121 (H) 04/06/2024 Lab Results Component Value Date WBC 8.95 04/06/2024 HGB 12.7 04/06/2024 HCT 41.6 04/06/2024 PLATELET 251 04/06/2024 MCV 93.1 04/06/2024 INR Date Value Ref Range Status 04/06/2024 1.2 (H) 0.9 - 1.1 Final Assessment and Plan Permanent AF and EF of 35%- Ok to proceed with QUALITY SYSTEMS ENGINEER-D and AV RFA w/anesthesia with routine post-procedure monitoring -NPO since midnight -Labs pending Associated attestation - Elliott Eastman MD - 04/06/2024 2:49 PM EDT Attending Physician Note I have personally interviewed and examined this patient with the PLATING EQUIPMENT TENDER/Fellow/Resident. I have reviewed the history and examination and edited these in the note above. I agree with the medical decision and components of the note as edited by me. Patient is alert and oriented and VS stable. She has a history of permanent AF, and has been on amiodarone, metoprolol, and digoxin in order to achieve rate control. She continues to have symptomatic tachycardic events despite these medications. She has COPD, and has been referred for a QUALITY SYSTEMS ENGINEER-D + AVN. Following the procedure, we will stop amidoarone and diogxin, and reduce the dose of metoprolol to 50mg daily. Elliott Eastman MD Clinical Sole Stainer Cardiac Electrophysiology [facility] [place] Work Phone: 1(225) 754-976406-12-2024 History and physical note* Nanci Wolfe APRN-HMOER - 04/06/2024 10:07 AM EDT Images from the original note were not included. Chief Complaint QUALITY SYSTEMS ENGINEER-D and AV node RFA HPI Hill Lee is a 73 y.o. female with a history of TAA (4.9cm), permanent atrial fibrillation, COPD, HTN, non-ischemic cardiomyopathy, obesity, and PAOLO not on therapy. Diagnosed with A-fib in 2019. Managed with cardioversions and beta blockade. Last cardioversion was in June of 2023, which was unsuccessful. She notes that after the cardioversion, her aneurysm dilated by 0.5 cm shortly afterwards and was told not to have a repeat cardioversion by her vascular doctors. She was recently seenby cardiology and was noted to be tachycardic with heart rates in the 160s. She was started on Digoxin and Amiodarone. However, due to persistent fatigue, history of COPD, she was referred to EP for further evaluation for possible QUALITY SYSTEMS ENGINEER-D with an AV node ablation. The patient established care with Dr. Eastman in January, they discussed treatment options, and she was agreeable to QUALITY SYSTEMS ENGINEER-D and AV node ablation given her non-ischemic cardiomyopathy with LVEF less than or equal to 35% history. She presentstoday for this. A 24-hour Holter in February showed an AF burden of 98.9%. Denies recent infection or antibiotic use. Presents in A-fib. AF symptoms include fatigue, decreased energy and occasional chest pain. Currently denies chest pain. Patient Active Problem List Diagnosis Permanent atrial fibrillation Obesity (BMI 30.0-34.9) Aneurysm of ascending aorta without rupture Essential hypertension, benign Hypertension NICM (nonischemic cardiomyopathy) COPD (chronic obstructive pulmonary disease) PAOLO (obstructive sleep apnea) Past Medical History: Diagnosis Date Aneurysm of ascending aorta without rupture 11/27/2023 Arrhythmia COPD (chronic obstructive pulmonary disease) 02/19/2024 Essential hypertension, benign 05/17/2007 NICM (nonischemic cardiomyopathy) 02/19/2024 Obesity (BMI 30.0-34.9) 02/19/2024 PAOLO (obstructive sleep apnea) 02/19/2024 Permanent atrial fibrillation 02/19/2024 Past Surgical History: Procedure Laterality Date COLONOSCOPY DIAGNOSTIC Medications Prior to Admission Medication Sig Dispense Refill Last Dose Allopurinol 100 MG tablet Take 1 tablet by mouth daily. 04/06/2024 AMIOdarone 200 MG tablet Take 1 tablet by mouth daily. 04/06/2024 Atorvastatin 20 MG tablet Take 1 tablet by mouth at bedtime. 04/05/2024 ixjrjoyqua-jxgjxxubpslidu-Jtspyphsbt 160-9-4.8 MCG/ACT Aerosol inhaler Inhale. Past Month Digoxin 125 MCG tablet Take 1 tablet by mouth daily. 04/06/2024 Eliquis 5 MG tablet take 1 5 MG tablet orally twice a day 04/05/2024 at 2130 Farxiga 10 MG tablet Take 1 tablet by mouth Daily (with dinner). 04/01/2024 furOSEmide 40 MG tablet take 1 and 1/2 tablets by mouth once daily 04/05/2024 lisinopril 40 MG tablet Take 1 tablet by mouth daily. 04/05/2024 Metoprolol succinate 100 MG tablet XL Take 1 tablet by mouth daily. 04/06/[address] capsule Take 1 capsule by mouth daily. 04/06/2024 Potassium Chloride ER 20 MEQ Tab CR tablet Take 1 tablet by mouth 2 times daily. 04/06/2024 Ventolin HFA 108 (90 Base) MCG/ACT Aero Soln inhaler Inhale 2 puffs every 6 hours as needed. Past Month Allergies Allergen Reactions Penicillins Anaphylaxis Seasonal Congestion Social History Socioeconomic History Marital status: Tobacco Use Smoking status: Former Types: Cigarettes Smokeless tobacco: Never Substance and Sexual Activity Alcohol use: Yes Alcohol/week: 1.0 standard drink of alcohol Types: 1 Cans of beer per week Comment: occasional beer Family History Problem Relation Age of Onset Diabetes Mother Myocardial Infarction Mother Heart Failure Mother Lipid Disorder Mother Hypertension Mother Colon Cancer Father Colon Cancer Brother Hypertension Brother Referring MD: Dr. King PCP Vikas SCHMIDT MD: Dr. Eastman Anticoagulation: Eliquis Has the patient missed any doses of anticoagulation. Yes When was the last dose taken. 04/05/24 at 2130 [id number]- Vasc score: 4 (heart failure, female gender, HTN, & age) Previous antiarrythmic medications: Currently on Digoxin and Amiodarone Reason stopped: n/a Previous cardioversions?: Yes Previous ablations?: No Device: None Last eval: 02/19/2024 Shared decision tool for primary prevention ICD NYHA Class II Patient on guideline directed therapy for greater than 3 months? yes Hill Lee has been evaluated and determined to meet [facility] primary prevention ICD implant criteriadue to: Non-ischemic dilated cardiomyopathy with LVEF less than or equal to 35% with NYHA class II or III heart failure and post NH greater than 40 days and post PCI or CABG greater than 3 months, onoptimal medical therapy greater than or equal to 3 months. Hill Lee participated in a shared decision making encounter today using the evidence based tool A decision aid for ICD and has: Elected to proceed with ICD implant. Prior Cardiac testing: Results for orders placed in visit on 12/29/23 ECHOCARDIOGRAM (OUTSIDE) (Final) Review of System Constitutional: Negative for fever, weight loss, weight gain and malaise/fatigue. Skin: Negative. HEENT: Negative. Cardiovascular: Negative for leg swelling. Negative for palpitations, chest pain, dyspnea, orthopnea, claudication, edema and PND. Negative for lightheadedness or syncope. Respiratory: Negative for cough. Is not experiencing shortness of breath currently. Gastrointestinal: Negative for abdominal pain, nausea, vomiting, diarrhea, melena, and constipation. Endocrine: Negative for polyuria, polydipsia, heat or cold intolerance. Genitourinary: Negative for frequency or burning with urination. Past history of BPH or difficult catheterization? Denies. Neurological: Negative for dizziness and headaches. Psychiatric: Negative for depression, nervous/anxious and substance abuse. Telemetry/EKG: AF HR 64 BP 137/74 (BP Location: Right arm, BP Position: Lying) Pulse 71 Temp 97.6 F (36.4 C) (Oral) Resp 20 Ht 1.778 m (5' 10) Wt 99.7 kg (219 lb 12.8 oz) SpO2 96% BMI 31.54 kg/m Smoking Status Former Body mass index is 31.54 kg/m . Physical Exam General appearance - alert, LOC x 3, well appearing, and in no distress Neck - supple, no significant adenopathy, carotids upstroke normal bilaterally without bruits. Chest - lungs clear to auscultation Heart - irregularly irregular, S1 and S2 normal, + murmurs, no clicks, gallops or rubs, normal bilateral carotid upstroke without bruits, no JVD Extremities - peripheral pulses normal, no pedal edema, no clubbing or cyanosis Skin - normal coloration and turgor, no rashes, no suspicious skin lesions noted Lab Results Component Value Date SODIUM 139 04/06/2024 POTASSIUM 4.3 04/06/2024 CHLORIDE 102 04/06/2024 CO2 26 04/06/2024 BUN 15 04/06/2024 CREATSERUM 1.05 04/06/2024 GLUCOSE 121 (H) 04/06/2024 Lab Results Component Value Date WBC 8.95 04/06/2024 HGB 12.7 04/06/2024 HCT 41.6 04/06/2024 PLATELET 251 04/06/2024 MCV 93.1 04/06/2024 INR Date Value Ref Range Status 04/06/2024 1.2 (H) 0.9 - 1.1 Final Assessment and Plan Permanent AF and EF of 35%- Ok to proceed with QUALITY SYSTEMS ENGINEER-D and AV RFA w/anesthesia with routine post-procedure monitoring -NPO since midnight -Labs pending Associated attestation - Elliott Eastman MD - 04/06/2024 2:49 PM EDT Attending Physician Note I have personally interviewed and examined this patient with the PLATING EQUIPMENT TENDER/Fellow/Resident. I have reviewed the history and examination and edited these in the note above. I agree with the medical decision and components of the note as edited by me. Patient is alert and oriented and VS stable. She has a history of permanent AF, and has been on amiodarone, metoprolol, and digoxin in order to achieve rate control. She continues to have symptomatic tachycardic events despite these medications. She has COPD, and has been referred for a QUALITY SYSTEMS ENGINEER-D + AVN. Following the procedure, we will stop amidoarone and diogxin, and reduce the dose of metoprolol to 50mg daily. Elliott Eastman MD Clinical Sole Stainer Cardiac Electrophysiology documented [facility] encounter[facility] Tele[facility] encounter Note* Telephone Encounter - Alejandro Torres - 02/22/2024 3:21 PM EDT Contacted patient via Phone to schedule appointment; no answer -VMM left requesting for a return phone call. Alejandro Torres February 22, 2024 3:[address] [facility]04-29-2024 Miscellaneous Notes* Telephone Encounter - Alejandro Torres - 02/22/2024 3:21 PM EDT Contacted patient via Phone to schedule appointment; no answer -VMM left requesting for a return phone call. Alejandro Torres February 22, 2024 3:21 PM documented in this encounterSt. [facility]02-[facility]-2024 NoteHNO ID: [id number] Author: HANS WANG MD Service: ? Author Type: Physician Type: Progress Notes Filed: 12/16/2023 14:18 Note Text: [facility] [place] [facility] Department of Cardiovascular Medicine SECTION OF CLINICAL CARDIOLOGY OUTPATIENT VISIT DATE December 16, 2023 OUTPATIENT VISIT TYPE NEW PRIMARY CARE PHYSICIAN: Temitope Summers MD ([facility]) [address] [place] [id number] REFERRING PHYSICIAN: Claudia Ma [address] [place] [id number] CHIEF COMPLAINT: No chief complaint on file. HISTORY OF PRESENT ILLNESS: Ms. Rafi Lee is a 73 year old female [...] lightheadedness or syncope. NURSING INTAKE: Ms. Rafi Lee is a 73 year old female from [place], [place] here today for cardiovascular evaluation related to pre-operative clearance. She is undergoing evaluation by Dr. Ma for ascending aorta aneurysm. Hill has a significant medical history of Ascending [...] rates. She does state she is always dizzy. Bilateral lower extremity swelling.They are cold to [...] Aortic aneurysm (HCC) Dr. Zuleta is pt's endocrinology physician Chronic obstructive pulmonary disease (COPD) (HCC) Gout [...] Take 1 tablet by mouth every afternoon. pnpnjhrllv-dlrhklky-yznkihvrxm (BREZTRI) 160-9-4.8 m (more content not included)...[facility]02-21-2024 Instructions* Patient Instructions* Hans Wang MD - 12/16/2023 1:55 PM EST Wait for the cath to determine if you have any blockage Zio patch to picker packer today, that will give us an idea about your atrial fibrillation Then will schedule and echo and chest CT for the aneurysm [facility]. documented in this encounterSt. Mary[facility]02-21-20[facility] History of Present illness Narrative* Hans Wang MD - 12/16/2023 12:15 PM EST Images from the original note were not included. [facility] [place] [facility] Department of Cardiovascular Medicine SECTION OF CLINICAL CARDIOLOGY OUTPATIENT VISIT DATE December 16, 2023 OUTPATIENT VISIT TYPE NEW PRIMARY CARE PHYSICIAN: Temitope Summers MD ([facility]) [address] [place] [id number] REFERRING PHYSICIAN: Claudia Ma [phone] [facility] [id number] CHIEF COMPLAINT: No chief complaint on file. HISTORY OF PRESENT ILLNESS: Ms. Rafi Lee is a 73 year old female [...] lightheadedness or syncope. NURSING INTAKE: Ms. Rafi Lee is a 73 year old female from [place], [place] here today for cardiovascular evaluation related to pre-operative clearance. She is undergoing evaluation by Dr. Ma for ascending aorta aneurysm. Hill has a significant medical history of Ascending Aorta Aneurysm, COPD, A Fib, HTN, TIA, Acid Reflux, Former Smoker, PAOLO (does not tolerate a mask). She reports the following symptoms: Chest pain at rest and on exertion. She states it is a stabbingpain that lasts a few seconds and then self-resolves. She states it takes her breath away. She denies radiation, however states that she does get pain that is not in her jaw, but in her neck near herjaw that lasts several minutes at a time. It is not associated with episodes of chest pain. She states she was at a doctor's appointment recently and her heart rate was 160bpm. She denies the sensation of palpitations, even with these fast heart rates. She does state she is always dizzy. Bilateral lower extremity swelling. They are cold to the touch. She states this has been her baseline. She endorses orthopnea x2 total pillows at night. She raises the head of her bed to a 45 degree angle in combination with the 2 pillows. She states she basically sits upright due to orthopnea. She does nottolerate a CPAP so does not treat her sleep apnea at this time. Diet: Regular Exercise: Denies. Used to walk 2 miles daily until she started having heart problems. She states now she can't even walk 0.5 miles per day. PAST MEDICAL HISTORY Diagnosis Date Acid reflux Aortic aneurysm (HCC) Dr. Zuleta is pt's endocrinology physician Chronic obstructive pulmonary disease (COPD) (HCC) Gout [...] Take 1 tablet by mouth every afternoon. udiudwfxpu-wddvmvil-fprovxeyuo (BREZTRI) 160-9-4.8 mcg/actuation HFA aerosol inhaler Inhale [...] Negative for: Weakness, Paralysis, Numbness, Tingling, Tremor, Nervousness,Depressed mood, Memory loss SKIN: Negative for: Rashes, Itching HEMATOLOGICAL/LYMPHATIC: Negative for: Easy bruising , Easy bleeding ENDOCRINE: Negative for: Heat or cold intolerance, Excessive sweating, Frequent urination, Frequentthirst PHYSICAL EXAMINATION: BP 140/85 (BP Site: Right [...] the Electrocardiogram and echo. IMPRESSION: Ms. Rafi Lee is a 73 year old female former [...] a.m. Her daughter or her will call [facility] to arrange for CT chest gated and a cardiac echo. She will also be provided with a Zio patch. Willarrange follow-up in 1 month. She does appear mildly volume overloaded on exam today and is currently on diuretics. Local endocrinology physician is managing. I personally interviewed, confirmed and edited the above information as obtained by others. CONTACT INFORMATION: Hans Wang MD Section of Clinical Cardiology [facility] Department of Cardiovascular Medicine [facility] [place] [facility] Desk [id number] [address] Office Office Appointments: [phone] documented in this encounterSt. Mary'S [facility] Center12-24-2023 NoteHNO ID: [id number] Author: Melissa Glaser APRN.RN DIALYSIS Service: ? Author Type: Nurse Practitioner Type: Progress Notes Filed: 10/18/2023 11:39 AM Note Text: Subjective HPI HPI Hill Lee is a 73 year old female [...] Aortic aneurysm (HCC) Dr. Zuleta is pt's endocrinology physician Chronic obstructive pulmonary disease (COPD) (HCC) Gout [...] 5 MG tablet orally twice a day qexveqhiat-jnkstbrw-kjyqwjighw (BREZTRI) 160-9-4.8 mcg/actuation HFA aerosol inhaler Inhale [...] worsen. - DOXYCYCLINE HYCLATE 100 MG TABLET Melissa Glaser APRN.HOMEROhiohealth [facility]12-24-2023 History of Present illness Narrative* Melissa Glaser APRN.RN DIALYSIS - 10/18/2023 11:17 AM EST Subjective HPI HPI Hill Lee is a 73 year old female who presents today for CC of cough, congestion,sob. This started 2 days ago. Has tried otc medication. Symptoms are worsened by otc medication. Risk factors copd, sick exposures at home. .Patient presents with: Cough: Cough and runny nose, SOB x 2 days PAST MEDICAL HISTORY Diagnosis Date Acid reflux Aortic aneurysm (HCC) Dr. Zuleta is pt's endocrinology physician Chronic obstructive pulmonary disease (COPD) (HCC) Gout [...] 5 MG tablet orally twice a day wpdlbyexqy-amiphgdc-rrerashruk (BREZTRI) 160-9-4.8 mcg/actuation HFA aerosol inhaler Inhale [...] 37 C (98.6 F), temperature source Tympanic, resp.rate 18, weight 104.2 kg (229 lb 12.8 [...] worsen. - DOXYCYCLINE HYCLATE 100 MG TABLET Melissa Glaser APRN.RN DIALYSIS documented in this encounterSt. Mary'S [facility] Center09-15-2023 Procedure [facility]08-04-2023 Procedure [facility]07-10-2023 Procedure [facility]07-10-2023 [facility] Diagnosis Onset Date Resolution Status Essential hypertension chron ic GERD (gastroesophageal reflux disease) chronic Obesity chronic Osteoarthritis chronic Venous insufficiency of both lower extremities chronic COPD (chronic obstructive pulmonary disease) chronic Essential hypertension chron ic Venous insufficiency of both lower extremities [facility] Work Phone: Evaluation note* Diagnosis Onset Date Resolution Status COPD (chronic obstructive pulmonary disease) chronic Essential hypertension chron ic Venous insufficiency of both lower extremities chronic COPD (chronic obstructive pulmonary disease) chronic Essential hypertension chron ic Venous insufficiency of both lower extremities [facility] Work Phone: Evaluation note* Diagnosis Onset Date Resolution Status COPD (chronic obstructive pulmonary disease) chronic Essential hypertension chron ic Venous insufficiency of both lower extremities chronic COPD (chronic obstructive pulmonary disease) chronic Essential hypertension chron ic Venous insufficiency of both lower extremities chronic CHF (congestive heart failure) acute CHAVEZ (dyspnea on exertion) ac [place] Essential hypertension chron ic Paroxysmal atrial fibrillation chronic Thoracic aortic aneurysm (TAA) [facility] Work Phone: Evaluation note* Diagnosis Onset Date Resolution Status COPD (chronic obstructive pulmonary disease) chronic Essential hypertension chron ic Venous insufficiency of both lower extremities chronic COPD (chronic obstructive pulmonary disease) chronic Essential hypertension chron ic Venous insufficiency of both lower extremities chronic CHF (congestive heart failure) acute CHAVEZ (dyspnea on exertion) ac [place] Essential hypertension chron ic Paroxysmal atrial fibrillation chronic Thoracic aortic aneurysm (TAA) chronic Abnormal electrocardiogram a cute CHF (congestive heart failure) acute CHAVEZ (dyspnea on exertion) ac [place] Fatigue acute Essential hypertension chron ic Paroxysmal atrial fibrillation chronic Thoracic aortic aneurysm (TAA) chronic [facility] Work Phone: Evaluation note* Diagnosis Onset Date Resolution Status COPD (chronic obstructive pulmonary disease) chronic Essential hypertension chron ic Venous insufficiency of both lower extremities chronic CHF (congestive heart failure) acute CHAVEZ (dyspnea on exertion) ac [place] Essential hypertension chron ic Paroxysmal atrial fibrillation chronic Thoracic aortic aneurysm (TAA) chronic Abnormal electrocardiogram a cute CHF (congestive heart failure) acute CHAVEZ (dyspnea on exertion) ac [place] Essential hypertension chron ic Fatigue chronic Paroxysmal atrial fibrillation chronic Thoracic aortic aneurysm (TAA) chronic CHF (congestive heart failure) acute CHAVEZ (dyspnea on exertion) ac [place] Essential hypertension chron ic Fatigue chronic Paroxysmal atrial fibrillation chronic Thoracic aortic aneurysm (TAA) chronic Flu vaccine need acute Hypotension acute Essential hypertension chron ic Fatigue chronic Paroxysmal atrial fibrillation [facility] Work Phone: Evaluation note* Diagnosis Onset Date Resolution Status Abnormal electrocardiogram a cute CHF (congestive heart failure) acute CHAVEZ (dyspnea on exertion) ac [place] Essential hypertension chron ic Fatigue chronic Paroxysmal atrial fibrillation chronic Thoracic aortic aneurysm (TAA) chronic CHF (congestive heart failure) acute CHAVEZ (dyspnea on exertion) ac [place] Essential hypertension chron ic Fatigue chronic Paroxysmal atrial fibrillation chronic Thoracic aortic aneurysm (TAA) chronic Flu vaccine need acute Hypotension acute Essential hypertension chron ic Fatigue chronic Paroxysmal atrial fibrillation chronic Hypotension acute Essential hypertension chron ic Fatigue chronic CHF (congestive heart failure) acute Hypotension acute COPD (chronic obstructive pulmonary disease) chronic Essential hypertension chron ic GERD (gastroesophageal reflux disease) chronic Paroxysmal atrial fibrillation chronic Tingling of left upper extremity noneactive Chest pain noneactive [facility] Work Phone: Evaluation note* Diagnosis Onset Date Resolution Status CHF (congestive heart failure) acute Hypotension acute COPD (chronic obstructive pulmonary disease) chronic Essential hypertension chron ic GERD (gastroesophageal reflux disease) chronic Paroxysmal atrial fibrillation chronic Tingling of left upper extremity noneactive Chest pain noneactive Chest pain acute CHF (congestive heart failure) acute Essential hypertension chron ic Paroxysmal atrial fibrillation chronic Thoracic aortic aneurysm (TAA) chronic Chest pain acute CHF (congestive heart failure) acute Dizziness acute CHAVEZ (dyspnea on exertion) ac [place] Hypersomnolence acute COPD (chronic obstructive pulmonary disease) chronic Essential hypertension chron ic Fatigue chronic Paroxysmal atrial fibrillation chronic Thoracic aortic aneurysm (TAA) [facility] Work Phone: Evaluation note* Diagnosis Onset Date Resolution Status Chest pain acute CHF (congestive heart failure) acute Essential hypertension chron ic Paroxysmal atrial fibrillation chronic Thoracic aortic aneurysm (TAA) chronic Chest pain acute CHF (congestive heart failure) acute Dizziness acute CHAVEZ (dyspnea on exertion) ac [place] Hypersomnolence acute COPD (chronic obstructive pulmonary disease) chronic Essential hypertension chron ic Fatigue chronic Paroxysmal atrial fibrillation chronic Thoracic aortic aneurysm (TAA) [facility] Work Phone: Evaluation note* Diagnosis Onset Date Resolution Status Chest pain acute CHF (congestive heart failure) acute Dizziness acute CHAVEZ (dyspnea on exertion) ac [place] Hypersomnolence acute COPD (chronic obstructive pulmonary disease) chronic Essential hypertension chron ic Fatigue chronic Paroxysmal atrial fibrillation chronic Thoracic aortic aneurysm (TAA) chronic Obstructive sleep apnea acut e Obesity chronic Paroxysmal atrial fibrillation [facility] Work Phone: Evaluation note* Diagnosis Onset Date Resolution Status Chest pain acute CHF (congestive heart failure) acute Dizziness acute CAHVEZ (dyspnea on exertion) ac [place] Hypersomnolence acute COPD (chronic obstructive pulmonary disease) chronic Essential hypertension chron ic Fatigue chronic Paroxysmal atrial fibrillation chronic Thoracic aortic aneurysm (TAA) chronic Obstructive sleep apnea acut e Obesity chronic Paroxysmal atrial fibrillation chronic Chest pain acute CHF (congestive heart failure) acute Dizziness acute CHAVEZ (dyspnea on exertion) ac [place] Essential hypertension chron ic Fatigue chronic Paroxysmal atrial fibrillation chronic Thoracic aortic aneurysm (TAA) [facility] Work Phone: Evaluation note* Diagnosis Onset Date Resolution Status Obstructive sleep apnea acut e Obesity chronic Paroxysmal atrial fibrillation chronic Chest pain acute CHF (congestive heart failure) acute Dizziness acute CHAVEZ (dyspnea on exertion) ac [place] Essential hypertension chron ic Fatigue chronic Paroxysmal atrial fibrillation chronic Thoracic aortic aneurysm (TAA) [facility] Work Phone: Evaluation note* Diagnosis Onset Date Resolution Status Obstructive sleep apnea acut e Obesity chronic Paroxysmal atrial fibrillation chronic Chest pain acute CHF (congestive heart failure) acute Dizziness acute CHAVEZ (dyspnea on exertion) ac [place] Essential hypertension chron ic Fatigue chronic Paroxysmal atrial fibrillation chronic Thoracic aortic aneurysm (TAA) chronic Obstructive sleep apnea acut e COPD (chronic obstructive pulmonary disease) chronic Obesity chronic Chest pain acute CHF (congestive heart failure) acute CHAVEZ (dyspnea on exertion) ac [place] Essential hypertension chron ic Paroxysmal atrial fibrillation chronic Thoracic aortic aneurysm (TAA) [facility] Work Phone: Evaluation note* Diagnosis Onset Date Resolution Status Chest pain acute CHF (congestive heart failure) acute Dizziness acute CHAVEZ (dyspnea on exertion) ac [place] Essential hypertension chron ic Fatigue chronic Paroxysmal atrial fibrillation chronic Thoracic aortic aneurysm (TAA) chronic Obstructive sleep apnea acut e COPD (chronic obstructive pulmonary disease) chronic Obesity chronic Chest pain acute CHF (congestive heart failure) acute CHAVEZ (dyspnea on exertion) ac [place] Essential hypertension chron ic Paroxysmal atrial fibrillation chronic Thoracic aortic aneurysm (TAA) [facility] Work Phone: Evaluation note* Diagnosis Onset Date Resolution Status Chest pain acute CHAVEZ (dyspnea on exertion) ac [place] CHF (congestive heart failure) chronic Essential hypertension chron ic Paroxysmal atrial fibrillation chronic Thoracic aortic aneurysm (TAA) chronic Hypokalemia acute CHF (congestive heart failure) chronic COPD (chronic obstructive pulmonary disease) chronic Paroxysmal atrial fibrillation chronic CHAVEZ (dyspnea on exertion) [place] Hypokalemia acute Obstructive sleep apnea acut e CHF (congestive heart failure) chronic Essential hypertension chron ic Paroxysmal atrial fibrillation chronic Thoracic aortic aneurysm (TAA) chronic Obstructive sleep apnea acut e COPD (chronic obstructive pulmonary disease) [facility] Work Phone: Evaluation note* Diagnosis Sinobronchitis- Primary Unspecified sinusitis (chronic) [facility] Onset Date Resolution Status Hypokalemia acute CHF (congestive heart failure) chronic COPD (chronic obstructive pulmonary disease) chronic Paroxysmal atrial fibrillation chronic CHAVEZ (dyspnea on exertion) [place] Hypokalemia acute Obstructive sleep apnea acut e CHF (congestive heart failure) chronic Essential hypertension chron ic Paroxysmal atrial fibrillation chronic Thoracic aortic aneurysm (TAA) chronic Obstructive sleep apnea acut e COPD (chronic obstructive pulmonary disease) [facility] Work Phone: Evaluation note* Diagnosis Onset Date Resolution Status COPD (chronic obstructive pulmonary disease) chronic Obstructive sleep apnea process lead roro CHAVEZ (dyspnea on exertion) [place] Cardiomyopathy chronic CHF (congestive heart failure) chronic Essential hypertension chron ic Obstructive sleep apnea process lead roro Paroxysmal atrial fibrillation chronic Thoracic aortic aneurysm (TAA) [facility] Work Phone: Evaluation note* Diagnosis Preop cardiovascular exam- Primary Pre-operative cardiovascular examination Persistent atrial fibrillation (HCC) Atrial fibrillation Disorder of artery or arteriole (HCC) Unspecified disorders of arteries and arterioles Chronic systolic congestive heart failure (HCC) Chronic systolic heart failure [facility] Diagnosis Onset Date Resolution Status CHAVEZ (dyspnea on exertion) [place] Cardiomyopathy chronic CHF (congestive heart failure) chronic Essential hypertension chron ic Obstructive sleep apnea process lead roro Paroxysmal atrial fibrillation chronic Thoracic aortic aneurysm (TAA) [facility] Work Phone: Evaluation note* Diagnosis Onset Date Resolution Status Cardiomyopathy chronic CHF (congestive heart failure) chronic CHAVEZ (dyspnea on exertion) [place] Essential hypertension chron ic Obstructive sleep apnea process lead roro Paroxysmal atrial fibrillation chronic Thoracic aortic aneurysm (TAA) chronic CHF (congestive heart failure) chronic Coronary artery disease process lead roro CHAVEZ (dyspnea on exertion) ch ronic Essential hypertension chron ic Nonischemic cardiomyopathy c hronic NSVT (nonsustained ventricular tachycardia) chronic Obstructive sleep apnea process lead roro Paroxysmal atrial fibrillation chronic Thoracic aortic aneurysm (TAA) [facility] Work Phone: Evaluation note* Diagnosis Permanent atrial fibrillation Atrial fibrillation NICM (nonischemic cardiomyopathy) Other [facility] Diagnosis Onset Date Resolution Status Cardiomyopathy chronic CHF (congestive heart failure) chronic CHAVEZ (dyspnea on exertion) ch ronic Essential hypertension chron ic Obstructive sleep apnea process lead roro Paroxysmal atrial fibrillation chronic Thoracic aortic aneurysm (TAA) chronic CHF (congestive heart failure) chronic Coronary artery disease process lead roro CHAVEZ (dyspnea on exertion) ch ronic Essential hypertension chron ic Nonischemic cardiomyopathy c hronic NSVT (nonsustained ventricular tachycardia) chronic Obstructive sleep apnea process lead roro Paroxysmal atrial fibrillation chronic Thoracic aortic aneurysm (TAA) chronic Health care maintenance acut e COPD (chronic obstructive pulmonary disease) chronic Essential hypertension chron ic Fatigue chronic Obstructive sleep apnea process lead roro Paroxysmal atrial fibrillation [facility] Work Phone: Evaluation note* Diagnosis Permanent atrial fibrillation Atrial fibrillation Permanent atrial fibrillation Atrial fibrillation [facility]No reason for referral [facility] Work [facility]: Summary Purpose Family History No Family History Records Found Relationship Condition Age at Onset Recorded Date/T klarissa Not Specified Cerebrovascular accident (CVA) Unknown mother Myocardial infarction Unknown Coronary artery disease Unknown Hypertension Unknown father Malignant neoplasm Unknown brother Malignant neoplasm Unknown Advance Directives No Advanced Directives Records Found Advance Directive Response Recorded Date/ Time Advance Directives No August 12:00pm Living Will No September 19, 014 12:00pm Power of System Dispatcher No September 19, 2014 12:00pm Advance Directive Response Recorded Date/ Time Advance Directives No August 19, 2022 10:56am Living Will No August 19 10:56am Power of System Dispatcher No August 19, 2022 10:56am Advance Directive Response Recorded Date/ Time Advance Directives No August 19, 2022 9:56am Living Will No August 19 9:56am Power of System Dispatcher No August 19, 2022 9:56am Advance Directive Response Recorded Date/ Time Advance Directives No May 04 10:46am Living Will No May 04, 2023 10:46am Power of System Dispatcher No May 04 10:46am Advance Directive Response Recorded Date/ Time Advance Directives on File No 2022 10:47am Advance Directives No June 10:47am Living Will No July 10, 2023 10:47am Power of System Dispatcher No June 10:47am Advance Directive Response Recorded Date/ Time Advance Directives on File No 2022 9:47am Advance Directives No June 9:47am Living Will No July 10, 2023 9:47am Power of System Dispatcher No June 9:47am Advance Directive Response Recorded Date/ Time Advance Directives No June 9:47am Living Will No July 10, 2023 9:47am Power of System Dispatcher No June 9:47am Advance Directive Response Recorded Date/ Time Advance Directives No November 8:28am Living Will No February 22nd, 2 024 8:28am Power of System Dispatcher No December 17, 2023 8:28am Advance Directive Response Recorded Date/ Time Advance Directives No November 9:28am Living Will No December 17, 024 9:28am Power of System Dispatcher No December 17, 2023 9:28am Date Activated Date Inactivated Comments 04/06/2024 6:02 PM Date Activated Date Inactivated Comments 04/06/2024 6:02 PM Advance Directive Response Recorded Date/ Time Advance Directives No September 30, 2024 3:22pm Chief Complaint and Reason for Visit Chief Complaint 3 M FU 3 M FU Reason for Visit Essential hypertensi on GERD (gastroesophageal reflux disease) Obesity Osteoarthritis Venous insufficiency of both lower extremities COPD (chronic obstructive pulmonary disease) Essential hypertension Venous insufficiency of both lower extremities Chief Complaint 3 M FU 3 M FU SCREENING Reason for Visit Essential hypertensi on GERD (gastroesophageal reflux disease) Obesity Osteoarthritis Venous insufficiency of both lower extremities COPD (chronic obstructive pulmonary disease) Essential hypertension Venous insufficiency of both lower extremities Chief Complaint 3 M FU SCREENING 1 M FU Reason for Visit COPD (chronic obstru ctive pulmonary disease) Essential hypertension Venous insufficiency of both lower extremities COPD (chronic obstructive pulmonary disease) Essential hypertension Venous insufficiency of both lower extremities Chief Complaint 3 M FU SCREENING 1 M FU 6 M FU SOB Reason for Visit COPD (chronic obstru ctive pulmonary disease) Essential hypertension Venous insufficiency of both lower extremities COPD (chronic obstructive pulmonary disease) Essential hypertension Venous insufficiency of both lower extremities CHF (congestive heart failure) CHAVEZ (dyspnea on exertion) Essential hypertension Paroxysmal atrial fibrillation Thoracic aortic aneurysm (TAA) Chief Complaint 3 M FU SCREENING 1 M FU 6 M FU SOB COPD COPD Reason for Visit COPD (chronic obstru ctive pulmonary disease) Essential hypertension Venous insufficiency of both lower extremities COPD (chronic obstructive pulmonary disease) Essential hypertension Venous insufficiency of both lower extremities CHF (congestive heart failure) CHAVEZ (dyspnea on exertion) Essential hypertension Paroxysmal atrial fibrillation Thoracic aortic aneurysm (TAA) Chief Complaint 3 M FU SCREENING 1 M FU 6 M FU SOB COPD COPD TAA Reason for Visit COPD (chronic obstru ctive pulmonary disease) Essential hypertension Venous insufficiency of both lower extremities COPD (chronic obstructive pulmonary disease) Essential hypertension Venous insufficiency of both lower extremities CHF (congestive heart failure) CHAVEZ (dyspnea on exertion) Essential hypertension Paroxysmal atrial fibrillation Thoracic aortic aneurysm (TAA) Chief Complaint 3 M FU SCREENING 1 M FU 6 M FU SOB COPD COPD TAA CHF *ABEL* 6 wk FU INT LABS Reason for Visit COPD (chronic obstru ctive pulmonary disease) Essential hypertension Venous insufficiency of both lower extremities COPD (chronic obstructive pulmonary disease) Essential hypertension Venous insufficiency of both lower extremities CHF (congestive heart failure) CHAVEZ (dyspnea on exertion) Essential hypertension Paroxysmal atrial fibrillation Thoracic aortic aneurysm (TAA) Abnormal electrocardiogram CHF (congestive heart failure) CHAVEZ (dyspnea on exertion) Fatigue Essential hypertension Paroxysmal atrial fibrillation Thoracic aortic aneurysm (TAA) Chief Complaint 3 M FU SCREENING 1 M FU 6 M FU SOB COPD COPD TAA CHF *ABEL* 6 wk FU INT LABS E ORDERS ABNORMAL EKG ABNORMAL EKG Reason for Visit COPD (chronic obstru ctive pulmonary disease) Essential hypertension Venous insufficiency of both lower extremities COPD (chronic obstructive pulmonary disease) Essential hypertension Venous insufficiency of both lower extremities CHF (congestive heart failure) CHAVEZ (dyspnea on exertion) Essential hypertension Paroxysmal atrial fibrillation Thoracic aortic aneurysm (TAA) Abnormal electrocardiogram CHF (congestive heart failure) CHAVEZ (dyspnea on exertion) Fatigue Essential hypertension Paroxysmal atrial fibrillation Thoracic aortic aneurysm (TAA) Chief Complaint SCREENING 1 M FU 6 M FU SOB COPD COPD TAA CHF *ABEL* 6 wk FU INT LABS E ORDERS ABNORMAL EKG ABNORMAL EKG 1 M FU INT LABS 3 M FU A-FIB A-FIB A-FIB Reason for Visit COPD (chronic obstru ctive pulmonary disease) Essential hypertension Venous insufficiency of both lower extremities CHF (congestive heart failure) CHAVEZ (dyspnea on exertion) Essential hypertension Paroxysmal atrial fibrillation Thoracic aortic aneurysm (TAA) Abnormal electrocardiogram CHF (congestive heart failure) CHAVEZ (dyspnea on exertion) Essential hypertension Fatigue Paroxysmal atrial fibrillation Thoracic aortic aneurysm (TAA) CHF (congestive heart failure) CHAVEZ (dyspnea on exertion) Essential hypertension Fatigue Paroxysmal atrial fibrillation Thoracic aortic aneurysm (TAA) Flu vaccine need Hypotension Essential hypertension Fatigue Paroxysmal atrial fibrillation Chief Complaint 1 M FU 6 M FU SOB COPD COPD TAA CHF *ABEL* 6 wk FU INT LABS E ORDERS ABNORMAL EKG ABNORMAL EKG 1 M FU INT LABS 3 M FU A-FIB A-FIB A-FIB 1 WK EKG POST DCCV E ORDER Reason for Visit COPD (chronic obstru ctive pulmonary disease) Essential hypertension Venous insufficiency of both lower extremities CHF (congestive heart failure) CHAVEZ (dyspnea on exertion) Essential hypertension Paroxysmal atrial fibrillation Thoracic aortic aneurysm (TAA) Abnormal electrocardiogram CHF (congestive heart failure) CHAVEZ (dyspnea on exertion) Essential hypertension Fatigue Paroxysmal atrial fibrillation Thoracic aortic aneurysm (TAA) CHF (congestive heart failure) CHAVEZ (dyspnea on exertion) Essential hypertension Fatigue Paroxysmal atrial fibrillation Thoracic aortic aneurysm (TAA) Flu vaccine need Hypotension Essential hypertension Fatigue Paroxysmal atrial fibrillation Chief Complaint 6 wk FU INT LABS E ORDERS ABNORMAL EKG ABNORMAL EKG 1 M FU INT LABS 3 M FU A-FIB A-FIB A-FIB 1 WK EKG POST DCCV E ORDER 6 wk FU 2 W FU Reason for Visit Abnormal electrocard iogram CHF (congestive heart failure) CHAVEZ (dyspnea on exertion) Essential hypertension Fatigue Paroxysmal atrial fibrillation Thoracic aortic aneurysm (TAA) CHF (congestive heart failure) CHAVEZ (dyspnea on exertion) Essential hypertension Fatigue Paroxysmal atrial fibrillation Thoracic aortic aneurysm (TAA) Flu vaccine need Hypotension Essential hypertension Fatigue Paroxysmal atrial fibrillation Hypotension Essential hypertension Fatigue CHF (congestive heart failure) Hypotension COPD (chronic obstructive pulmonary disease) Essential hypertension GERD (gastroesophageal reflux disease) Paroxysmal atrial fibrillation Tingling of left upper extremity Chest pain Chief Complaint 2 W FU 2-3 MO F/U 3 M FU INT LABS Reason for Visit CHF (congestive hear t failure) Hypotension COPD (chronic obstructive pulmonary disease) Essential hypertension GERD (gastroesophageal reflux disease) Paroxysmal atrial fibrillation Tingling of left upper extremity Chest pain Chest pain CHF (congestive heart failure) Essential hypertension Paroxysmal atrial fibrillation Thoracic aortic aneurysm (TAA) Chest pain CHF (congestive heart failure) Dizziness CHAVEZ (dyspnea on exertion) Hypersomnolence COPD (chronic obstructive pulmonary disease) Essential hypertension Fatigue Paroxysmal atrial fibrillation Thoracic aortic aneurysm (TAA) Chief Complaint 2-3 MO F/U 3 M FU INT LABS DIZZINESS HYPERSOMNOLENCE Reason for Visit Chest pain CHF (congestive heart failure) Essential hypertension Paroxysmal atrial fibrillation Thoracic aortic aneurysm (TAA) Chest pain CHF (congestive heart failure) Dizziness CHAVEZ (dyspnea on exertion) Hypersomnolence COPD (chronic obstructive pulmonary disease) Essential hypertension Fatigue Paroxysmal atrial fibrillation Thoracic aortic aneurysm (TAA) Chief Complaint 3 M FU INT LABS DIZZINESS HYPERSOMNOLENCE Sleep problems PAOLO; AUTO CPAP *DEVICE TAGGED* Reason for Visit Chest pain CHF (congestive heart failure) Dizziness CHAVEZ (dyspnea on exertion) Hypersomnolence COPD (chronic obstructive pulmonary disease) Essential hypertension Fatigue Paroxysmal atrial fibrillation Thoracic aortic aneurysm (TAA) Obstructive sleep apnea Obesity Paroxysmal atrial fibrillation Chief Complaint 3 M FU INT LABS DIZZINESS HYPERSOMNOLENCE Sleep problems PAOLO; AUTO CPAP *DEVICE TAGGED* 1 y fu (MOVED FROM [facility]) Reason for Visit Chest pain CHF (congestive heart failure) Dizziness CHAVEZ (dyspnea on exertion) Hypersomnolence COPD (chronic obstructive pulmonary disease) Essential hypertension Fatigue Paroxysmal atrial fibrillation Thoracic aortic aneurysm (TAA) Obstructive sleep apnea Obesity Paroxysmal atrial fibrillation Chest pain CHF (congestive heart failure) Dizziness CHAVEZ (dyspnea on exertion) Essential hypertension Fatigue Paroxysmal atrial fibrillation Thoracic aortic aneurysm (TAA) Chief Complaint 3 M FU INT LABS DIZZINESS HYPERSOMNOLENCE Sleep problems PAOLO; AUTO CPAP *DEVICE TAGGED* 1 y fu (MOVED FROM [facility]) TAA ATRIAL FIBRILLATION ATRIAL FIBRILLATION ATRIAL FIBRILLATION Reason for Visit Chest pain CHF (congestive heart failure) Dizziness CHAVEZ (dyspnea on exertion) Hypersomnolence COPD (chronic obstructive pulmonary disease) Essential hypertension Fatigue Paroxysmal atrial fibrillation Thoracic aortic aneurysm (TAA) Obstructive sleep apnea Obesity Paroxysmal atrial fibrillation Chest pain CHF (congestive heart failure) Dizziness CHAVEZ (dyspnea on exertion) Essential hypertension Fatigue Paroxysmal atrial fibrillation Thoracic aortic aneurysm (TAA) Chief Complaint DIZZINESS HYPERSOMNOLENCE Sleep problems PAOLO; AUTO CPAP *DEVICE TAGGED* 1 y fu (MOVED FROM [facility]) TAA ATRIAL FIBRILLATION ATRIAL FIBRILLATION ATRIAL FIBRILLATION 1 week s/p DCCV INT LABS CHAVEZ Reason for Visit Obstructive sleep ap beto Obesity Paroxysmal atrial fibrillation Chest pain CHF (congestive heart failure) Dizziness CHAVEZ (dyspnea on exertion) Essential hypertension Fatigue Paroxysmal atrial fibrillation Thoracic aortic aneurysm (TAA) Chief Complaint Sleep problems PAOLO; AUTO CPAP *DEVICE TAGGED* 1 y fu (MOVED FROM [facility]) TAA ATRIAL FIBRILLATION ATRIAL FIBRILLATION ATRIAL FIBRILLATION 1 week s/p DCCV INT LABS CHAVEZ CHAVEZ CHAVEZ CHAVEZ Reason for Visit Obstructive sleep ap beto Obesity Paroxysmal atrial fibrillation Chest pain CHF (congestive heart failure) Dizziness CHAVEZ (dyspnea on exertion) Essential hypertension Fatigue Paroxysmal atrial fibrillation Thoracic aortic aneurysm (TAA) Chief Complaint Sleep problems PAOLO; AUTO CPAP *DEVICE TAGGED* 1 y fu (MOVED FROM [facility]) TAA ATRIAL FIBRILLATION ATRIAL FIBRILLATION ATRIAL FIBRILLATION 1 week s/p DCCV INT LABS CHAVEZ CHAVEZ CHAVEZ CHAVEZ 3 M FU 8wks Reason for Visit Obstructive sleep ap beto Obesity Paroxysmal atrial fibrillation Chest pain CHF (congestive heart failure) Dizziness CHAVEZ (dyspnea on exertion) Essential hypertension Fatigue Paroxysmal atrial fibrillation Thoracic aortic aneurysm (TAA) Obstructive sleep apnea COPD (chronic obstructive pulmonary disease) Obesity Chest pain CHF (congestive heart failure) CHAVEZ (dyspnea on exertion) Essential hypertension Paroxysmal atrial fibrillation Thoracic aortic aneurysm (TAA) Chief Complaint PAOLO; AUTO CPAP *AL CE TAGGED* 1 y fu (MOVED FROM [facility]) TAA ATRIAL FIBRILLATION ATRIAL FIBRILLATION ATRIAL FIBRILLATION 1 week s/p DCCV INT LABS CHAVEZ CHAVEZ CHAVEZ CHAVEZ 3 M FU 8wks [place]OL[place]; TR 06/05/23 NB APPROVED Reason for Visit Chest pain CHF (congestive heart failure) Dizziness CHAVEZ (dyspnea on exertion) Essential hypertension Fatigue Paroxysmal atrial fibrillation Thoracic aortic aneurysm (TAA) Obstructive sleep apnea COPD (chronic obstructive pulmonary disease) Obesity Chest pain CHF (congestive heart failure) CHAVEZ (dyspnea on exertion) Essential hypertension Paroxysmal atrial fibrillation Thoracic aortic aneurysm (TAA) Chief Complaint 1 y fu (MOVED FROM [facility]) TAA ATRIAL FIBRILLATION ATRIAL FIBRILLATION ATRIAL FIBRILLATION 1 week s/p DCCV INT LABS CHAVEZ CHAVEZ CHAVEZ CHAVEZ 3 M FU 8wks [place]; TR 06/05/23 NB APPROVED afib afib Reason for Visit Chest pain CHF (congestive heart failure) Dizziness CHAVEZ (dyspnea on exertion) Essential hypertension Fatigue Paroxysmal atrial fibrillation Thoracic aortic aneurysm (TAA) Obstructive sleep apnea COPD (chronic obstructive pulmonary disease) Obesity Chest pain CHF (congestive heart failure) CHAVEZ (dyspnea on exertion) Essential hypertension Paroxysmal atrial fibrillation Thoracic aortic aneurysm (TAA) Chief Complaint 8wks PAOLO; TR 06/05/23 NB APPROVED afib afib afib 1 week s/p DCCV PFT FU f/u per [place] Cough 3 M FU PAF Amb Documentation Reason for Visit Chest pain CHAVEZ (dyspnea on exertion) CHF (congestive heart failure) Essential hypertension Paroxysmal atrial fibrillation Thoracic aortic aneurysm (TAA) Hypokalemia CHF (congestive heart failure) COPD (chronic obstructive pulmonary disease) Paroxysmal atrial fibrillation CHAVEZ (dyspnea on exertion) Hypokalemia Obstructive sleep apnea CHF (congestive heart failure) Essential hypertension Paroxysmal atrial fibrillation Thoracic aortic aneurysm (TAA) Obstructive sleep apnea COPD (chronic obstructive pulmonary disease) Chief Complaint afib afib afib 1 week s/p DCCV PFT FU f/u per [place] Cough 3 M FU PAF Amb Documentation E-ORDER Thoracic aortic aneurysm, without rupture, unspeci Amb Documentation Reason for Visit Hypokalemia CHF (congestive heart failure) COPD (chronic obstructive pulmonary disease) Paroxysmal atrial fibrillation CHAVEZ (dyspnea on exertion) Hypokalemia Obstructive sleep apnea CHF (congestive heart failure) Essential hypertension Paroxysmal atrial fibrillation Thoracic aortic aneurysm (TAA) Obstructive sleep apnea COPD (chronic obstructive pulmonary disease) Chief Complaint 3 M FU PAF Amb Documentation E-ORDER Thoracic aortic aneurysm, without rupture, unspeci Amb Documentation 4 M FU Reason for Visit COPD (chronic obstru ctive pulmonary disease) Obstructive sleep apnea CHAVEZ (dyspnea on exertion) Cardiomyopathy CHF (congestive heart failure) Essential hypertension Obstructive sleep apnea Paroxysmal atrial fibrillation Thoracic aortic aneurysm (TAA) Chief Complaint 3 M FU PAF Amb Documentation E-ORDER Thoracic aortic aneurysm, without rupture, unspeci Amb Documentation 4 M FU ABN EKG, CARDIOMYOPATHY, SOB Reason for Visit COPD (chronic obstru ctive pulmonary disease) Obstructive sleep apnea CHAVEZ (dyspnea on exertion) Cardiomyopathy CHF (congestive heart failure) Essential hypertension Obstructive sleep apnea Paroxysmal atrial fibrillation Thoracic aortic aneurysm (TAA) Chief Complaint PAF Amb Documentation E-ORDER Thoracic aortic aneurysm, without rupture, unspeci Amb Documentation 4 M FU ABN EKG, CARDIOMYOPATHY, SOB CARDIOMYOPATHY Amb Documentation Reason for Visit CHAVEZ (dyspnea on exer tion) Cardiomyopathy CHF (congestive heart failure) Essential hypertension Obstructive sleep apnea Paroxysmal atrial fibrillation Thoracic aortic aneurysm (TAA) Chief Complaint PAF Amb Documentation E-ORDER Thoracic aortic aneurysm, without rupture, unspeci Amb Documentation 4 M FU ABN EKG, CARDIOMYOPATHY, SOB CARDIOMYOPATHY Amb Documentation 6 wk FU E ORDERS Reason for Visit Cardiomyopathy CHF (congestive heart failure) CHAVEZ (dyspnea on exertion) Essential hypertension Obstructive sleep apnea Paroxysmal atrial fibrillation Thoracic aortic aneurysm (TAA) CHF (congestive heart failure) Coronary artery disease CHAVEZ (dyspnea on exertion) Essential hypertension Nonischemic cardiomyopathy NSVT (nonsustained ventricular tachycardia) Obstructive sleep apnea Paroxysmal atrial fibrillation Thoracic aortic aneurysm (TAA) Chief Complaint E-ORDER Thoracic aortic aneurysm, without rupture, unspeci Amb Documentation 4 M FU ABN EKG, CARDIOMYOPATHY, SOB CARDIOMYOPATHY Amb Documentation 6 wk FU E ORDERS 6 m fu SCREENING POST JAK[employer] Reason for Visit Cardiomyopathy CHF (congestive heart failure) CHAVEZ (dyspnea on exertion) Essential hypertension Obstructive sleep apnea Paroxysmal atrial fibrillation Thoracic aortic aneurysm (TAA) CHF (congestive heart failure) Coronary artery disease CHAVEZ (dyspnea on exertion) Essential hypertension Nonischemic cardiomyopathy NSVT (nonsustained ventricular tachycardia) Obstructive sleep apnea Paroxysmal atrial fibrillation Thoracic aortic aneurysm (TAA) Health care maintenance COPD (chronic obstructive pulmonary disease) Essential hypertension Fatigue Obstructive sleep apnea Paroxysmal atrial fibrillation Chief Complaint Admit Date PAOLO September 27, 2024 9 :00am PAOLO; BIPAP titration October 20, 2024 7:57pm MED FU November 16, 2024 1 0:04am 6-8 wk fu December 23, 2024 9:24am OVER DUE FU January 04, 2025 2:3 0pm E-ORDER January 05, 2025 11: 57am BACK & NECK PN/RX HERE January 12, 2025 10:00am Reason for Visit Admit Date CHF (congestive heart failure) October 272024 10:04am Chronic back pain November 16, 2024 1 0:04am Chronic neck pain November 16, 2024 1 0:04am Essential hypertension November 16 10:04am Hyperlipemia November 16, 2024 1 0:04am COPD (chronic obstructive pulmonary dise ase) December 23, 2024 9:24am Obesity December 23, 2024 9:24am Obstructive sleep apnea December 23, 025 9:24am Paroxysmal atrial fibrillation December 23, 2024 9:24am Atrial fibrillation January 04, 2025 2:3 0pm CHF (congestive heart failure) December 2:30pm Coronary artery disease January 04, 2025 2:30pm CHAVEZ (dyspnea on exertion) January 04 2:30pm Essential hypertension January 04, 2025 2:30pm Nonischemic cardiomyopathy January 04, 025 2:30pm NSVT (nonsustained ventricular tachycard ia) January 04, 2025 2:30pm Obstructive sleep apnea January 04, 2025 2:30pm Presence of biventricular im plantable cardioverter-defibrillator (ICD) January 04, 2025 2:30pm Thoracic aortic aneurysm (TAA) December 2:30pm Chief Complaint Admit Date PAOLO September 27, 2024 9 :00am PAOLO; BIPAP titration October 20, 2024 7:57pm MED FU November 16, 2024 1 0:04am 6-8 wk fu December 23, 2024 9:24am OVER DUE FU January 04, 2025 2:3 0pm E-ORDER January 05, 2025 11: 57am NEW ENROLLEE January 18, 2025 12: 46pm EVALUATE TAA January 23, 2025 9:4 2am BACK & NECK PN/RX HERE January 24, 2025 9 :30am Reason for Visit Admit Date CHF (congestive heart failure) October 272024 10:04am Chronic back pain November 16, 2024 1 0:04am Chronic neck pain November 16, 2024 1 0:04am Essential hypertension November 16 10:04am Hyperlipemia November 16, 2024 1 0:04am COPD (chronic obstructive pulmonary dise ase) December 23, 2024 9:24am Obesity December 23, 2024 9:24am Obstructive sleep apnea December 23, 2 025 9:24am Paroxysmal atrial fibrillation December 23, 2024 9:24am Atrial fibrillation January 04, 2025 2:3 0pm CHF (congestive heart failure) December 2:30pm Coronary artery disease January 04, 2025 2:30pm CHAVEZ (dyspnea on exertion) January 04 2:30pm Essential hypertension January 04, 2025 2:30pm Nonischemic cardiomyopathy January 04, 2 025 2:30pm NSVT (nonsustained ventricular tachycard ia) January 04, 2025 2:30pm Obstructive sleep apnea January 04, 2025 2:30pm Thoracic aortic aneurysm (TAA) December 2:30pm Presence of biventricular im plantable cardioverter-defibrillator (ICD) January 04, 2025 2:30pm Atrial fibrillation January 18, 2025 12: 46pm Nonischemic cardiomyopathy January 18, 2 025 12:46pm Presence of implantable cardioverter-def ibrillator (ICD) January 18, 2025 12:46pm Chief Complaint Admit Date PAOLO; BIPAP titration October 20, 2024 7:57pm MED FU November 16, 2024 1 0:04am 6-8 wk December 23, 2024 9:24am OVER DUE January 04, 2025 2:3 0pm E-ORDER January 05, 2025 11: 57am NEW ENROLLEE January 18, 2025 12: 46pm EVALUATE TAA January 23, 2025 9:4 2am BACK & NECK PN/RX HERE January 24, 2025 9 :30am Chief Complaint Admit Date PAOLO; BIPAP titration October 20, 2024 7:57pm MED FU November 16, 2024 1 0:04am 6-8 wk fu December 23, 2024 9:24am OVER DUE January 04, 2025 2:3 0pm E-ORDER January 05, 2025 11: 57am Pacer Check Remote January 18, 2025 9:0 0am NEW ENROLLEE January 18, 2025 12: 46pm EVALUATE TAA January 23, 2025 9:4 2am BACK & NECK PN/RX HERE January 24, 2025 9 :30am Other cardiomyopathies February 01, 2025 1 2:49pm Chief Complaint Admit Date 6-8 wk fu December 23, 2024 9:24am OVER DUE FU January 04, 2025 2:3 0pm E-ORDER January 05, 2025 11: 57am Pacer Check Remote January 18, 2025 9:0 0am NEW ENROLLEE January 18, 2025 12: 46pm EVALUATE TAA January 23, 2025 9:4 2am BACK & NECK PN/RX HERE January 24, 2025 9 :30am Other cardiomyopathies February 01, 2025 1 2:49pm SCREENING February 16, 2025 9:2 8am 8 WK FU February 17, 2025 9:0 6am 4 M FU March 24, 2025 10:24 am Reason for Visit Admit Date COPD (chronic obstructive pulmonary dise ase) December 23, 2024 9:24am Obesity December 23, 2024 9:24am Obstructive sleep apnea December 23, 2 025 9:24am Paroxysmal atrial fibrillation December 23, 2024 9:24am Atrial fibrillation January 04, 2025 2:3 0pm CHF (congestive heart failure) December 2:30pm Coronary artery disease January 04, 2025 2:30pm CHAVEZ (dyspnea on exertion) January 04 2:30pm Essential hypertension January 04, 2025 2:30pm Nonischemic cardiomyopathy January 04, 2 025 2:30pm NSVT (nonsustained ventricular tachycard ia) January 04, 2025 2:30pm Obstructive sleep apnea January 04, 2025 2:30pm Thoracic aortic aneurysm (TAA) December 2:30pm Presence of biventricular im plantable cardioverter-defibrillator (ICD) January 04, 2025 2:30pm Atrial fibrillation January 18, 2025 12: 46pm Nonischemic cardiomyopathy January 18, 2 025 12:46pm Presence of implantable cardioverter-def ibrillator (ICD) January 18, 2025 12:46pm COPD (chronic obstructive pulmonary dise ase) February 17, 2025 9:06am Obesity February 17, 2025 9:0 6am Obstructive sleep apnea February 17, 2025 9:06am Paroxysmal atrial fibrillation January 9:06am Reason for Referral Specialty Diagnoses / Procedures Referred By Contac t Referred To Contact Procedures CARDIOVASCULAR MEDICINE OP FOLLOW UP APPT ORDER Hans Wang MD [address] [place] [address] Referral ID Status Reason Start Date Expiration Date Visits Requested Visits Authorized [id number] Ref Not Required PCP Requested Referral 01/14/2024 12/15/2024 1 1 Specialty Diagnoses / Procedures Referred By Contac t Referred To Contact CT IMAGING Diagnoses Disorder of artery or arteriole (HCC) Procedures CTA CHEST (GATED) W IVCON CT ANGIOGRAPHY CHEST W/CONTRAST/NONCONTRAST Hans Wang MD [address] [place] [id number] [facility] [place] [address] Referral ID Status Reason Start Date Expiration Date Visits Requested Visits Authorized [id number] Pending Review Auto-Generat ed Referral 12/16/2023 01/14/2025 1 1 Specialty Diagnoses / Procedures Referred By Contac t Referred To Contact HEART AND VASCULAR [facility] Diagnoses Persistent atrial fibrillation (HCC) Procedures ECHO ECHO TTHRC R-T 2D W/WOM-MODE COMPL SPEC&COLR D Hans Wang MD [address] [facility] [place] [address] [facility] [address] [address] Referral ID Status Reason Start Date Expiration Date Visits Requested Visits Authorized [id number] Pending Review Auto-Generat ed Referral 12/16/2023 12/15/2024 1 1 Specialty Diagnoses / Procedures Referred By Contac t Referred To Contact HEART AND VASCULAR [facility]ERRIN Diagnoses Preop cardiovascular exam Procedures ECG COMPLETE ECG ROUTINE ECG W/LEAST 12 LDS W/I&R Hans Wang MD [address] [facility] [place] [address] [facility] [address] [address] Referral ID Status Reason Start Date Expiration Date V isits Requested Visits Authorized [id number] Closed Auto-Generate d Referral 12/15/2023 12/14/2024 1 1 Specialty Diagnoses / Procedures Referred By Contac t Referred To Contact Procedures PACEMAKER/ICD INTERROGATION Elliott Eastman MD [address] [place] [address] Referral ID Status Reason Start Date Expiration Date V isits Requested Visits Authorized [id number] New Request 04/06/2024 05/01/2025 1 1 Specialty Diagnoses / Procedures Referred By Contac t Referred To Contact Procedures ECG Denise Hylton, HOSPICE EXECUTIVE DIRECTOR-RN DIALYSIS [address] [place] [address] Referral ID Status Reason Start Date Expiration Date V isits Requested Visits Authorized [id number] New Request 04/06/2024 05/01/2025 1 1 Additional Source Comments INFORMATION SOURCE (unrecogn ized section and content) DATE CREATED AUTHOR 08/25/2021 [facility] ([place]) DATE CREATED AUTHOR AUTHOR'S ORGANIZ ATION 02/27/2024 [facility] DATE CREATED AUTHOR AUTHOR'S ORGANIZ ATION 11/09/2024 [facility] DATE CREATED AUTHOR AUTHOR'S ORGANIZ ATION 03/28/2025 [facility] Goals (unrecognized section and content) Goals may be documented in a n alternate sectionGoals may be documented in an alternate sectionGoals may be documented in an alternate sectionGoals may be documented in an alternate sectionGoals may be documented in an alternate sectionGoals may be documented in an alternate sectionGoals may be documented in an alternate sectionGoals may be documented in an alternate sectionGoals may be documented in an alternate sectionGoals may be documented in an alternate sectionGoals may be documented in an alternate sectionGoals may be documented in an alternate sectionGoals may be documented in an alternate sectionGoals may be documented in an alternate sectionGoals may be documented in an alternate sectionGoals may be documented in an alternate sectionGoals may be documented in an alternate sectionGoals may be documented in an alternate sectionGoals may be documented in an alternate sectionGoals may be documented in an alternate sectionGoals may be documented in an alternate sectionGoals may be documented in an alternate sectionGoals may be documented in an alternate sectionGoals may be documented in an alternate sectionGoals may be documented in an alternate sectionGoals may be documented in an alternate sectionGoals may be documented in an alternate sectionGoals may be documented in an alternate sectionGoals may be documented in an alternate sectionGoals may be documented in an alternate sectionGoals may be documented in an alternate sectionGoals may be documented in an alternate sectionGoals may be documented in an alternate sectionGoals may be documented in an alternate sectionGoals may be documented in an alternate sectionGoals may be documented in an alternate section Care Teams (unrecognized sec tion and content) Team Status: Active Member Role Status Dates Dr. Temitope Summers MD Family Provider Active Dr. Fam Jasso MD Primary Care Provider Active Team Status: Inactive Member Role Status Dates Dr. Fam Jasso MD Primary Care Provider, Refer ring Provider Active Carol Humphries PLATING EQUIPMENT TENDER, PLATING EQUIPMENT TENDER-C Attending Provider Active Team Status: Inactive Member Role Status Dates Dr. Fam Jasso MD Primary Care Provider, Refer ring Provider Active GABINO Mir Attending Provider Active Team Status: Inactive Member Role Status Dates Dr. Fam Jasso MD Primary Care Provider Active GABINO Mir Attending Provider, Referring Pro vider Active Team Status: Inactive Member Role Status Dates Dr. Fam Jasso MD Primary Care Provider Active Carol Humphries PLATING EQUIPMENT TENDER, PLATING EQUIPMENT TENDER-C Attending Provider, Referring P rovider Active Team Status: Active Member Role Status Dates Dr. Fam Jasso MD Primary Care Provider Active Carol Humphries PLATING EQUIPMENT TENDER, PLATING EQUIPMENT TENDER-C Attending Provider, Referring P rovider Active Team Status: Inactive Member Role Status Dates Dr. Fam Jasso MD Primary Care Provider, Refer ring Provider Active Niharika Cunningham PLATING EQUIPMENT TENDER, PLATING EQUIPMENT TENDER-C Attending Provider Active Team Status: Inactive Member Role Status Dates Dr. Fam Jasso MD Primary Care Provider Active Niharika Cunningham PLATING EQUIPMENT TENDER, PLATING EQUIPMENT TENDER-C Attending Provider Active Team Status: Active Member Role Status Dates Dr. Fam Jasso MD Primary Care Provider Active Dr. Luis Zuleta MD Attending Provider, Referring Provider, Other Provider Active Team Status: Active Member Role Status Dates Dr. Fam Jasso MD Primary Care Provider Active Dr. Luis Zuleta MD Referring Provider, Other Provide r Active Dr. Phu Chance DO Attending Provider Active Team Status: Inactive Member Role Status Dates Dr. Fam Jasso MD Primary Care Provider Active Dr. Luis Zuleta MD Attending Provider, Referring Pro vider Active Team Status: Inactive Member Role Status Dates Dr. Fam Jasso MD Primary Care Provider, Refer ring Provider Active Dr. Luis Zuleta MD Attending Provider Active Team Status: Active Member Role Status Dates Dr. Fam Jasso MD Primary Care Provider Active Niharika Cunningham PLATING EQUIPMENT TENDER, PLATING EQUIPMENT TENDER-C Attending Provider, Referrin g Provider Active Team Status: Inactive Member Role Status Dates Dr. Fam Jasso MD Primary Care Provider Active Patrick Morris PLATING EQUIPMENT TENDER, PLATING EQUIPMENT TENDER-C Attending Provider, Referring Pro vider Active Team Status: Active Member Role Status Dates Dr. Fam Jasso MD Primary Care Provider Active Niharika Cunningham PLATING EQUIPMENT TENDER, PLATING EQUIPMENT TENDER-C Referring Provider, Other Pr ovider Active Dr. Phu Chance DO Attending Provider Active Team Status: Active Member Role Status Dates Dr. Fam Jasso MD Primary Care Provider Active Niharika Cunningham PLATING EQUIPMENT TENDER, PLATING EQUIPMENT TENDER-C Referring Provider, Other Pr ovider Active Dr. Arcadio Rubalcava MD Attending Provider Active Team Status: Inactive Member Role Status Dates Dr. Fam Jasso MD Primary Care Provider Active Niharika Cunningham PLATING EQUIPMENT TENDER, PLATING EQUIPMENT TENDER-C Attending Provider, Referrin g Provider Active Team Status: Active Member Role Status Dates Dr. Fam Jasso MD Primary Care Provider Active Dr. Luis Zuleta MD Referring Provider, Other Provide r Active Carol Humphries PLATING EQUIPMENT TENDER, PLATING EQUIPMENT TENDER-C Other Provider Active Dr. Yesy Gallegos MD Attending Provider Active Team Status: Inactive Member Role Status Dates Dr. Fam Jasso MD Primary Care Provider Active Dr. Luis Zuleta MD Attending Provider, Referring Pro vider Active Carol Humphries PLATING EQUIPMENT TENDER, PLATING EQUIPMENT TENDER-C Other Provider Active Team Status: Inactive Member Role Status Dates Dr. Fam Jasso MD Primary Care Provider, Refer ring Provider Active Dr. Phu Chance DO Attending Provider Active Team Status: Inactive Member Role Status Dates Dr. Fam Jasso MD Primary Care P rovider, Attending Provider, Referring Provider Active Team Status: Active Member Role Status Dates Dr. Fam Jasso MD Primary Care Provider Active Dr. Luis Zuleta MD Referring Provider, Other Provide r Active Carol Humphries PLATING EQUIPMENT TENDER, PLATING EQUIPMENT TENDER-C Other Provider Active Dr. Yesy Gallegos MD Active Dr. Arcadio Rubalcava MD Attending Provider Active Team Status: Active Member Role Status Dates Dr. Fam Jasso MD Primary Care Provider Active Dr. Luis Zuleta MD Attending Provider, Referring Provider, Other Provider Active Carol Humphries PLATING EQUIPMENT TENDER, PLATING EQUIPMENT TENDER-C Other Provider Active Team Status: Active Member Role Status Dates Dr. Fam Jasso MD Primary Care Provider Active Carol Humphries PLATING EQUIPMENT TENDER, PLATING EQUIPMENT TENDER-C Attending Provider Active Team Status: Active Member Role Status Dates Dr. Fam Jasso MD Primary Care Provider Active Dr. Vikas King MD Attending Provider Active Team Status: Inactive Member Role Status Dates Dr. Fam Jasso MD Primary Care Provider, Atten ding Provider Active Landscape Drafter Relationship Specialty Start Date End Date KarinTemitope marion [address] [place] [address] PCP - General Family Medicine 10/11/18 Team Status: Active Member Role Status Dates Dr. Fam Jasso MD Primary Care Provider Active Dr. Vikas King MD Attending Provider, Referring Pr ovider Active Team Status: Inactive Member Role Status Dates Dr. Fam Jasso MD Primary Care Provider, Refer ring Provider Active Dr. Vikas King MD Attending Provider Active Team Status: Inactive Member Role Status Dates Dr. Fam Jasso MD Primary Care Provider Active Dr. Vikas King MD Attending Provider, Referring Pr ovider Active Landscape Drafter Relationship Specialty Start Date End Date NaumTemitope marion [address] [place] [id number] PCP - General Family Medicine 10/11/18 Claudia Ma MD [address] [facility] [place] [address] Surgeon Cardiac Surg 11/24/23 Hans Wang MD [address] [place] [address] Job Molder Cardiology 12/03/23 Hans Wang MD [address] [place], [place] [id number] Primary Staff Physician Cardiology 12/16/23 Landscape Drafter Relationship Specialty Start Date End Date Vikas King MD [address] [place] [address] [id number] PCP - General Cardiovascular Disease 02/17/24 Landscape Drafter Relationship Specialty Start Date End Date Temitope Summers [address] [place] [id number] PCP - General Family Medicine 10/11/18 Claudia Ma MD [address] [place], [place] [id number] Surgeon Cardiac Surg 11/24/23 Hans Wang MD [address] [place] [address] Job Molder Cardiology 12/03/23 Hans Wang MD [address] [place], [place] [id number] Primary Staff Physician Cardiology 12/16/23 Landscape Drafter Relationship Specialty Start Date End Date Vikas King MD [address] [id number] PCP - General Cardiovascular Disease 02/17/24 Landscape Drafter Relationship Specialty Start Date End Date Vikas King MD [address] [id number] PCP - General Cardiovascular Disease 02/17/24 Landscape Drafter Relationship Specialty Start Date End Date Vikas King MD [address], [place] [id number] PCP - General Cardiovascular Disease 02/17/24 Team Status: Active Member Role Status Dates Dr. Fam Jasso MD Primary Care Provider Active Team Status: Inactive Member Role Status Dates Dr. Fam Jasso MD Primary Care Provider Active Start: September 27, 2024 End: September 27, 2024 PETE Head Attending Provider Active Start: September 27, 2024 End: September 27, 2024 PETE Head Referring Provider Active Start: September 27, 2024 End: September 27, 2024 Team Status: Inactive Member Role Status Dates Dr. Fam Jasso MD Primary Care Provider Active Start: October 20, 2024 End: October 20, 2024 PETE Head Attending Provider Active Start: October 20, 2024 End: October 20, 2024 Team Status: Inactive Member Role Status Dates Dr. Fam Jasso MD Primary Care Provider Active Start: November 16, 2024 End: November 16, 2024 Dr. Fam Jasso MD Attending Provider Active Start: November 16, 2024 End: November 16, 2024 Dr. Fam Jasso MD Referring Provider Active Start: November 16, 2024 End: November 16, 2024 Team Status: Inactive Member Role Status Dates Dr. Fam Jasso MD Primary Care Provider Active Start: December 23, 2024 End: December 23, 2024 Dr. Fam Jasso MD Referring Provider Active Start: December 23, 2024 End: December 23, 2024 PETE Head Attending Provider Active Start: December 23, 2024 End: December 23, 2024 Team Status: Inactive Member Role Status Dates Dr. Fam Jasso MD Primary Care Provider Active Start: January 04, 2025 End: January 04, 2025 Dr. Fam Jasso MD Referring Provider Active Start: January 04, 2025 End: January 04, 2025 Dr. Vikas King MD Attending Provider Active Start: January 04, 2025 End: January 04, 2025 Team Status: Inactive Member Role Status Dates Dr. Fma Jasso MD Primary Care Provider Active Start: January 05, 2025 End: January 05, 2025 Dr. Vikas King MD Attending Provider Active Start: January 05, 2025 End: January 05, 2025 Dr. Vikas King MD Referring Provider Active Start: January 05, 2025 End: January 05, 2025 Team Status: Active Member Role Status Dates Dr. Fam Jasso MD Primary Care Provider Active Start: January 12, 2025 Dr. Fam Jasso MD Attending Provider Active Start: January 12, 2025 Dr. Fam Jasso MD Referring Provider Active Start: January 12, 2025 Team Status: Inactive Member Role Status Dates Dr. Fam Jasso MD Primary Care Provider Active Start: January 18, 2025 End: January 18, 2025 Dr. Fam Jasso MD Referring Provider Active Start: January 18, 2025 End: January 18, 2025 Evelina Arvizu Attending Provider Active Start: 2024 End: January 18, 2025 Team Status: Active Member Role Status Dates Dr. Fam Jasso MD Primary Care Provider Active Start: January 23, 2025 Dr. Vikas King MD Attending Provider Active Start: January 23, 2025 Dr. Vikas King MD Referring Provider Active Start: January 23, 2025 Team Status: Inactive Member Role Status Dates Dr. Fam Jasso MD Primary Care Provider Active Start: January 24, 2025 End: January 24, 2025 Dr. Fam Jasso MD Attending Provider Active Start: January 24, 2025 End: January 24, 2025 Dr. Fam Jasso MD Referring Provider Active Start: January 24, 2025 End: January 24, 2025 Team Status: Inactive Member Role Status Dates Dr. Fam Jasso MD Primary Care Provider Active Start: January 23, 2025 End: January 23, 2025 Dr. Vikas King MD Attending Provider Active Start: January 23, 2025 End: January 23, 2025 Dr. Vikas King MD Referring Provider Active Start: January 23, 2025 End: January 23, 2025 Team Status: Inactive Member Role Status Dates Dr. Fam Jasso MD Primary Care Provider Active Start: January 18, 2025 End: January 18, 2025 Dr. Luis Zuleta MD Attending Provider Active S tart: January 18, 2025 End: January 18, 2025 Team Status: Inactive Member Role Status Dates Dr. Fam Jasso MD Primary Care Provider Active Start: February 01, 2025 End: February 01, 2025 Dr. Vikas King MD Attending Provider Active Start: February 01, 2025 End: February 01, 2025 Dr. Vikas King MD Referring Provider Active Start: February 01, 2025 End: February 01, 2025 Team Status: Active Member Role Status Dates Dr. Fam Jasso MD Primary Care Provider Active Start: February 01, 2025 Dr. Vikas King MD Attending Provider Active Start: February 01, 2025 Team Status: Inactive Member Role Status Dates Dr. Fam Jasso MD Primary Care Provider Active Start: January 18, 2025 End: January 18, 2025 Dr. Luis Zuleta MD Attending Provider Active S tart: January 18, 2025 End: January 18, 2025 Dr. Luis Zuleta MD Referring Provider Active S tart: January 18, 2025 End: January 18, 2025 Team Status: Inactive Member Role Status Dates Dr. Fam Jasso MD Primary Care Provider Active Start: February 16, 2025 End: February 16, 2025 Dr. Fam Jasso MD Attending Provider Active Start: February 16, 2025 End: February 16, 2025 Dr. Fam Jasso MD Referring Provider Active Start: February 16, 2025 End: February 16, 2025 Team Status: Inactive Member Role Status Dates Dr. Fam Jasso MD Primary Care Provider Active Start: February 17, 2025 End: February 17, 2025 Dr. Fam Jasso MD Referring Provider Active Start: February 17, 2025 End: February 17, 2025 PETE Head Attending Provider Active Start: February 17, 2025 End: February 17, 2025 Team Status: Inactive Member Role Status Dates Dr. Fam Jasso MD Primary Care Provider Active Start: February 17, 2025 End: February 17, 2025 PETE Head Attending Provider Active Start: February 17, 2025 End: February 17, 2025 PETE Head Referring Provider Active Start: February 17, 2025 End: February 17, 2025 Team Status: Inactive Member Role Status Dates GABINO Whitney Attending Provider Active St art: March 24, 2025 End: March 24, 2025 Dr. Fam Jasso MD Primary Care Provider Active Start: March 24, 2025 End: March 24, 2025 Dr. Fam Jasso MD Referring Provider Active Start: March 24, 2025 End: March 24, 2025 Source Comments (unrecognize d section and content) In the event this informatio n is protected by the Federal Confidentiality of Alcohol and Drug Abuse Patient Records regulations: The Federal rules restrict any use of the information to criminally investigate or prosecute any alcohol or drug abuse patient.[facility] the event this information is protected by the Federal Confidentiality of Alcohol and Drug Abuse Patient Records regulations: The Federal rules restrict any use of the information to criminally investigate or prosecute any alcohol or drug abuse patient.[facility] the event this information is protected by the Federal Confidentiality of Alcohol and Drug Abuse Patient Records regulations: The Federal rules restrict any use of the information to criminally investigate or prosecute any alcohol or drug abuse patient.[facility] Reason for Visit (unrecogniz ed section and content) Reason Comments Cough Cough and runny nose , SOB x 2 days Reason Comments Holter Monitor Hook-up Specialty Diagnoses / Procedures Referred By Issac [email or web address] Referred To Contact Diagnoses Permanent atrial fibrillation NICM (nonischemic cardiomyopathy) Procedures HOLTER MONITOR - 24 HOUR Elliott Eastman MD [address] [address] Referral ID Status Reason Start Date Expiration Date V isits Requested Visits Authorized [id number] New Request 02/19/2024 03/15/2025 1 1 Reason Comments Appointment Specialty Diagnoses / Procedures Referred By Issac t Referred To Contact Diagnoses Permanent atrial fibrillation Permanent atrial fibrillation [I48.21] Procedures VT ICAR CATHETER ABLATION ATRIOVENTR NODE FUNCTION VT INSJ/RPLCMT PERM DFB W/TRNSVNS LDS 1/DUAL CHMBR AV NODE ABLATION ICD SCHED INSERT BIV DEVICE AND LEADS (59499, [id number]) Elliott Eastman MD [address] [address] [facility] [address] [place] [id number] Referral ID Status Reason Start Date Expiration Date Visits Re quested Visits Authorized [id number] 1 1 Scheduled Active and Recently Administ ered Medications (unrecognized section and content) Medication Order 04/05/2024 04/06/2024 04/07/2024 Allopurinol (ZYLOPRIM) tablet 100 mg 100 mg, Oral, DAILY, First dose on Thu04/07/24 at 0900, Until Discontinued 911 (Given - Provid er: Obdulia Apodaca RN) Atorvastatin (LIPITOR) tablet 20 mg 20 mg, Oral, DAILY AT BEDTIME, First dose on Thu04/06/24 at 2100, Until Discontinued 2137 (Given - Provider: Hill Presley, STEFANIA) Aztreonam (AZACTAM) 2 g in sodium chloride 0.9% (MB PLUS) 100 mL (total volume) IVPB (COMPLETED) 2 g, Intravenous, Administer over 30 Minutes, ONCE, 1 dose, On Thu04/06/24 at 1330 1427 ($$New Bag$$ - Provider: Reese Delgado APRN-STAINED GLASS ARTIST) dapagliflozin (FARXIGA) tablet 10 mg 10 mg, Oral, DAILY, First dose on Thu04/07/24 at 0900, Until Discontinued, Do not administer if NPO. Discontinue 3 days prior to major invasive medical procedures., Indications: Heart Failure 951 (Not Given - Provider: Obdulia Apodaca RN - Reason: Other - Comment: pt takes w dinner @ home. Educated to take tonight w dinner.) diphenhydrAMINE (BENADRYL) injection 12.5 mg (COMPLETED) 12.5 mg, Intravenous, ONCE, 1 dose, On Thu04/06/24 at 1215 1152 (Given - Provider: Darryl Mckeon, STEFANIA) furOSEmide (LASIX) tablet 60 mg 60 mg, Oral, DAILY, First dose on Thu04/07/24 at 0900, Until Discontinued 912 (Not Given - Provider: Obdulia Apodaca RN - Reason: Patient/family refused) Lisinopril (PRINIVIL) tablet 40 mg 40 mg, Oral, DAILY, First dose on Thu04/07/24 at 0900, Until Discontinued 911 (Given - Provid er: Obdulia Apodaca RN) Metoprolol succinate (TOPROL-XL) tablet XL 50 mg 50 mg, Oral, DAILY, First dose on Thu04/07/24 at 0900, Until Discontinued, Slow release product. Do not crush. Extended release can be cut in half. 952 (Given - Provid er: Obdulia Apodaca RN) Pantoprazole (PROTONIX) tablet DR 40 mg 40 mg, Oral, DAILY, First dose on Thu04/07/24 at 0900, Until Discontinued, Swallow whole; do not crush or chew., Indications: Continuation of Home Therapy 911 (Given - Provid er: Obdulia Apodaca RN) Potassium chloride (K-DUR) tablet ER 20 mEq 20 mEq, Oral, DAILY, First dose on Thu04/07/24 at 0900, Until Discontinued 913 (Canceled Entry - Provider: Obdulia Apodaca RN) Continuous Medication Order 04/05/2024 04/06/2024 04/07/2024 Sodium chloride 0.9% IV solution 500 mL () Intravenous, at 10 mL/hr, CONTINUOUS, Starting on Thu04/06/24 at 1045, Until Thu04/06/24 at 2244, KVO fluids, start the morning of procedure., Pre-op/Pre-Proc 1100 ($$New Bag$$ - Provider : Darryl Mckeon RN) PRN Medication Order 04/05/2024 04/06/2024 04/07/2024 Acetaminophen (TYLENOL) tablet 650 mg 650 mg, Oral, EVERY 6 HOURS NEEDED, Starting on Thu04/06/24 at 1801, Until Thu04/07/24 at 1231, Mild Pain, Maximum dose of acetaminophen is 4000 mg from all sources in 24 hours., Post-op/Post-Proc 0738 (Given - Provid er: Obdulia Apodaca RN) Albuterol inhaler 2 puff 2 puff, Inhalation, EVERY 6 HOURS NEEDED, Starting on Thu04/06/24 at 1300, Until Thu04/07/24 at 1231, Shortness of Breath, Wait at least one(1) full minute between inhalations alum/mag hydrox.-simethicone oral suspension 30 mL 30 mL, Oral, EVERY 6 HOURS NEEDED, Starting on Thu04/06/24 at 1801, Until Kiara 04/07/24 at 1231, Indigestion, Per 5 mL is equivalent to: (Alum-Mag Hydroxide 200-225 mg and Simethicone 20 mg) and (Alum-Mag Hydroxide 200-200 mg and Simethicone 20 mg), Post-op/Post-Proc HYDROmorphone (DILAUDID) injection 0.2 mg 0.2 mg, Intravenous, EVERY 2 HOURS NEEDED, Starting on Thu04/06/24 at 1801, Until Kiara 04/07/24 at 1231, Severe Pain, If unable to tolerate PO, Post-op/Post-Proc 1854 (Given - Provider: Darryl Mckeon RN) Iohexol (OMNIPAQUE) 300 MG/ML vial (CANCELED) NEEDED, Starting on Thu04/06/24 at 1659, Until Thu04/06/24 at 1808, Intra-op/Intra-Proc 1659 (Given - Provider: Pat Mata MD) Lidocaine (XYLOCAINE) 10 mg/mL injection (CANCELED) NEEDED, Starting on Thu04/06/24 at 1448, Until Thu04/06/24 at 1808, Intra-op/Intra-Proc 1448 (Given - Provider: Pat Mata MD)1500 (Given - Provider: Pat Mata MD) Magnesium sulfate 4 g in sterile water 50 ml premix IVPB 4 g, Intravenous, Administer over 4 Hours, ADMINISTER DIRECTED, Starting on Thu04/06/24 at 1801, Until Kiara 04/07/24 at 1231, Other, Magnesium Replacement Therapy, If Magnesium less than 1.6, give 4 g Magnesium Sulfate IVPB over 4 hours (may give over 1 hour if arrhythmias present)., Post-op/Post-Proc Melatonin tablet 3 mg 3 mg, Oral, DAILY AT BEDTIME NEEDED, Starting on Thu04/06/24 at 1801, Until Kiara 04/07/24 at 1231, Insomnia, Post-op/Post-Proc Ondansetron 4mg/2ml (ZOFRAN) injection 4 mg 4 mg, Intravenous, EVERY 4 HOURS NEEDED, Starting on Thu04/06/24 at 1801, Until Kiara 04/07/24 at 1231, Nausea / Vomiting, Post-op/Post-Proc oxyCODONE (ROXICODONE) tablet 5 mg(Linked Group 1) 5 mg, Oral, EVERY 4 HOURS NEEDED, Starting on Thu04/06/24 at 1801, Until Kiara 04/07/24 at 1231, Moderate Pain, Severe Pain, PRN for Moderate Pain. Use for Severe Pain if IV not available for use as initial dose. Higher dose may be administred if lower dose was previously documented as ineffective and did not result in adverse effects (RR<10, decrease in level of consciousness)., Post-op/Post-Proc 2245 (Given - Provider: Hill Presley RN) oxyCODONE HCl (ROXICODONE) tablet 10 mg(Linked Group 1) 10 mg, Oral, EVERY 4 HOURS NEEDED, Starting on Thu04/06/24 at 1801, Until Kiara 04/07/24 at 1231, Moderate Pain, Severe Pain, PRN for Moderate Pain. Use for Severe Pain if IV not available for use as initial dose. Higher dose may be administred if lower dose was previously documented as ineffective and did not result in adverse effects (RR<10, decrease in level of consciousness), Post-op/Post-Proc 2245 (See Alternative - Provider: Hill Presley RN) Polyethylene glycol (MIRALAX) packet 17 g 17 g, Oral, DAILY NEEDED, Starting on Thu04/06/24 at 1801, Until Kiara 04/07/24 at 1231, Constipation 1st Line, Post-op/Post-Proc Potassium chloride (K-DUR) tablet ER 20 mEq 20 mEq, Oral, ADMINISTER DIRECTED, Starting on Thu04/06/24 at 1801, Until Kiara 04/07/24 at 1231, See admin instructions, If Cr 2.0 - 2.5 mg/dL For Potassium less than 3.6, give 20 mEq Potassium Chloride orally, recheck in AM. If Cr greater than 2.5 mg/dL contact physician/LIP for Potassium less than 3.6 for replacement orders. If potassium is low please administer magnesium first if indicated, Post-op/Post-Proc 911 (Given - Provid er: Obdulia Apodaca RN) Potassium chloride (K-DUR) tablet ER 40-60 mEq 40-60 mEq, Oral, ADMINISTER DIRECTED, Starting on Thu04/06/24 at 1801, Until Kiara 04/07/24 at 1231, See admin instructions, If Cr less than 2.0 mg/dL 1. For Potassium 3.6 - 4.0, give 40 mEq of Potassium Chloride orally, recheck in the AM. 2. For Potassium less than 3.6, give 60 mEq Potassium Chloride orally, recheck in 8 hours. 3. If potassium is low please administer magnesium first if indicated., Post-op/Post-Proc Vancomycin HCl in NaCl (Vancocin) 1,500 mg 290 ml premade IVPB (COMPLETED) 1,500 mg, Intravenous, Administer over 1 Hours, PLUMBER'S HELPER TO PROCEDURE, 1 dose, Starting on Thu04/06/24 at 0000, Until Thu04/06/24 at 1200, Other, Preoperative antibiotic, Order should be timed for day of procedure. 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 Vancomycin is preferred agent for device implants, based on national, community and local ([facility]) MRSA rates., Pre-op/Pre-Proc 1100 ($$New Bag$$ - Provider: Darryl Mckeon RN) Linked Groups Order Group 1: oxyCODONE (ROXICODONE) tablet 5 mgJump to med 5 mg, Oral, EVERY 4 HOURS NEEDED, Starting on Thu04/06/24 at 1801, Until Kiara 04/07/24 at 1231, Moderate Pain, Severe Pain, PRN for Moderate Pain. Use for Severe Pain if IV not available for use as initial dose. Higher dose may be administred if lower dose was previously documented as ineffective and did not result in adverse effects (RR<10, decrease in level of consciousness)., Post-op/Post-Proc Or oxyCODONE HCl (ROXICODONE) tablet 10 mgJump to med 10 mg, Oral, EVERY 4 HOURS NEEDED, Starting on Thu04/06/24 at 1801, Until Kiara 04/07/24 at 1231, Moderate Pain, Severe Pain, PRN for Moderate Pain. Use for Severe Pain if IV not available for use as initial dose. Higher dose may be administred if lower dose was previously documented as ineffective and did not result in adverse effects (RR<10, decrease in level of consciousness), Post-op/Post-Proc FOR RECORDS PERTAINING TO PATIENTS WHO ARE [...] BE BASED ON THE PRIMARY CLINICAL RECORDS. [employer] [facility]. provides no warranty or guarantee of the accuracy or completeness of information in this document.
== END | disposition home or self-care (01) ==
LOC: SL 11:13
PROVIDERS: PCP Internal Medicine; Referring Provider Nurse Practitioner Family; Visit Provider Nurse Practitioner Family
DX: G47.33 Obstructive sleep apnea (adult) (pediatric) (principal)
CPT/HCPCS: 94762

== ENCOUNTER → 2025-03-30 | Outpatient (CLI) | payer MEDICARE, MEDICAID, SELFPAY ==
--- NOTE | 2025-03-30 11:18 | RAD_ITS ---
PROCEDURE: CERV SPINE 2 OR 3 VIEWS 03/30/2025 REASON FOR EXAM: CHRONIC NECK PAIN TECHNIQUE: 4 views of the cervical spine. COMPARISON: None FINDINGS: Incomplete visualization of the C7 vertebral body limits evaluation. Vertebral body heights are otherwise maintained. There is straightening of the normal cervical lordosis. Multilevel disc height loss with endplate osteophyte formation, uncovertebral and facet arthropathy worst at C4-5 and C5-6. There is a thickened appearance of the prevertebral soft tissues which measure 1.4 cm at the level of C3 and 2.5 cm at the level of C6. The odontoid view is unremarkable. Cardiac device partially imaged. Lung apices are clear. Aortic atherosclerosis. RAD/Cerv Spine 2 or 3 Views IMPRESSION: 1. Thickened appearance of the prevertebral soft tissues, which could be artif actual due to patient positioning. Correlate with symptoms and consider contrast-enhanced CT for further evaluation. 2. [id number] multilevel degenerative changes of the cervical spine, w orst at C4-5 and C5-6. Reading Location: [place]
--- NOTE | 2025-03-30 11:20 | RAD_ITS ---
PROCEDURE: LUMBAR SPINE 2 OR 3 VIEWS 03/30/2025 REASON FOR EXAM: LOW BACK PAIN TECHNIQUE: 3 view(s) of the lumbar spine COMPARISON: None FINDINGS: There are 5 [id number] lumbar-type vertebral bodies. There is 5 mm retrolisthesis of L4 on L5. Vertebral body heights are maintained. Multilevel loss of intervertebral disc height, facet arthrosis, and endplate osteophyte formation which is worst at L4-5 and L5-S1. Aortic atherosclerosis. Clips project in the pelvis. Degenerative changes of the hips and sacroiliac joints. RAD/Lumbar Spine 2 or 3 Views IMPRESSION: Moderate multilevel degenerative changes of the lumbar spine, worst at L4-5 and L5-S1. Reading Location: [place]
== END | disposition home or self-care (01) ==
LOC: RAD 11:16
PROVIDERS: PCP Internal Medicine; Referring Provider Physician Assistant; Visit Provider Physician Assistant
DX: M54.50 Low back pain, unspecified (principal); G89.29 Other chronic pain; M54.2 Cervicalgia
CPT/HCPCS: 72040; 72100

== ENCOUNTER → 2025-05-02 | Outpatient (CLI) | payer MEDICARE, MEDICAID, SELFPAY | END | disposition home or self-care (01) | LOC: SL 08:58 | PROVIDERS: PCP Internal Medicine; Referring Provider Nurse Practitioner Family; Visit Provider Nurse Practitioner Family | DX: G47.33 Obstructive sleep apnea (adult) (pediatric) (principal) | CPT/HCPCS: 94762 ==